=== PATIENT | male | born 1955 | race African-American/Black ===

== ENCOUNTER 2017-09-16 16:18 | Emergency (ER) | payer MEDICAID, MEDICARE, OTHER ==
[~2017-09-16] VITALS: Ht 165.1 cm; Wt 87.1 kg
[~2017-09-16 16:18] MED LIST: HYDROCODON-ACE1 EA15 ORAL; NEURONTIN100 MG ORAL; NORCO 5-325 TA1 EACH ORAL; ROBAXIN500 MG PO
[2017-09-16] MEDS ORDERED: Morphine Sulfate 4mg/ml Inj IM ONE (16:45)
[2017-09-16] MEDS ORDERED: ACETAMINOPHEN-1 EAC1 ORAL (17:55)
[2017-09-16] MEDS ORDERED: SUDAFED 12-HOU120 MG PO (17:55)
[2017-09-16] MEDS ORDERED: FLONASE SENSIM9.9 ML NS (17:55)
[2017-09-16 18:00] VITALS: BP 123/75
[2017-09-16] MEDS ORDERED: Tylenol #3 tab (300mg/30mg) ORAL ONE (18:00)
--- NOTE | 2017-09-16 21:41 | Emergency Room Report ---
History of Present Illness General Chief Complaint: Headache Source: Patient, Significant Other Present Illness HPI The patient is a 62-year-old male presenting for headache for the past 6 days. 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 He states that this began for no known reason. Pain is a 9/ 10 sharp sensation to the front of the head and does not radiate. Worse with head movement. He has used Tylenol at home which has not been helping.He does admit to nasal congestion. He denies other symptoms including fever, chills, CP , SOB, slurred speech, weakness Allergies: Coded Allergies: ASPIRIN (Unverified Allergy, Unknown, 10/31/14) IBUPROFEN (Unverified Allergy, Unknown, 04/10/14) Patient History Past Medical History: see triage record Pertinent Family History: none Reviewed Nursing Documentation: PMH: Agreed, PSxH: Agreed Nursing Documentation-PMH Hx Cardiac Problems: No - Blind both eyes, Thyroid prob Hx Hypertension: Yes Review of Systems All Other Systems: negative except mentioned in HPI Physical Exam Vital Signs Date Time Temp Pulse Resp B/P (MAP) Pulse Ox O2 Delivery O2 Flow Rate FiO2 09/16/17 16:25 98.3 81 18 120/77 95 98.2 09/16/17 18:00 Room Air Sp02 EP Interpretation: reviewed, normal General Appearance: no apparent distress, alert, GCS 15, non-toxic Head: normocephalic, atraumatic Eyes: bilateral eye Scleral Injection, bilateral eye other - blind bilat ENT: normal voice, uvula midline, nasal congestion, other - TTP over bilat frontal and maxillary sinuses Neck: full range of motion, supple/symm/no masses Cardiovascular #1: regular rate, rhythm, no edema Musculoskeletal: back normal, gait/station normal, normal range of motion, non- tender Neurologic: alert, oriented x3, responsive, motor strength/tone normal, sensory intact, speech normal Psychiatric: judgement/insight normal, memory normal, mood/affect normal, no suicidal/homicidal ideation Skin: normal color, no rash, warm/dry, well hydrated Medical Decision Making PA Attestation Dr. Saavedra is my supervising physician. Patient management was discussed with my supervising physician Diagnostic Impression: Primary Impression: Sinusitis Qualified Codes: J32.9 - Chronic sinusitis, unspecified ER Course The patient is a 62-year-old male presenting for headache for the past 6 days DDx considered but not limited to: Sinusitis, rhinitis, migraine CAMPBELL, CVA, among others PE: vitals WNL. NAD CN II-XII grossly intact TTP over bilat maxillary sinuses. + Nasal congestion RRR Lungs CTA bilat CT facial bones: Maxillary sinus mucosal thickening Pt was given pain medication and feels better. He is MT'ed home with prescription for sudafed, flonase, and pain medication. ER precautions given CT/MRI/US Diagnostic Results CT/MRI/US Diagnostic Results #1: Imaging Test Ordered: CT head Impression No acute findings CT/MRI/US Diagnostic Results #2: Imaging Test Ordered: CT facial bones Impression Maxillary sinus mucosal thickening Last Vital Signs Date Time Temp Pulse Resp B/P (MAP) Pulse Ox O2 Delivery O2 Flow Rate FiO2 09/16/17 18:01 98.3 09/16/17 18:00 87 18 123/75 99 09/16/17 18:00 Room Air Status: improved Disposition: HOME, SELF-CARE Condition: Improved Scripts Fluticasone Furoate (FLONASE SENSIMIST) 9.9 Ml [place].susp 1 SPRAYS NS DAILY, #10 ML Prov: DREAD CASTELLANO P.A. 09/16/17 Pseudoephedrine Hcl (SUDAFED 12-HOUR) 120 Mg Tablet.er 120 MG PO Q12HR, #20 TAB Prov: TERZIAN,DREAD P.A. 09/16/17 Acetaminophen With Codeine (T#3) (TYLENOL #3 TAB*) Y Tab 1 TAB ORAL Q6HR Y for For Pain, #10 TAB Prov: TERDANDREANDREAD P.A. 09/16/17 Patient Instructions: Sinus Headache Additional Instructions: I discussed my findings with the patient. All questions and concerns have been answered. Treatment and medication compliance have been addressed. I advised the patient that they need to follow up with PMD in 3-5 days. Return to ED if symptoms worsen, new symptoms arise, or if needed for any reason. Patient verbalized understanding of discharge instructions. DREAD CASTELLANO Sep 16, 2017 21:41
--- NOTE | 2017-09-17 09:44 | Diagnostic Imaging Report ---
Indication: Headache. Head trauma. Technique: Contiguous 5 mm thick transaxial imaging of the head obtained in a Siemens Sensation [address] scanner. Soft tissue and bone windows generated. Automatic Exposure Control was utilized. Total Dose length Product (DLP): 1849.[address] Dose Index Volume (CTDIvol): 70.38,28.19 mGy Comparison: 04/10/2014 Findings: There is mild prominence of the ventricles, basal cisterns, and cerebral sulci consistent with atrophy. Mild, nonspecific, white matter hypoattenuation is noted throughout the brain consistent with chronic small vessel disease. There is no midline shift, edema, acute hemorrhage, mass effect, or abnormal extra-axial fluid collections. Bones and extra osseous soft tissues are unremarkable. Impression: No acute intracranial bleed, mass effect or edema. Mild atrophy of the brain. Nonspecific white matter hypoattenuation probably due to chronic small vessel disease. The CT scanner at [facility] is accredited by the [employer] and the scans are performed using dose optimization techniques as appropriate to a performed exam including Automatic Exposure control.
--- NOTE | 2017-09-17 10:03 | Diagnostic Imaging Report ---
Indication: Orbital trauma. Facial pain and headache Technique: Continuous helical transaxial imaging of the maxillofacial structures obtained without intravenous contrast administration. Coronal 2-D reformats were also obtained. Study obtained in a Siemens sensation [address] Automatic Exposure Control was utilized. Total Dose length Product (DLP): 1849.[address] Dose Index Volume (CTDIvol): 70.38,28.19 mGy Comparison: None Findings: There is no evidence of an acute fracture. Paranasal sinuses and mastoids are clear. Soft tissues are unremarkable. There is no proptosis or retrobulbar hemorrhage. The preliminary reading by stat read suggested retrobulbar edema. This is probably artifactual. Please correlate clinically. Suggest follow-up if there is clinical concern. Some mucosal thickening noted within paranasal sinuses. There is a small left mary bullosa noted. IMPRESSION: No acute injury identified. [facility] has communicated the preliminary results to the Emergency Department. Their findings are largely concordant with this report. The CT scanner at [facility] is accredited by the [employer] and the scans are performed using dose optimization techniques as appropriate to a performed exam including Automatic Exposure control.
== END 2017-09-16 18:00 | disposition home or self-care (01) ==
LOC: EMR 16:50
DX: J32.9 Chronic sinusitis, unspecified (principal); R51 Headache; G31.9 Degenerative disease of nervous system, unspecified; H54.8 Legal blindness, as defined in USA; I10 Essential (primary) hypertension; Z88.6 Allergy status to analgesic agent
CPT/HCPCS: 70450; 70486; 96372; 99284; J2270

== ENCOUNTER 2017-09-26 10:36 | Emergency (ER) | payer MEDICARE ==
[~2017-09-26] VITALS: Ht 165.1 cm; Wt 89.8 kg
[~2017-09-26 10:36] MED LIST changes: +ACETAMINOPHEN-1 EAC1 ORAL; +FLONASE SENSIM9.9 ML NS; +SUDAFED 12-HOU120 MG PO
[2017-09-26 11:07] VITALS: BP 163/92
[2017-09-26] MEDS ORDERED: Morphine Sulfate 4mg/ml Inj IVP ONE ×2 (11:45→14:00)
[2017-09-26 12:27] LABS: ANION GAP 3 mmol/L (5-15); BLOOD UREA NITROGEN 8 mg/dL (7-18); CALCIUM 9.3 MG/DL (8.5-10.1); CARBON DIOXIDE 32 MMOL/L (21-32); CHLORIDE 103 MMOL/L (98-107); CREATININE 1.4 MG/DL (0.55-1.30); POTASSIUM 4.5 MMOL/L (3.5-5.1); SODIUM 138 MMOL/L (136-145)
[2017-09-26] MEDS ORDERED: Tetracaine 0.5% Opth 4ml Soln RIGHT EYE ONE (12:30)
[2017-09-26 12:31] LABS: ALANINE AMINOTRANSFERASE 22 U/L (12-78); ALBUMIN 3.5 G/DL (3.4-5.0); ALKALINE PHOSPHATASE 73 U/L (46-116); ASPARTATE AMINO TRANSFERASE 14 U/L (15-37); BILIRUBIN,TOTAL 0.6 MG/DL (0.2-1.0)
[2017-09-26 12:46] LABS: BASOPHILS % (AUTO) 1.6 % (0.0-2.0); HEMATOCRIT 48.2 % (42.0-52.0); LYMPHOCYTES % (AUTO) 32.4 % (20.0-45.0); MEAN CORPUSCULAR VOLUME 89 FL (80-99); MONOCYTES % (AUTO) 8.7 % (1.0-10.0); NEUTROPHILS % (AUTO) 56.4 % (45.0-75.0); PLATELET COUNT 205 K/UL (150-450); RED BLOOD COUNT 5.45 M/UL (4.70-6.10); RED CELL DISTRIBUTION WIDTH 13.1 % (11.6-14.8); WHITE BLOOD COUNT 8.1 K/UL (4.8-10.8)
[2017-09-26] MEDS ORDERED: Fluorescein Strips RIGHT EYE ONE (13:15)
[2017-09-26] MEDS ORDERED: DiphenhydrAMINE 50mg/ml Inj IVP ONE (14:15)
--- NOTE | 2017-09-26 14:28 | Diagnostic Imaging Report ---
Indication: headache Technique: Continuous helical transaxial imaging of the neck was obtained from the aortic arch to the skull base during rapid intravenous contrast administration. Arterial phase of enhancement obtained. Coronal 2-D reformats were also obtained and maximum intensity projection images in multiple planes. Study obtained in a Siemens sensation [address] Automatic Exposure Control was utilized. Total Dose length Product (DLP): 3702.[address] Dose Index Volume (CTDIvol): 70.38,54.98,54.98 mGy Comparison: None Findings: Intracranial portions of the internal carotid arteries appear normal. No major occlusion or significant stenosis identified with regard to the major intracranial vessels including the anterior, middle and posterior cerebral arteries. Intracranial parts of the vertebral arteries are unremarkable. Basilar artery is unremarkable. There is no vascular malformation or aneurysm identified. Persistent origin vessel demonstrated on the left giving rise to the left posterior cerebral artery. IMPRESSION: Negative CTA of the head The CT scanner at [facility] is accredited by the [employer] and the scans are performed using dose optimization techniques as appropriate to a performed exam including Automatic Exposure control.
[2017-09-26] MEDS ORDERED: Latanoprost 0.005% Opth 2.5ml Soln RIGHT EYE ONE (15:15)
[2017-09-26] MEDS ORDERED: acetaZOLAMIDE 500mg Inj IVP ONE (15:15)
[2017-09-26] MEDS ORDERED: Brimonidine 0.2% Opth Sol RIGHT EYE ONE (15:15)
[2017-09-26] MEDS ORDERED: COMBIGAN EYE DRO5 ML BOTH EYES (16:57)
[2017-09-26 17:05] VITALS: BP 147/88
--- NOTE | 2017-09-26 17:12 | Emergency Room Report ---
History of Present Illness General Chief Complaint: Headache Source: Patient, Medical Record Present Illness HPI 62-year-old male presents ED for evaluation. at bedside states the patient has been having a persistent headache for the last 2 weeks. Was seen here approximately 2 weeks ago for similar headache and was diagnosed with sinusitis and was discharged with medications. Patient was seen by PMD recently and was prescribed antibiotics for presumed sinusitis. Patient states the headache has not resolved. Throbbing, right side of head, 8 out of 10, nonradiating. Denies photophobia or blurry vision. Patient is blind in both eyes since 2002. Patient states it was due to a surgery that "went wrong". Denies fevers or chills or neck stiffness. No other aggravating or relieving factors. Denies any other signs and symptoms Allergies: Coded Allergies: ASPIRIN (Unverified Allergy, Unknown, 10/31/14) IBUPROFEN (Unverified Allergy, Unknown, 04/10/14) Patient History Past Medical History: HTN Past Surgical History: none Pertinent Family History: none Social History: Denies: smoking, alcohol use, drug use Immunizations: UTD Reviewed Nursing Documentation: PMH: Agreed, PSxH: Agreed Nursing Documentation-PMH Past Medical History: No History, Except For Hx Cardiac Problems: No - Blind both eyes, Thyroid prob Hx Hypertension: Yes Review of Systems All Other Systems: negative except mentioned in HPI Physical Exam Vital Signs Date Time Temp Pulse Resp B/P (MAP) Pulse Ox O2 Delivery O2 Flow Rate FiO2 09/26/17 10:47 97.8 102 18 163/92 96 Room Air 97.9 Sp02 EP Interpretation: reviewed, normal General Appearance: no apparent distress, alert, GCS 15, non-toxic Head: normocephalic, atraumatic Eyes: bilateral eye visual acuity - blind in both eyes, bilateral eye Scleral Injection ENT: hearing grossly normal, normal pharynx, no angioedema, normal voice Neck: full range of motion, supple/symm/no masses Respiratory: chest non-tender, lungs clear, normal breath sounds, speaking full sentences Cardiovascular #1: regular rate, rhythm, no edema Cardiovascular #2: 2+ carotid (R), 2+ carotid (L), 2+ radial (R), 2+ radial (L) , 2+ dorsalis pedis (R), 2+ dorsalis pedis (L) Gastrointestinal: normal bowel sounds, non tender, soft, non-distended, no guarding, no rebound Rectal: deferred Genitourinary: normal inspection, no CVA tenderness Musculoskeletal: back normal, gait/station normal, normal range of motion, non- tender Neurologic: alert, oriented x3, responsive, motor strength/tone normal, sensory intact, speech normal Psychiatric: judgement/insight normal, memory normal, mood/affect normal, no suicidal/homicidal ideation Reflexes: 3+ bicep (R), 3+ bicep (L), 3+ tricep (R), 3+ tricep (L), 3+ knee (R) , 3+ knee (L) Skin: normal color, no rash, warm/dry, well hydrated Lymphatic: no adenopathy Medical Decision Making Diagnostic Impression: Primary Impression: Glaucoma (increased eye pressure) Qualified Codes: H40.9 - Unspecified glaucoma ER Course Hospital Course 62-year-old male presents ED with headache 2 weeks. Differential diagnoses include: tension headache, migraine, dehydration, intracranial bleed Clinical course Patient placed on stretcher. After initial history and physical I ordered labs , IV fluids, pain meds, CTA head On review of EMR patient has CT head last time and CT facial bones which were unremarkable Labs reviewed- electrolytes okay, no leukocytosis, hemoglobin/hematocrit stable CT angio today unremarkable Mckay pressures in left eye in the 20s, in the right eye in the 40s. Concern for glaucoma. Consulted with ophthalmology over the phone. Given Diamox, timolol, alphagan here now returns to bedside and states that patient does have history of glaucoma. Is not compliant with his medication (Lumigan) On reassessment headache is now resolved. Discussed the importance of compliance with his medications i. I feel this is a highly complex case requiring extensive working including EKG/Rhythm strip, Xray/CT/US, Blood/urine lab work, repeat exams while in ED, and administration of strong opiates/narcotics for pain control, admission to hospital or close patient follow up. Diagnosis - glaucoma stable and discharged to home with Rx Combigan. continue Lumigan as directed. f /up with PMD/Optho Rreturn to ED if symptoms recur/worsen. Labs Test 09/26/17 11:54 White Blood Count 8.1 K/UL (4.8-10.8) Red Blood Count 5.45 M/UL (4.70-6.10) Hemoglobin 16.0 G/DL (14.2-18.0) Hematocrit 48.2 % (42.0-52.0) Mean Corpuscular Volume 89 FL (80-99) Mean Corpuscular Hemoglobin 29.4 PG (27.0-31.0) Mean Corpuscular Hemoglobin Concent 33.3 G/DL (32.0-36.0) Red Cell Distribution Width 13.1 % (11.6-14.8) Platelet Count 205 K/UL (150-450) Mean Platelet Volume 7.2 FL (6.5-10.1) Neutrophils (%) (Auto) 56.4 % (45.0-75.0) Lymphocytes (%) (Auto) 32.4 % (20.0-45.0) Monocytes (%) (Auto) 8.7 % (1.0-10.0) Eosinophils (%) (Auto) 1.0 % (0.0-3.0) Basophils (%) (Auto) 1.6 % (0.0-2.0) Sodium Level 138 MMOL/L (136-145) Potassium Level 4.5 MMOL/L (3.5-5.1) Chloride Level 103 MMOL/L (98-107) Carbon Dioxide Level 32 MMOL/L (21-32) Anion Gap 3 mmol/L (5-15) Blood Urea Nitrogen 8 mg/dL (7-18) Creatinine 1.4 MG/DL (0.55-1.30) Estimat Glomerular Filtration Rate > 60 mL/min (>60) Glucose Level 90 MG/DL (74-106) Calcium Level 9.3 MG/DL (8.5-10.1) Total Bilirubin 0.6 MG/DL (0.2-1.0) Aspartate Amino Transf (AST/SGOT) 14 U/L (15-37) Alanine Aminotransferase (ALT/SGPT) 22 U/L (12-78) Alkaline Phosphatase 73 U/L (46-116) Total Protein 6.9 G/DL (6.4-8.2) Albumin 3.5 G/DL (3.4-5.0) Globulin 3.4 g/dL Albumin/Globulin Ratio 1.0 (1.0-2.7) CT/MRI/US Diagnostic Results CT/MRI/US Diagnostic Results : Imaging Test Ordered: CT Head Impression no acute process Last Vital Signs Date Time Temp Pulse Resp B/P (MAP) Pulse Ox O2 Delivery O2 Flow Rate FiO2 09/26/17 14:08 97.9 09/26/17 11:07 18 163/92 96 Room Air 09/26/17 10:47 102 Status: improved Disposition: HOME, SELF-CARE Condition: Stable Scripts Brimonidine Tartrate/Timolol (COMBIGAN EYE DROPS) 5 Ml Drops 1 DROP BOTH EYES BID, #5 ML Prov: EMELY MUÑOZ M.D. 09/26/17 [facility],REFERRING (PCP) Patient Instructions: Glaucoma, [id number] EMELY MUÑOZ M.D. Sep 26, 2017 17:12
[2017-09-26] MEDS ORDERED: Timolol 0.5% Op Soln 2.5ml RIGHT EYE SCH (18:00)
== END 2017-09-26 17:05 | disposition home or self-care (01) ==
LOC: EMR 12:45 → CANBEDREQ 16:56 → EMR 17:05
DX: H40.9 Unspecified glaucoma (principal); I10 Essential (primary) hypertension; Z88.6 Allergy status to analgesic agent; H54.8 Legal blindness, as defined in USA
CPT/HCPCS: 36415; 70496; 80053; 85025; 96374; 96375; 99284; J0780; J1120; J1200; J2270; Q9967

== ENCOUNTER 2018-10-31 11:10 | Emergency (ER) | payer MEDICAID, MEDICARE, OTHER ==
[~2018-10-31] VITALS: Ht 165.1 cm; Wt 84.8 kg
[~2018-10-31 11:10] MED LIST changes: +COMBIGAN EYE DRO5 ML BOTH EYES
--- NOTE | 2018-10-31 11:37 | NUR ---
ED Nurse Note: pt blind came in with c/o abd pain for 4 weeks. ermd eval done awaiting orders.
[2018-10-31] MEDS ORDERED: Isovue-300 100ml vial INJ PRN (12:00)
[2018-10-31] MEDS ORDERED: Morphine Sulfate 4mg/ml Inj (IV USE ONLY) IVP ONE ×2 (12:00→13:45)
[2018-10-31 12:06] VITALS: BP 152/97
[2018-10-31 12:28] LABS: APPEARANCE,URINE SLIGHTLY CLOUDY; BILIRUBIN, URINE 1+ (NEGATIVE); COLOR,URINE BROWN; GLUCOSE, URINE (UA) NEGATIVE (NEGATIVE); KETONES,URINE 2+ (NEGATIVE); LEUKOCYTE ESTERASE ,URINE 2+ (NEGATIVE); NITRITE,URINE POSITIVE (NEGATIVE); PH,URINE 6.5 (4.5-8.0); PROTEIN,URINE 3+ (NEGATIVE); UROBILINOGEN,URINE 8 MG/DL (0.0-1.0)
[2018-10-31 12:37] LABS: BASOPHILS % (AUTO) 1.3 % (0.0-2.0); EOSINOPHILS % (AUTO) 1.5 % (0.0-3.0); HEMATOCRIT 48.8 % (42.0-52.0); HEMOGLOBIN 15.4 G/DL (14.2-18.0); LYMPHOCYTES % (AUTO) 32.1 % (20.0-45.0); MEAN CORPUSCULAR VOLUME 86 FL (80-99); MONOCYTES % (AUTO) 6.7 % (1.0-10.0); NEUTROPHILS % (AUTO) 58.5 % (45.0-75.0); PLATELET COUNT 244 K/UL (150-450); RED BLOOD COUNT 5.69 M/UL (4.70-6.10); RED CELL DISTRIBUTION WIDTH 13.6 % (11.6-14.8)
--- NOTE | 2018-10-31 12:41 | NUR ---
ED Nurse Note:blood and urine sent to labs, given pain meds and IV fluids
[2018-10-31 12:43] LABS: ANION GAP 7 mmol/L (5-15); BLOOD UREA NITROGEN 13 mg/dL (7-18); CALCIUM 9.1 MG/DL (8.5-10.1); CARBON DIOXIDE 31 MMOL/L (21-32); CHLORIDE 102 MMOL/L (98-107); CREATININE 1.3 MG/DL (0.55-1.30); POTASSIUM 4.3 MMOL/L (3.5-5.1); SODIUM 140 MMOL/L (136-145)
[2018-10-31 12:47] LABS: ALANINE AMINOTRANSFERASE 23 U/L (12-78); ALBUMIN 3.6 G/DL (3.4-5.0); ALBUMIN/GLOBULIN RATIO 0.9 (1.0-2.7); ALKALINE PHOSPHATASE 88 U/L (46-116); ASPARTATE AMINO TRANSFERASE 19 U/L (15-37); BILIRUBIN,TOTAL 0.6 MG/DL (0.2-1.0)
--- NOTE | 2018-10-31 13:23 | NUR ---
ED Nurse Note: pt is down to imaging.
--- NOTE | 2018-10-31 13:30 | NUR ---
ED Nurse Note: pt back from imaging placed on monitor.
--- NOTE | 2018-10-31 13:57 | Diagnostic Imaging Report ---
Clinical Indication: Abdominal pain for 4 weeks Technique: No oral contrast utilized, per emergency room physician request IV administration nonionic contrast. Venous phase spiral acquisition obtained through the abdomen and pelvis. Multiplanar reconstructions were generated. Total dose length product 883.84 mGycm. CTDIvol(s) 16.58,11.22 mGy. Dose reduction achieved using automated exposure control Comparison: none Findings: The liver demonstrates multiple subcentimeter low-attenuation lesions which are too small to characterize. The gallbladder, bile ducts, pancreas, spleen, left adrenal are unremarkable. The kidneys demonstrate a cyst on the right, and subcentimeter low-attenuation lesions on the left which are too small to characterize. The right adrenal demonstrates a 2.4 cm mass which demonstrates a somewhat high attenuation center, peripheral lower attenuation, and then a higher attenuation capsule. This demonstrates nonspecific attenuation. No retroperitoneal or mesenteric mass or adenopathy. No pelvic mass or adenopathy. The bladder demonstrates a somewhat polypoid appearance to the posterior wall to the right of midline, with an endophytic protrusion measuring approximately 15 x 8 mm. No evidence of colonic diverticulosis or diverticulitis. The appendix is normal. No small bowel distention. No free or loculated intraperitoneal gas or fluid is evident. There is a small broad-based umbilical hernia which contains fat and the edge of a knuckle of small bowel. The included lung bases are clear. The bones demonstrate degenerative changes of the lumbosacral junction. Impression: Possible polypoid mass in the bladder lumen. Further investigation with cystoscopy should be considered. 2.4 cm right adrenal mass. Possibly a myelolipoma, but appearance is nonspecific and other etiologies should be considered. Consider adrenal protocol MRI for better characterization Right renal cyst. Subcentimeter low-attenuation liver and renal lesions, too small to characterize, most likely benign simple cysts. No further follow-up necessary Small broad-based umbilical hernia containing mostly fat and the edge of a knuckle of small bowel. No evidence of obstruction or strangulation Other findings as noted, including lumbosacral spondylosis, posterior pulmonary dependent atelectatic changes The CT scanner at [facility] is accredited by the [employer] and the scans are performed using protocols designed to limit radiation exposure to as low as reasonably achievable to attain images of sufficient resolution adequate for diagnostic evaluation.
[2018-10-31 14:00] VITALS: BP 163/95
--- NOTE | 2018-10-31 14:03 | Emergency Room Report ---
History of Present Illness General Chief Complaint: Abdominal Pain Source: Patient Present Illness HPI 63-year-old male presents ED for evaluation. Patient complaining of abdominal pain for the last 3 weeks. States that he was seen by his PMD end of September and was prescribed pain meds but states the symptoms are not improving. Went to PMD office today and was told to come to the ER. Pain is sharp, 10 out of 10, nonradiating. Denies nausea or vomiting. Denies fevers or chills. Denies chest pain or shortness of breath. No other aggravating relieving factors. Denies any other associated symptoms Allergies: Coded Allergies: ASPIRIN (Unverified Allergy, Unknown, 10/31/14) IBUPROFEN (Unverified Allergy, Unknown, 04/10/14) Patient History Past Medical History: HTN Past Surgical History: none Pertinent Family History: none Social History: Denies: smoking, alcohol use, drug use Immunizations: UTD Reviewed Nursing Documentation: PMH: Agreed; PSxH: Agreed Nursing Documentation-PMH Past Medical History: No History, Except For Hx Cardiac Problems: No - Blind both eyes, Thyroid prob Hx Hypertension: Yes Review of Systems All Other Systems: negative except mentioned in HPI Physical Exam Vital Signs Date Time Temp Pulse Resp B/P (MAP) Pulse Ox O2 Delivery O2 Flow Rate FiO2 10/31/18 11:21 98.1 71 20 152/97 95 Room Air Sp02 EP Interpretation: reviewed, normal General Appearance: no apparent distress, alert, GCS 15, non-toxic Head: normocephalic, atraumatic Eyes: bilateral eye normal inspection, bilateral eye PERRL ENT: hearing grossly normal, normal pharynx, no angioedema, normal voice Neck: full range of motion, supple/symm/no masses Respiratory: chest non-tender, lungs clear, normal breath sounds, speaking full sentences Cardiovascular #1: regular rate, rhythm, no edema Cardiovascular #2: 2+ carotid (R), 2+ carotid (L), 2+ radial (R), 2+ radial (L) , 2+ dorsalis pedis (R), 2+ dorsalis pedis (L) Gastrointestinal: distended, tenderness Rectal: deferred Genitourinary: normal inspection, no CVA tenderness Musculoskeletal: back normal, gait/station normal, normal range of motion, non- tender Neurologic: alert, oriented x3, responsive, motor strength/tone normal, sensory intact, speech normal Psychiatric: judgement/insight normal, memory normal, mood/affect normal, no suicidal/homicidal ideation Reflexes: 3+ bicep (R), 3+ bicep (L), 3+ tricep (R), 3+ tricep (L), 3+ knee (R) , 3+ knee (L) Skin: normal color, no rash, warm/dry, well hydrated Lymphatic: no adenopathy Medical Decision Making Diagnostic Impression: Primary Impression: Bladder mass ER Course Hospital Course 8`-year-old M presents to ED with abdominal pain Differential diagnosis includes-appendicitis, cholecystitis, small bowel obstruction, gastritis, Clinical course Patient placed on stretcher. After initial history and physical I ordered labs , IV fluids, pain medications and CT scan Labs - no leukocytosis, electrolytes ok , LFTs normal, UA + bacteria + blood CT scan shows some mass in bladder Discussed findings with patient. concern for neoplasm in bladder. patient notes history of smoking. discussed option for admission regarding pain, but patient prefers discharge. patient will be referred to urology. I feel this is a highly complex case requiring extensive working including EKG/ Rhythm strip, Xray/CT/US, Blood/urine lab work, repeat exams while in ED, and administration of strong opiates/narcotics for pain control, admission to hospital or close patient follow up. Diagnosis - bladder mass Stable and discharged to home. Followup with PMD/urology. Return to ED if symptoms recur or worsen Labs Test 10/31/18 12:00 White Blood Count 7.0 K/UL (4.8-10.8) Red Blood Count 5.69 M/UL (4.70-6.10) Hemoglobin 15.4 G/DL (14.2-18.0) Hematocrit 48.8 % (42.0-52.0) Mean Corpuscular Volume 86 FL (80-99) Mean Corpuscular Hemoglobin 27.1 PG (27.0-31.0) Mean Corpuscular Hemoglobin Concent 31.6 G/DL (32.0-36.0) Red Cell Distribution Width 13.6 % (11.6-14.8) Platelet Count 244 K/UL (150-450) Mean Platelet Volume 7.0 FL (6.5-10.1) Neutrophils (%) (Auto) 58.5 % (45.0-75.0) Lymphocytes (%) (Auto) 32.1 % (20.0-45.0) Monocytes (%) (Auto) 6.7 % (1.0-10.0) Eosinophils (%) (Auto) 1.5 % (0.0-3.0) Basophils (%) (Auto) 1.3 % (0.0-2.0) Urine Color Brown Urine Appearance Slightly cloudy Urine pH 6.5 (4.5-8.0) Urine Specific Printer 1.020 (1.005-1.035) Urine Protein 3+ (NEGATIVE) Urine Glucose (UA) Negative (NEGATIVE) Urine Ketones 2+ (NEGATIVE) Urine Blood 5+ (NEGATIVE) Urine Nitrite Positive (NEGATIVE) Urine Bilirubin 1+ (NEGATIVE) Urine Ictotest Negative (NEGATIVE) Urine Urobilinogen 8 MG/DL (0.0-1.0) Urine Leukocyte Esterase 2+ (NEGATIVE) Urine RBC Tntc /HPF (0 - 0) Urine WBC 2-4 /HPF (0 - 0) Urine Squamous Epithelial Cells Occasional /LPF Urine Bacteria Few /HPF (NONE) Sodium Level 140 MMOL/L (136-145) Potassium Level 4.3 MMOL/L (3.5-5.1) Chloride Level 102 MMOL/L (98-107) Carbon Dioxide Level 31 MMOL/L (21-32) Anion Gap 7 mmol/L (5-15) Blood Urea Nitrogen 13 mg/dL (7-18) Creatinine 1.3 MG/DL (0.55-1.30) Estimat Glomerular Filtration Rate > 60 mL/min (>60) Glucose Level 103 MG/DL (74-106) Calcium Level 9.1 MG/DL (8.5-10.1) Total Bilirubin 0.6 MG/DL (0.2-1.0) Aspartate Amino Transf (AST/SGOT) 19 U/L (15-37) Alanine Aminotransferase (ALT/SGPT) 23 U/L (12-78) Alkaline Phosphatase 88 U/L (46-116) Total Protein 7.6 G/DL (6.4-8.2) Albumin 3.6 G/DL (3.4-5.0) Globulin 4.0 g/dL Albumin/Globulin Ratio 0.9 (1.0-2.7) Lipase 252 U/L (73-393) Last Vital Signs Date Time Temp Pulse Resp B/P (MAP) Pulse Ox O2 Delivery O2 Flow Rate FiO2 10/31/18 12:06 98.1 20 152/97 95 Room Air 10/31/18 12:06 71 Status: improved Disposition: HOME, SELF-CARE Condition: Stable Scripts Acetaminophen With Codeine (T#3) (TYLENOL #3 TAB*) Y Tab 1 TAB ORAL Q6HR PRN for For Pain, #10 TAB Prov: Wu Capps MD 10/31/18 Hydrocodone Bit/Acetaminophen 10-325* (NORCO 10-325*) 1 Each Tablet 1 TAB ORAL Q6H PRN for For Pain, #15 TAB 0 Refills PRN PAIN Prov: Wu Capps MD 10/31/18 Referrals: NON PHYSICIAN (PCP) Jem Lord MD Oct 31, 2018 14:03
[2018-10-31] MEDS ORDERED: cefTRIAXone 1 GM in NS 55 ML IVPB ONE (14:45)
--- NOTE | 2018-10-31 14:50 | NUR ---
ED Nurse Note: meds well tolerated pt provided with sandwich and food ermd aware.
[2018-10-31] MEDS ORDERED: NORCO 10-325 T1 EACH ORAL (15:38)
[2018-10-31] MEDS ORDERED: ACETAMINOPHEN-1 EAC1 ORAL (15:42)
[2018-10-31 16:40] VITALS: BP 148/96
[2018-10-31 16:55] VITALS: BP 148/96
--- NOTE | 2018-10-31 16:55 | NUR ---
ED Nurse Note: pt given aci and script verbalized understanding iv removed pt and spouse verbalized understanding ambulated out of er with strong and steady gait.
== END 2018-10-31 16:55 | disposition home or self-care (01) ==
LOC: EMR 11:40 → EDBEDREQ 15:55 → CANBEDREQ 16:08 → EMR 16:55
DX: N32.9 Bladder disorder, unspecified (principal); I10 Essential (primary) hypertension; H54.7 Unspecified visual loss; Z88.6 Allergy status to analgesic agent; N28.1 Cyst of kidney, acquired; K42.9 Umbilical hernia without obstruction or gangrene
CPT/HCPCS: 36415; 74177; 80053; 81003; 83690; 85025; 96361; 96365; 96375; 96376; 99284; J0696; J2270; J2405; Q9967; S0028

== ENCOUNTER 2019-01-24 08:20 | Emergency (ER) | payer MEDICARE, OTHER ==
[~2019-01-24] VITALS: Ht 165.1 cm; Wt 85.3 kg
[~2019-01-24 08:20] MED LIST changes: +NORCO 10-325 T1 EACH ORAL
--- NOTE | 2019-01-24 08:25 | NUR ---
Note undone in EDM - 01/24/19 at 0840 by JUDI ED Nurse Note: PT WALKED IN TO ER TODAY FROM HOME. AOX4. PT C/O LOWER ABDOMINAL PAIN AND HEMATURIA X NOVEMBER 2018. PT C/O PAIN EXACERBATION X 2 DAYS AGO - PAIN 05/01 AT THIS TIME. PT STATES HE IS SCHEDULED FOR BLADDER SURGERY TO ADDRESS HEMATURIA 01/29/19. PT C/O NAUSEA AND VOMITING AND STATES HE HAS BEEN UNABLE TO EAT DUE TO VOMITING. PT DENIES DIARRHEA. ABDOMEN APPEARS SLIGHTLY DISTENDED AND IS TENDER TO PALPATION. ACTIVE BOWEL SOUNDS IN ALL QUADRANTS.
--- NOTE | 2019-01-24 08:25 | NUR ---
ED Nurse Note: PT WALKED IN TO ER TODAY FROM HOME. AOX4. PT C/O LOWER ABDOMINAL PAIN AND HEMATURIA X NOVEMBER 2018. PT C/O PAIN EXACERBATION X 2 DAYS AGO - PAIN 05/01 AT THIS TIME. PT STATES HE IS SCHEDULED FOR BLADDER SURGERY TO ADDRESS HEMATURIA 01/29/19. PT C/O NAUSEA AND VOMITING AND STATES HE HAS BEEN UNABLE TO EAT DUE TO VOMITING. PT DENIES DIARRHEA. ABDOMEN APPEARS SLIGHTLY DISTENDED AND IS TENDER TO PALPATION. ACTIVE BOWEL SOUNDS IN ALL QUADRANTS. PT DENIES DIFFICULTY URINATING BUT DOES C/O BURNING SENSATION WHEN URINATING.
[2019-01-24 08:27] VITALS: BP 158/127
[2019-01-24] MEDS ORDERED: Morphine Sulfate 4mg/ml Inj (IV USE ONLY) IVP ONE (08:45)
[2019-01-24] MEDS ORDERED: Isovue-300 100ml vial INJ PRN (08:45)
[2019-01-24 08:48] LABS: BASOPHILS % (AUTO) 1.6 % (0.0-2.0); EOSINOPHILS % (AUTO) 1.1 % (0.0-3.0); HEMATOCRIT 42.2 % (42.0-52.0); HEMOGLOBIN 13.2 G/DL (14.2-18.0); LYMPHOCYTES % (AUTO) 27.4 % (20.0-45.0); MEAN CORPUSCULAR VOLUME 88 FL (80-99); MONOCYTES % (AUTO) 10.6 % (1.0-10.0); NEUTROPHILS % (AUTO) 59.4 % (45.0-75.0); PLATELET COUNT 266 K/UL (150-450); RED BLOOD COUNT 4.78 M/UL (4.70-6.10); RED CELL DISTRIBUTION WIDTH 13.5 % (11.6-14.8); WHITE BLOOD COUNT 9.8 K/UL (4.8-10.8)
[2019-01-24 08:50] LABS: APPEARANCE,URINE TURBID; BILIRUBIN, URINE NEGATIVE (NEGATIVE); GLUCOSE, URINE (UA) NEGATIVE (NEGATIVE); KETONES,URINE NEGATIVE (NEGATIVE); LEUKOCYTE ESTERASE ,URINE 2+ (NEGATIVE); NITRITE,URINE NEGATIVE (NEGATIVE); PH,URINE 7 (4.5-8.0); PROTEIN,URINE 3+ (NEGATIVE); UROBILINOGEN,URINE 4 MG/DL (0.0-1.0)
[2019-01-24 08:54] LABS: ANION GAP 8 mmol/L (5-15); BLOOD UREA NITROGEN 11 mg/dL (7-18); CALCIUM 9.6 MG/DL (8.5-10.1); CARBON DIOXIDE 30 MMOL/L (21-32); CHLORIDE 107 MMOL/L (98-107); CREATININE 1.8 MG/DL (0.55-1.30); INR 0.9 (0.9-1.1); POTASSIUM 5.5 MMOL/L (3.5-5.1); SODIUM 145 MMOL/L (136-145)
[2019-01-24 08:55] LABS: COLOR,URINE RED
[2019-01-24 08:58] LABS: ALANINE AMINOTRANSFERASE 26 U/L (12-78); ALBUMIN 3.4 G/DL (3.4-5.0); ALBUMIN/GLOBULIN RATIO 0.9 (1.0-2.7); ALKALINE PHOSPHATASE 94 U/L (46-116); ASPARTATE AMINO TRANSFERASE 19 U/L (15-37); BILIRUBIN,TOTAL 0.4 MG/DL (0.2-1.0)
[2019-01-24] MEDS ORDERED: ENALAPRIL-HCTZ1 EACH ORAL (09:04)
[2019-01-24] MEDS ORDERED: XALATAN2.5 ML BOTH EYES (09:04)
[2019-01-24] MEDS ORDERED: DORZOLAMIDE 2%10 ML OP (09:04)
[2019-01-24] MEDS ORDERED: BRIMONIDINE TART5 ML BOTH EYES (09:04)
[2019-01-24] MEDS ORDERED: CYCLOMYDRIL EYE5 ML OP (09:04)
--- NOTE | 2019-01-24 09:10 | NUR ---
ED Nurse Note: PT TO CT VIA COY.
--- NOTE | 2019-01-24 09:34 | NUR ---
ED Nurse Note: PT BACK FROM CT VIA [facility].
--- NOTE | 2019-01-24 10:43 | Diagnostic Imaging Report ---
Indication: Abdominal pain. Suprapubic pain. Hematuria Technique: Continuous helical transaxial imaging of the abdomen and pelvis was obtained from the lung bases to the pubic symphysis during intravenous contrast administration. Coronal 2-D reformats were also obtained. Study obtained in a Siemens sensation [address] Automatic Exposure Control was utilized. Total Dose length Product (DLP): 694.[address] Dose Index Volume (CTDIvol): 14.36 mGy Comparison: CT abdomen pelvis 10/31/2018 Findings: There is a 4 x 3 cm polypoid enhancing mass at the base of the urinary bladder on the right. The mass was seen previously but has increased in size. There is new right hydroureteronephrosis, moderate in degree secondary to the mass involves the right ureterovesical junction. Findings are concerning for malignant tumor. Correlate with the cystoscopy. Due to the hydronephrosis and obstruction there is delayed enhancement of the right kidney relative to the left. There are small nodes in the retroperitoneum nonspecific. No significant adenopathy appreciated. Low-density lesions within the liver probably cystic and appear grossly similar to the prior study. There are multiple bilateral renal cysts. There is a low-density 2.4 cm right adrenal mass demonstrated, unchanged, probably representing an adenoma. Normal appendix noted. Bowel gas pattern is nonobstructive. There is no ascites. Aortoiliac calcifications are present. Degenerative disc disease demonstrated at L5-S1 with vacuum phenomena and suggestion of spinal stenosis foraminal stenosis. IMPRESSION: Interval enlargement of a 4 x 3 x 3 cm polypoid mass, suspicious for malignant tumor involving the right posterior bladder wall now associated with the development of moderate right hydroureteronephrosis due to obstruction. Cystoscopy was recommended on the previous CT 10/31/2018. Low-density 2.4 cm right adrenal mass unchanged probably adenoma. Multiple liver and the bilateral renal cysts. Degenerative disc disease at L5-S1 Small umbilical hernia containing fat. Atherosclerotic vascular disease. The CT scanner at [facility] is accredited by the [employer] and the scans are performed using dose optimization techniques as appropriate to a performed exam including Automatic Exposure control.
--- NOTE | 2019-01-24 11:30 | NUR ---
ED Nurse Note: PT'S BP ELEVATED - DR. MUÑOZ NOTIFIED.
--- NOTE | 2019-01-24 11:49 | Emergency Room Report ---
History of Present Illness General Chief Complaint: Abdominal Pain Source: Patient Present Illness HPI 64-year-old male presents ED for evaluation. Patient brought in by for abdominal pain. States that he was seen here in October and was diagnosed with bladder cancer. States he is scheduled for a procedure next week at [facility]. States that his pain became worse today so he came to the ER. States his pain medications are not helping. Pain is sharp, 10 out of 10, nonradiating. Also noting hematuria. No other aggravating relieving factors. Denies any other associated symptoms Allergies: Coded Allergies: ASPIRIN (Unverified Allergy, Unknown, 10/31/14) IBUPROFEN (Unverified Allergy, Unknown, 04/10/14) Patient History Past Medical History: HTN Past Surgical History: none Pertinent Family History: none Social History: Denies: smoking, alcohol use, drug use Immunizations: UTD Reviewed Nursing Documentation: PMH: Agreed; PSxH: Agreed Nursing Documentation-PMH Past Medical History: No History, Except For Hx Hypertension: Yes Review of Systems All Other Systems: negative except mentioned in HPI Physical Exam Vital Signs Date Time Temp Pulse Resp B/P (MAP) Pulse Ox O2 Delivery O2 Flow Rate FiO2 01/24/19 08:23 98.8 97 21 158/127 (137) 100 Room Air Sp02 EP Interpretation: reviewed, normal General Appearance: alert, GCS 15, non-toxic, mild distress Head: normocephalic, atraumatic Eyes: bilateral eye normal inspection, bilateral eye PERRL ENT: hearing grossly normal, normal pharynx, no angioedema, normal voice Neck: full range of motion, supple/symm/no masses Respiratory: chest non-tender, lungs clear, normal breath sounds, speaking full sentences Cardiovascular #1: regular rate, rhythm, no edema Cardiovascular #2: 2+ carotid (R), 2+ carotid (L), 2+ radial (R), 2+ radial (L) , 2+ dorsalis pedis (R), 2+ dorsalis pedis (L) Gastrointestinal: normal bowel sounds, soft, non-distended, no guarding, no rebound, tenderness - suprapubic Rectal: deferred Genitourinary: normal inspection, no CVA tenderness Musculoskeletal: back normal, gait/station normal, normal range of motion, non- tender Neurologic: alert, oriented x3, responsive, motor strength/tone normal, sensory intact, speech normal Psychiatric: judgement/insight normal, memory normal, mood/affect normal, no suicidal/homicidal ideation Reflexes: 3+ bicep (R), 3+ bicep (L), 3+ tricep (R), 3+ tricep (L), 3+ knee (R) , 3+ knee (L) Lymphatic: no adenopathy Medical Decision Making Diagnostic Impression: Primary Impression: Bladder pain Additional Impressions: Hydronephrosis Qualified Codes: N13.30 - Unspecified hydronephrosis Renal insufficiency Hematuria Qualified Codes: R31.9 - Hematuria, unspecified ER Course Hospital Course 64-year-old male presents to ED with abd pain and hematuria. 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 Cr 1.8. UA + blood. CT abdomen and pelvis -lateral mass which appears larger in size from prior CT also causing right-sided hydronephrosis from mass-effect Discussed with the urologist at [facility]. He recommended that patient be transferred to [facility] where he has privileges. Due to insurance patient will be transferred to [facility] I feel this is a highly complex case requiring extensive working including EKG/ Rhythm strip, Xray/CT/US, Blood/urine lab work, repeat exams while in ED, and administration of strong opiates/narcotics for pain control, admission to hospital or close patient follow up. Diagnosis -abdominal pain, hydronephrosis, renal insufficiency, hematuria Transferred in serious condition Labs Test 01/24/19 08:27 White Blood Count 9.8 K/UL (4.8-10.8) Red Blood Count 4.78 M/UL (4.70-6.10) Hemoglobin 13.2 G/DL (14.2-18.0) Hematocrit 42.2 % (42.0-52.0) Mean Corpuscular Volume 88 FL (80-99) Mean Corpuscular Hemoglobin 27.6 PG (27.0-31.0) Mean Corpuscular Hemoglobin Concent 31.3 G/DL (32.0-36.0) Red Cell Distribution Width 13.5 % (11.6-14.8) Platelet Count 266 K/UL (150-450) Mean Platelet Volume 6.3 FL (6.5-10.1) Neutrophils (%) (Auto) 59.4 % (45.0-75.0) Lymphocytes (%) (Auto) 27.4 % (20.0-45.0) Monocytes (%) (Auto) 10.6 % (1.0-10.0) Eosinophils (%) (Auto) 1.1 % (0.0-3.0) Basophils (%) (Auto) 1.6 % (0.0-2.0) Prothrombin Time 9.4 SEC (9.30-11.50) Prothromb Time International Ratio 0.9 (0.9-1.1) Activated Partial Thromboplast Time 28 SEC (23-33) Urine Color Red Urine Appearance Turbid Urine pH 7 (4.5-8.0) Urine Specific [place] 1.010 (1.005-1.035) Urine Protein 3+ (NEGATIVE) Urine Glucose (UA) Negative (NEGATIVE) Urine Ketones Negative (NEGATIVE) Urine Blood 5+ (NEGATIVE) Urine Nitrite Negative (NEGATIVE) Urine Bilirubin Negative (NEGATIVE) Urine Urobilinogen 4 MG/DL (0.0-1.0) Urine Leukocyte Esterase 2+ (NEGATIVE) Urine RBC Tntc /HPF (0 - 0) Urine WBC 2-4 /HPF (0 - 0) Urine Squamous Epithelial Cells Occasional /LPF Urine Bacteria Occasional /HPF (NONE) Sodium Level 145 MMOL/L (136-145) Potassium Level 5.5 MMOL/L (3.5-5.1) Chloride Level 107 MMOL/L (98-107) Carbon Dioxide Level 30 MMOL/L (21-32) Anion Gap 8 mmol/L (5-15) Blood Urea Nitrogen 11 mg/dL (7-18) Creatinine 1.8 MG/DL (0.55-1.30) Estimat Glomerular Filtration Rate 46.5 mL/min (>60) Glucose Level 89 MG/DL (74-106) Calcium Level 9.6 MG/DL (8.5-10.1) Total Bilirubin 0.4 MG/DL (0.2-1.0) Aspartate Amino Transf (AST/SGOT) 19 U/L (15-37) Alanine Aminotransferase (ALT/SGPT) 26 U/L (12-78) Alkaline Phosphatase 94 U/L (46-116) Total Protein 7.4 G/DL (6.4-8.2) Albumin 3.4 G/DL (3.4-5.0) Globulin 4.0 g/dL Albumin/Globulin Ratio 0.9 (1.0-2.7) Lipase 190 U/L (73-393) CT/MRI/US Diagnostic Results CT/MRI/US Diagnostic Results : Imaging Test Ordered: CT A/P Impression Interval enlargement of a 4 x 3 x 3 cm polypoid mass, suspicious for malignant tumor involving the right posterior bladder wall now associated with the development of moderate right hydroureteronephrosis due to obstruction. Cystoscopy was recommended on the previous CT 10/31/2018. Last Vital Signs Date Time Temp Pulse Resp B/P (MAP) Pulse Ox O2 Delivery O2 Flow Rate FiO2 01/24/19 08:27 98.8 97 21 158/127 100 Room Air Status: improved Disposition: XFER [facility] Condition: Serious Referrals: NON PHYSICIAN (PCP) Jem Lord MD Jan 24, 2019 11:49
[2019-01-24 12:03] VITALS: BP 171/131
[2019-01-24 12:53] VITALS: BP 153/79
--- NOTE | 2019-01-24 13:51 | NUR ---
ED Nurse Note: [facility] CALLED FOR PT REPORT. REPORT GIVEN TO ARIANE KAMARA. FACILITY READY TO ACCEPT PT. PT AWAITING TRANSPORTATION.
--- NOTE | 2019-01-24 15:06 | NUR ---
ED Nurse Note: [facility] AT BEDSIDE. REPORT GIVEN TO EMS. PT TAKEN TO [facility] VIA AMBULANCE WITH ALL BELONGINGS ACCOMPANIED BY EMS. VSS.
[2019-01-24 15:07] VITALS: BP 140/86
== END 2019-01-24 15:06 | disposition short-term general hospital (02) ==
LOC: EMR 08:56
DX: C67.9 Malignant neoplasm of bladder, unspecified (principal); R39.89 Other symptoms and signs involving the genitourinary system; N13.30 Unspecified hydronephrosis; N28.9 Disorder of kidney and ureter, unspecified; R31.9 Hematuria, unspecified; I10 Essential (primary) hypertension; Z88.6 Allergy status to analgesic agent
CPT/HCPCS: 36415; 74177; 80053; 81003; 83690; 85025; 85610; 85730; 86850; 86900; 86901; 96361; 96374; 96375; 99284; J0360; J2270; Q9967

== ENCOUNTER 2019-09-13 03:01 | Inpatient (IN) | payer MEDICARE, OTHER ==
[2019-09-13] VITALS (12 sets, daily range): BP systolic 113–154; BP diastolic 71–95
[~2019-09-13] VITALS: Ht 160 cm; Wt 93.4 kg
[~2019-09-13 03:01] MED LIST changes: +BRIMONIDINE TART5 ML BOTH EYES; +CYCLOMYDRIL EYE5 ML OP; +DORZOLAMIDE 2%10 ML OP; +ENALAPRIL-HCTZ1 EACH ORAL; +XALATAN2.5 ML BOTH EYES
--- NOTE | 2019-09-13 03:01 | NUR ---
ED Nurse Note: Patient walked in to ED c/o AMS and coffee ground emesis. As per EMS, pt is more latered than usual and had a couple episodes of coffee ground emesis. Pt has a PICC line on right upper arm nad noted with nephrostomy on right lower back. Afebrile. Not in any distress. No episodes of vomiting at this time. ERMD at bedside.
--- NOTE | 2019-09-13 03:05 | NUR ---
ED Nurse Note: Blood and urine specimen collected and sent to lab.
[2019-09-13] MEDS ORDERED: Pantoprazole Inj IV ONE (03:15)
[2019-09-13] MEDS ORDERED: DEXAMETHASONE4 M1 PO (03:19)
[2019-09-13] MEDS ORDERED: ULTRAM50 MG ORAL (03:19)
[2019-09-13] MEDS ORDERED: METFORMIN HCL500 M1 ORAL (03:19)
[2019-09-13] MEDS ORDERED: LEVOTHYROXINE100 MC1 PO (03:19)
[2019-09-13] MEDS ORDERED: KEPPRA500 M4 ORAL (03:21)
--- NOTE | 2019-09-13 03:25 | Emergency Room Report ---
History of Present Illness General Chief Complaint: Altered Level of Consciousness Source: Medical Record, EMS Present Illness HPI Disclaimer: Please note that this report is being documented using DRAGON technology. This can lead to erroneous entry secondary to incorrect interpretation by the dictating instrument. HPI: 64-year-old male history of kidney and bladder cancer status post nephrostomy right side presents for altered mental status by EMS. According to EMS, his called for assistance after he was becoming confused and had a couple episodes of coffee-ground emesis. Patient is altered and cannot provide significant history. He is complaining of abdominal pain pointing to his upper abdomen. No emesis noted by EMS on route. Pressures have been stable. He is acutely altered. PMH: Kidney and bladder cancer PSH: Right nephrostomy, right PIC line Allergies: Ibuprofen and aspirin noted Social Hx: Unknown Allergies: Coded Allergies: ASPIRIN (Unverified Allergy, Unknown, 10/31/14) IBUPROFEN (Unverified Allergy, Unknown, 04/10/14) Nursing Documentation-PMH Past Medical History Deferred: Pt Cognitively Impaired Hx Cardiac Problems: Yes - GLAUCOMA BILAT EYE, MASS IN BLADDER, UTI, HYDRONEPHROSIS, Hx Hypertension: Yes Review of Systems All Other Systems: limited - Unable to obtain from patient due to altered mental status Physical Exam Vital Signs Date Time Temp Pulse Resp B/P (MAP) Pulse Ox O2 Delivery O2 Flow Rate FiO2 09/13/19 02:51 98.2 120 20 117/90 (99) 98 Room Air General: Awake, altered and confused HEENT: NC/AT. EOMI. Cardiovascular: Tachycardic S1 and S2 normal. No murmur appreciated Resp: Normal work of breathing. No cough, wheezing or crackles appreciated Abdomen: Abdomen is soft, nondistended. Tender palpation in the upper quadrants. Skin: Intact. No abrasions, laceration or rash over the exposed skin MSK: Normal tone and bulk. Moving all extremities. No obvious deformity. Neuro: Awake, confused, mostly moaning though does sometimes respond to questions. Moving all extremities. Back: Right nephrostomy tube. No drainage, no blood Procedures Critical Care Time Critical Care Time Total critical care time: Approximately 31 minutes Due to a high probability of clinically significant, life threatening deterioration, the patient required the highest level of preparedness to intervene emergently and I personally spent this critical care time directly and personally managing the patient. This critical care time included obtaining a history, examining the patient, pulse oximetry, ordering and reviewing studies , ordering treatments, evaluating response to treatment and updating management plan as needed, frequent reassessment and discussion with other providers as well as arranging for ultimate disposition. This critical to care time was performed to assess and manage the high probability of life-threatening deterioration that could result in multiorgan failure. This critical care time is separate from the separately billable procedures and treating other patients. Medical Decision Making Diagnostic Impression: Primary Impression: Encephalopathy Additional Impressions: Elevated WBC count Hypercalcemia LAVONNE (acute kidney injury) Bladder mass Multiple lesions of metastatic malignancy ER Course [age]-year-old male presents for evaluation of altered mental status and reported coffee-ground emesis. Differential includes but not limited to significant anemia, upper GI bleed, hepatic encephalopathy, pancreatitis, bowel obstruction , intraperitoneal bleed, intraperitoneal infection, intraperitoneal abscess, intoxication to name a few. Start a broad metabolic work-up. Will send for stat Noncon scan of the patient's abdomen. Will give IV fluids and antiemetics as well as Protonix. Will send type and screen in preparation for transfusion if necessary Laboratory Tests Test 09/13/19 03:04 09/13/19 04:16 09/13/19 04:37 White Blood Count 30.4 K/UL (4.8-10.8) *H Red Blood Count 4.68 M/UL (4.70-6.10) L Hemoglobin 13.7 G/DL (14.2-18.0) L Hematocrit 42.2 % (42.0-52.0) Mean Corpuscular Volume 90 FL (80-99) Mean Corpuscular Hemoglobin 29.3 PG (27.0-31.0) Mean Corpuscular Hemoglobin Concent 32.5 G/DL (32.0-36.0) Red Cell Distribution Width 18.7 % (11.6-14.8) H Platelet Count 104 K/UL (150-450) L Mean Platelet Volume 11.9 FL (6.5-10.1) H Neutrophils (%) (Auto) % (45.0-75.0) Lymphocytes (%) (Auto) % (20.0-45.0) Monocytes (%) (Auto) % (1.0-10.0) Eosinophils (%) (Auto) % (0.0-3.0) Basophils (%) (Auto) % (0.0-2.0) Differential Total Cells Counted 100 Neutrophils % (Manual) 88 % (45-75) H Lymphocytes % (Manual) 6 % (20-45) L Monocytes % (Manual) 6 % (1-10) Eosinophils % (Manual) 0 % (0-3) Basophils % (Manual) 0 % (0-2) Band Neutrophils 0 % (0-8) Nucleated Red Blood Cells 3 /100 WBC Platelet Estimate Decreased L Platelet Morphology Normal Anisocytosis 2+ Prothrombin Time 11.4 SEC (9.30-11.50) Prothrombin Time INR 1.1 (0.9-1.1) Activated Partial Thromboplast Time 23 SEC (23-33) Urine Color Yellow Urine Appearance Very cloudy Urine pH 9 (4.5-8.0) Urine Specific [place] 1.015 (1.005-1.035) Urine Protein 4+ (NEGATIVE) H Urine Glucose (UA) Negative (NEGATIVE) Urine Ketones Negative (NEGATIVE) Urine Blood Negative (NEGATIVE) Urine Nitrite Negative (NEGATIVE) Urine Bilirubin Negative (NEGATIVE) Urine Urobilinogen Normal MG/DL (0.0-1.0) Urine Leukocyte Esterase 2+ (NEGATIVE) H Urine RBC 0-2 /HPF (0 - 0) H Urine WBC 2-4 /HPF (0 - 0) Urine Squamous Epithelial Cells Occasional /LPF Urine Triple Phosphate Crystals Many /LPF (NONE) H Urine Amorphous Sediment Many /LPF (NONE) H Urine Bacteria Few /HPF (NONE) Sodium Level 143 MMOL/L (136-145) Potassium Level 4.4 MMOL/L (3.5-5.1) Chloride Level 104 MMOL/L (98-107) Carbon Dioxide Level 28 MMOL/L (21-32) Anion Gap 11 mmol/L (5-15) Blood Urea Nitrogen 43 mg/dL (7-18) H Creatinine 1.4 MG/DL (0.55-1.30) H Estimate Glomerular Filtration Rate > 60 mL/min (>60) Glucose Level 154 MG/DL (74-106) H Lactic Acid Level 2.80 mmol/L (0.4-2.0) H Pending Calcium Level 14.2 MG/DL (8.5-10.1) *H Total Bilirubin 0.6 MG/DL (0.2-1.0) Aspartate Amino Transferase (AST) 38 U/L (15-37) H Alanine Aminotransferase (ALT) 48 U/L (12-78) Alkaline Phosphatase 164 U/L (46-116) H Ammonia 19 umol/L (11-32) Troponin I 0.004 ng/mL (0.000-0.056) Total Protein 7.0 G/DL (6.4-8.2) Albumin 2.5 G/DL (3.4-5.0) L Globulin 4.5 g/dL Albumin/Globulin Ratio 0.6 (1.0-2.7) L Lipase 100 U/L (73-393) Uric Acid 9.0 MG/DL (2.6-7.2) H EKG Diagnostic Results EKG Time: 03:06 Rate: tachycardiac Rhythm: NSR Other Impression Sinus tachycardia, left axis deviation, normal intervals, anterior Q waves, no ST segment changes Rhythm Strip Diag. Results Rhythm Strip Time: 03:06 EP Interpretation: yes Rate: 123 Rhythm: no PVC's, no ectopy CT/MRI/US Diagnostic Results CT/MRI/US Diagnostic Results : Impression Final Report EXAM: CT Head Without Intravenous Contrast CLINICAL HISTORY: AMS TECHNIQUE: Axial computed tomography images of the head/brain without intravenous contrast. CTDI is 53 mGy and DLP is 1098 mGy-cm. One or more of the following dose reduction techniques were used: automated exposure control, adjustment of the mA and/or kV according to patient size, use of iterative reconstruction technique. COMPARISON: CT head dated 09/16/17. FINDINGS: Brain: Unremarkable. No hemorrhage. No significant white matter disease. No edema. Ventricles: Unremarkable. No ventriculomegaly. Bones/joints: Unremarkable. No acute fracture. Soft tissues: Unremarkable. Sinuses: Unremarkable as visualized. No acute sinusitis. Mastoid air cells: Unremarkable as visualized. No mastoid effusion. Orbits: There is increased attenuation within the right globe concerning for vitreous hemorrhage. IMPRESSION: 1. No acute brain hemorrhage. 2. Increased attenuation in the right globe concerning for vitreous hemorrhage. Radiologist: Sunny Mccloud MD Electronically Signed: 09/13/19 05:22 Study ready at 03:59 and initial results transmitted at 05:22 Final Report EXAM: CT Abdomen and Pelvis Without Intravenous Contrast CLINICAL HISTORY: ABD PAIN TECHNIQUE: Axial computed tomography images of the abdomen and pelvis without intravenous contrast. CTDI is 9 mGy and DLP is 458 mGy-cm. One or more of the following dose reduction techniques were used: automated exposure control, adjustment of the mA and/or kV according to patient size, use of iterative reconstruction technique. COMPARISON: CT abdomen and pelvis dated 01/24/19. FINDINGS: Lung bases: Unremarkable. No mass. No consolidation. ABDOMEN: Liver: There is a nonspecific 1.5 x 1.3 cm low-density focus seen near the dome of liver not seen on the prior study. A metastatic lesion is not excluded. Gallbladder and bile ducts: Unremarkable. No calcified stones. No ductal dilation. Pancreas: Unremarkable. No ductal dilation. Spleen: Unremarkable. No splenomegaly. Adrenals: Interval increase in size of a right adrenal mass now measuring 4.9 x 4.0 cm previously measured 2.4 cm x 1.8 cm. Interval increase in size of left adrenal lesion now measuring 2.7 x 2.2 cm previously measuring 1.4 x 1.3 cm. Kidneys and ureters: Interval placement of right-sided nephrostomy catheter. 2.8 x 2.5 cm right renal cyst. No obstructing stones. No hydronephrosis. Stomach and bowel: Unremarkable. No obstruction. No mucosal thickening. PELVIS: Appendix: No findings to suggest acute appendicitis. Bladder: Asymmetric nodular posterior urinary bladder wall thickening is likely neoplastic. A more lobular shaped lesion in the bladder is decrease in size. There are multiple calculi layering in the posterior urinary bladder measuring up to 1.4 cm. Reproductive: Unremarkable as visualized. ABDOMEN and PELVIS: Intraperitoneal space: Unremarkable. No free air. No significant fluid collection. Bones/joints: Degenerative changes in the spine. No acute fracture. No dislocation. Soft tissues: Unremarkable. Vasculature: Unremarkable. No abdominal aortic aneurysm. Lymph nodes: Unremarkable. No enlarged lymph nodes. IMPRESSION: 1. Lobular soft tissue nodular thickening of the posterior bladder is likely neoplastic. 2. Multiple posterior urinary bladder calculi are new since the previous exam. 3. Interval increase in size of bilateral adrenal lesions likely representing metastases. 4. Nonspecific 1.5 cm low-density lesion at the dome of the liver. A metastatic lesion is not excluded. 5. Interval placement of right-sided nephrostomy catheter. Radiologist: Sunny Mccloud MD Electronically Signed: 02/22/20 05:42 Study ready at 04:09 and initial results transmitted at 05:42 Reevaluation Time: 04:30 Last Vital Signs Date Time Temp Pulse Resp B/P (MAP) Pulse Ox O2 Delivery O2 Flow Rate FiO2 09/13/19 02:51 98.2 120 20 117/90 (99) 98 Room Air Reevaluation Impression Labs show a critically elevated white count at 30.4. Zosyn ordered. Cultures were sent. Calcium returned critically elevated greater than 14. He is receiving IV fluids. Lactate is also elevated. Heart rate is improving. Troponin within normal limits at 0.004 and ammonia is 19. CT scan of the head concern for possible vitreous hemorrhage of the patient has a history of glaucoma and do not know whether or not this is acute. Otherwise no evidence of acute intracranial bleed or mass. CT scan of the abdomen shows significant metastatic burden this multiple bladder calculi, nephrostomy appears in appropriate position. No obvious bowel obstruction or abscess though this was a noncontrast CT scan. Patient continues to receive IV fluids. He will be admitted to Dr. roberto pimentel as he is the assigned hospitalist for his health care plan. Admit to SDU for further care. Jonathan Marino MD Sep 13, 2019 03:25
--- NOTE | 2019-09-13 03:40 | NUR ---
ED Nurse Note: Pt was taken for CT via laura, accompanied by a tech.
[2019-09-13 03:45] LABS: HEMATOCRIT 42.2 % (42.0-52.0); HEMOGLOBIN 13.7 G/DL (14.2-18.0); MEAN CORPUSCULAR VOLUME 90 FL (80-99); PLATELET COUNT 104 K/UL (150-450); RED BLOOD COUNT 4.68 M/UL (4.70-6.10); RED CELL DISTRIBUTION WIDTH 18.7 % (11.6-14.8)
[2019-09-13 03:57] LABS: APPEARANCE,URINE VERY CLOUDY; BILIRUBIN, URINE NEGATIVE (NEGATIVE); GLUCOSE, URINE (UA) NEGATIVE (NEGATIVE); KETONES,URINE NEGATIVE (NEGATIVE); LEUKOCYTE ESTERASE ,URINE 2+ (NEGATIVE); NITRITE,URINE NEGATIVE (NEGATIVE); PH,URINE 9 (4.5-8.0); PROTEIN,URINE 4+ (NEGATIVE); UROBILINOGEN,URINE NORMAL MG/DL (0.0-1.0)
[2019-09-13 03:59] LABS: WHITE BLOOD COUNT 30.4 K/UL (4.8-10.8)
[2019-09-13 04:08] LABS: INR 1.1 (0.9-1.1)
--- NOTE | 2019-09-13 04:10 | NUR ---
ED Nurse Note: Pt came back from CT. Not in any distress. Pt placed back on the cafeteria monitor.
[2019-09-13 04:13] LABS: ALANINE AMINOTRANSFERASE 48 U/L (12-78); ALBUMIN 2.5 G/DL (3.4-5.0); ALBUMIN/GLOBULIN RATIO 0.6 (1.0-2.7); ALKALINE PHOSPHATASE 164 U/L (46-116); ANION GAP 11 mmol/L (5-15); ASPARTATE AMINO TRANSFERASE 38 U/L (15-37); BILIRUBIN,TOTAL 0.6 MG/DL (0.2-1.0); BLOOD UREA NITROGEN 43 mg/dL (7-18); CARBON DIOXIDE 28 MMOL/L (21-32); CHLORIDE 104 MMOL/L (98-107); CREATININE 1.4 MG/DL (0.55-1.30); POTASSIUM 4.4 MMOL/L (3.5-5.1); SODIUM 143 MMOL/L (136-145)
[2019-09-13] MEDS ORDERED: Piperacillin/Tazobactam 3.375 GM in NS 110 ML IVPB ONE (04:15)
[2019-09-13 04:16] LABS: CALCIUM 14.2 MG/DL (8.5-10.1)
[2019-09-13 04:18] LABS: COLOR,URINE YELLOW
--- NOTE | 2019-09-13 05:23 | Diagnostic Imaging Report ---
EXAM: CT Head Without Intravenous Contrast CLINICAL HISTORY: AMS TECHNIQUE: Axial computed tomography images of the head/brain without intravenous contrast. CTDI is 53 mGy and DLP is 1098 mGy-cm. One or more of the following dose reduction techniques were used: automated exposure control, adjustment of the mA and/or kV according to patient size, use of iterative reconstruction technique. COMPARISON: CT head dated 09/16/17. FINDINGS: Brain: Unremarkable. No hemorrhage. No significant white matter disease. No edema. Ventricles: Unremarkable. No ventriculomegaly. Bones/joints: Unremarkable. No acute fracture. Soft tissues: Unremarkable. Sinuses: Unremarkable as visualized. No acute sinusitis. Mastoid air cells: Unremarkable as visualized. No mastoid effusion. Orbits: There is increased attenuation within the right globe concerning for vitreous hemorrhage. IMPRESSION: 1. No acute brain hemorrhage. 2. Increased attenuation in the right globe concerning for vitreous hemorrhage.
--- NOTE | 2019-09-13 05:43 | Diagnostic Imaging Report ---
EXAM: CT Abdomen and Pelvis Without Intravenous Contrast CLINICAL HISTORY: ABD PAIN TECHNIQUE: Axial computed tomography images of the abdomen and pelvis without intravenous contrast. CTDI is 9 mGy and DLP is 458 mGy-cm. One or more of the following dose reduction techniques were used: automated exposure control, adjustment of the mA and/or kV according to patient size, use of iterative reconstruction technique. COMPARISON: CT abdomen and pelvis dated 01/24/19. FINDINGS: Lung bases: Unremarkable. No mass. No consolidation. ABDOMEN: Liver: There is a nonspecific 1.5 x 1.3 cm low-density focus seen near the dome of liver not seen on the prior study. A metastatic lesion is not excluded. Gallbladder and bile ducts: Unremarkable. No calcified stones. No ductal dilation. Pancreas: Unremarkable. No ductal dilation. Spleen: Unremarkable. No splenomegaly. Adrenals: Interval increase in size of a right adrenal mass now measuring 4.9 x 4.0 cm previously measured 2.4 cm x 1.8 cm. Interval increase in size of left adrenal lesion now measuring 2.7 x 2.2 cm previously measuring 1.4 x 1.3 cm. Kidneys and ureters: Interval placement of right-sided nephrostomy catheter. 2.8 x 2.5 cm right renal cyst. No obstructing stones. No hydronephrosis. Stomach and bowel: Unremarkable. No obstruction. No mucosal thickening. PELVIS: Appendix: No findings to suggest acute appendicitis. Bladder: Asymmetric nodular posterior urinary bladder wall thickening is likely neoplastic. A more lobular shaped lesion in the bladder is decrease in size. There are multiple calculi layering in the posterior urinary bladder measuring up to 1.4 cm. Reproductive: Unremarkable as visualized. ABDOMEN and PELVIS: Intraperitoneal space: Unremarkable. No free air. No significant fluid collection. Bones/joints: Degenerative changes in the spine. No acute fracture. No dislocation. Soft tissues: Unremarkable. Vasculature: Unremarkable. No abdominal aortic aneurysm. Lymph nodes: Unremarkable. No enlarged lymph nodes. IMPRESSION: 1. Lobular soft tissue nodular thickening of the posterior bladder is likely neoplastic. 2. Multiple posterior urinary bladder calculi are new since the previous exam. 3. Interval increase in size of bilateral adrenal lesions likely representing metastases. 4. Nonspecific 1.5 cm low-density lesion at the dome of the liver. A metastatic lesion is not excluded. 5. Interval placement of right-sided nephrostomy catheter.
--- NOTE | 2019-09-13 07:06 | NUR ---
HAND-OFF: Report given to Kelly Menon RN. Endorsed plan of care.
--- NOTE | 2019-09-13 07:44 | NUR ---
ED Nurse Note: REPORT GIVEN TO KAIDEN OF [facility].
--- NOTE | 2019-09-13 08:20 | NUR ---
ED Nurse Note: PT TRANSFERRED TO [facility] WITH HIS BELONGINGS. ENDORSED TO HOLLIE THAKKAR.
--- NOTE | 2019-09-13 08:23 | NUR ---
NURSE NOTES: Received patient from Emergency department, ARIANE Mendoza. Patient is aox1-2. Patient is on room air and O2 sat of 97%, no signs of respiratory distress at this time. Patient has a right nephrostomy tube and draining scant cloudy fluid. Patient has R UA Picc Line. Patient has a stage 2 on right buttocks.
[2019-09-13] MEDS: NovoLOG Insulin Flexpen SUBQ SCH ×3 (11:30→21:00)
[2019-09-13] MEDS ORDERED: HYDROcodone/Acetamin 5/325 tab ORAL PRN ×2 (12:00)
[2019-09-13] MEDS ORDERED: Tylenol #3 tab (300mg/30mg) ORAL PRN (12:00)
[2019-09-13] MEDS ORDERED: HYDROcodone/Acetamin 10/325 tab ORAL PRN (12:00)
[2019-09-13] MEDS: traMADol 50mg tab ORAL SCH ×2 (12:58→18:00)
[2019-09-13] MEDS: Methocarbamol 500mg tab ORAL SCH ×2 (14:04→18:00)
--- NOTE | 2019-09-13 14:23 | Diagnostic Imaging Report ---
EXAM: US Duplex Bilateral Lower Extremities Veins CLINICAL HISTORY: ABSCESS TECHNIQUE: Real-time duplex ultrasound scan of the bilateral lower extremity veins integrating B-mode two-dimensional vascular structure, Doppler spectral analysis, color flow Doppler imaging and compression. COMPARISON: None FINDINGS: Right deep veins: Unremarkable. No DVT in the right common femoral, femoral, proximal deep femoral or popliteal veins. The veins demonstrate normal color flow, are normally compressible, with normal phasic flow and/or augmentation response. Right superficial veins: Unremarkable. No thrombus in the visualized right great saphenous vein. Left deep veins: Occlusive thrombus in the left common femoral vein, proximal left superficial femoral vein, and distal left superficial femoral vein. Collateral vessels are noted along the mid/distal left superficial femoral vein. Left superficial veins: Patent left greater saphenous vein, popliteal vein, and mid left superficial femoral vein. Soft tissues: No acute findings. No popliteal cyst. IMPRESSION: Occlusive thrombus in the left common femoral vein, proximal left superficial femoral vein, and distal left superficial femoral vein. No deep venous thrombosis identified in the right lower extremity. <MYCVCSECTION> Communications: 09/13/19 14:37 Call Doctor Regarding Acute DVT, called Dr Ko on 09/13 14:36 (-08:00)
--- NOTE | 2019-09-13 15:10 | Infectious Diseases Prog Note ---
Assessment/Plan Assessment/Plan Full consult dictated; A) 1) sepsis, sirs, leukocytosis 2) esbl e.coli uti 3) ? line infection 4) malfunctioning nephrostomy tube P) 1) meropenem and vancomycin 2) f/u on cultures, labs and chest x-ray 3) urology f/u 4) thank you Subjective Allergies: Coded Allergies: ASPIRIN (Unverified Allergy, Unknown, 10/31/14) IBUPROFEN (Unverified Allergy, Unknown, 04/10/14) Objective Vital Signs Last 24 Hour Vital Signs Date Time Temp Pulse Resp B/P (MAP) Pulse Ox O2 Delivery O2 Flow Rate FiO2 09/13/19 12:00 Room Air 09/13/19 09:00 Room Air 09/13/19 08:23 98.1 110 20 131/71 (91) 97 09/13/19 08:20 98.4 88 22 145/86 98 Room Air 09/13/19 07:06 98.6 97 25 143/80 95 Room Air 09/13/19 05:05 97.9 101 21 125/84 100 Room Air 09/13/19 03:01 98.2 120 20 117/90 98 Room Air 09/13/19 03:01 120 20 Room Air 09/13/19 02:51 98.2 120 20 117/90 (99) 98 Room Air Height (Feet): 5 Height (Inches): 4.00 Weight (Pounds): 167 Laboratory Tests Test 09/13/19 03:04 09/13/19 04:16 09/13/19 04:37 White Blood Count 30.4 K/UL (4.8-10.8) *H Red Blood Count 4.68 M/UL (4.70-6.10) L Hemoglobin 13.7 G/DL (14.2-18.0) L Hematocrit 42.2 % (42.0-52.0) Mean Corpuscular Volume 90 FL (80-99) Mean Corpuscular Hemoglobin 29.3 PG (27.0-31.0) Mean Corpuscular Hemoglobin Concent 32.5 G/DL (32.0-36.0) Red Cell Distribution Width 18.7 % (11.6-14.8) H Platelet Count 104 K/UL (150-450) L Mean Platelet Volume 11.9 FL (6.5-10.1) H Neutrophils (%) (Auto) % (45.0-75.0) Lymphocytes (%) (Auto) % (20.0-45.0) Monocytes (%) (Auto) % (1.0-10.0) Eosinophils (%) (Auto) % (0.0-3.0) Basophils (%) (Auto) % (0.0-2.0) Differential Total Cells Counted 100 Neutrophils % (Manual) 88 % (45-75) H Lymphocytes % (Manual) 6 % (20-45) L Monocytes % (Manual) 6 % (1-10) Eosinophils % (Manual) 0 % (0-3) Basophils % (Manual) 0 % (0-2) Band Neutrophils 0 % (0-8) Nucleated Red Blood Cells 3 /100 WBC Platelet Estimate Decreased L Platelet Morphology Normal Anisocytosis 2+ Prothrombin Time 11.4 SEC (9.30-11.50) Prothromb Time International Ratio 1.1 (0.9-1.1) Activated Partial Thromboplast Time 23 SEC (23-33) Urine Color Yellow Urine Appearance Very cloudy Urine pH 9 (4.5-8.0) Urine Specific [place] 1.015 (1.005-1.035) Urine Protein 4+ (NEGATIVE) H Urine Glucose (UA) Negative (NEGATIVE) Urine Ketones Negative (NEGATIVE) Urine Blood Negative (NEGATIVE) Urine Nitrite Negative (NEGATIVE) Urine Bilirubin Negative (NEGATIVE) Urine Urobilinogen Normal MG/DL (0.0-1.0) Urine Leukocyte Esterase 2+ (NEGATIVE) H Urine RBC 0-2 /HPF (0 - 0) H Urine WBC 2-4 /HPF (0 - 0) Urine Squamous Epithelial Cells Occasional /LPF Urine Triple Phosphate Crystals Many /LPF (NONE) H Urine Amorphous Sediment Many /LPF (NONE) H Urine Bacteria Few /HPF (NONE) Sodium Level 143 MMOL/L (136-145) Potassium Level 4.4 MMOL/L (3.5-5.1) Chloride Level 104 MMOL/L (98-107) Carbon Dioxide Level 28 MMOL/L (21-32) Anion Gap 11 mmol/L (5-15) Blood Urea Nitrogen 43 mg/dL (7-18) H Creatinine 1.4 MG/DL (0.55-1.30) H Estimat Glomerular Filtration Rate > 60 mL/min (>60) Glucose Level 154 MG/DL (74-106) H Lactic Acid Level 2.80 mmol/L (0.4-2.0) H 2.00 mmol/L (0.66-2.22) Calcium Level 14.2 MG/DL (8.5-10.1) *H Total Bilirubin 0.6 MG/DL (0.2-1.0) Aspartate Amino Transf (AST/SGOT) 38 U/L (15-37) H Alanine Aminotransferase (ALT/SGPT) 48 U/L (12-78) Alkaline Phosphatase 164 U/L (46-116) H Ammonia 19 umol/L (11-32) Troponin I 0.004 ng/mL (0.000-0.056) Total Protein 7.0 G/DL (6.4-8.2) Albumin 2.5 G/DL (3.4-5.0) L Globulin 4.5 g/dL Albumin/Globulin Ratio 0.6 (1.0-2.7) L Lipase 100 U/L (73-393) Uric Acid 9.0 MG/DL (2.6-7.2) H Current Medications Medications (Trade) Dose Ordered Sig/Andrea Route PRN Reason Start Time Stop Time Status Last Admin Dose Admin Acetaminophen/ Codeine Phosphate (Tylenol #3) 1 tab Q6H PRN ORAL Mild Pain (Pain Scale 1-3) 09/13/19 12:00 09/20/19 11:59 Acetaminophen/ Hydrocodone Bitart ([place] 10/325) 1 tab Q6H PRN ORAL Severe Pain (Pain Scale 7-10) 09/13/19 12:00 09/20/19 11:59 Acetaminophen/ Hydrocodone Bitart ([place] 5/325) 1 tab Q6H PRN ORAL Moderate Pain (Pain Scale 4-6) 09/13/19 12:00 09/20/19 11:59 Brimonidine Tartrate ([place]phagan) 1 drop BID BOTH EYES 09/13/19 18:00 10/13/19 17:59 Dextrose (Dextrose 50%) 25 ml Q30M PRN IV Hypoglycemia 09/13/19 11:30 10/13/19 11:29 Dextrose (Dextrose 50%) 50 ml Q30M PRN IV Hypoglycemia 09/13/19 11:30 10/13/19 11:29 Gabapentin (Neurontin) 100 mg THREE TIMES A DAY ORAL 09/13/19 13:00 10/13/19 12:59 09/13/19 12:56 Insulin Aspart (NovoLOG) BEFORE MEALS AND HS SUBQ 09/13/19 11:30 10/13/19 11:29 Latanoprost (Xalatan) 1 drop BEDTIME BOTH EYES 09/13/19 21:00 10/13/19 20:59 Levetiracetam (Keppra) 500 mg EVERY 12 HOURS ORAL 09/13/19 21:00 10/13/19 20:59 Levothyroxine Sodium (Synthroid) 50 mcg DAILY@0630 ORAL 09/14/19 06:30 10/14/19 06:29 Metformin HCl (Glucophage) 500 mg QPM ORAL 09/13/19 16:30 10/13/19 16:29 Methocarbamol (Robaxin) 500 mg TID ORAL 09/13/19 13:00 10/13/19 12:59 09/13/19 14:04 Sodium Chloride 1,000 ml @ 125 mls/hr Q8H IV 09/13/19 11:30 10/13/19 11:29 09/13/19 12:42 Tramadol HCl (Ultram) 50 mg Q6H ORAL 09/13/19 12:00 09/20/19 11:59 09/13/19 12:58 Malathi Vance MD Sep 13, 2019 15:10
[2019-09-13] MEDS ORDERED: Lidocaine 1% Plain 30 ml INJ PRN (15:15)
[2019-09-13] MEDS ORDERED: Vancomycin 1.25gm/NS Premix IVPB ONE (16:00)
--- NOTE | 2019-09-13 16:25 | Consultation ---
Consult Note Consult Note asked to eval for renal failure and severe Hypercalcemia patient has bladder mass Hypercalcemia more severe as its higher when corrected for low albumin hydrate recheck labs at 1800 full note to follow Mr. Reed is a 64-year-old -[place] male who was brought into emergency room at [facility] for altered mental status. Patient himself cannot give any history. Past history significant for advanced bladder cancer also chronic right nephrostomy. He also is legally blind has diabetes mellitus and has recent chemotherapy he also has history of hypertension. Allergies are to aspirin and ibuprofen. Patient examined and data reviewed. . Assessment/Plan Hypercalcemia. Unclear if it is due to bladder cancer and or partly dehydration. Hematuria most likely secondary to bladder cancer. Renal failure most likely acute on chronic. Dehydration. Encephalopathy most likely metabolic and toxic. Right hydronephrosis and right nephrostomy tube however it is not draining. Plan: Vigorous hydration. Watch for CHF symptoms. Start calcitonin nasal spray. Consider giving AREDIA Monitor renal parameters. Avoid nephrotoxic's. PRN Lasix IV. Continue per consultants.. Bright Ibarra MD Sep 13, 2019 16:25
[2019-09-13] MEDS ORDERED: metFORMIN 500mg tab ORAL SCH (16:30)
--- NOTE | 2019-09-13 17:24 | Diagnostic Imaging Report ---
EXAM: XR Abdomen, 2 Views CLINICAL HISTORY: DVT and abdominal pain TECHNIQUE: Frontal view of the abdomen/pelvis with upright view of the abdomen. COMPARISON: No relevant prior studies available. FINDINGS: Intraperitoneal space: No free air. Gastrointestinal tract: Unremarkable. Bones/joints: Unremarkable. Tubes, lines and devices: Pigtail drainage catheter within the right upper quadrant. IMPRESSION: Pigtail drainage catheter within the right upper quadrant.
[2019-09-13] MEDS: Brimonidine 0.2% Opth Sol BOTH EYES SCH (18:00)
[2019-09-13] MEDS ORDERED: NS Irrig 1000ml ONE (18:00)
[2019-09-13] MEDS ORDERED: Sterile Water Irrig 1000ml IRRIG ONE (18:00)
[2019-09-13] MEDS ORDERED: fentaNYL 100 mcg/2 mL IV ONE (18:00)
[2019-09-13] MEDS ORDERED: Propofol 200mg/20ml IV ONE (18:03)
[2019-09-13] MEDS ORDERED: Lidocaine 1% MPF 10mg/ml 5ml ONE (18:03)
[2019-09-13] MEDS ORDERED: Lidocaine 1% Plain 30 ml INJ ONE (18:05)
[2019-09-13] MEDS ORDERED: Bupivacaine 0.25% Inj 30ml INJ ONE (18:05)
[2019-09-13] MEDS ORDERED: Bacitracin Oint 15gm Tube TOPIC ONE (18:05)
[2019-09-13] MEDS ORDERED: Heparin 5000 units/ml inj ONE (18:05)
[2019-09-13] MEDS ORDERED: Lidocaine 1% 10mg/ml/Epi 0.005mg/ml 30ml vial INJ ONE (18:05)
[2019-09-13] MEDS ORDERED: Heparin 1000 units/ml 1ml Vial ONE (18:06)
--- NOTE | 2019-09-13 18:12 | Pre-Procedure Note/Attestation ---
Pre-Procedure Note/Attestation Complete Prior to Procedure Procedure Narrative: Inferior vena cava filter placement Indications for Procedure Pre-Operative Diagnosis: Extensive proximal left leg DVT GI bleed Metastatic tumor Bladder ca Attestation I attest that I discussed the nature of the procedure; its benefits; risks and complications; and alternatives (and the risks and benefits of such alternatives ), prior to the procedure, with the patient (or the patient's legal field support representative). I attest that, if there was a reasonable possibility of needing a blood transfusion, the patient (or the patient's legal field support representative) was given the [facility] standardized written summary, pursuant to the [place] Blood Safety Act ([place] Health and Safety Code # 1645, as amended). I attest that I re-evaluated the patient just prior to the surgery and that there has been no change in the patient's H&P, except as documented below: Gopi Ramos MD Sep 13, 2019 18:12
[2019-09-13 18:18] LABS: ANION GAP 15 mmol/L (5-15); BLOOD UREA NITROGEN 38 mg/dL (7-18); CALCIUM 12.4 MG/DL (8.5-10.1); CARBON DIOXIDE 21 MMOL/L (21-32); CHLORIDE 112 MMOL/L (98-107); CREATININE 1.5 MG/DL (0.55-1.30); SODIUM 148 MMOL/L (136-145)
[2019-09-13] MEDS ORDERED: Isovue-M 300 15ml INJ ONE (18:18)
[2019-09-13 18:30] LABS: ALANINE AMINOTRANSFERASE 39 U/L (12-78); ALBUMIN 2.2 G/DL (3.4-5.0); ALBUMIN/GLOBULIN RATIO 0.6 (1.0-2.7); ALKALINE PHOSPHATASE 131 U/L (46-116); ASPARTATE AMINO TRANSFERASE 30 U/L (15-37); BILIRUBIN,TOTAL 0.6 MG/DL (0.2-1.0)
[2019-09-13] MEDS ORDERED: Omnipaque-300 100ml vial INJ ONE (18:40)
--- NOTE | 2019-09-13 18:50 | Anethesia Preoperative Eval ---
Anesthesia Pre-op PMH/ROS General Date of Evaluation: Sep 13, 2019 Time of Evaluation: 18:02 Anesthesiologist: Jeromy ASA Score: ASA 3 Mallampati Score Class I : Soft palate, uvula, fauces, pillars visible Class II: Soft palate, uvula, fauces visible Class III: Soft palate, base of uvula visible Class IV: Only hard plate visible Mallampati Classification: Class III Surgeon: Debra Diagnosis: L leg DVT Surgical Procedure: IVC filter placement Anesthesia History: none Social History: smoking - h/o Family History: no anesthesia problems Allergies: Coded Allergies: ASPIRIN (Unverified Allergy, Unknown, 10/31/14) IBUPROFEN (Unverified Allergy, Unknown, 04/10/14) Medications: see eMAR Patient NPO?: Yes NPO Date: Sep 13, 2019 NPO Time: 1500 Past Medical History Cardiovascular: Reports: HTN; Denies: CAD, NH, valve dz, arrhythmia, other Pulmonary: Denies: asthma, COPD, YANE, other Gastrointestinal/Genitourinary: Reports: GERD, CRI, other - Bladder tumor, hydronephrosis, nephrostomy Neurologic/Psychiatric: Reports: depression/anxiety, other - encephalopathy; Denies: dementia, CVA, TIA Endocrine: Reports: DM; Denies: hypothyroidism, steroids, other HEENT: Reports: glaucoma, other - legaly blind Hematology/Immune: Reports: anemia - mild, DVT - LLE Musculoskeletal/Integumentary: Denies: OA, RA, DJD, DDD, edema, other PMH Narrative: as above PSxH Narrative: see H&P Anesthesia Pre-op Phys. Exam Physician Exam Last Vital Signs Date Time Temp Pulse Resp B/P (MAP) Pulse Ox O2 Delivery O2 Flow Rate FiO2 09/13/19 16:00 98.0 114 20 154/95 (114) 97 09/13/19 16:00 Room Air Constitutional: NAD Neurologic: other - unable to obtaine Cardiovascular: RRR, other - taghycardic Respiratory: CTA Gastrointestinal: S/NT/ND Airway Exam Mallampati Score: Class III MO: limited Neck: stiff ROM: limited Teeth: missing, broken Dentures: no upper, no lower Anesthesia Pre-op A/P Labs Hematology Test 09/13/19 03:04 White Blood Count 30.4 K/UL (4.8-10.8) *H Red Blood Count 4.68 M/UL (4.70-6.10) L Hemoglobin 13.7 G/DL (14.2-18.0) L Hematocrit 42.2 % (42.0-52.0) Mean Corpuscular Volume 90 FL (80-99) Mean Corpuscular Hemoglobin 29.3 PG (27.0-31.0) Mean Corpuscular Hemoglobin Concent 32.5 G/DL (32.0-36.0) Red Cell Distribution Width 18.7 % (11.6-14.8) H Platelet Count 104 K/UL (150-450) L Mean Platelet Volume 11.9 FL (6.5-10.1) H Neutrophils (%) (Auto) % (45.0-75.0) Lymphocytes (%) (Auto) % (20.0-45.0) Monocytes (%) (Auto) % (1.0-10.0) Eosinophils (%) (Auto) % (0.0-3.0) Basophils (%) (Auto) % (0.0-2.0) Differential Total Cells Counted 100 Neutrophils % (Manual) 88 % (45-75) H Lymphocytes % (Manual) 6 % (20-45) L Monocytes % (Manual) 6 % (1-10) Eosinophils % (Manual) 0 % (0-3) Basophils % (Manual) 0 % (0-2) Band Neutrophils 0 % (0-8) Nucleated Red Blood Cells 3 /100 WBC Platelet Estimate Decreased L Platelet Morphology Normal Anisocytosis 2+ Coagulation Test 09/13/19 03:04 Prothrombin Time 11.4 SEC (9.30-11.50) Prothromb Time International Ratio 1.1 (0.9-1.1) Activated Partial Thromboplast Time 23 SEC (23-33) Chemistry Test 09/13/19 03:04 09/13/19 04:16 09/13/19 04:37 09/13/19 17:30 Sodium Level 143 MMOL/L (136-145) 148 MMOL/L (136-145) H Potassium Level 4.4 MMOL/L (3.5-5.1) 4.0 MMOL/L (3.5-5.1) Chloride Level 104 MMOL/L (98-107) 112 MMOL/L (98-107) H Carbon Dioxide Level 28 MMOL/L (21-32) 21 MMOL/L (21-32) Anion Gap 11 mmol/L (5-15) 15 mmol/L (5-15) Blood Urea Nitrogen 43 mg/dL (7-18) H 38 mg/dL (7-18) H Creatinine 1.4 MG/DL (0.55-1.30) H 1.5 MG/DL (0.55-1.30) H Estimat Glomerular Filtration Rate > 60 mL/min (>60) 57.4 mL/min (>60) Glucose Level 154 MG/DL (74-106) H 136 MG/DL (74-106) H Lactic Acid Level 2.80 mmol/L (0.4-2.0) H 2.00 mmol/L (0.66-2.22) Calcium Level 14.2 MG/DL (8.5-10.1) *H 12.4 MG/DL (8.5-10.1) H Total Bilirubin 0.6 MG/DL (0.2-1.0) 0.6 MG/DL (0.2-1.0) Aspartate Amino Transf (AST/SGOT) 38 U/L (15-37) H 30 U/L (15-37) Alanine Aminotransferase (ALT/SGPT) 48 U/L (12-78) 39 U/L (12-78) Alkaline Phosphatase 164 U/L (46-116) H 131 U/L (46-116) H Ammonia 19 umol/L (11-32) Troponin I 0.004 ng/mL (0.000-0.056) Total Protein 7.0 G/DL (6.4-8.2) 6.1 G/DL (6.4-8.2) L Albumin 2.5 G/DL (3.4-5.0) L 2.2 G/DL (3.4-5.0) L Globulin 4.5 g/dL 3.9 g/dL Albumin/Globulin Ratio 0.6 (1.0-2.7) L 0.6 (1.0-2.7) L Lipase 100 U/L (73-393) Uric Acid 9.0 MG/DL (2.6-7.2) H 7.8 MG/DL (2.6-7.2) H Phosphorus Level Pending Magnesium Level Pending Thyroid Stimulating Hormone (TSH) 1.598 uiU/mL (0.358-3.740) Risk Assessment & Plan Assessment: ASA 3 Plan: MAC Pre-Antibiotics Drug: as scheduled Oscar Pinzon MD Sep 13, 2019 18:50
[2019-09-13] MEDS ORDERED: fentaNYL 100 mcg/2 mL IV PRN (19:00)
--- NOTE | 2019-09-13 19:02 | Operative Note - PDOC ---
Operative Note Operative Note Pre-op Diagnosis: Extensive proximal left leg DVT GI bleed Metastatic tumor Bladder ca Procedure: IVC filter placement Post-op Diagnosis: same as pre-op Surgeon: Gpoi Ramos MD Anesthesiologist: Marlene BURNS Anesthesia: local, MAC Specimen: none Complications: none Condition: stable Estimated Blood Loss: none Drains: none Implant(s) used?: Yes - IVC filter Gopi Bains MD Sep 13, 2019 19:02
[2019-09-13 19:06] LABS: PHOSPHORUS 2.9 MG/DL (2.5-4.9)
--- NOTE | 2019-09-13 19:15 | NUR ---
HAND-OFF: Report given to Sol Castorena RN.
--- NOTE | 2019-09-13 19:26 | Immediate Post-Op Evaluation ---
Immediate Post-Op Evalulation Immediate Post-Op Evalulation Procedure: IVC filter placement Date of Evaluation: Sep 13, 2019 Time of Evaluation: 19:25 IV Fluids: 300 Blood Products: none Estimated Blood Loss: min Urinary Output: n/a Blood Pressure Systolic: 121 Blood Pressure Diastolic: 82 Pulse Rate: 118 Respiratory Rate: 22 O2 Sat by Pulse Oximetry: 99 Temperature (Fahrenheit): 97.5 Pain Score (1-10): 1 Nausea: No Vomiting: No Complications none Patient Status: reacts, patent, none Hydration Status: adequate Oscar Pinzon MD Sep 13, 2019 19:26
--- NOTE | 2019-09-13 19:41 | NUR ---
NURSE NOTES: 1814 With patient to OR ,lethargic,arousable,stable,on director of cardiac rehabilitation ,Tachycardic-115
--- NOTE | 2019-09-13 19:44 | NUR ---
HAND-OFF: Report given to OR staff
--- NOTE | 2019-09-13 20:00 | History and Physical Report ---
DATE OF ADMISSION: 09/13/2019 HISTORY OF PRESENT ILLNESS: This is a 64-year-old male, who was brought in by family with a history of altered mental status. The patient is lethargic and cannot provide any answer to questions. Family at bedside provided old medical records and provide a history. The patient has a history of advanced bladder carcinoma. He has a chronic right nephrostomy and has a PICC line in place. Apparently, he was being treated for an E. coli with ertapenem intravenous at home. He has also received chemotherapy recently. Family reports that the patient has become more and more poorly responsive and was brought to the hospital. PAST MEDICAL HISTORY: Bladder carcinoma, right hydronephrosis status post nephrostomy tube, hypertension, legally blind, hematuria, diabetes mellitus, chronic steroid usage, and recent chemotherapy. PREVIOUS SURGERIES: Right nephrostomy, right PICC line. ALLERGIES: Ibuprofen and aspirin. HOME MEDICATIONS: Includes Synthroid, tramadol, metformin, Decadron, Nexium, Zocor, Keppra. REVIEW OF SYSTEMS: Unreliable. PHYSICAL EXAMINATION: GENERAL: Reveals an elderly male. HEENT: Unremarkable. CHEST: Shows clear breath sounds bilaterally. ABDOMEN: Soft. There is a right nephrostomy in place. EXTREMITIES: There is no peripheral edema. No cyanosis or clubbing. He has a right nephrostomy in place. There is no Sosa in place. LABORATORY DATA: Lab testing shows white count 30,000, hemoglobin of 13, and platelet count is normal at 104,000. Lactic acid 2.8, now 2. Uric acid is 9. Troponin 0.04. Calcium 14.2. Creatinine 1.4. Urinalysis shows few pus cells. Imaging studies show abdomen and pelvis CT with thickening of the posterior wall of bladder, multiple posterior urinary bladder calculi, bilateral adrenal lesions, and right nephrostomy tube. IMPRESSION: 1. Hypercalcemia. 2. Renal insufficiency, mild. 3. Bladder carcinoma. 4. Right hydronephrosis. 5. Altered mental status. DISCUSSION: The patient will need aggressive hydration. He may be either have hypertensive emergency or just dehydration. I will obtain a urine culture. Continue ertapenem. We will consult ID and Hematology as well as Nephrology. IV fluids. We will follow carefully. Discussed with family. Antelmo Ko M.D. DR: JULIA JOB#: [id number] CC:
--- NOTE | 2019-09-13 20:05 | NUR ---
NURSE NOTES: recevied report from Renetta THAKKAR from OR, waiting pt to come to floor.
--- NOTE | 2019-09-13 20:10 | NUR ---
NURSE NOTES: received pt from Renetta THAKKAR., pt is sedated and getting 3L of NC o2 sat is at 100% HR 98 BP 123/77 no SOB noted. pt seems comfortable.pt is on flat position with two pillow each legs. IVC filter on right groin with pressure bag, will remove pressure bag at 2115. PICC line on NAVEEN dressing intact, clean, and patent. bed at the lowest position, alarmed, and locked. call light within reach. will continue to monitor pt with plan of care.
[2019-09-13] MEDS: Latanoprost 0.005% Opth 2.5ml Soln BOTH EYES SCH (20:40)
[2019-09-13] MEDS: D5 1/2NS 1,000 ML IV SCH (20:53)
--- NOTE | 2019-09-13 21:15 | NUR ---
NURSE NOTES: removed pressure bag at 2114. no SOB noted. pt remains supine position. will closely monitor pt
[2019-09-13] MEDS ORDERED: Tubing IV Secondary IV ONE (21:32)
[2019-09-13] MEDS ORDERED: NS 275ml ONE (21:32)
--- NOTE | 2019-09-14 01:52 | Consultation ---
DATE OF CONSULTATION: CONSULTING PHYSICIAN: Malathi Vance M.D. ATTENDING PHYSICIAN: Antelmo Ko M.D. REFERRING PHYSICIAN: Antelmo Ko M.D. REASON FOR CONSULTATION: Sepsis, elevated white count, elevated lactic acid, ESBL E.coli UTI, possible Lyme infection, leukocytosis. CHIEF COMPLAINT: The patient's chief complaint coming in to the hospital is gastrointestinal bleed, nausea, vomiting. HISTORY OF PRESENT ILLNESS: This is a 64-year-old male who is not a very good historian. I discussed the case with the patient, the patient's at the bedside and RN. The patient presented with a history of what looks like ESBL E. coli UTI. The patient is on ertapenem as an outpatient. I have reviewed the notes with the had with regards to antibiotics. Per communication with Dr. Ko, the patient had E coli ESBL. The patient presents to [facility] with nausea, vomiting, and possible gastrointestinal bleed. The patient had a white count [id number]. The patient has an elevated lactic acid and SIRS criteria. The patient also has a PICC line. Infectious Disease consultation is also requested. Patient placed on meropenem and vancomycin, pending cultures. CT scan of the abdomen and pelvis reviewed. REVIEW OF SYSTEMS: CONSTITUTIONAL: He has a malfunction nephrostomy on the right. No Sosa currently. He has a PICC line. He is weak, poorly responsive. He opens his eyes. HEAD AND NECK: No head pain or neck pain. CARDIAC: He is on pressors. GASTROINTESTINAL: He came with nausea and vomiting. Possible GI bleed. GENITOURINARY: He has a nephrostomy tube. PULMONARY: No congestion or shortness of breath. SKIN: No rash. NEUROLOGIC: No seizures. PAST MEDICAL HISTORY: The patient's past medical history includes the following. The patient has a past medical history of ESBL E. coli urinary tract infection, was given Invanz as an outpatient at least sounds like four months of full course. He also has had positive nephrostomy, has history of bladder cancer or kidney cancer. The patient has history of cardiac disease, glaucoma, hydronephrosis, urinary tract infection, and hypertension. He has history of hypothyroidism. ALLERGIES: Include aspirin, ibuprofen. No antibiotic allergies. SOCIAL HISTORY: Negative for smoking, alcohol, or drug abuse. FAMILY HISTORY: Noncontributory. MEDICATIONS: Upon reviewing the MAR, he is on following medications. He is on levothyroxine. He is on Xalatan. He is on Keppra. He is on Epogen. He is on Glucophage, gabapentin. He is on Robaxin. He is on hydrocodone. He is on tramadol. He is on IV fluids. Outside medications noted. The patient placed on Invanz as an outpatient, placed the patient on meropenem. Outside medications were noted and reconciliated. He was placed on meropenem and vancomycin. PHYSICAL EXAMINATION: Pulse rate 110, temperature 98.1, respiratory rate 20, blood pressure 131/71, saturation 97% on room air. GENERAL: Weak, lethargic. HEAD AND NECK: Oral exam, no thrush. Normocephalic. Neck is supple. No icterus. HEART: Regular rate and rhythm. ABDOMEN: Soft. Positive bowel sounds. LUNGS: Clear bilaterally. No rhonchi or rales. SKIN: No rash. MUSCULOSKELETAL: No effusions. Legs are without cellulitis. PERIPHERAL VASCULAR: No gangrene. GENITOURINARY: He has nephrostomy tube that is functioning on the right. Has a PICC line. No cellulitis. NEUROLOGIC: Poorly responsive, lethargic. LABORATORY DATA: Creatinine 1.4. LFT is noted. White count 30.4, hemoglobin 13.7. UA urinalysis had 2+ leukocyte esterase. He was on treatment prior. Cultures are pending at this time. IMAGING STUDIES: CT the abdomen and pelvis showed thickening of the bladder, likely neoplastic, multiple calculi, bladder calculi. The report was noted and reviewed. I have ordered chest x-ray and cultures are pending. Again creatinine 1.4, white count 30.4, hemoglobin 13.7. ASSESSMENT AND PLAN: 1. The patient has elevated white count, elevated lactic acid level, SIRS criteria, tachycardia, severe leukocytosis. Of note, lactic acid was 2.8 which is elevated. The patient also has hypercalcemia and hyperuricemia. Calcium is 14.2. The patient has acute renal failure. The patient will be empirically started on meropenem and vancomycin for sepsis leukocytosis SIRS criteria. Vancomycin for MRSA coverage and meropenem for ESBL and gram-negative coverage. There is no diarrhea to suggest C. diff. Continue vancomycin and meropenem for sepsis, elevated white count, SIRS criteria, also history of ESBL E. coli, UTI and rule out Lyme infection. He has a PICC line. Continue vancomycin and meropenem. Pending workup for sepsis, possible infection and urinary tract infection. The patient does not have diarrhea due to C.diff and also check chest x-ray and laboratories and follow cultures. 2. Hypercalcemia. 3. IV fluids. 4. Hyperuricemia. 5. Hypothyroidism. 6. Hypertension. 7. Blood pressure per primary team for hypertension. 8. History of bladder cancer. 9. Hydroureteronephrosis. 10. Malfunction right-sided nephrostomy tube level neurology follow-up. 11. Nausea, vomiting and rule out gastrointestinal bleed. 12. Glaucoma. 13. Anemia. 14. hx esbl uti 15. Allergies to aspirin and ibuprofen. 16. Social history is negative. 17. Family history is noncontributory. 18. MAR is noted. 19. Case was discussed with RN. Malathi Vance M.D. DR: COTY JOB#: [id number] CC: [id number]
[2019-09-14] MEDS: D5 1/2NS 1,000 ML IV SCH ×4 (03:44→23:35)
[2019-09-14] MEDS: traMADol 50mg tab ORAL SCH ×5 (06:00→23:24)
--- NOTE | 2019-09-14 06:00 | NUR ---
NURSE NOTES: right groin IVC post-op, removed dressing and open to air. no active bleeding noted, no s/s of infection at this moment. pt is laying on the bed resting. no SOB. O2sat at 100%. call light within reach. will continue to monitor.
[2019-09-14 06:04] LABS: HEMATOCRIT 33.1 % (42.0-52.0); HEMOGLOBIN 10.9 G/DL (14.2-18.0); MEAN CORPUSCULAR VOLUME 90 FL (80-99); PLATELET COUNT 62 K/UL (150-450); RED BLOOD COUNT 3.67 M/UL (4.70-6.10); RED CELL DISTRIBUTION WIDTH 19.4 % (11.6-14.8)
[2019-09-14] MEDS: NovoLOG Insulin Flexpen SUBQ SCH ×4 (06:06→20:39)
[2019-09-14 06:51] LABS: WHITE BLOOD COUNT 23.9 K/UL (4.8-10.8)
[2019-09-14 07:23] LABS: PHOSPHORUS 3.6 MG/DL (2.5-4.9)
--- NOTE | 2019-09-14 07:25 | NUR ---
NURSE NOTES: Received report from ARIANE Shipley. Patient asleep and responsive to verbal. Patient refused any pain/discomfort. No bleeding noted on right groin site. Patient is on O2 4L/min via NC and decreased 2L/min. Right nephrostomy bad intact and draining with small amount yellow color drainage. Right upper arm PICC intact, clean and running with D5 and 1/2NS @ 150ml/hr. Kept dry, clean and comfortable. Will continue plan of care.
[2019-09-14 07:31] LABS: ALANINE AMINOTRANSFERASE 32 U/L (12-78); ALBUMIN 2.6 G/DL (3.4-5.0); ALBUMIN/GLOBULIN RATIO 0.8 (1.0-2.7); ALKALINE PHOSPHATASE 109 U/L (46-116); ANION GAP 10 mmol/L (5-15); ASPARTATE AMINO TRANSFERASE 29 U/L (15-37); BILIRUBIN,TOTAL 0.6 MG/DL (0.2-1.0); BLOOD UREA NITROGEN 41 mg/dL (7-18); CALCIUM 12.7 MG/DL (8.5-10.1); CARBON DIOXIDE 27 MMOL/L (21-32); CHLORIDE 113 MMOL/L (98-107); CREATININE 1.5 MG/DL (0.55-1.30); POTASSIUM 3.6 MMOL/L (3.5-5.1); SODIUM 150 MMOL/L (136-145)
--- NOTE | 2019-09-14 07:36 | NUR ---
HAND-OFF: Report given to Alexey THAKKAR.pt remain stable.
[2019-09-14 08:00] VITALS: BP 124/99
--- NOTE | 2019-09-14 08:15 | Diagnostic Imaging Report ---
EXAM: XR Chest, 1 View CLINICAL HISTORY: INFECT TECHNIQUE: Frontal view of the chest. COMPARISON: X-ray of the abdomen dated 09/13/19 FINDINGS: Lungs: Left upper lobe consolidation. Remainder the lungs appear clear. Pleural space: Unremarkable. The costophrenic angles are sharp. No visible pneumothorax. Heart: Unremarkable. No cardiomegaly. Mediastinum: Unremarkable. Bones/joints: Unremarkable. Soft tissues: Surgical clips overlying the left paracentral neck soft tissues. Tubes, lines and devices: Telemetry leads overlie the thorax. IMPRESSION: Left upper lobe consolidation, concerning for pneumonia. Recommend follow-up to resolution to exclude underlying mass. Consider follow-up evaluation with chest CT.
[2019-09-14] MEDS: Brimonidine 0.2% Opth Sol BOTH EYES SCH ×2 (08:32→17:11)
[2019-09-14] MEDS: Methocarbamol 500mg tab ORAL SCH ×3 (08:34→17:10)
[2019-09-14] MEDS ORDERED: Pamidronate Disodium Inj 60 MG in Sodium Chloride 550 ML IVPB SCH (09:00)
--- NOTE | 2019-09-14 10:04 | NUR ---
NURSE NOTES: Seen by Dr. Ibarra and assessed patient. Updated pt's status and new orders today. Will continue plan of care.
--- NOTE | 2019-09-14 10:34 | Nephrology Progress Note ---
Assessment/Plan Problem List: (1) Hypercalcemia (2) Bladder mass (3) LAVONNE (acute kidney injury) Assessment 1. Hypercalcemia. 2. Renal insufficiency 3. Bladder carcinoma. 4. Right hydronephrosis. 5. Altered mental status. 6. Had IVC filter Plan Hydrate- Lasix- Aredia- Calcitonin Monitor renal parameters Kidney MITCH uro eval Subjective ROS Limited/Unobtainable: No Constitutional: Reports: malaise Objective Objective Last 24 Hour Vital Signs Date Time Temp Pulse Resp B/P (MAP) Pulse Ox O2 Delivery O2 Flow Rate FiO2 09/14/19 08:00 100 09/14/19 08:00 98.5 99 20 124/99 (107) 100 09/14/19 08:00 Nasal Cannula 2.0 09/14/19 04:00 Nasal Cannula 2.0 09/14/19 03:32 96 09/14/19 00:00 Room Air 09/13/19 23:43 101 09/13/19 20:00 98.0 99 21 114/78 100 Nasal Cannula 3 09/13/19 20:00 Room Air 09/13/19 19:45 118 19 113/87 100 Nasal Cannula 3 09/13/19 19:35 115 23 127/86 100 Nasal Cannula 3 09/13/19 19:26 118 22 99 09/13/19 19:25 116 17 126/90 100 Simple Mask 6 09/13/19 19:20 117 19 121/91 99 Simple Mask 6 09/13/19 19:15 97.6 116 22 124/86 99 Simple Mask 6 09/13/19 16:00 98.0 114 20 154/95 (114) 97 09/13/19 16:00 Room Air 09/13/19 16:00 110 09/13/19 12:00 Room Air 09/13/19 12:00 98.7 113 20 124/81 (95) 97 09/13/19 11:30 111 Intake and Output 09/13/19 09/14/19 19:00 07:00 Intake Total 200 ml 750 ml Output Total 10 ml 40 ml Balance 190 ml 710 ml Intake IV Total 200 ml 750 ml Output Estimated Blood Loss 10 ml Other 40 ml # Voids 4 Current Medications Medications (Trade) Dose Ordered Sig/Andrea Route PRN Reason Start Time Stop Time Status Last Admin Dose Admin Acetaminophen/ Codeine Phosphate (Tylenol #3) 1 tab Q6H PRN ORAL Mild Pain (Pain Scale 1-3) 09/13/19 12:00 09/20/19 11:59 Acetaminophen/ Hydrocodone Bitart ([place] 10/325) 1 tab Q6H PRN ORAL Severe Pain (Pain Scale 7-10) 09/13/19 12:00 09/20/19 11:59 Acetaminophen/ Hydrocodone Bitart ([place] 5/325) 1 tab Q6H PRN ORAL Moderate Pain (Pain Scale 4-6) 09/13/19 12:00 09/20/19 11:59 Brimonidine Tartrate (Alphagan) 1 drop BID BOTH EYES 09/13/19 18:00 10/13/19 17:59 09/14/19 08:32 Calcitonin [place] (Miacalcin) 1 sprays Q24H NASAL 09/13/19 18:00 10/13/19 17:59 Chlorhexidine Gluconate (Gina-Hex 2%) 1 applic DAILY@2000 TOPIC 09/14/19 20:00 10/14/19 19:59 Dextrose (Dextrose 50%) 25 ml Q30M PRN IV Hypoglycemia 09/13/19 11:30 10/13/19 11:29 Dextrose (Dextrose 50%) 50 ml Q30M PRN IV Hypoglycemia 09/13/19 11:30 10/13/19 11:29 Dextrose/Sodium Chloride 1,000 ml @ 150 mls/hr Q6H40M IV 09/13/19 20:30 10/13/19 20:29 09/14/19 08:35 Furosemide (Lasix) 20 mg ONCE IV 09/14/19 10:00 09/14/19 11:00 09/14/19 10:10 Gabapentin (Neurontin) 100 mg THREE TIMES A DAY ORAL 09/13/19 13:00 10/13/19 12:59 09/14/19 08:33 Insulin Aspart (NovoLOG) BEFORE MEALS AND HS SUBQ 09/13/19 11:30 10/13/19 11:29 Latanoprost (Xalatan) 1 drop BEDTIME BOTH EYES 09/13/19 21:00 10/13/19 20:59 09/13/19 20:40 Levetiracetam (Keppra) 500 mg EVERY 12 HOURS ORAL 09/13/19 21:00 10/13/19 20:59 09/14/19 08:33 Levothyroxine Sodium (Synthroid) 50 mcg DAILY@0630 ORAL 09/14/19 06:30 10/14/19 06:29 Meropenem 1 gm/ Sodium Chloride 100 ml @ 200 mls/hr Q12H IVPB 09/13/19 16:00 09/18/19 15:59 09/14/19 03:44 Methocarbamol (Robaxin) 500 mg TID ORAL 09/13/19 13:00 10/13/19 12:59 09/14/19 08:34 Tramadol HCl (Ultram) 50 mg Q6H ORAL 09/13/19 12:00 09/20/19 11:59 09/13/19 12:58 Vancomycin HCl (Vanco rx to dose) 1 ea DAILY PRN MISC Per rx protocol 09/13/19 15:00 10/13/19 14:59 Vancomycin HCl 750 mg/Sodium Chloride 275 ml @ 183.333 mls/hr Q24H IVPB 09/14/19 16:00 09/19/19 15:59 Laboratory Tests 09/13/19 17:30: Sodium Level 148H, Potassium Level 4.0, Chloride Level 112H, Carbon Dioxide Level 21, Anion Gap 15, Blood Urea Nitrogen 38H, Creatinine 1.5H, Estimat Glomerular Filtration Rate 57.4, Glucose Level 136H, Uric Acid 7.8H, Calcium Level 12.4H, Phosphorus Level 2.9, Magnesium Level 1.9, Total Bilirubin 0.6, Aspartate Amino Transf (AST/SGOT) 30, Alanine Aminotransferase (ALT/SGPT) 39, Alkaline Phosphatase 131H, Total Protein 6.1L, Albumin 2.2L, Globulin 3.9, Albumin/Globulin Ratio 0.6L, Thyroid Stimulating Hormone (TSH) 1.598 09/14/19 04:00: Sodium Level 150H, Potassium Level 3.6, Chloride Level 113H, Carbon Dioxide Level 27, Anion Gap 10, Blood Urea Nitrogen 41H, Creatinine 1.5H, Estimat Glomerular Filtration Rate 57.4, Glucose Level 134H, Uric Acid 8.3H, Calcium Level 12.7H, Phosphorus Level 3.6, Magnesium Level 2.0, Total Bilirubin 0.6, Aspartate Amino Transf (AST/SGOT) 29, Alanine Aminotransferase (ALT/SGPT) 32, Alkaline Phosphatase 109, Total Protein 5.8L, Albumin 2.6L, Globulin 3.2, Albumin/Globulin Ratio 0.8L, White Blood Count 23.9*H, Red Blood Count 3.67L, Hemoglobin 10.9L, Hematocrit 33.1L, Mean Corpuscular Volume 90, Mean Corpuscular Hemoglobin 29.5, Mean Corpuscular Hemoglobin Concent 32.8, Red Cell Distribution Width 19.4H, Platelet Count 62L, Mean Platelet Volume 7.9, Neutrophils (%) (Auto) , Lymphocytes (%) (Auto) , Monocytes (%) (Auto) , Eosinophils (%) (Auto) , Basophils (%) (Auto) , Differential Total Cells Counted 100, Neutrophils % (Manual) 90H, Lymphocytes % (Manual) 5L, Monocytes % (Manual) 5, Eosinophils % (Manual) 0, Basophils % (Manual) 0, Band Neutrophils 0 , Nucleated Red Blood Cells 3, Platelet Estimate DecreasedL, Platelet Morphology Normal, Anisocytosis 2+, Ionized Calcium (Measured) 1.64*H Height (Feet): 5 Height (Inches): 4.00 Weight (Pounds): 167 General Appearance: no apparent distress, lethargic Cardiovascular: tachycardia Respiratory/Chest: decreased breath sounds Abdomen: distended Genitourinary/Rectal: other - condom cath- urine bloody- right nephrostomy not draining Bright Ibarra MD Sep 14, 2019 10:34
[2019-09-14 12:00] VITALS: BP 141/89
--- NOTE | 2019-09-14 12:34 | Consultation ---
History of Present Illness General Chief Complaint: Altered Level of Consciousness Present Illness Allergies: Coded Allergies: ASPIRIN (Unverified Allergy, Unknown, 10/31/14) IBUPROFEN (Unverified Allergy, Unknown, 04/10/14) Medication History Scheduled Brimonidine Tartrate* (Alphagan*), 1 DROP BOTH EYES BID, (Reported) Brimonidine Tartrate/Timolol ([place]big[place] Eye Drops), 1 DROP BOTH EYES BID Enalapril/Hydrochlorothiazide (Enalapril-Hctz 10-25 Mg Tablet), 1 TAB ORAL BID, (Reported) Fluticasone Furoate (Flonase Sensimist), 1 SPRAYS NS DAILY Gabapentin* (Neurontin*), 100 MG ORAL THREE TIMES A DAY Latanoprost* (Xalatan*), 1 DROP BOTH EYES BEDTIME, (Reported) Levetiracetam (Keppra), 500 MG ORAL EVERY 12 HOURS, (Reported) Levothyroxine Sodium* (Levothyroxine Sodium*), 50 MCG PO DAILY, (Reported) Metformin Hcl* (Metformin Hcl*), 500 MG ORAL QPM, (Reported) Methocarbamol* (Robaxin*), 500 MG PO TID Pseudoephedrine Hcl (Sudafed 12-Hour), 120 MG PO Q12HR Tramadol Hcl (Ultram*), 50 MG ORAL Q6H, (Reported) Scheduled PRN Acetaminophen With Codeine (T#3) (Tylenol #3 Tab*), 1 TAB ORAL Q6HR PRN for For Pain Hydrocodone Bit/Acetaminophen 10-325* ([place] 10-325*), 1 TAB ORAL Q6H PRN for For Pain Hydrocodone Bit/Acetaminophen 5-325* ([place] 5-325*), 1 TAB ORAL Q6H PRN for For Pain Hydrocodone/Acetaminophen 5-325* (Hydrocodone/Acetaminophen 5-325*), 1 TAB ORAL Q6H PRN for For Pain Miscellaneous Medications Cyclopentolate/Phenylephrine (Cyclomydril Eye Drops), 5 ML OP, (Reported) Dexamethasone (Dexamethasone), 4 MG PO, (Reported) Dorzolamide HCl/Pf (Dorzolamide 2% Eye Drop), 10 ML OP, (Reported) Patient History Healthcare decision maker Resuscitation status Full Code Advanced Directive on File Physical Exam Last 24 Hour Vital Signs Date Time Temp Pulse Resp B/P (MAP) Pulse Ox O2 Delivery O2 Flow Rate FiO2 09/14/19 08:00 100 09/14/19 08:00 98.5 99 20 124/99 (107) 100 09/14/19 08:00 Nasal Cannula 2.0 09/14/19 04:00 Nasal Cannula 2.0 09/14/19 03:32 96 09/14/19 00:00 Room Air 09/13/19 23:43 101 09/13/19 20:00 98.0 99 21 114/78 100 Nasal Cannula 3 09/13/19 20:00 Room Air 09/13/19 19:45 118 19 113/87 100 Nasal Cannula 3 09/13/19 19:35 115 23 127/86 100 Nasal Cannula 3 09/13/19 19:26 118 22 99 09/13/19 19:25 116 17 126/90 100 Simple Mask 6 09/13/19 19:20 117 19 121/91 99 Simple Mask 6 09/13/19 19:15 97.6 116 22 124/86 99 Simple Mask 6 09/13/19 16:00 98.0 114 20 154/95 (114) 97 09/13/19 16:00 Room Air 09/13/19 16:00 110 Intake and Output 09/13/19 09/14/19 19:00 07:00 Intake Total 200 ml 750 ml Output Total 10 ml 40 ml Balance 190 ml 710 ml Intake IV Total 200 ml 750 ml Output Estimated Blood Loss 10 ml Other 40 ml # Voids 4 Laboratory Tests Test 09/13/19 17:30 09/14/19 04:00 Sodium Level 148 MMOL/L (136-145) H 150 MMOL/L (136-145) H Potassium Level 4.0 MMOL/L (3.5-5.1) 3.6 MMOL/L (3.5-5.1) Chloride Level 112 MMOL/L (98-107) H 113 MMOL/L (98-107) H Carbon Dioxide Level 21 MMOL/L (21-32) 27 MMOL/L (21-32) Anion Gap 15 mmol/L (5-15) 10 mmol/L (5-15) Blood Urea Nitrogen 38 mg/dL (7-18) H 41 mg/dL (7-18) H Creatinine 1.5 MG/DL (0.55-1.30) H 1.5 MG/DL (0.55-1.30) H Estimat Glomerular Filtration Rate 57.4 mL/min (>60) 57.4 mL/min (>60) Glucose Level 136 MG/DL (74-106) H 134 MG/DL (74-106) H Uric Acid 7.8 MG/DL (2.6-7.2) H 8.3 MG/DL (2.6-7.2) H Calcium Level 12.4 MG/DL (8.5-10.1) H 12.7 MG/DL (8.5-10.1) H Phosphorus Level 2.9 MG/DL (2.5-4.9) 3.6 MG/DL (2.5-4.9) Magnesium Level 1.9 MG/DL (1.8-2.4) 2.0 MG/DL (1.8-2.4) Total Bilirubin 0.6 MG/DL (0.2-1.0) 0.6 MG/DL (0.2-1.0) Aspartate Amino Transf (AST/SGOT) 30 U/L (15-37) 29 U/L (15-37) Alanine Aminotransferase (ALT/SGPT) 39 U/L (12-78) 32 U/L (12-78) Alkaline Phosphatase 131 U/L (46-116) H 109 U/L (46-116) Total Protein 6.1 G/DL (6.4-8.2) L 5.8 G/DL (6.4-8.2) L Albumin 2.2 G/DL (3.4-5.0) L 2.6 G/DL (3.4-5.0) L Globulin 3.9 g/dL 3.2 g/dL Albumin/Globulin Ratio 0.6 (1.0-2.7) L 0.8 (1.0-2.7) L Thyroid Stimulating Hormone (TSH) 1.598 uiU/mL (0.358-3.740) White Blood Count 23.9 K/UL (4.8-10.8) *H Red Blood Count 3.67 M/UL (4.70-6.10) L Hemoglobin 10.9 G/DL (14.2-18.0) L Hematocrit 33.1 % (42.0-52.0) L Mean Corpuscular Volume 90 FL (80-99) Mean Corpuscular Hemoglobin 29.5 PG (27.0-31.0) Mean Corpuscular Hemoglobin Concent 32.8 G/DL (32.0-36.0) Red Cell Distribution Width 19.4 % (11.6-14.8) H Platelet Count 62 K/UL (150-450) L Mean Platelet Volume 7.9 FL (6.5-10.1) Neutrophils (%) (Auto) % (45.0-75.0) Lymphocytes (%) (Auto) % (20.0-45.0) Monocytes (%) (Auto) % (1.0-10.0) Eosinophils (%) (Auto) % (0.0-3.0) Basophils (%) (Auto) % (0.0-2.0) Differential Total Cells Counted 100 Neutrophils % (Manual) 90 % (45-75) H Lymphocytes % (Manual) 5 % (20-45) L Monocytes % (Manual) 5 % (1-10) Eosinophils % (Manual) 0 % (0-3) Basophils % (Manual) 0 % (0-2) Band Neutrophils 0 % (0-8) Nucleated Red Blood Cells 3 /100 WBC Platelet Estimate Decreased L Platelet Morphology Normal Anisocytosis 2+ Ionized Calcium (Measured) 1.64 mmol/L (1.10-1.35) *H Height (Feet): 5 Height (Inches): 4.00 Weight (Pounds): 167 Medications Current Medications Medications (Trade) Dose Ordered Sig/Andrea Route PRN Reason Start Time Stop Time Status Last Admin Dose Admin Acetaminophen/ Codeine Phosphate (Tylenol #3) 1 tab Q6H PRN ORAL Mild Pain (Pain Scale 1-3) 09/13/19 12:00 09/20/19 11:59 Acetaminophen/ Hydrocodone Bitart ([place] 10/325) 1 tab Q6H PRN ORAL Severe Pain (Pain Scale 7-10) 09/13/19 12:00 09/20/19 11:59 Acetaminophen/ Hydrocodone Bitart ([place] 5/325) 1 tab Q6H PRN ORAL Moderate Pain (Pain Scale 4-6) 09/13/19 12:00 09/20/19 11:59 Brimonidine Tartrate (Alphagan) 1 drop BID BOTH EYES 09/13/19 18:00 10/13/19 17:59 09/14/19 08:32 Calcitonin [place] (Miacalcin) 1 sprays Q24H NASAL 09/13/19 18:00 10/13/19 17:59 Chlorhexidine Gluconate (Gina-Hex 2%) 1 applic DAILY@2000 TOPIC 09/14/19 20:00 10/14/19 19:59 Dextrose (Dextrose 50%) 25 ml Q30M PRN IV Hypoglycemia 09/13/19 11:30 10/13/19 11:29 Dextrose (Dextrose 50%) 50 ml Q30M PRN IV Hypoglycemia 09/13/19 11:30 10/13/19 11:29 Dextrose/Sodium Chloride 1,000 ml @ 150 mls/hr Q6H40M IV 09/13/19 20:30 10/13/19 20:29 09/14/19 08:35 Gabapentin (Neurontin) 100 mg THREE TIMES A DAY ORAL 09/13/19 13:00 10/13/19 12:59 09/14/19 08:33 Insulin Aspart (NovoLOG) BEFORE MEALS AND HS SUBQ 09/13/19 11:30 10/13/19 11:29 Latanoprost (Xalatan) 1 drop BEDTIME BOTH EYES 09/13/19 21:00 10/13/19 20:59 09/13/19 20:40 Levetiracetam (Keppra) 500 mg EVERY 12 HOURS ORAL 09/13/19 21:00 10/13/19 20:59 09/14/19 08:33 Levothyroxine Sodium (Synthroid) 50 mcg DAILY@0630 ORAL 09/14/19 06:30 10/14/19 06:29 Meropenem 1 gm/ Sodium Chloride 100 ml @ 200 mls/hr Q12H IVPB 09/13/19 16:00 09/18/19 15:59 09/14/19 03:44 Methocarbamol (Robaxin) 500 mg TID ORAL 09/13/19 13:00 10/13/19 12:59 09/14/19 08:34 Tramadol HCl (Ultram) 50 mg Q6H ORAL 09/13/19 12:00 09/20/19 11:59 09/13/19 12:58 Vancomycin HCl (Vanco rx to dose) 1 ea DAILY PRN MISC Per rx protocol 09/13/19 15:00 10/13/19 14:59 Vancomycin HCl 750 mg/Sodium Chloride 275 ml @ 183.333 mls/hr Q24H IVPB 09/14/19 16:00 09/19/19 15:59 Assessment/Plan Assessment/Plan: Heme and Onc consult REQ MD: Beverly Ko Chief Complaint: Altered Level of Consciousness RFC: Bladder cancer, thrombocytopenia, bleeding, dvt lower leg DOS: 09/14/19 Present Illness 64-year-old male history of kidney and bladder cancer status post nephrostomy right side presents for altered mental status by EMS. According to EMS, his called for assistance after he was becoming confused and had a couple episodes of coffee-ground emesis. Patient is altered and cannot provide significant history. He is complaining of abdominal pain pointing to his upper abdomen. No emesis noted by EMS on route. Pressures have been stable. He is acutely altered. I discussed case with rn, other mds, had alower duplex showed dvt, is now s/p ivc f placement by vascular PMH: Kidney and bladder cancer PSH: Right nephrostomy, right PIC line Allergies: Ibuprofen and aspirin noted Social Hx: Unknown Allergies: Coded Allergies: ASPIRIN (Unverified Allergy, Unknown, 10/31/14) IBUPROFEN (Unverified Allergy, Unknown, 04/10/14) Nursing Documentation-[place] Past Medical History Deferred: Pt Cognitively Impaired Hx Cardiac Problems: Yes - GLAUCOMA BILAT EYE, MASS IN BLADDER, UTI, HYDRONEPHROSIS, Hx Hypertension: Yes Review of Systems All Other Systems: limited - Unable to obtain from patient due to altered mental status Physical Exam: Vitals: reviewed General: NAD HEENT: nc, at Neck: supple Chest: clear breath sounds bilaterally Cardiovascular: RRR, no s3, s4 Abdomen: soft, nontender, nd Extremities: no cce, normal range of motion Neuro: confused Labs: noted Imaging: reviewed Assessment and Recs # Occlusive thrombus in the left common femoral vein, proximal left superficial femoral vein, and distal left superficial femoral vein. No deep venous thrombosis identified in the right lower extremity. --> given bleed, drop in platelets, have ordered ivcf placement --> s/p ivcf placement 09/[address] Gopi Bernal --> will likely still require anticoag if labs improved # Bladder cancer with metastatic disease --> has adrenal and liver mets --> will need outpatient f/u # Thrombocytopenia - potential causes multifactorial, but in this case likely due to consumption from infection --> Hep panel and HIV ordered --> US abd to evaluate for cirrhosis and hsm ordered --> Peripheral smear ordered to evaluate for blasts /schistocytes --> abx and other meds have been reviewed --> ok for ppx if plt >50k w/ either heparin or lovenox --> Transfuse if Plt < 20k and fever, or if Plt < 10k without fever --> plt trend 104-->62k # Hypercalcemia due to malignancy --> calcitonin and aredia --> ivf hydration # Leukocytosis with underlying infection --> trend smear --> wbc trend 30-->26 --> as per id recs # LAVONNE as per renal --> s/p nephrosotmy tube placement # Encephalopathy Appreciate consultation and dw Prosper Kaufman MD Sep 14, 2019 12:34
[2019-09-14] MEDS ORDERED: NS 275ml ONE (14:20)
--- NOTE | 2019-09-14 15:15 | Consultation ---
DATE OF CONSULTATION: 09/14/2019 UROLOGY CONSULTATION CONSULTING PHYSICIAN: Rashid Bullard M.D. ATTENDING/REFERRING PHYSICIAN: Antelmo Ko M.D. CHIEF COMPLAINT/HISTORY OF PRESENT ILLNESS: I was asked by Dr. Ko to evaluate this unfortunate 64-year-old gentleman regarding a history of a right nephrostomy tube, which is clogged. The patient has a history of end-stage bladder cancer. He also has a right chronic nephrostomy tube presumably due to ureteral obstruction from bladder cancer. He presents to the hospital with altered mental status. He has been receiving IV antibiotics at home for E. coli infection. He has also received recent chemotherapy. The patient cannot provide much information. Most of the information is gathered from the chart. PAST MEDICAL HISTORY: 1. Bladder cancer. 2. Right hydronephrosis secondary to the same. 3. Hypertension. 4. Legally blind. 5. Urinary tract infection. 6. Hematuria. 7. Diabetes. 8. Chronic steroid usage. PAST SURGICAL HISTORY: Right nephrostomy tube placement. MEDICATIONS: Please see the chart for current medications administration details. ALLERGIES: Include ibuprofen and aspirin. SOCIAL HISTORY: Unobtainable. FAMILY HISTORY: Unobtainable. REVIEW OF SYSTEMS: A 14-system review of systems was attempted, but could not be done as the patient cannot cooperate with questioning. PHYSICAL EXAMINATION: GENERAL: Reveals an older gentleman, awake and somewhat alert. Uncertain of orientation. No obvious distress. HEENT: NC/AT. Oropharynx clear. NECK: Supple. CHEST: Within normal limits. ABDOMEN: Soft, nontender, and nondistended. Somewhat obese. EXTREMITIES: Warm and well perfused. No cyanosis, clubbing, or edema. BACK: Right nephrostomy tube in place with scant and somewhat purulent output. NEUROLOGIC: Notable for inability to cooperate with the exam and altered mental status. GENITOURINARY: Reveals a Sosa catheter in place with clear yellow urine output. There are bilateral descended testes and cord structures. No masses or tenderness to palpation. LABORATORY DATA: White blood cell count 23.9 down from 30.4 on admission, hematocrit 33.1, and platelets 62,000. PT 11.4, INR 1.1, PTT 23. Sodium 150, potassium 3.6, chloride 113, bicarbonate 27, BUN 41, and creatinine 1.5. Glucose 134. Calcium 12.7. LFTs within normal limits. Urinalysis, specific gravity 1.015, pH 9.0. Dip test is notable for 4+ protein, 2+ leukocyte esterase. Microanalysis with few bacteria seen. DIAGNOSTIC IMAGING: CT scan of the abdomen and pelvis reveals lobular soft tissue nodules thickening of posterior bladder likely neoplastic. There are multiple posterior bladder calculi. There are interval increases in the size of bilateral renal lesions likely representing metastasis. There is a nonspecific 1.5 centimeter lesion at the dome of the liver. There has been interval placement of the right nephrostomy tube. ASSESSMENT AND PLAN: In summary, the patient is a 64-year-old gentleman with a history of bladder cancer likely obstructing the right ureter from draining. 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 Physical exam reveals a nephrostomy tube which is not draining in an altered patient. Laboratory data is notable for elevated white blood cell count. Diagnostic imaging reveals the findings described above. I would recommend having Interventional Radiology change the nephrostomy tube in this patient given his overall health status. He is unlikely to be a candidate for surgical intervention for his bladder cancer and he has evidence of metastasis as well. Once his infection is treated with IV antibiotics per ID recommendations and his nephrostomy tube is changed, he can continue with his chemotherapy as warranted. Thank you for allowing me to participate in the care of this unfortunate gentleman. Please do not hesitate to contact me with any questions that you may further have regarding his care. I will see him with you as needed. Rashid Bullard M.D. DR: BRAD JOB#: [id number] CC:
[2019-09-14] MEDS: Vancomycin 750mg/NS 275ml IVPB SCH ×2 (15:47)
--- NOTE | 2019-09-14 15:49 | Pulmonology Progress Note ---
Assessment/Plan Assessment/Plan IMPRESSION: 1. Hypercalcemia. 2. Renal insufficiency, mild. 3. Bladder carcinoma. 4. Right hydronephrosis. 5. Altered mental status. 6. DVT; s/p IVC filter DISCUSSION: WIll consult urology for R nephrostomy replacement COntinue IV hydration and steroids for hypercalcemia S/p pamidronate Antelmo Ko M.D. Subjective Interval Events: S/p IVC filter for DVT Constitutional: Reports: no symptoms HEENT: Repors: no symptoms Respiratory: Reports: no symptoms Cardiovascular: Reports: no symptoms Gastrointestinal/Abdominal: Reports: no symptoms Genitourinary: Reports: no symptoms Neurologic: Reports: no symptoms Psychiatric: Reports: no symptoms Allergies: Coded Allergies: ASPIRIN (Unverified Allergy, Unknown, 10/31/14) IBUPROFEN (Unverified Allergy, Unknown, 04/10/14) Objective Last 24 Hour Vital Signs Date Time Temp Pulse Resp B/P (MAP) Pulse Ox O2 Delivery O2 Flow Rate FiO2 09/14/19 12:00 110 09/14/19 12:00 98.4 110 19 141/89 (106) 97 09/14/19 12:00 Nasal Cannula 2.0 09/14/19 08:00 100 09/14/19 08:00 98.5 99 20 124/99 (107) 100 09/14/19 08:00 Nasal Cannula 2.0 09/14/19 04:00 Nasal Cannula 2.0 09/14/19 03:32 96 09/14/19 00:00 Room Air 09/13/19 23:43 101 09/13/19 20:00 98.0 99 21 114/78 100 Nasal Cannula 3 09/13/19 20:00 Room Air 09/13/19 19:45 118 19 113/87 100 Nasal Cannula 3 09/13/19 19:35 115 23 127/86 100 Nasal Cannula 3 09/13/19 19:26 118 22 99 09/13/19 19:25 116 17 126/90 100 Simple Mask 6 09/13/19 19:20 117 19 121/91 99 Simple Mask 6 09/13/19 19:15 97.6 116 22 124/86 99 Simple Mask 6 09/13/19 16:00 98.0 114 20 154/95 (114) 97 09/13/19 16:00 Room Air 09/13/19 16:00 110 Intake and Output 09/13/19 09/14/19 19:00 07:00 Intake Total 200 ml 900 ml Output Total 10 ml 40 ml Balance 190 ml 860 ml Intake IV Total 200 ml 900 ml Output Estimated Blood Loss 10 ml Other 40 ml # Voids 4 General Appearance: no acute distress HEENT: normocephalic Respiratory/Chest: chest wall non-tender, lungs clear Cardiovascular: normal peripheral pulses Abdomen: normal bowel sounds Laboratory Tests 09/13/19 17:30: Sodium Level 148H, Potassium Level 4.0, Chloride Level 112H, Carbon Dioxide Level 21, Anion Gap 15, Blood Urea Nitrogen 38H, Creatinine 1.5H, Estimat Glomerular Filtration Rate 57.4, Glucose Level 136H, Uric Acid 7.8H, Calcium Level 12.4H, Phosphorus Level 2.9, Magnesium Level 1.9, Total Bilirubin 0.6, Aspartate Amino Transf (AST/SGOT) 30, Alanine Aminotransferase (ALT/SGPT) 39, Alkaline Phosphatase 131H, Total Protein 6.1L, Albumin 2.2L, Globulin 3.9, Albumin/Globulin Ratio 0.6L, Thyroid Stimulating Hormone (TSH) 1.598 09/14/19 04:00: Sodium Level 150H, Potassium Level 3.6, Chloride Level 113H, Carbon Dioxide Level 27, Anion Gap 10, Blood Urea Nitrogen 41H, Creatinine 1.5H, Estimat Glomerular Filtration Rate 57.4, Glucose Level 134H, Uric Acid 8.3H, Calcium Level 12.7H, Phosphorus Level 3.6, Magnesium Level 2.0, Total Bilirubin 0.6, Aspartate Amino Transf (AST/SGOT) 29, Alanine Aminotransferase (ALT/SGPT) 32, Alkaline Phosphatase 109, Total Protein 5.8L, Albumin 2.6L, Globulin 3.2, Albumin/Globulin Ratio 0.8L, White Blood Count 23.9*H, Red Blood Count 3.67L, Hemoglobin 10.9L, Hematocrit 33.1L, Mean Corpuscular Volume 90, Mean Corpuscular Hemoglobin 29.5, Mean Corpuscular Hemoglobin Concent 32.8, Red Cell Distribution Width 19.4H, Platelet Count 62L, Mean Platelet Volume 7.9, Neutrophils (%) (Auto) , Lymphocytes (%) (Auto) , Monocytes (%) (Auto) , Eosinophils (%) (Auto) , Basophils (%) (Auto) , Differential Total Cells Counted 100, Neutrophils % (Manual) 90H, Lymphocytes % (Manual) 5L, Monocytes % (Manual) 5, Eosinophils % (Manual) 0, Basophils % (Manual) 0, Band Neutrophils 0 , Nucleated Red Blood Cells 3, Platelet Estimate DecreasedL, Platelet Morphology Normal, Anisocytosis 2+, Ionized Calcium (Measured) 1.64*H, Prostate Specific Antigen 1.65 Current Medications Medications (Trade) Dose Ordered Sig/Andrea Route PRN Reason Start Time Stop Time Status Last Admin Dose Admin Acetaminophen/ Codeine Phosphate (Tylenol #3) 1 tab Q6H PRN ORAL Mild Pain (Pain Scale 1-3) 09/13/19 12:00 09/20/19 11:59 Acetaminophen/ Hydrocodone Bitart ([place] 10/325) 1 tab Q6H PRN ORAL Severe Pain (Pain Scale 7-10) 09/13/19 12:00 09/20/19 11:59 Acetaminophen/ Hydrocodone Bitart ([place] 5/325) 1 tab Q6H PRN ORAL Moderate Pain (Pain Scale 4-6) 09/13/19 12:00 09/20/19 11:59 Brimonidine Tartrate (Alphagan) 1 drop BID BOTH EYES 09/13/19 18:00 10/13/19 17:59 09/14/19 08:32 Calcitonin [place] (Miacalcin) 1 sprays Q24H NASAL 09/13/19 18:00 10/13/19 17:59 Chlorhexidine Gluconate (Gina-Hex 2%) 1 applic DAILY@2000 TOPIC 09/14/19 20:00 10/14/19 19:59 Dextrose (Dextrose 50%) 25 ml Q30M PRN IV Hypoglycemia 09/13/19 11:30 10/13/19 11:29 Dextrose (Dextrose 50%) 50 ml Q30M PRN IV Hypoglycemia 09/13/19 11:30 10/13/19 11:29 Dextrose/Sodium Chloride 1,000 ml @ 150 mls/hr Q6H40M IV 09/13/19 20:30 10/13/19 20:29 09/14/19 08:35 Gabapentin (Neurontin) 100 mg THREE TIMES A DAY ORAL 09/13/19 13:00 10/13/19 12:59 09/14/19 12:25 Insulin Aspart (NovoLOG) BEFORE MEALS AND HS SUBQ 09/13/19 11:30 10/13/19 11:29 Latanoprost (Xalatan) 1 drop BEDTIME BOTH EYES 09/13/19 21:00 10/13/19 20:59 09/13/19 20:40 Levetiracetam (Keppra) 500 mg EVERY 12 HOURS ORAL 09/13/19 21:00 10/13/19 20:59 09/14/19 08:33 Levothyroxine Sodium (Synthroid) 50 mcg DAILY@0630 ORAL 09/14/19 06:30 10/14/19 06:29 Meropenem 1 gm/ Sodium Chloride 100 ml @ 200 mls/hr Q12H IVPB 09/13/19 16:00 09/18/19 15:59 09/14/19 03:44 Methocarbamol (Robaxin) 500 mg TID ORAL 09/13/19 13:00 10/13/19 12:59 09/14/19 12:25 Tramadol HCl (Ultram) 50 mg Q6H ORAL 09/13/19 12:00 09/20/19 11:59 09/14/19 12:25 Vancomycin HCl (Vanco rx to dose) 1 ea DAILY PRN MISC Per rx protocol 09/13/19 15:00 10/13/19 14:59 Vancomycin HCl 750 mg/Sodium Chloride 275 ml @ 183.333 mls/hr Q24H IVPB 09/14/19 16:00 09/19/19 15:59 Antelmo Ko MD Sep 14, 2019 15:49
[2019-09-14 16:00] VITALS: BP 135/92
--- NOTE | 2019-09-14 16:40 | NUR ---
NURSE NOTES: Bed bath given.
--- NOTE | 2019-09-14 19:14 | NUR ---
HAND-OFF: Report given to ARIANE Shipley. Endorsed plan of care.
--- NOTE | 2019-09-14 19:15 | NUR ---
NURSE NOTES: received pt from Alexey THAKKAR., pt is resting on the bed AOx1 and confused. pt [id number]% with 2L of NC, pt has condom cath on. Nephrostomy bag in right side. Right upper arm Midline noted and site is intact, patent, and clean. currently D5 0.45 NS is running at 150ml/hr. pt states no pain at this moment. call light within reach. bed at the lowest position, alarmed, and locked. will continue to monitor pt with plan of care.
[2019-09-14 20:00] VITALS: BP 137/91
--- NOTE | 2019-09-14 20:15 | Consultation ---
DATE OF CONSULTATION: 09/13/2019 VASCULAR SURGERY CONSULTATION CONSULTING PHYSICIAN: Gopi Ramos M.D. REFERRING PHYSICIAN: Antelmo Ko M.D. REASON FOR CONSULTATION: Extensive left proximal common femoral vein deep venous thrombosis and history of GI bleeding and tumor, need for IVC filter. HISTORY OF PRESENT ILLNESS: This is a 64-year-old male, who presented with altered mental status and encephalopathy, white count of 30,000 on antibiotics for presumed E. coli UTI. The patient was found to have extensive deep vein thrombosis in the left leg extending to the proximal common femoral vein. The patient also has GI bleeding and metastatic bladder tumor with nephrostomy tube. Vascular Surgery is consulted for evaluation and placement of inferior vena cava filter. The patient is confused, all the history is obtained from medical records. PAST MEDICAL HISTORY: As above, history of metastatic bladder cancer, right hydronephrosis, legally blind, encephalopathy, hypertension, diabetes mellitus, history of chronic steroid usage, recent chemotherapy, PICC line in the right arm, and right nephrostomy tube. MEDICATIONS: See attached MAR. ALLERGIES: Ibuprofen and aspirin. SOCIAL HISTORY: Unobtainable. SYSTEM REVIEW: Unobtainable. FAMILY HISTORY: Unobtainable due to altered mental status. PHYSICAL EXAMINATION: GENERAL: The patient is confused, nonresponsive. VITAL SIGNS: He is afebrile at 98, heart rate 118, blood pressure 140/70, and respirations 16. The patient has palpable radial pulses. Right arm PICC line in place. LUNGS: Clear to auscultation. HEART: Sinus tachycardia. ABDOMEN: Soft and nontender. EXTREMITIES: He has palpable femoral pulses. Feet are warm. Intact pedal Dopplers bilaterally. LABORATORY DATA: Revealed calcium of 14.2. WBC 30,000, hemoglobin 13, and platelet count 104,000. Leg venous duplex revealed extensive left common femoral vein and leg deep venous thrombosis. IMPRESSION: 1. Extensive left leg deep venous thrombosis involving the common femoral vein. 2. History of GI bleeding, metastatic tumor, bladder cancer, nephrostomy tube, encephalopathy, and renal insufficiency. PLAN AND RECOMMENDATION: The patient will benefit from inferior vena caval filter. Leg elevation. Decubitus precautions. Medical, Infectious Disease, and Oncology optimization in progress. The above was discussed at length with the patient's . Gopi Jayme Ramos DR: LARRY JOB#: [id number] CC: NAJMA
[2019-09-14] MEDS: Dyna-Hex 2% Top Sol 2oz TOPIC SCH (20:29)
[2019-09-14] MEDS: Latanoprost 0.005% Opth 2.5ml Soln BOTH EYES SCH (20:38)
[2019-09-15] VITALS: BP 114/80
--- NOTE | 2019-09-15 02:00 | Operative Note - Dictated ---
DATE OF OPERATION: 09/13/2019 SURGEON: Gopi Ramos M.D. ANESTHESIOLOGIST: Oscar Pinzon M.D. PREOPERATIVE DIAGNOSES: 1. Extensive left leg deep venous thrombosis involving the left common femoral vein. 2. History of GI bleeding, metastatic bladder tumor, and nephrostomy tube. POSTOPERATIVE DIAGNOSES: 1. Extensive left leg deep venous thrombosis involving the left common femoral vein. 2. History of GI bleeding, metastatic bladder tumor, and nephrostomy tube. 3. See findings. PROCEDURES: 1. Placement of inferior vena cava filter ([place] Bard) via right common femoral vein percutaneous approach. 2. Right common femoral vein access sheath placement with right common femoral vein ultrasound sonography and selective right common femoral vein venogram and cavagram with interpretation and supervision of direct fluoroscopy , radiography and sonography. ANESTHESIA: Local sedation. COMPLICATIONS: None. TOTAL FLUOROSCOPY TIME: 1.26 minute. CONTRAST: 80 mL of diluted Omnipaque. FINDINGS: 1. Patency of right common femoral vein, external iliac vein, and common iliac vein. 2. Good placement inferior vena cava filter below the renal veinwith excellent wall apposition with no evidence of tilt. The patient tolerated the procedure very well. IVC filter can be removed in three months if the patient is free of clots and cleared by Hematology/Oncology service. INDICATION FOR THE PROCEDURE: This is a 64-year-old male who presented for the above-mentioned procedure. Risks and benefits were discussed with the patient's and consent was obtained. DESCRIPTION OF PROCEDURE: The patient was brought to the procedure room. After a dose of antibiotics and sedation by the anesthesiologist, groins were prepped and draped in usual sterile manner. The right common femoral vein was accessed under local anesthesia. Using micropuncture technique, the right common femoral vein percutaneous access sheath placed, this was changed to a 5-Italian sheath. Right common femoral vein, 5-Italian venography was performed and cavagram was performed with .Then femoral IVC filter [place] was brought to the field, this was prepped. Then inferior vena cava was selected using a glide catheter and changed to stiff amplatx wire and 5-Italian sheath was exchanged for an 8-Italian 45 cm sheath with tip inside the inferior vena cava. The dilator was removed. The wire was removed. The filter was advanced into the sheath and deployed in a standard fashion in inferior vena cava without difficulty. The right femoral sheath was removed. At completion, local hemostasis was achieved using pressure dressing. The patient tolerated the procedure very well and was transferred to Recovery hemodynamically stable. Gopi Ramos M.D. DR: Olga JOB#: [id number] CC: Gopi Ramos M.D.; Fax#: [phone] TARA JACOBSEN M.D. ; FAX#: [phone] NAJMA
[2019-09-15 04:00] VITALS: BP 141/59
[2019-09-15] MEDS: D5 1/2NS 1,000 ML IV SCH ×3 (05:24→20:47)
[2019-09-15] MEDS: traMADol 50mg tab ORAL SCH ×4 (05:24→23:04)
[2019-09-15] MEDS: NovoLOG Insulin Flexpen SUBQ SCH ×5 (05:25→20:46)
[2019-09-15 06:14] LABS: HEMOGLOBIN 10.8 G/DL (14.2-18.0); MEAN CORPUSCULAR VOLUME 92 FL (80-99); PLATELET COUNT 38 K/UL (150-450); RED BLOOD COUNT 3.57 M/UL (4.70-6.10); RED CELL DISTRIBUTION WIDTH 19.1 % (11.6-14.8)
[2019-09-15 06:21] LABS: WHITE BLOOD COUNT 26.3 K/UL (4.8-10.8)
--- NOTE | 2019-09-15 06:36 | NUR ---
NURSE NOTES: left voice mail regarding Critical WBC result to Dr. Vance. will wait for call back.
--- NOTE | 2019-09-15 06:44 | NUR ---
NURSE NOTES: per Dr. Vance, he will see the pt today. no new orders at this moment.
[2019-09-15 07:06] LABS: ALANINE AMINOTRANSFERASE 33 U/L (12-78); ALBUMIN 2.3 G/DL (3.4-5.0); ALBUMIN/GLOBULIN RATIO 0.7 (1.0-2.7); ALKALINE PHOSPHATASE 129 U/L (46-116); ANION GAP 10 mmol/L (5-15); ASPARTATE AMINO TRANSFERASE 35 U/L (15-37); BILIRUBIN,TOTAL 0.6 MG/DL (0.2-1.0); BLOOD UREA NITROGEN 40 mg/dL (7-18); CARBON DIOXIDE 26 MMOL/L (21-32); CHLORIDE 113 MMOL/L (98-107); CREATININE 1.7 MG/DL (0.55-1.30); FERRITIN 791 NG/ML (8-388); PHOSPHORUS 2.7 MG/DL (2.5-4.9); POTASSIUM 3.4 MMOL/L (3.5-5.1); SODIUM 148 MMOL/L (136-145)
[2019-09-15 07:20] LABS: % IRON SATURATION 10 % (15-50); IRON 16 ug/dL (50-175); TOTAL IRON BINDING CAPACITY 161 ug/dL (250-450)
--- NOTE | 2019-09-15 07:34 | NUR ---
NURSE NOTES: per Dr. Ward, no new order regarding EKG result.
--- NOTE | 2019-09-15 07:47 | NUR ---
HAND-OFF: Report given to Daria THAKKAR. pt remains stable condition.
[2019-09-15 07:50] LABS: CALCIUM 13.1 MG/DL (8.5-10.1)
--- NOTE | 2019-09-15 07:50 | NUR ---
NURSE NOTES: received pt in the bed, lethargic, vital signs stable, no co pain, ni SOB, skin warm and dry to touch, dressing dry and intact on RT buttock, condom catheter , bloody urine, dr. Ko aware, nephrostomy on RT side, mid line on RT upper arm, dressing dry and intact, bed in low position, call light within reach.
[2019-09-15 08:00] VITALS: BP 142/101
[2019-09-15] MEDS: Methocarbamol 500mg tab ORAL SCH ×3 (09:00→18:27)
--- NOTE | 2019-09-15 09:07 | Hematology/Onc Progress Note ---
Assessment/Plan Assessment/Plan Assessment and Recs # Occlusive thrombus in the left common femoral vein, proximal left superficial femoral vein, and distal left superficial femoral vein. No deep venous thrombosis identified in the right lower extremity. --> given bleed, drop in platelets, have ordered ivcf placement --> s/p ivcf placement 09/[address] Gopi Bernal --> will likely still require anticoag if labs improved # Bladder cancer with metastatic disease --> has adrenal and liver mets --> will need outpatient f/u --> will codey Rn today again to obtain further hx # Thrombocytopenia - potential causes multifactorial, but in this case likely due to consumption from infection, also DIC --> Hep panel and HIV ordered --> US abd to evaluate for cirrhosis and hsm ordered --> Peripheral smear ordered to evaluate for blasts /schistocytes --> abx and other meds have been reviewed --> ok for ppx if plt >50k w/ either heparin or lovenox --> Transfuse if Plt < 20k and fever, or if Plt < 10k without fever --> plt trend 104-->62k-->38k # Hypercalcemia due to malignancy --> calcitonin and aredia --> ivf hydration --> Ca++ 13-->12 # Leukocytosis with underlying infection --> trend smear --> wbc trend 30-->24-->26 --> as per id recs # LAVONNE as per renal --> s/p nephrosotmy tube placement --> cr 1.5-->1.7 # Encephalopathy --> per neuro Appreciate consultation and codey Rn Subjective Constitutional: Denies: no symptoms, chills, fever, malaise, weakness, other HEENT: Denies: no symptoms, eye pain, blurred vision, tearing, double vision, ear pain, ear discharge, nose pain, nose congestion, throat pain, throat swelling, mouth pain, mouth swelling, other Cardiovascular: Denies: no symptoms, chest pain, edema, irregular heart rate, lightheadedness, palpitations, syncope, other Respiratory: Denies: no symptoms, cough, shortness of breath, SOB with excertion, SOB at rest, sputum, wheezing, other Gastrointestinal/Abdominal: Denies: no symptoms, abdomen distended, abdominal pain, black stools, tarry stools, blood in stool, constipated, diarrhea, difficulty swallowing, nausea, poor appetite, poor fluid intake, rectal bleeding , vomiting, other Genitourinary: Denies: no symptoms, burning, discharge, frequency, flank pain, hematuria, incontinence, pain, urgency, other Endocrine: Denies: no symptoms, excessive sweating, flushing, intolerance to cold, intolerance to heat, increased hunger, increased thirst, increased urine, unexplained weight gain, unexplained weight loss, other Hematologic/Lymphatic: Denies: no symptoms, anemia, easy bleeding, easy bruising, adenopathy, other Allergies: Coded Allergies: ASPIRIN (Unverified Allergy, Unknown, 10/31/14) IBUPROFEN (Unverified Allergy, Unknown, 04/10/14) Subjective 09/15: Ca++ remains high today 13.2, have ordered for pamidronate, no bleeding, cbc/bmp pending Objective Objective Current Medications Medications (Trade) Dose Ordered Sig/Andrea Route PRN Reason Start Time Stop Time Status Last Admin Dose Admin Acetaminophen/ Codeine Phosphate (Tylenol #3) 1 tab Q6H PRN ORAL Mild Pain (Pain Scale 1-3) 09/13/19 12:00 09/20/19 11:59 Acetaminophen/ Hydrocodone Bitart ([place] 10/325) 1 tab Q6H PRN ORAL Severe Pain (Pain Scale 7-10) 09/13/19 12:00 09/20/19 11:59 Acetaminophen/ Hydrocodone Bitart ([place] 5/325) 1 tab Q6H PRN ORAL Moderate Pain (Pain Scale 4-6) 09/13/19 12:00 09/20/19 11:59 Brimonidine Tartrate (Alphagan) 1 drop BID BOTH EYES 09/13/19 18:00 10/13/19 17:59 09/14/19 17:11 Calcitonin Concepcion (Miacalcin) 1 sprays Q24H NASAL 09/13/19 18:00 10/13/19 17:59 09/14/19 17:11 Chlorhexidine Gluconate (Gina-Hex 2%) 1 applic DAILY@1999 TOPIC 09/14/19 20:00 10/14/19 19:59 09/14/19 20:29 Dextrose (Dextrose 50%) 25 ml Q30M PRN IV Hypoglycemia 09/13/19 11:30 10/13/19 11:29 Dextrose (Dextrose 50%) 50 ml Q30M PRN IV Hypoglycemia 09/13/19 11:30 10/13/19 11:29 Dextrose/Sodium Chloride 1,000 ml @ 150 mls/hr Q6H40M IV 09/13/19 20:30 10/13/19 20:29 09/15/19 05:24 Furosemide (Lasix) 40 mg ONCE ONCE IV 09/15/19 08:45 09/15/19 08:46 UNV Gabapentin (Neurontin) 100 mg THREE TIMES A DAY ORAL 09/13/19 13:00 10/13/19 12:59 09/14/19 17:11 Insulin Aspart (NovoLOG) BEFORE MEALS AND HS SUBQ 09/13/19 11:30 10/13/19 11:29 09/14/19 20:39 Latanoprost (Xalatan) 1 drop BEDTIME BOTH EYES 09/13/19 21:00 10/13/19 20:59 09/14/19 20:38 Levetiracetam (Keppra) 500 mg EVERY 12 HOURS ORAL 09/13/19 21:00 10/13/19 20:59 09/14/19 08:33 Levothyroxine Sodium (Synthroid) 50 mcg DAILY@0630 ORAL 09/14/19 06:30 10/14/19 06:29 Meropenem 1 gm/ Sodium Chloride 100 ml @ 200 mls/hr Q12H IVPB 09/13/19 16:00 09/18/19 15:59 09/15/19 04:21 Methocarbamol (Robaxin) 500 mg TID ORAL 09/13/19 13:00 10/13/19 12:59 09/14/19 17:10 Pamidronate Disodium 30 mg/ Sodium Chloride 550 ml @ 137.5 mls/ hr ONCE ONCE IVPB 09/15/19 09:00 09/15/19 12:59 UNV Phosphorus (Phospha 250 Neutral) 500 mg ONCE ONCE ORAL 09/15/19 08:45 09/15/19 08:46 UNV Potassium Chloride (K-Dur) 40 meq TWICE A DAY ORAL 09/15/19 09:00 10/15/19 08:59 UNV Tramadol HCl (Ultram) 50 mg Q6H ORAL 09/13/19 12:00 09/20/19 11:59 09/14/19 17:11 Vancomycin HCl (Vanco rx to dose) 1 ea DAILY PRN MISC Per rx protocol 09/13/19 15:00 10/13/19 14:59 Vancomycin HCl 750 mg/Sodium Chloride 275 ml @ 183.333 mls/hr Q24H IVPB 09/14/19 16:00 09/19/19 15:59 09/14/19 15:47 Last 24 Hour Vital Signs Date Time Temp Pulse Resp B/P (MAP) Pulse Ox O2 Delivery O2 Flow Rate FiO2 09/15/19 04:00 99.4 89 20 141/59 (86) 98 09/15/19 04:00 112 09/15/19 03:00 Nasal Cannula 2.0 09/15/19 00:00 Nasal Cannula 2.0 09/15/19 00:00 97.7 112 20 114/80 (91) 100 09/14/19 23:34 112 09/14/19 20:00 Nasal Cannula 2.0 09/14/19 20:00 97.5 115 20 137/91 (106) 99 09/14/19 19:17 117 09/14/19 16:00 116 09/14/19 16:00 98.5 115 20 135/92 (106) 95 09/14/19 16:00 Nasal Cannula 2.0 09/14/19 12:00 110 09/14/19 12:00 98.4 110 19 141/89 (106) 97 09/14/19 12:00 Nasal Cannula 2.0 09/14/19 08:00 100 09/14/19 08:00 98.5 99 20 124/99 (107) 100 09/14/19 08:00 Nasal Cannula 2.0 09/14/19 04:00 Nasal Cannula 2.0 09/14/19 03:32 96 09/14/19 00:00 Room Air 09/13/19 23:43 101 09/13/19 20:00 98.0 99 21 114/78 100 Nasal Cannula 3 09/13/19 20:00 Room Air 09/13/19 19:45 118 19 113/87 100 Nasal Cannula 3 09/13/19 19:35 115 23 127/86 100 Nasal Cannula 3 09/13/19 19:26 118 22 99 09/13/19 19:25 116 17 126/90 100 Simple Mask 6 09/13/19 19:20 117 19 121/91 99 Simple Mask 6 09/13/19 19:15 97.6 116 22 124/86 99 Simple Mask 6 09/13/19 16:00 98.0 114 20 154/95 (114) 97 09/13/19 16:00 Room Air 09/13/19 16:00 110 09/13/19 12:00 Room Air 09/13/19 12:00 98.7 113 20 124/81 (95) 97 09/13/19 11:30 111 09/13/19 09:29 118 Intake and Output 09/14/19 09/15/19 19:00 07:00 Intake Total 2445.000 ml 700 ml Output Total 1140 ml 380 ml Balance 1305.000 ml 320 ml Intake IV Total 2445.000 ml 700 ml Output Urine Total 1100 ml 350 ml Other 40 ml 30 ml # Voids 2 Labs Test 09/13/19 03:04 09/13/19 04:16 09/13/19 04:37 09/13/19 17:30 White Blood Count 30.4 K/UL (4.8-10.8) Red Blood Count 4.68 M/UL (4.70-6.10) Hemoglobin 13.7 G/DL (14.2-18.0) Hematocrit 42.2 % (42.0-52.0) Mean Corpuscular Volume 90 FL (80-99) Mean Corpuscular Hemoglobin 29.3 PG (27.0-31.0) Mean Corpuscular Hemoglobin Concent 32.5 G/DL (32.0-36.0) Red Cell Distribution Width 18.7 % (11.6-14.8) Platelet Count 104 K/UL (150-450) Mean Platelet Volume 11.9 FL (6.5-10.1) Neutrophils (%) (Auto) % (45.0-75.0) Lymphocytes (%) (Auto) % (20.0-45.0) Monocytes (%) (Auto) % (1.0-10.0) Eosinophils (%) (Auto) % (0.0-3.0) Basophils (%) (Auto) % (0.0-2.0) Differential Total Cells Counted 100 Neutrophils % (Manual) 88 % (45-75) Lymphocytes % (Manual) 6 % (20-45) Monocytes % (Manual) 6 % (1-10) Eosinophils % (Manual) 0 % (0-3) Basophils % (Manual) 0 % (0-2) Band Neutrophils 0 % (0-8) Nucleated Red Blood Cells 3 /100 WBC Platelet Estimate Decreased Platelet Morphology Normal Anisocytosis 2+ Prothrombin Time 11.4 SEC (9.30-11.50) Prothromb Time International Ratio 1.1 (0.9-1.1) Activated Partial Thromboplast Time 23 SEC (23-33) Urine Color Yellow Urine Appearance Very cloudy Urine pH 9 (4.5-8.0) Urine Specific [place] 1.015 (1.005-1.035) Urine Protein 4+ (NEGATIVE) Urine Glucose (UA) Negative (NEGATIVE) Urine Ketones Negative (NEGATIVE) Urine Blood Negative (NEGATIVE) Urine Nitrite Negative (NEGATIVE) Urine Bilirubin Negative (NEGATIVE) Urine Urobilinogen Normal MG/DL (0.0-1.0) Urine Leukocyte Esterase 2+ (NEGATIVE) Urine RBC 0-2 /HPF (0 - 0) Urine WBC 2-4 /HPF (0 - 0) Urine Squamous Epithelial Cells Occasional /LPF Urine Triple Phosphate Crystals Many /LPF (NONE) Urine Amorphous Sediment Many /LPF (NONE) Urine Bacteria Few /HPF (NONE) Sodium Level 143 MMOL/L (136-145) 148 MMOL/L (136-145) Potassium Level 4.4 MMOL/L (3.5-5.1) 4.0 MMOL/L (3.5-5.1) Chloride Level 104 MMOL/L (98-107) 112 MMOL/L (98-107) Carbon Dioxide Level 28 MMOL/L (21-32) 21 MMOL/L (21-32) Anion Gap 11 mmol/L (5-15) 15 mmol/L (5-15) Blood Urea Nitrogen 43 mg/dL (7-18) 38 mg/dL (7-18) Creatinine 1.4 MG/DL (0.55-1.30) 1.5 MG/DL (0.55-1.30) Estimat Glomerular Filtration Rate > 60 mL/min (>60) 57.4 mL/min (>60) Glucose Level 154 MG/DL (74-106) 136 MG/DL (74-106) Lactic Acid Level 2.80 mmol/L (0.4-2.0) 2.00 mmol/L (0.66-2.22) Calcium Level 14.2 MG/DL (8.5-10.1) 12.4 MG/DL (8.5-10.1) Total Bilirubin 0.6 MG/DL (0.2-1.0) 0.6 MG/DL (0.2-1.0) Aspartate Amino Transf (AST/SGOT) 38 U/L (15-37) 30 U/L (15-37) Alanine Aminotransferase (ALT/SGPT) 48 U/L (12-78) 39 U/L (12-78) Alkaline Phosphatase 164 U/L (46-116) 131 U/L (46-116) Ammonia 19 umol/L (11-32) Troponin I 0.004 ng/mL (0.000-0.056) Total Protein 7.0 G/DL (6.4-8.2) 6.1 G/DL (6.4-8.2) Albumin 2.5 G/DL (3.4-5.0) 2.2 G/DL (3.4-5.0) Globulin 4.5 g/dL 3.9 g/dL Albumin/Globulin Ratio 0.6 (1.0-2.7) 0.6 (1.0-2.7) Lipase 100 U/L (73-393) Uric Acid 9.0 MG/DL (2.6-7.2) 7.8 MG/DL (2.6-7.2) Phosphorus Level 2.9 MG/DL (2.5-4.9) Magnesium Level 1.9 MG/DL (1.8-2.4) Thyroid Stimulating Hormone (TSH) 1.598 uiU/mL (0.358-3.740) Test 09/14/19 04:00 09/14/19 17:03 09/15/19 04:50 White Blood Count 23.9 K/UL (4.8-10.8) 26.3 K/UL (4.8-10.8) Red Blood Count 3.67 M/UL (4.70-6.10) 3.57 M/UL (4.70-6.10) Hemoglobin 10.9 G/DL (14.2-18.0) 10.8 G/DL (14.2-18.0) Hematocrit 33.1 % (42.0-52.0) 33.0 % (42.0-52.0) Mean Corpuscular Volume 90 FL (80-99) 92 FL (80-99) Mean Corpuscular Hemoglobin 29.5 PG (27.0-31.0) 30.1 PG (27.0-31.0) Mean Corpuscular Hemoglobin Concent 32.8 G/DL (32.0-36.0) 32.6 G/DL (32.0-36.0) Red Cell Distribution Width 19.4 % (11.6-14.8) 19.1 % (11.6-14.8) Platelet Count 62 K/UL (150-450) 38 K/UL (150-450) Mean Platelet Volume 7.9 FL (6.5-10.1) 8.2 FL (6.5-10.1) Neutrophils (%) (Auto) % (45.0-75.0) % (45.0-75.0) Lymphocytes (%) (Auto) % (20.0-45.0) % (20.0-45.0) Monocytes (%) (Auto) % (1.0-10.0) % (1.0-10.0) Eosinophils (%) (Auto) % (0.0-3.0) % (0.0-3.0) Basophils (%) (Auto) % (0.0-2.0) % (0.0-2.0) Differential Total Cells Counted 100 100 Neutrophils % (Manual) 90 % (45-75) 91 % (45-75) Lymphocytes % (Manual) 5 % (20-45) 5 % (20-45) Monocytes % (Manual) 5 % (1-10) 1 % (1-10) Eosinophils % (Manual) 0 % (0-3) 0 % (0-3) Basophils % (Manual) 0 % (0-2) 0 % (0-2) Band Neutrophils 0 % (0-8) 1 % (0-8) Nucleated Red Blood Cells 3 /100 WBC 1 /100 WBC Platelet Estimate Decreased Decreased Platelet Morphology Normal Normal Anisocytosis 2+ 2+ Sodium Level 150 MMOL/L (136-145) 148 MMOL/L (136-145) Potassium Level 3.6 MMOL/L (3.5-5.1) 3.4 MMOL/L (3.5-5.1) Chloride Level 113 MMOL/L (98-107) 113 MMOL/L (98-107) Carbon Dioxide Level 27 MMOL/L (21-32) 26 MMOL/L (21-32) Anion Gap 10 mmol/L (5-15) 10 mmol/L (5-15) Blood Urea Nitrogen 41 mg/dL (7-18) 40 mg/dL (7-18) Creatinine 1.5 MG/DL (0.55-1.30) 1.7 MG/DL (0.55-1.30) Estimat Glomerular Filtration Rate 57.4 mL/min (>60) 49.7 mL/min (>60) Glucose Level 134 MG/DL (74-106) 126 MG/DL (74-106) Uric Acid 8.3 MG/DL (2.6-7.2) 8.8 MG/DL (2.6-7.2) Calcium Level 12.7 MG/DL (8.5-10.1) 13.1 MG/DL (8.5-10.1) Ionized Calcium (Measured) 1.64 mmol/L (1.10-1.35) Phosphorus Level 3.6 MG/DL (2.5-4.9) 2.7 MG/DL (2.5-4.9) Magnesium Level 2.0 MG/DL (1.8-2.4) 2.0 MG/DL (1.8-2.4) Total Bilirubin 0.6 MG/DL (0.2-1.0) 0.6 MG/DL (0.2-1.0) Aspartate Amino Transf (AST/SGOT) 29 U/L (15-37) 35 U/L (15-37) Alanine Aminotransferase (ALT/SGPT) 32 U/L (12-78) 33 U/L (12-78) Alkaline Phosphatase 109 U/L (46-116) 129 U/L (46-116) Total Protein 5.8 G/DL (6.4-8.2) 5.8 G/DL (6.4-8.2) Albumin 2.6 G/DL (3.4-5.0) 2.3 G/DL (3.4-5.0) Globulin 3.2 g/dL 3.5 g/dL Albumin/Globulin Ratio 0.8 (1.0-2.7) 0.7 (1.0-2.7) Prostate Specific Antigen 1.65 ng/mL (0.13-4.0) Metamyelocytes % 2 % (0-0) Hypochromasia 1+ Hemoglobin A1c 6.7 % (4.3-6.0) Iron Level 16 ug/dL (50-175) Total Iron Binding Capacity 161 ug/dL (250-450) Percent Iron Saturation 10 % (15-50) Unsaturated Iron Binding 145 ug/dL (112-346) Ferritin 791 NG/ML (8-388) Troponin I 0.047 ng/mL (0.000-0.056) C-Reactive Protein, Quantitative 20.0 mg/dL (0.00-0.90) Pro-B-Type Natriuretic Peptide 1448 pg/mL (0-125) Vitamin B12 Level 1526 PG/ML (193-986) Folate 14.4 NG/ML (8.6-58.9) Thyroid Stimulating Hormone (TSH) 1.893 uiU/mL (0.358-3.740) Free Thyroxine 0.98 NG/DL (0.76-1.46) Free Triiodothyronine 1.4 pg/mL (2.3-4.2) Height (Feet): 5 Height (Inches): 4.00 Weight (Pounds): 167 Objective Physical Exam: Vitals: reviewed General: NAD HEENT: nc, at Neck: supple Chest: clear breath sounds bilaterally Cardiovascular: RRR, no s3, s4 Abdomen: soft, nontender, nd Extremities: no cce, normal range of motion Neuro: confused Prosper Spaulding MD Sep 15, 2019 09:07
[2019-09-15] MEDS ORDERED: Phospha 250 Neutral tab ORAL SCH (09:30)
--- NOTE | 2019-09-15 10:03 | Nephrology Progress Note ---
Assessment/Plan Problem List: (1) Hypercalcemia (2) Bladder mass (3) LAVONNE (acute kidney injury) (4) Encephalopathy Assessment: metabolic Assessment 1. Hypercalcemia. 2. Renal insufficiency 3. Bladder carcinoma. 4. Right hydronephrosis. 5. Altered mental status. 6. Had IVC filter Plan St eval- keep NPO NGT? one dose Solumedrol Hydrate- Lasix- Aredia- up tp total 90mg Calcitonin Monitor renal parameters and Ca Kidney MITCH uro eval Subjective ROS Limited/Unobtainable: No Constitutional: Reports: malaise, weakness Objective Objective Last 24 Hour Vital Signs Date Time Temp Pulse Resp B/P (MAP) Pulse Ox O2 Delivery O2 Flow Rate FiO2 09/15/19 04:00 99.4 89 20 141/59 (86) 98 09/15/19 04:00 112 09/15/19 03:00 Nasal Cannula 2.0 09/15/19 00:00 Nasal Cannula 2.0 09/15/19 00:00 97.7 112 20 114/80 (91) 100 09/14/19 23:34 112 09/14/19 20:00 Nasal Cannula 2.0 09/14/19 20:00 97.5 115 20 137/91 (106) 99 09/14/19 19:17 117 09/14/19 16:00 116 09/14/19 16:00 98.5 115 20 135/92 (106) 95 09/14/19 16:00 Nasal Cannula 2.0 09/14/19 12:00 110 09/14/19 12:00 98.4 110 19 141/89 (106) 97 09/14/19 12:00 Nasal Cannula 2.0 Intake and Output 09/14/19 09/15/19 19:00 07:00 Intake Total 2445.000 ml 700 ml Output Total 1140 ml 380 ml Balance 1305.000 ml 320 ml Intake IV Total 2445.000 ml 700 ml Output Urine Total 1100 ml 350 ml Other 40 ml 30 ml # Voids 2 Laboratory Tests 09/14/19 17:03: Carcinoembryonic Antigen [Pending], [place] 15-3 Antigen [Pending], CA 19-9 Antigen [ Pending] 09/15/19 04:50: White Blood Count 26.3*H, Red Blood Count 3.57L, Hemoglobin 10.8L, Hematocrit 33.0L, Mean Corpuscular Volume 92, Mean Corpuscular Hemoglobin 30.1, Mean Corpuscular Hemoglobin Concent 32.6, Red Cell Distribution Width 19.1H, Platelet Count 38L, Mean Platelet Volume 8.2, Neutrophils (%) (Auto) , Lymphocytes (%) (Auto) , Monocytes (%) (Auto) , Eosinophils (%) (Auto) , Basophils (%) (Auto) , Differential Total Cells Counted 100, Neutrophils % ( Manual) 91H, Lymphocytes % (Manual) 5L, Monocytes % (Manual) 1, Eosinophils % ( Manual) 0, Basophils % (Manual) 0, Metamyelocytes % 2H, Band Neutrophils 1, Nucleated Red Blood Cells 1, Platelet Estimate DecreasedL, Platelet Morphology Normal, Hypochromasia 1+, Anisocytosis 2+, Sodium Level 148H, Potassium Level 3.4L, Chloride Level 113H, Carbon Dioxide Level 26, Anion Gap 10, Blood Urea Nitrogen 40H, Creatinine 1.7H, Estimat Glomerular Filtration Rate 49.7, Glucose Level 126H, Hemoglobin A1c 6.7H, Uric Acid 8.8H, Calcium Level 13.1*H, Phosphorus Level 2.7, Magnesium Level 2.0, Iron Level 16L, Total Iron Binding Capacity 161L, Percent Iron Saturation 10L, Unsaturated Iron Binding 145, Ferritin 791H, Total Bilirubin 0.6, Aspartate Amino Transf (AST/SGOT) 35, Alanine Aminotransferase (ALT/SGPT) 33, Alkaline Phosphatase 129H, Troponin I 0.047, C-Reactive Protein, Quantitative 20.0H, Pro-B-Type Natriuretic Peptide 1448H, Total Protein 5.8L, Albumin 2.3L, Globulin 3.5, Albumin/Globulin Ratio 0.7L, Vitamin B12 Level 1526H, Folate 14.4, Thyroid Stimulating Hormone (TSH) 1.893, Free Thyroxine 0.98, Free Triiodothyronine 1.4L Height (Feet): 5 Height (Inches): 4.00 Weight (Pounds): 167 General Appearance: no apparent distress, lethargic Neck: limited range of motion Cardiovascular: tachycardia Respiratory/Chest: decreased breath sounds Abdomen: distended Genitourinary/Rectal: other - bloody urine Bright Ibarra MD Sep 15, 2019 10:03
[2019-09-15] MEDS ORDERED: Solu-MEDROL 125mg Inj IVP SCH (10:30)
--- NOTE | 2019-09-15 10:31 | Diagnostic Imaging Report ---
INDICATION: Pain, intraoperative TECHNIQUE: Intraoperative imaging Fluoroscopy time: 76 seconds Total dose: [id number] mGym2 Total number of images: 4 COMPARISON: None FINDINGS: Intraoperative images demonstrate inferior venacavogram and placement of an inferior vena cava filter IMPRESSION: Intraoperative imaging, as described
[2019-09-15] MEDS: Brimonidine 0.2% Opth Sol BOTH EYES SCH ×2 (10:32→18:26)
--- NOTE | 2019-09-15 10:58 | Pulmonology Progress Note ---
Assessment/Plan Assessment/Plan IMPRESSION: 1. Hypercalcemia. 2. Renal insufficiency, mild. 3. Bladder carcinoma. 4. Right hydronephrosis. 5. Altered mental status. 6. DVT; s/p IVC filter DISCUSSION: WIll consult urology for R nephrostomy replacement COntinue IV hydration and steroids for hypercalcemia S/p pamidronate Will need NG for nutirtion and meds Swallow eval Antelmo Ko M.D. Subjective Interval Events: None new; very lethargic Constitutional: Reports: no symptoms HEENT: Repors: no symptoms Respiratory: Reports: no symptoms Cardiovascular: Reports: no symptoms Gastrointestinal/Abdominal: Reports: no symptoms Genitourinary: Reports: no symptoms Allergies: Coded Allergies: ASPIRIN (Unverified Allergy, Unknown, 10/31/14) IBUPROFEN (Unverified Allergy, Unknown, 04/10/14) Objective Last 24 Hour Vital Signs Date Time Temp Pulse Resp B/P (MAP) Pulse Ox O2 Delivery O2 Flow Rate FiO2 09/15/19 04:00 99.4 89 20 141/59 (86) 98 09/15/19 04:00 112 09/15/19 03:00 Nasal Cannula 2.0 09/15/19 00:00 Nasal Cannula 2.0 09/15/19 00:00 97.7 112 20 114/80 (91) 100 09/14/19 23:34 112 09/14/19 20:00 Nasal Cannula 2.0 09/14/19 20:00 97.5 115 20 137/91 (106) 99 09/14/19 19:17 117 09/14/19 16:00 116 09/14/19 16:00 98.5 115 20 135/92 (106) 95 09/14/19 16:00 Nasal Cannula 2.0 09/14/19 12:00 110 09/14/19 12:00 98.4 110 19 141/89 (106) 97 09/14/19 12:00 Nasal Cannula 2.0 Intake and Output 09/14/19 09/15/19 19:00 07:00 Intake Total 2445.000 ml 700 ml Output Total 1140 ml 380 ml Balance 1305.000 ml 320 ml Intake IV Total 2445.000 ml 700 ml Output Urine Total 1100 ml 350 ml Other 40 ml 30 ml # Voids 2 General Appearance: no acute distress HEENT: normocephalic Respiratory/Chest: chest wall non-tender Cardiovascular: normal peripheral pulses, normal rate Abdomen: normal bowel sounds Laboratory Tests 09/14/19 17:03: Carcinoembryonic Antigen [Pending], CA 15-3 Antigen [Pending], CA 19-9 Antigen [ Pending] 09/15/19 04:50: White Blood Count 26.3*H, Red Blood Count 3.57L, Hemoglobin 10.8L, Hematocrit 33.0L, Mean Corpuscular Volume 92, Mean Corpuscular Hemoglobin 30.1, Mean Corpuscular Hemoglobin Concent 32.6, Red Cell Distribution Width 19.1H, Platelet Count 38L, Mean Platelet Volume 8.2, Neutrophils (%) (Auto) , Lymphocytes (%) (Auto) , Monocytes (%) (Auto) , Eosinophils (%) (Auto) , Basophils (%) (Auto) , Differential Total Cells Counted 100, Neutrophils % ( Manual) 91H, Lymphocytes % (Manual) 5L, Monocytes % (Manual) 1, Eosinophils % ( Manual) 0, Basophils % (Manual) 0, Metamyelocytes % 2H, Band Neutrophils 1, Nucleated Red Blood Cells 1, Platelet Estimate DecreasedL, Platelet Morphology Normal, Hypochromasia 1+, Anisocytosis 2+, Sodium Level 148H, Potassium Level 3.4L, Chloride Level 113H, Carbon Dioxide Level 26, Anion Gap 10, Blood Urea Nitrogen 40H, Creatinine 1.7H, Estimat Glomerular Filtration Rate 49.7, Glucose Level 126H, Hemoglobin A1c 6.7H, Uric Acid 8.8H, Calcium Level 13.1*H, Phosphorus Level 2.7, Magnesium Level 2.0, Iron Level 16L, Total Iron Binding Capacity 161L, Percent Iron Saturation 10L, Unsaturated Iron Binding 145, Ferritin 791H, Total Bilirubin 0.6, Aspartate Amino Transf (AST/SGOT) 35, Alanine Aminotransferase (ALT/SGPT) 33, Alkaline Phosphatase 129H, Troponin I 0.047, C-Reactive Protein, Quantitative 20.0H, Pro-B-Type Natriuretic Peptide 1448H, Total Protein 5.8L, Albumin 2.3L, Globulin 3.5, Albumin/Globulin Ratio 0.7L, Vitamin B12 Level 1526H, Folate 14.4, Thyroid Stimulating Hormone (TSH) 1.893, Free Thyroxine 0.98, Free Triiodothyronine 1.4L Current Medications Medications (Trade) Dose Ordered Sig/Andrea Route PRN Reason Start Time Stop Time Status Last Admin Dose Admin Acetaminophen/ Codeine Phosphate (Tylenol #3) 1 tab Q6H PRN ORAL Mild Pain (Pain Scale 1-3) 09/13/19 12:00 09/20/19 11:59 Acetaminophen/ Hydrocodone Bitart ([place] 10/325) 1 tab Q6H PRN ORAL Severe Pain (Pain Scale 7-10) 09/13/19 12:00 09/20/19 11:59 Acetaminophen/ Hydrocodone Bitart ([place] 5/325) 1 tab Q6H PRN ORAL Moderate Pain (Pain Scale 4-6) 09/13/19 12:00 09/20/19 11:59 Brimonidine Tartrate (Alphagan) 1 drop BID BOTH EYES 09/13/19 18:00 10/13/19 17:59 09/15/19 10:32 Calcitonin [place] (Miacalcin) 1 sprays Q24H NASAL 09/13/19 18:00 10/13/19 17:59 09/14/19 17:11 Chlorhexidine Gluconate (Gina-Hex 2%) 1 applic DAILY@2000 TOPIC 09/14/19 20:00 10/14/19 19:59 09/14/19 20:29 Dextrose (Dextrose 50%) 25 ml Q30M PRN IV Hypoglycemia 09/13/19 11:30 10/13/19 11:29 Dextrose (Dextrose 50%) 50 ml Q30M PRN IV Hypoglycemia 09/13/19 11:30 10/13/19 11:29 Dextrose/Sodium Chloride 1,000 ml @ 150 mls/hr Q6H40M IV 09/13/19 20:30 10/13/19 20:29 09/15/19 05:24 Gabapentin (Neurontin) 100 mg THREE TIMES A DAY ORAL 09/13/19 13:00 10/13/19 12:59 09/14/19 17:11 Insulin Aspart (NovoLOG) BEFORE MEALS AND HS SUBQ 09/13/19 11:30 10/13/19 11:29 09/14/19 20:39 Latanoprost (Xalatan) 1 drop BEDTIME BOTH EYES 09/13/19 21:00 10/13/19 20:59 09/14/19 20:38 Levetiracetam (Keppra) 500 mg EVERY 12 HOURS ORAL 09/13/19 21:00 10/13/19 20:59 09/14/19 08:33 Levothyroxine Sodium (Synthroid) 50 mcg DAILY@0630 ORAL 09/14/19 06:30 10/14/19 06:29 Meropenem 1 gm/ Sodium Chloride 100 ml @ 200 mls/hr Q12H IVPB 09/13/19 16:00 09/18/19 15:59 09/15/19 04:21 Methocarbamol (Robaxin) 500 mg TID ORAL 09/13/19 13:00 10/13/19 12:59 09/14/19 17:10 Methylprednisolone Sodium Succinate (Solu-MEDROL) 125 mg ONCE IVP 09/15/19 10:30 09/15/19 11:30 Pamidronate Disodium 30 mg/ Sodium Chloride 550 ml @ 137.5 mls/ hr ONCE ONCE IVPB 09/15/19 11:00 09/15/19 14:59 Potassium Chloride 100 ml @ 100 mls/hr Q1H IV 09/15/19 11:00 09/15/19 14:59 09/15/19 10:33 Tramadol HCl (Ultram) 50 mg Q6H ORAL 09/13/19 12:00 09/20/19 11:59 09/14/19 17:11 Vancomycin HCl (Vanco rx to dose) 1 ea DAILY PRN MISC Per rx protocol 09/13/19 15:00 10/13/19 14:59 Vancomycin HCl 750 mg/Sodium Chloride 275 ml @ 183.333 mls/hr Q24H IVPB 09/14/19 16:00 09/19/19 15:59 09/14/19 15:47 Antelmo Ko MD Sep 15, 2019 10:58
[2019-09-15] MEDS ORDERED: Pamidronate Disodium Inj 30 MG in Sodium Chloride 550 ML IVPB ONE (11:00)
--- NOTE | 2019-09-15 11:11 | NUR ---
*-* INSURANCE *-* ALL CLINICALS AND REVIEWS HAVE BEEN FAXED TO: [facility] EVAN:BARTOLOME P: [phone] F: [phone]
[2019-09-15 12:00] VITALS: BP 146/85
--- NOTE | 2019-09-15 12:00 | NUR ---
NURSE NOTES: wound nurse saw pt, dressing changed, inserted NGT as ordered, at bedside, bed bath given, repositioned.
--- NOTE | 2019-09-15 12:52 | Diagnostic Imaging Report ---
. Indication: Post nasogastric tube placement Technique: Supine view of the abdomen Comparison: 09/13/2019 Findings: Interim placement of a nasogastric tube, tip of which projects at the level gastric fundus, proximal sidehole at or just beyond the gastroesophageal junction. Interim placement of an inferior vena cava filter. Bowel gas pattern is unremarkable. There is a drainage catheter in the right upper quadrant again demonstrated Impression: Borderline position of nasogastric tube, proximal sidehole at or just beyond the expected level gastric esophageal junction. Slight advancement may be prudent. This was discussed by phone with patient's nurse Daria at the time of interpretation Interim inferior vena cava filter placement
[2019-09-15] MEDS ORDERED: levETIRAcetam 500mg/5ml Liquid NG ONE (13:30)
--- NOTE | 2019-09-15 13:56 | Consultation ---
History of Present Illness General Date patient seen: Sep 15, 2019 Chief Complaint: Altered Level of Consciousness Present Illness HPI This is a 64-year-old male with history of kidney and bladder cancer status post nephrostomy right side who presented [place] [facility] [place] mental status by EMS. According to EMS, his called for assistance after he was becoming confused and had a couple episodes of coffee-ground emesis. Patient is altered and cannot provide significant history. He is complaining of abdominal pain pointing to his upper abdomen. No emesis noted by EMS on route. Pressures have been stable. He is acutely altered. He was admitted further care management. is at the bedside. I spoke to the who provides majority of the history and current condition. states that he was fine walking doing well but was diagnosed with a cancer and has been undergoing therapy but recently had an acute episode where he became unresponsive and now is fairly bedbound not able to talk. She states that she had identified some tissue changes in the sacral region while she was at home but thought it would get better. Surgery called to evaluate and assist with care. Patient seen, patient evaluated, chart reviewed. I discussed the care with plan with PMH: Kidney and bladder cancer PSH: Right nephrostomy, right PIC line IVC filter Allergies: Ibuprofen and aspirin noted Social Hx: Unknown Allergies: Coded Allergies: ASPIRIN (Unverified Allergy, Unknown, 10/31/14) IBUPROFEN (Unverified Allergy, Unknown, 04/10/14) Medication History Scheduled Brimonidine Tartrate* (Alphagan*), 1 DROP BOTH EYES BID, (Reported) Brimonidine Tartrate/Timolol (Combigan Eye Drops), 1 DROP BOTH EYES BID Enalapril/Hydrochlorothiazide (Enalapril-Hctz 10-25 Mg Tablet), 1 TAB ORAL BID, (Reported) Fluticasone Furoate (Flonase Sensimist), 1 SPRAYS NS DAILY Gabapentin* (Neurontin*), 100 MG ORAL THREE TIMES A DAY Latanoprost* (Xalatan*), 1 DROP BOTH EYES BEDTIME, (Reported) Levetiracetam (Keppra), 500 MG ORAL EVERY 12 HOURS, (Reported) Levothyroxine Sodium* (Levothyroxine Sodium*), 50 MCG PO DAILY, (Reported) Metformin Hcl* (Metformin Hcl*), 500 MG ORAL QPM, (Reported) Methocarbamol* (Robaxin*), 500 MG PO TID Pseudoephedrine Hcl (Sudafed 12-Hour), 120 MG PO Q12HR Tramadol Hcl (Ultram*), 50 MG ORAL Q6H, (Reported) Scheduled PRN Acetaminophen With Codeine (T#3) (Tylenol #3 Tab*), 1 TAB ORAL Q6HR PRN for For Pain Hydrocodone Bit/Acetaminophen 10-325* ([place] 10-325*), 1 TAB ORAL Q6H PRN for For Pain Hydrocodone Bit/Acetaminophen 5-325* ([place] 5-325*), 1 TAB ORAL Q6H PRN for For Pain Hydrocodone/Acetaminophen 5-325* (Hydrocodone/Acetaminophen 5-325*), 1 TAB ORAL Q6H PRN for For Pain Miscellaneous Medications Cyclopentolate/Phenylephrine (Cyclomydril Eye Drops), 5 ML OP, (Reported) Dexamethasone (Dexamethasone), 4 MG PO, (Reported) Dorzolamide HCl/Pf (Dorzolamide 2% Eye Drop), 10 ML OP, (Reported) Patient History Limited by: medical condition History Provided By: Family Member, Medical Record Healthcare decision maker Resuscitation status Full Code Advanced Directive on File Past Medical/Surgical History Past Medical/Surgical History: (1) Tobacco abuse counseling (2) Cervical radiculopathy (3) Tobacco abuse (4) Chest pain (5) Chest pain (6) Sinusitis (7) Glaucoma (increased eye pressure) (8) Bladder pain (9) Hypercalcemia (10) Encephalopathy (11) Elevated WBC count (12) Bladder mass (13) LAVONNE (acute kidney injury) (14) Multiple lesions of metastatic malignancy (15) High calcium levels (16) GI (gastrointestinal bleed) (17) Abdominal infection Review of Systems ROS Narrative cannot obtain given current medical condition Physical Exam General Appearance: no apparent distress, alert Lines, tubes and drains: PICC HEENT: mucous membranes moist Neck: normal inspection Respiratory/Chest: no respiratory distress, no accessory muscle use, decreased breath sounds Cardiovascular/Chest: normal rate, regular rhythm Abdomen: soft, no organomegaly, no mass, abnormal bowel sounds, distended Extremities: normal inspection, no calf tenderness, non-pitting Skin Exam: warm/dry Neurologic: alert Last 24 Hour Vital Signs Date Time Temp Pulse Resp B/P (MAP) Pulse Ox O2 Delivery O2 Flow Rate FiO2 09/15/19 12:00 98.6 125 20 146/85 (105) 99 09/15/19 12:00 Nasal Cannula 2.0 09/15/19 08:00 98.2 121 19 142/101 (115) 95 09/15/19 08:00 Nasal Cannula 2.0 09/15/19 08:00 121 09/15/19 04:00 99.4 89 20 141/59 (86) 98 09/15/19 04:00 112 09/15/19 03:00 Nasal Cannula 2.0 09/15/19 00:00 Nasal Cannula 2.0 09/15/19 00:00 97.7 112 20 114/80 (91) 100 09/14/19 23:34 112 09/14/19 20:00 Nasal Cannula 2.0 09/14/19 20:00 97.5 115 20 137/91 (106) 99 09/14/19 19:17 117 09/14/19 16:00 116 09/14/19 16:00 98.5 115 20 135/92 (106) 95 09/14/19 16:00 Nasal Cannula 2.0 Intake and Output 09/14/19 09/15/19 19:00 07:00 Intake Total 2445.000 ml 700 ml Output Total 1140 ml 380 ml Balance 1305.000 ml 320 ml Intake IV Total 2445.000 ml 700 ml Output Urine Total 1100 ml 350 ml Other 40 ml 30 ml # Voids 2 Laboratory Tests Test 09/14/19 17:03 09/15/19 04:50 Carcinoembryonic Antigen Pending CA 15-3 Antigen Pending CA 19-9 Antigen Pending White Blood Count 26.3 K/UL (4.8-10.8) *H Red Blood Count 3.57 M/UL (4.70-6.10) L Hemoglobin 10.8 G/DL (14.2-18.0) L Hematocrit 33.0 % (42.0-52.0) L Mean Corpuscular Volume 92 FL (80-99) Mean Corpuscular Hemoglobin 30.1 PG (27.0-31.0) Mean Corpuscular Hemoglobin Concent 32.6 G/DL (32.0-36.0) Red Cell Distribution Width 19.1 % (11.6-14.8) H Platelet Count 38 K/UL (150-450) L Mean Platelet Volume 8.2 FL (6.5-10.1) Neutrophils (%) (Auto) % (45.0-75.0) Lymphocytes (%) (Auto) % (20.0-45.0) Monocytes (%) (Auto) % (1.0-10.0) Eosinophils (%) (Auto) % (0.0-3.0) Basophils (%) (Auto) % (0.0-2.0) Differential Total Cells Counted 100 Neutrophils % (Manual) 91 % (45-75) H Lymphocytes % (Manual) 5 % (20-45) L Monocytes % (Manual) 1 % (1-10) Eosinophils % (Manual) 0 % (0-3) Basophils % (Manual) 0 % (0-2) Metamyelocytes % 2 % (0-0) H Band Neutrophils 1 % (0-8) Nucleated Red Blood Cells 1 /100 WBC Platelet Estimate Decreased L Platelet Morphology Normal Hypochromasia 1+ Anisocytosis 2+ Sodium Level 148 MMOL/L (136-145) H Potassium Level 3.4 MMOL/L (3.5-5.1) L Chloride Level 113 MMOL/L (98-107) H Carbon Dioxide Level 26 MMOL/L (21-32) Anion Gap 10 mmol/L (5-15) Blood Urea Nitrogen 40 mg/dL (7-18) H Creatinine 1.7 MG/DL (0.55-1.30) H Estimat Glomerular Filtration Rate 49.7 mL/min (>60) Glucose Level 126 MG/DL (74-106) H Hemoglobin A1c 6.7 % (4.3-6.0) H Uric Acid 8.8 MG/DL (2.6-7.2) H Calcium Level 13.1 MG/DL (8.5-10.1) *H Phosphorus Level 2.7 MG/DL (2.5-4.9) Magnesium Level 2.0 MG/DL (1.8-2.4) Iron Level 16 ug/dL (50-175) L Total Iron Binding Capacity 161 ug/dL (250-450) L Percent Iron Saturation 10 % (15-50) L Unsaturated Iron Binding 145 ug/dL (112-346) Ferritin 791 NG/ML (8-388) H Total Bilirubin 0.6 MG/DL (0.2-1.0) Aspartate Amino Transf (AST/SGOT) 35 U/L (15-37) Alanine Aminotransferase (ALT/SGPT) 33 U/L (12-78) Alkaline Phosphatase 129 U/L (46-116) H Troponin I 0.047 ng/mL (0.000-0.056) C-Reactive Protein, Quantitative 20.0 mg/dL (0.00-0.90) H Pro-B-Type Natriuretic Peptide 1448 pg/mL (0-125) H Total Protein 5.8 G/DL (6.4-8.2) L Albumin 2.3 G/DL (3.4-5.0) L Globulin 3.5 g/dL Albumin/Globulin Ratio 0.7 (1.0-2.7) L Vitamin B12 Level 1526 PG/ML (193-986) H Folate 14.4 NG/ML (8.6-58.9) Thyroid Stimulating Hormone (TSH) 1.893 uiU/mL (0.358-3.740) Free Thyroxine 0.98 NG/DL (0.76-1.46) Free Triiodothyronine 1.4 pg/mL (2.3-4.2) L Height (Feet): 5 Height (Inches): 4.00 Weight (Pounds): 167 Medications Current Medications Medications (Trade) Dose Ordered Sig/Andrea Route PRN Reason Start Time Stop Time Status Last Admin Dose Admin Acetaminophen/ Codeine Phosphate (Tylenol #3) 1 tab Q6H PRN ORAL Mild Pain (Pain Scale 1-3) 09/13/19 12:00 09/20/19 11:59 Acetaminophen/ Hydrocodone Bitart (Ashford 10/325) 1 tab Q6H PRN ORAL Severe Pain (Pain Scale 7-10) 09/13/19 12:00 09/20/19 11:59 Acetaminophen/ Hydrocodone Bitart (Ashford 5/325) 1 tab Q6H PRN ORAL Moderate Pain (Pain Scale 4-6) 09/13/19 12:00 09/20/19 11:59 Brimonidine Tartrate (Alphagan) 1 drop BID BOTH EYES 09/13/19 18:00 10/13/19 17:59 09/15/19 10:32 Calcitonin [place] (Miacalcin) 1 sprays Q24H NASAL 09/13/19 18:00 10/13/19 17:59 09/14/19 17:11 Chlorhexidine Gluconate (Gina-Hex 2%) 1 applic DAILY@2000 TOPIC 09/14/19 20:00 10/14/19 19:59 09/14/19 20:29 Dextrose (Dextrose 50%) 25 ml Q30M PRN IV Hypoglycemia 09/13/19 11:30 10/13/19 11:29 Dextrose (Dextrose 50%) 50 ml Q30M PRN IV Hypoglycemia 09/13/19 11:30 10/13/19 11:29 Dextrose/Sodium Chloride 1,000 ml @ 150 mls/hr Q6H40M IV 09/13/19 20:30 10/13/19 20:29 09/15/19 12:48 Gabapentin (Neurontin) 100 mg THREE TIMES A DAY ORAL 09/13/19 13:00 10/13/19 12:59 09/15/19 13:35 Insulin Aspart (NovoLOG) BEFORE MEALS AND HS SUBQ 09/13/19 11:30 10/13/19 11:29 09/14/19 20:39 Latanoprost (Xalatan) 1 drop BEDTIME BOTH EYES 09/13/19 21:00 10/13/19 20:59 09/14/19 20:38 Levetiracetam (Keppra) 500 mg Q12H NG 09/15/19 21:00 10/13/19 20:59 Levothyroxine Sodium (Synthroid) 50 mcg DAILY@0630 ORAL 09/14/19 06:30 10/14/19 06:29 Meropenem 1 gm/ Sodium Chloride 100 ml @ 200 mls/hr Q12H IVPB 09/13/19 16:00 09/18/19 15:59 09/15/19 04:21 Methocarbamol (Robaxin) 500 mg TID ORAL 09/13/19 13:00 10/13/19 12:59 09/15/19 13:34 Pamidronate Disodium 30 mg/ Sodium Chloride 550 ml @ 137.5 mls/ hr ONCE ONCE IVPB 09/15/19 11:00 09/15/19 14:59 09/15/19 11:35 Potassium Chloride 100 ml @ 100 mls/hr Q1H IV 09/15/19 11:00 09/15/19 14:59 09/15/19 13:44 Tramadol HCl (Ultram) 50 mg Q6H ORAL 09/13/19 12:00 09/20/19 11:59 09/15/19 13:34 Vancomycin HCl (Vanco rx to dose) 1 ea DAILY PRN MISC Per rx protocol 09/13/19 15:00 10/13/19 14:59 Vancomycin HCl 750 mg/Sodium Chloride 275 ml @ 183.333 mls/hr Q24H IVPB 09/14/19 16:00 09/19/19 15:59 09/14/19 15:47 Assessment/Plan Problem List: (1) Elevated WBC count Assessment & Plan: Patient was significant leukocytosis poss related infectious process versus cancer. Hematology input appreciated. Antibiotics per infectious disease. No acute surgical intervention indicated recommended. Follow the recommendations ICD Codes: D72.829 - Elevated white blood cell count, unspecified SNOMED: 824346847, 345375444 (2) Bladder mass ICD Codes: N32.89 - Other specified disorders of bladder SNOMED: 679951105 (3) GI (gastrointestinal bleed) Assessment & Plan: Findings: Interim placement of a nasogastric tube, tip of which projects at the level gastric fundus, proximal sidehole at or just beyond the gastroesophageal junction. Interim placement of an inferior vena cava filter. Bowel gas pattern is unremarkable. There is a drainage catheter in the right upper quadrant again demonstrated Impression: Borderline position of nasogastric tube, proximal sidehole at or just beyond the expected level gastric esophageal junction. Slight advancement may be prudent. This was discussed by phone with patient's nurse Daria at the time of interpretation Interim inferior vena cava filter placement ICD Codes: K92.2 - Gastrointestinal hemorrhage, unspecified SNOMED: 96054656 (4) Hypercalcemia ICD Codes: E83.52 - Hypercalcemia SNOMED: 98639896, 9461545 (5) Encephalopathy ICD Codes: G93.40 - Encephalopathy, unspecified SNOMED: 00962496 (6) LAVONNE (acute kidney injury) ICD Codes: N17.9 - Acute kidney failure, unspecified SNOMED: 00494097, 7935618 (7) Multiple lesions of metastatic malignancy Assessment & Plan: 1. Extensive left leg deep venous thrombosis involving the common femoral vein. 2. History of GI bleeding, metastatic tumor, bladder cancer, nephrostomy tube, encephalopathy, and renal insufficiency. PLAN AND RECOMMENDATION: The patient will benefit from inferior vena caval filter. Leg elevation. Decubitus precautions. Medical, Infectious Disease, and Oncology optimization in progress. Intraoperative images demonstrate inferior venacavogram and placement of an inferior vena cava filter ICD Codes: C79.9 - Secondary malignant neoplasm of unspecified site SNOMED: 257797226 (8) Bladder pain ICD Codes: R39.89 - Other symptoms and signs involving the genitourinary system SNOMED: 01223782 (9) Sinusitis ICD Codes: J32.9 - Chronic sinusitis, unspecified SNOMED: 90118412 (10) Tobacco abuse ICD Codes: F17.200 - Nicotine dependence, unspecified, uncomplicated SNOMED: 24645706 (11) Chest pain ICD Codes: R07.9 - Chest pain, unspecified SNOMED: 47564628 (12) Chest pain ICD Codes: R07.9 - Chest pain, unspecified SNOMED: 74354832 (13) High calcium levels ICD Codes: E83.52 - Hypercalcemia SNOMED: 83139245 (14) Cervical radiculopathy ICD Codes: M54.12 - Radiculopathy, cervical region SNOMED: 49589505 (15) Glaucoma (increased eye pressure) ICD Codes: H40.9 - Unspecified glaucoma SNOMED: 08067398 (16) Abdominal infection ICD Codes: K65.9 - Peritonitis, unspecified SNOMED: 695640121 (17) Tobacco abuse counseling ICD Codes: Z71.6 - Tobacco abuse counseling SNOMED: 859152305 (18) Deep tissue injury Assessment & Plan: Patient presented with open deep tissue injury on sacral region. states that she identified it at home but was unsure that it was open. It was noted to be open during hospitalization total area of deep tissue injury approximately 9 cm x 6 mm with an open area in the midportion. Will need to continue with aggressive local treatment wound care and decubitus precautions as patient is high risk for declining condition. Patient is currently bedbound and unable to move on his own and participate in examination and turning. Thera honey placed followed by foam dressing. Turn patient every 2 hours. Nutritional optimization. Air mattress ordered. Discussed care plan with in detail at the bedside. We will continue to follow with recommendations. ICD Codes: T14.8XXA - Other injury of unspecified body region, initial encounter SNOMED: 946668969 Urbano Harrell Sep 15, 2019 13:56
[2019-09-15 16:00] VITALS: BP 135/95
--- NOTE | 2019-09-15 16:11 | NUR ---
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 98.2 HR 120 RR 20 B/P 117/90 WBC 30.4 BUN 43 CR 1.4 AST 38 ALK PHOS 164 LACTID ACID 2.80 IS: ZOFRAN IV IV BOLUS NS X 3 LITERS PROTONIX IV ZOSYN IV ADMITTED TO ICU @ 0820 ICU STATUS DCP PENDING HOSPITAL STAY
--- NOTE | 2019-09-15 16:12 | NUR ---
NURSE NOTES:WOUND CARE NOTES:Pt presented on admission with open DTPI R buttocks. Base of wound maroon and fluctuant (L)11cm x (W)9.5cm. Within base of injury is an open wound which has 75% slough. NO odor noted. Small amt serous exudate noted. No evidence of skin breakdown to Sacrum. Both heels are firm and blanchable. Tx.Plan: Cleanse R buttocks wound with Saline. Apply Therahoney. Apply Moisture Barrier Paste to surrounding indurated areas. Cover with Optifoam drsg Daily and prn. Apply Moisture Barrier Paste to Sacrum. Cover with Optifoam drsg. Change every 3 days and prn. Apply Cavilon Skin Barrier to both heels. Cover each heel with Optifoam drsg. Change every 7 days and prn. Reposition at least every 2hours or as tolerated. Off-load heels with Pillow. APM/LORNE Mattress overlay.
[2019-09-15] MEDS: Vancomycin 750mg/NS 275ml IVPB SCH ×2 (16:58)
--- NOTE | 2019-09-15 18:21 | Infectious Diseases Prog Note ---
Assessment/Plan Assessment/Plan ASSESSMENT AND PLAN: 1. sepsis, gram + blood cultures/? bacteremia, HCAP/aspiration pna, leukocytosis , uti, bladder CA, DVT - meropenem and vancomycin - f/u on cultures, labs and chest x-ray - mid-line - s/p IVC filter 2. Hypercalcemia. 3. IV fluids. 4. Hyperuricemia. 5. Hypothyroidism. 6. Hypertension. 7. Blood pressure per primary team for hypertension. 8. History of bladder cancer. 9. Hydroureteronephrosis. 10. Malfunction right-sided nephrostomy tube level neurology follow-up. 11. Nausea, vomiting and rule out gastrointestinal bleed. 12. Glaucoma. 13. Anemia. 14. hx esbl uti 15. Allergies to aspirin and ibuprofen. 16. Social history is negative. 17. Family history is noncontributory. 18. MAR is noted. 19. Case was discussed with RN. Subjective Constitutional: Reports: other - weak, lethargic ; Denies: fever HEENT: Reports: congestion - mild Respiratory: Reports: shortness of breath - mild Cardiovascular: Denies: chest pain Gastrointestinal/Abdominal: Reports: other - + ngt ; Denies: nausea, vomiting, diarrhea Genitourinary: Reports: other - + nephrostomy, + condom catheter Neurologic: Reports: weakness, other - lethargic Psychiatric: Reports: other - NA Skin: Denies: rash Hematologic: Denies: bleeding Musculoskeletal: Reports: other - NA Allergies: Coded Allergies: ASPIRIN (Unverified Allergy, Unknown, 10/31/14) IBUPROFEN (Unverified Allergy, Unknown, 04/10/14) Objective Vital Signs Last 24 Hour Vital Signs Date Time Temp Pulse Resp B/P (MAP) Pulse Ox O2 Delivery O2 Flow Rate FiO2 09/15/19 16:00 110 09/15/19 16:00 98.7 105 19 135/95 (108) 99 09/15/19 16:00 Nasal Cannula 2.0 09/15/19 14:04 98.6 09/15/19 12:00 98.6 125 20 146/85 (105) 99 09/15/19 12:00 133 09/15/19 12:00 Nasal Cannula 2.0 09/15/19 08:00 98.2 121 19 142/101 (115) 95 09/15/19 08:00 Nasal Cannula 2.0 09/15/19 08:00 121 09/15/19 04:00 99.4 89 20 141/59 (86) 98 09/15/19 04:00 112 09/15/19 03:00 Nasal Cannula 2.0 09/15/19 00:00 Nasal Cannula 2.0 09/15/19 00:00 97.7 112 20 114/80 (91) 100 09/14/19 23:34 112 09/14/19 20:00 Nasal Cannula 2.0 09/14/19 20:00 97.5 115 20 137/91 (106) 99 09/14/19 19:17 117 Height (Feet): 5 Height (Inches): 4.00 Weight (Pounds): 167 General Appearance: no acute distress HEENT: normocephalic, atraumatic, anicteric, supple, no JVD, other - + ngt Respiratory/Chest: crackles/rales, rhonchi - bilaterally Cardiovascular: normal rate, regular rhythm, no gallop/murmur, no JVD Abdomen: normal bowel sounds, soft, non tender, no organomegaly, non distended Genitourinary: other - + condom catheter and nephrostomy Extremities: no cyanosis Skin: no rash, ulcers - wounds - covered Neurologic/Psychiatric: motor weakness, other - lethargic Lymphatic: no neck adenopathy Musculoskeletal: no effusion Objective CT abdomen and pelvis: 1. Lobular soft tissue nodular thickening of the posterior bladder is likely neoplastic. 2. Multiple posterior urinary bladder calculi are new since the previous exam. 3. Interval increase in size of bilateral adrenal lesions likely representing metastases. 4. Nonspecific 1.5 cm low-density lesion at the dome of the liver. A metastatic lesion is not excluded. 5. Interval placement of right-sided nephrostomy catheter. Chest x-ray - 09/15/19 - FINDINGS: Lungs: Left upper lobe consolidation. Remainder the lungs appear clear. Pleural space: Unremarkable. The costophrenic angles are sharp. No visible pneumothorax. Heart: Unremarkable. No cardiomegaly. Mediastinum: Unremarkable. Bones/joints: Unremarkable. Soft tissues: Surgical clips overlying the left paracentral neck soft tissues. Tubes, lines and devices: Telemetry leads overlie the thorax. IMPRESSION: Left upper lobe consolidation, concerning for pneumonia. Recommend follow-up to resolution to exclude underlying mass. Consider follow-up evaluation with chest CT. Microbiology Date/Time Source Procedure Growth Status 09/13/19 02:45 Blood Blood Culture - Preliminary Resulted Microbiology Date/Time Source Procedure Growth Status 09/13/19 02:45 Blood Blood Culture - Preliminary Resulted Laboratory Tests Test 09/15/19 04:50 White Blood Count 26.3 K/UL (4.8-10.8) *H Red Blood Count 3.57 M/UL (4.70-6.10) L Hemoglobin 10.8 G/DL (14.2-18.0) L Hematocrit 33.0 % (42.0-52.0) L Mean Corpuscular Volume 92 FL (80-99) Mean Corpuscular Hemoglobin 30.1 PG (27.0-31.0) Mean Corpuscular Hemoglobin Concent 32.6 G/DL (32.0-36.0) Red Cell Distribution Width 19.1 % (11.6-14.8) H Platelet Count 38 K/UL (150-450) L Mean Platelet Volume 8.2 FL (6.5-10.1) Neutrophils (%) (Auto) % (45.0-75.0) Lymphocytes (%) (Auto) % (20.0-45.0) Monocytes (%) (Auto) % (1.0-10.0) Eosinophils (%) (Auto) % (0.0-3.0) Basophils (%) (Auto) % (0.0-2.0) Differential Total Cells Counted 100 Neutrophils % (Manual) 91 % (45-75) H Lymphocytes % (Manual) 5 % (20-45) L Monocytes % (Manual) 1 % (1-10) Eosinophils % (Manual) 0 % (0-3) Basophils % (Manual) 0 % (0-2) Metamyelocytes % 2 % (0-0) H Band Neutrophils 1 % (0-8) Nucleated Red Blood Cells 1 /100 WBC Platelet Estimate Decreased L Platelet Morphology Normal Hypochromasia 1+ Anisocytosis 2+ Sodium Level 148 MMOL/L (136-145) H Potassium Level 3.4 MMOL/L (3.5-5.1) L Chloride Level 113 MMOL/L (98-107) H Carbon Dioxide Level 26 MMOL/L (21-32) Anion Gap 10 mmol/L (5-15) Blood Urea Nitrogen 40 mg/dL (7-18) H Creatinine 1.7 MG/DL (0.55-1.30) H Estimat Glomerular Filtration Rate 49.7 mL/min (>60) Glucose Level 126 MG/DL (74-106) H Hemoglobin A1c 6.7 % (4.3-6.0) H Uric Acid 8.8 MG/DL (2.6-7.2) H Calcium Level 13.1 MG/DL (8.5-10.1) *H Phosphorus Level 2.7 MG/DL (2.5-4.9) Magnesium Level 2.0 MG/DL (1.8-2.4) Iron Level 16 ug/dL (50-175) L Total Iron Binding Capacity 161 ug/dL (250-450) L Percent Iron Saturation 10 % (15-50) L Unsaturated Iron Binding 145 ug/dL (112-346) Ferritin 791 NG/ML (8-388) H Total Bilirubin 0.6 MG/DL (0.2-1.0) Aspartate Amino Transf (AST/SGOT) 35 U/L (15-37) Alanine Aminotransferase (ALT/SGPT) 33 U/L (12-78) Alkaline Phosphatase 129 U/L (46-116) H Troponin I 0.047 ng/mL (0.000-0.056) C-Reactive Protein, Quantitative 20.0 mg/dL (0.00-0.90) H Pro-B-Type Natriuretic Peptide 1448 pg/mL (0-125) H Total Protein 5.8 G/DL (6.4-8.2) L Albumin 2.3 G/DL (3.4-5.0) L Globulin 3.5 g/dL Albumin/Globulin Ratio 0.7 (1.0-2.7) L Vitamin B12 Level 1526 PG/ML (193-986) H Folate 14.4 NG/ML (8.6-58.9) Thyroid Stimulating Hormone (TSH) 1.893 uiU/mL (0.358-3.740) Free Thyroxine 0.98 NG/DL (0.76-1.46) Free Triiodothyronine 1.4 pg/mL (2.3-4.2) L Current Medications Medications (Trade) Dose Ordered Sig/Andrea Route PRN Reason Start Time Stop Time Status Last Admin Dose Admin Acetaminophen/ Codeine Phosphate (Tylenol #3) 1 tab Q6H PRN ORAL Mild Pain (Pain Scale 1-3) 09/13/19 12:00 09/20/19 11:59 Acetaminophen/ Hydrocodone Bitart ([place] 10/325) 1 tab Q6H PRN ORAL Severe Pain (Pain Scale 7-10) 09/13/19 12:00 09/20/19 11:59 Acetaminophen/ Hydrocodone Bitart ([place] 5/325) 1 tab Q6H PRN ORAL Moderate Pain (Pain Scale 4-6) 09/13/19 12:00 09/20/19 11:59 Brimonidine Tartrate (Alphagan) 1 drop BID BOTH EYES 09/13/19 18:00 10/13/19 17:59 09/15/19 10:32 Calcitonin [place] (Miacalcin) 1 sprays Q24H NASAL 09/13/19 18:00 10/13/19 17:59 09/14/19 17:11 Chlorhexidine Gluconate (Gina-Hex 2%) 1 applic DAILY@2000 TOPIC 09/14/19 20:00 10/14/19 19:59 09/14/19 20:29 Dextrose (Dextrose 50%) 25 ml Q30M PRN IV Hypoglycemia 09/13/19 11:30 10/13/19 11:29 Dextrose (Dextrose 50%) 50 ml Q30M PRN IV Hypoglycemia 09/13/19 11:30 10/13/19 11:29 Dextrose/Sodium Chloride 1,000 ml @ 150 mls/hr Q6H40M IV 09/13/19 20:30 10/13/19 20:29 09/15/19 12:48 Gabapentin (Neurontin) 100 mg THREE TIMES A DAY ORAL 09/13/19 13:00 10/13/19 12:59 09/15/19 13:35 Insulin Aspart (NovoLOG) BEFORE MEALS AND HS SUBQ 09/13/19 11:30 10/13/19 11:29 09/15/19 16:59 Latanoprost (Xalatan) 1 drop BEDTIME BOTH EYES 09/13/19 21:00 10/13/19 20:59 09/14/19 20:38 Levetiracetam (Keppra) 500 mg Q12H NG 09/15/19 21:00 10/13/19 20:59 Levothyroxine Sodium (Synthroid) 50 mcg DAILY@0630 ORAL 09/14/19 06:30 10/14/19 06:29 Meropenem 1 gm/ Sodium Chloride 100 ml @ 200 mls/hr Q12H IVPB 09/13/19 16:00 09/18/19 15:59 09/15/19 15:51 Methocarbamol (Robaxin) 500 mg TID ORAL 09/13/19 13:00 10/13/19 12:59 09/15/19 13:34 Tramadol HCl (Ultram) 50 mg Q6H ORAL 09/13/19 12:00 09/20/19 11:59 09/15/19 13:34 Vancomycin HCl (Vanco rx to dose) 1 ea DAILY PRN MISC Per rx protocol 09/13/19 15:00 10/13/19 14:59 Vancomycin HCl 750 mg/Sodium Chloride 275 ml @ 183.333 mls/hr Q24H IVPB 09/14/19 16:00 09/19/19 15:59 09/15/19 16:58 Malathi Vance MD Sep 15, 2019 18:21
--- NOTE | 2019-09-15 18:57 | NUR ---
NURSE NOTES: midline leaking, left massage for dr. Ko.
--- NOTE | 2019-09-15 19:10 | NUR ---
NURSE NOTES: Pt report received form OSBALDO Bryan RN SDU. pt remains stable. pt is alert and oriented times 1. pt is on desk monitor showing NSR, no acute signs symptoms of cardiac distress noted. pt is on 2 L NC , able to sat at 99%, no acute signs symptoms of acute resp distress noted. pt bed is low, locked, armed, bed rails up times 3. call light within reach. will follow plan of care.
--- NOTE | 2019-09-15 19:32 | NUR ---
HAND-OFF: Report given to CHEY THAKKAR, no distress at this time.
[2019-09-15 20:00] VITALS: BP 134/95
--- NOTE | 2019-09-15 20:00 | NUR ---
NURSE NOTES: Discussed ABD X ray with retail loss prevention officer Jaimee in regards to NGT placement. until NGT is in gastric position/ confirmation of placement, NGT/ PO meds on hold. NGT was advanced as suggested by ABD XRAY. ordered follow up ABD X ray for confirmation of placement post NGT advancement.
--- NOTE | 2019-09-15 20:40 | NUR ---
NURSE NOTES: LÓPEZ JIMENEZ ON HOLD. NG tube not in proper position. endorsed to stiff leg derrick operator STELLA. Addendum: 09/15/19 at 2307 by KLAUS GUERRIER RN NURSE NOTES: LÓPEZ JIMENEZ ON HOLD. NG tube not in proper position. (refer to ABD X ray 09/15/19). endorsed to stiff leg derrick operator STELLA.
[2019-09-15] MEDS: Dyna-Hex 2% Top Sol 2oz TOPIC SCH (20:46)
[2019-09-15] MEDS: Latanoprost 0.005% Opth 2.5ml Soln BOTH EYES SCH (20:49)
[2019-09-15] MEDS ORDERED: levETIRAcetam 500mg/5ml Liquid NG SCH (21:00)
--- NOTE | 2019-09-15 23:04 | NUR ---
NURSE NOTES: ULTRAM med on hold due to pt NG tube not in proper position (refer to ABD X RAY 09/15/19). reported to wire charger neha. pt remains stable.
[2019-09-16] VITALS (9 sets, daily range): BP systolic 117–157; BP diastolic 75–109
[2019-09-16] MEDS: D5 1/2NS 1,000 ML IV SCH (01:55)
[2019-09-16] MEDS: traMADol 50mg tab ORAL SCH (05:42)
--- NOTE | 2019-09-16 05:43 | NUR ---
NURSE NOTES: Synthroid and utram on hold. awaiting NGT placement.
[2019-09-16] MEDS: NovoLOG Insulin Flexpen SUBQ SCH ×4 (05:50→20:19)
[2019-09-16 06:11] LABS: HEMATOCRIT 35.2 % (42.0-52.0); HEMOGLOBIN 10.8 G/DL (14.2-18.0); MEAN CORPUSCULAR VOLUME 93 FL (80-99); PLATELET COUNT 48 K/UL (150-450); RED BLOOD COUNT 3.78 M/UL (4.70-6.10); RED CELL DISTRIBUTION WIDTH 22.6 % (11.6-14.8)
[2019-09-16 06:22] LABS: WHITE BLOOD COUNT 24.2 K/UL (4.8-10.8)
[2019-09-16 06:36] LABS: ALANINE AMINOTRANSFERASE 30 U/L (12-78); ALBUMIN 2.1 G/DL (3.4-5.0); ALBUMIN/GLOBULIN RATIO 0.6 (1.0-2.7); ALKALINE PHOSPHATASE 148 U/L (46-116); ANION GAP 15 mmol/L (5-15); ASPARTATE AMINO TRANSFERASE 53 U/L (15-37); BILIRUBIN,TOTAL 0.5 MG/DL (0.2-1.0); BLOOD UREA NITROGEN 37 mg/dL (7-18); CARBON DIOXIDE 21 MMOL/L (21-32); CHLORIDE 117 MMOL/L (98-107); CREATININE 1.2 MG/DL (0.55-1.30); PHOSPHORUS 2.9 MG/DL (2.5-4.9); POTASSIUM 5.2 MMOL/L (3.5-5.1); SODIUM 153 MMOL/L (136-145)
--- NOTE | 2019-09-16 07:04 | 48 Hour Post Anesthesia Eval ---
Post Anesthesia Evaluation Procedure: IVC filter placement Date of Evaluation: Sep 15, 2019 Time of Evaluation: 10:15 Blood Pressure Systolic: 148 0: 78 Pulse Rate: 86 Respiratory Rate: 24 Temperature (Fahrenheit): 98.1 O2 Sat by Pulse Oximetry: 98 Airway: patent Nausea: No Vomiting: No Pain Intensity: 3 Hydration Status: adequate Cardiopulmonary Status: stable tachycardia Mental Status/LOC: patient returned to baseline Follow-up Care/Observations: n/a Post-Anesthesia Complications: none Follow-up care needed: N/A Oscar Pinzon MD Sep 16, 2019 07:04
--- NOTE | 2019-09-16 07:20 | NUR ---
HAND-OFF: Report given to Fatmata THAKKAR. PT remains stable.
--- NOTE | 2019-09-16 07:21 | NUR ---
NURSE NOTES: RECEIVED PATIENT FROM Maria Guadalupe GUERRIER RN. PATIENT IS LYING IN BED, ASLEEP. ABLE TO OPEN EYES. ON 2L NC. HOOKED TO HOSPITAL SECURITY OFFICER. NO SIGNS OF RESPI OR CARDIO OF THE MOMENT. NGT ON. NPO FOR NOW. SKIN ALTERATION NOTED. ON P200 MATTRESS. MIDLINE ON R UA WITH D5 1/S NS AT 150ML/HR. NOTED RIGHT NEPHROSTOMY TUBE. NOTED BLOODY URINE. CALL LIGHT WITHIN REACH. BED AT LOWEST POSITION. SIDE RAILS UP. WILL CONTINUE TO MONITOR.
[2019-09-16] MEDS ORDERED: Tubing IV Secondary IV ONE (08:58)
[2019-09-16] MEDS: Brimonidine 0.2% Opth Sol BOTH EYES SCH ×2 (09:00→17:55)
--- NOTE | 2019-09-16 09:00 | NUR ---
NURSE NOTES: PATIENT KEPT CLEAN AND DRY. NOTED BLOODY URINE. INFORMED MD'S. WILL CONTINUE TO MONITOR.
--- NOTE | 2019-09-16 09:19 | NUR ---
RADIOLOGY DEPT. CHEST AND ABDOMEN FOR NGT PLCAL COMPLETED.-P. DYE
--- NOTE | 2019-09-16 09:50 | Diagnostic Imaging Report ---
Indication: NG tube Comparison: None Single view of the abdomen obtained Findings: NG tube was advanced further. The tip is in good position in the distal stomach. IMPRESSION: NG tube in satisfactory position
--- NOTE | 2019-09-16 09:51 | Diagnostic Imaging Report ---
Indication: Dyspnea Comparison: 09/14/2019 A single view chest radiograph was obtained. Findings: Vague confluent density in the left upper lung field again noted. Surgical clips the left lung apex again noted. Heart size is stable. Minimal left basal atelectasis noted. IMPRESSION: No significant change from the prior exam. Left upper lobe density could be consolidation, mass and/or postsurgical changes.
--- NOTE | 2019-09-16 10:10 | Surgery Progress Note ---
Surgery Progress Note Subjective Additional Comments ill appearing labs noted leukocytosis Objective Last 24 Hour Vital Signs Date Time Temp Pulse Resp B/P (MAP) Pulse Ox O2 Delivery O2 Flow Rate FiO2 09/16/19 07:04 86 24 98 09/16/19 04:00 Nasal Cannula 2.0 09/16/19 04:00 97.6 97 19 157/78 (104) 99 09/16/19 04:00 91 09/16/19 00:00 Nasal Cannula 2.0 09/16/19 00:00 98.1 90 19 141/93 (109) 100 09/16/19 00:00 88 09/15/19 20:00 Nasal Cannula 2.0 09/15/19 20:00 97.7 102 19 134/95 (108) 98 09/15/19 20:00 96 09/15/19 18:57 98.7 09/15/19 16:00 110 09/15/19 16:00 98.7 105 19 135/95 (108) 99 09/15/19 16:00 Nasal Cannula 2.0 09/15/19 12:00 98.6 125 20 146/85 (105) 99 09/15/19 12:00 133 09/15/19 12:00 Nasal Cannula 2.0 I&O Intake and Output 09/15/19 09/16/19 19:00 07:00 Intake Total 1450 ml 1600 ml Output Total 800 ml 900 ml Balance 650 ml 700 ml Intake IV Total 1450 ml 1600 ml Output Urine Total 800 ml 900 ml # Voids 1 # Bowel Movements 1 Dressing: other Wound: other Drains: other Cardiovascular: RSR Respiratory: decreased breath sounds Abdomen: soft, present bowel sounds Extremities: no cyanosis, other Laboratory Tests Test 09/16/19 04:45 White Blood Count 24.2 K/UL (4.8-10.8) *H Red Blood Count 3.78 M/UL (4.70-6.10) L Hemoglobin 10.8 G/DL (14.2-18.0) L Hematocrit 35.2 % (42.0-52.0) L Mean Corpuscular Volume 93 FL (80-99) Mean Corpuscular Hemoglobin 28.7 PG (27.0-31.0) Mean Corpuscular Hemoglobin Concent 30.8 G/DL (32.0-36.0) L Red Cell Distribution Width 22.6 % (11.6-14.8) H Platelet Count 48 K/UL (150-450) L Mean Platelet Volume 13.0 FL (6.5-10.1) H Neutrophils (%) (Auto) % (45.0-75.0) Lymphocytes (%) (Auto) % (20.0-45.0) Monocytes (%) (Auto) % (1.0-10.0) Eosinophils (%) (Auto) % (0.0-3.0) Basophils (%) (Auto) % (0.0-2.0) Neutrophils % (Manual) Pending Lymphocytes % (Manual) Pending Platelet Estimate Pending Platelet Morphology Pending Sodium Level 153 MMOL/L (136-145) H Potassium Level 5.2 MMOL/L (3.5-5.1) #H Chloride Level 117 MMOL/L (98-107) H Carbon Dioxide Level 21 MMOL/L (21-32) Anion Gap 15 mmol/L (5-15) Blood Urea Nitrogen 37 mg/dL (7-18) H Creatinine 1.2 MG/DL (0.55-1.30) Estimat Glomerular Filtration Rate > 60 mL/min (>60) Glucose Level 122 MG/DL (74-106) H Uric Acid 9.4 MG/DL (2.6-7.2) H Calcium Level 13.0 MG/DL (8.5-10.1) H Phosphorus Level 2.9 MG/DL (2.5-4.9) Magnesium Level 1.8 MG/DL (1.8-2.4) Total Bilirubin 0.5 MG/DL (0.2-1.0) Aspartate Amino Transf (AST/SGOT) 53 U/L (15-37) H Alanine Aminotransferase (ALT/SGPT) 30 U/L (12-78) Alkaline Phosphatase 148 U/L (46-116) H Total Protein 5.7 G/DL (6.4-8.2) L Albumin 2.1 G/DL (3.4-5.0) L Globulin 3.6 g/dL Albumin/Globulin Ratio 0.6 (1.0-2.7) L Plan Problems: (1) Elevated WBC count Assessment & Plan: Patient was significant leukocytosis poss related infectious process versus cancer. Hematology input appreciated. Antibiotics per infectious disease. No acute surgical intervention indicated recommended. Follow the recommendations (2) Bladder mass (3) GI (gastrointestinal bleed) Assessment & Plan: Findings: Interim placement of a nasogastric tube, tip of which projects at the level gastric fundus, proximal sidehole at or just beyond the gastroesophageal junction. Interim placement of an inferior vena cava filter. Bowel gas pattern is unremarkable. There is a drainage catheter in the right upper quadrant again demonstrated Impression: Borderline position of nasogastric tube, proximal sidehole at or just beyond the expected level gastric esophageal junction. Slight advancement may be prudent. This was discussed by phone with patient's nurse Daria at the time of interpretation Interim inferior vena cava filter placement (4) Hypercalcemia (5) Encephalopathy (6) LAVONNE (acute kidney injury) (7) Multiple lesions of metastatic malignancy Assessment & Plan: 1. Extensive left leg deep venous thrombosis involving the common femoral vein. 2. History of GI bleeding, metastatic tumor, bladder cancer, nephrostomy tube, encephalopathy, and renal insufficiency. PLAN AND RECOMMENDATION: The patient will benefit from inferior vena caval filter. Leg elevation. Decubitus precautions. Medical, Infectious Disease, and Oncology optimization in progress. Intraoperative images demonstrate inferior venacavogram and placement of an inferior vena cava filter (8) Bladder pain (9) Sinusitis (10) Tobacco abuse (11) Chest pain (12) Chest pain (13) High calcium levels (14) Cervical radiculopathy (15) Glaucoma (increased eye pressure) (16) Abdominal infection (17) Tobacco abuse counseling (18) Deep tissue injury Assessment & Plan: Patient presented with open deep tissue injury on sacral region. states that she identified it at home but was unsure that it was open. It was noted to be open during hospitalization total area of deep tissue injury approximately 9 cm x 6 mm with an open area in the midportion. Will need to continue with aggressive local treatment wound care and decubitus precautions as patient is high risk for declining condition. Patient is currently bedbound and unable to move on his own and participate in examination and turning. Thera honey placed followed by foam dressing. Turn patient every 2 hours. Nutritional optimization. Air mattress ordered. Discussed care plan with in detail at the bedside. We will continue to follow with recommendations. Pt presented on admission with open DTPI R buttocks. Base of wound maroon and fluctuant (L)11cm x (W)9.5cm. Within base of injury is an open wound which has 75% slough. NO odor noted. Small amt serous exudate noted. No evidence of skin breakdown to Sacrum. Both heels are firm and blanchable. Tx.Plan: Cleanse R buttocks wound with Saline. Apply Therahoney. Apply Moisture Barrier Paste to surrounding indurated areas. Cover with Optifoam drsg Daily and prn. Apply Moisture Barrier Paste to Sacrum. Cover with Optifoam drsg. Change every 3 days and prn. Apply Cavilon Skin Barrier to both heels. Cover each heel with Optifoam drsg. Change every 7 days and prn. Reposition at least every 2hours or as tolerated. Off-load heels with Pillow. APM/LORNE Mattress overlay. Urbano Harrell Sep 16, 2019 10:10
--- NOTE | 2019-09-16 10:40 | Nephrology Progress Note ---
Assessment/Plan Problem List: (1) Hypercalcemia (2) Bladder mass (3) LAVONNE (acute kidney injury) (4) Encephalopathy Assessment: metabolic Assessment 1. Hypercalcemia. 2. Renal insufficiency 3. Bladder carcinoma. 4. Right hydronephrosis. 5. Altered mental status. 6. Had IVC filter Plan has NGT DC mind altering meds Meds to IV as possible St eval- keep NPO one dose Solumedrol 09/15 Hydrate- D5w Lasix- 80IV today Aredia- up to total 90mg 09/15 Calcitonin Nasal Monitor renal parameters and Ca Kidney MITCH uro eval Subjective ROS Limited/Unobtainable: No Constitutional: Reports: malaise, weakness Objective Objective Last 24 Hour Vital Signs Date Time Temp Pulse Resp B/P (MAP) Pulse Ox O2 Delivery O2 Flow Rate FiO2 09/16/19 08:00 97.2 91 16 142/103 (116) 96 09/16/19 08:00 102 09/16/19 07:04 86 24 98 09/16/19 04:00 Nasal Cannula 2.0 09/16/19 04:00 97.6 97 19 157/78 (104) 99 09/16/19 04:00 91 09/16/19 00:00 Nasal Cannula 2.0 09/16/19 00:00 98.1 90 19 141/93 (109) 100 09/16/19 00:00 88 09/15/19 20:00 Nasal Cannula 2.0 09/15/19 20:00 97.7 102 19 134/95 (108) 98 09/15/19 20:00 96 09/15/19 18:57 98.7 09/15/19 16:00 110 09/15/19 16:00 98.7 105 19 135/95 (108) 99 09/15/19 16:00 Nasal Cannula 2.0 09/15/19 12:00 98.6 125 20 146/85 (105) 99 09/15/19 12:00 133 09/15/19 12:00 Nasal Cannula 2.0 Intake and Output 09/15/19 09/16/19 19:00 07:00 Intake Total 1450 ml 1600 ml Output Total 800 ml 900 ml Balance 650 ml 700 ml Intake IV Total 1450 ml 1600 ml Output Urine Total 800 ml 900 ml # Voids 1 # Bowel Movements 1 Current Medications Medications (Trade) Dose Ordered Sig/Andrea Route PRN Reason Start Time Stop Time Status Last Admin Dose Admin Acetaminophen/ Codeine Phosphate (Tylenol #3) 1 tab Q6H PRN ORAL Mild Pain (Pain Scale 1-3) 09/13/19 12:00 09/20/19 11:59 Brimonidine Tartrate (Alphagan) 1 drop BID BOTH EYES 09/13/19 18:00 10/13/19 17:59 09/15/19 18:26 Calcitonin [place] (Miacalcin) 1 sprays Q24H NASAL 09/13/19 18:00 10/13/19 17:59 09/15/19 18:26 Chlorhexidine Gluconate (Gina-Hex 2%) 1 applic DAILY@2000 TOPIC 09/14/19 20:00 10/14/19 19:59 09/15/19 20:46 Dextrose 1,000 ml @ 150 mls/hr Q6H40M IV 09/16/19 10:45 10/16/19 10:44 Dextrose (Dextrose 50%) 25 ml Q30M PRN IV Hypoglycemia 09/13/19 11:30 10/13/19 11:29 Dextrose (Dextrose 50%) 50 ml Q30M PRN IV Hypoglycemia 09/13/19 11:30 10/13/19 11:29 Furosemide (Lasix) 80 mg ONCE IV 09/16/19 09:40 09/16/19 11:00 Gabapentin (Neurontin) 100 mg THREE TIMES A DAY ORAL 09/13/19 13:00 10/13/19 12:59 09/15/19 18:27 Hydromorphone HCl (Dilaudid) 0.5 mg Q4H PRN IVP For Pain 09/16/19 10:45 09/23/19 10:44 UNV Insulin Aspart (NovoLOG) BEFORE MEALS AND HS SUBQ 09/13/19 11:30 10/13/19 11:29 09/15/19 16:59 Latanoprost (Xalatan) 1 drop BEDTIME BOTH EYES 09/13/19 21:00 10/13/19 20:59 09/15/19 20:49 Levetiracetam 500 mg/Dextrose 100 ml @ 440 mls/hr Q12HR IVPB 09/16/19 21:00 10/16/19 20:59 UNV Levothyroxine Sodium (Synthroid) 50 mcg DAILY@0630 ORAL 09/14/19 06:30 10/14/19 06:29 Meropenem 1 gm/ Sodium Chloride 100 ml @ 200 mls/hr Q12H IVPB 09/13/19 16:00 09/18/19 15:59 09/16/19 03:49 Vancomycin HCl (Vanco rx to dose) 1 ea DAILY PRN MISC Per rx protocol 09/13/19 15:00 10/13/19 14:59 Vancomycin HCl 750 mg/Sodium Chloride 275 ml @ 183.333 mls/hr Q24H IVPB 09/14/19 16:00 09/19/19 15:59 09/15/19 16:58 Laboratory Tests 09/16/19 04:45: White Blood Count 24.2*H, Red Blood Count 3.78L, Hemoglobin 10.8L, Hematocrit 35.2L, Mean Corpuscular Volume 93, Mean Corpuscular Hemoglobin 28.7, Mean Corpuscular Hemoglobin Concent 30.8L, Red Cell Distribution Width 22.6H, Platelet Count 48L, Mean Platelet Volume 13.0H, Neutrophils (%) (Auto) , Lymphocytes (%) (Auto) , Monocytes (%) (Auto) , Eosinophils (%) (Auto) , Basophils (%) (Auto) , Differential Total Cells Counted 100, Neutrophils % ( Manual) 86H, Lymphocytes % (Manual) 7L, Monocytes % (Manual) 2, Eosinophils % ( Manual) 0, Basophils % (Manual) 0, Band Neutrophils 5, Platelet Estimate DecreasedL, Platelet Morphology Normal, Hypochromasia 1+, Anisocytosis 4+, Sodium Level 153H, Potassium Level 5.2#H, Chloride Level 117H, Carbon Dioxide Level 21, Anion Gap 15, Blood Urea Nitrogen 37H, Creatinine 1.2, Estimat Glomerular Filtration Rate > 60, Glucose Level 122H, Uric Acid 9.4H, Calcium Level 13.0H, Phosphorus Level 2.9, Magnesium Level 1.8, Total Bilirubin 0.5, Aspartate Amino Transf (AST/SGOT) 53H, Alanine Aminotransferase (ALT/SGPT) 30, Alkaline Phosphatase 148H, Total Protein 5.7L, Albumin 2.1L, Globulin 3.6, Albumin/Globulin Ratio 0.6L Height (Feet): 5 Height (Inches): 4.00 Weight (Pounds): 167 General Appearance: no apparent distress, lethargic Cardiovascular: tachycardia Respiratory/Chest: decreased breath sounds Abdomen: distended Bright Ibarra MD Sep 16, 2019 10:40
[2019-09-16] MEDS: Hydromorphone 0.5mg/0.5ml inj IVP PRN (11:19)
[2019-09-16] MEDS ORDERED: Sodium Polystyrene Sulfonate 15gm Powder ORAL ONE (12:45)
[2019-09-16] MEDS ORDERED: Lidocaine 1% Plain 30 ml INJ PRN (13:53)
[2019-09-16] MEDS ORDERED: Omnipaque-300 100ml vial INJ PRN (13:53)
--- NOTE | 2019-09-16 13:57 | Pulmonology Progress Note ---
Assessment/Plan Assessment/Plan IMPRESSION: 1. Hypercalcemia. 2. Renal insufficiency, mild. 3. Bladder carcinoma. 4. Right hydronephrosis. 5. Altered mental status. 6. DVT; s/p IVC filter DISCUSSION: discussed withurology for R nephrostomy replacement COntinue IV hydration and steroids for hypercalcemia S/p pamidronate continue NG for nutrition and meds Swallow eval Will consult GI Hospice eval today Antelmo Ko M.D. Subjective Interval Events: continues to have hematuria. NG tube in place. Is more awake. Constitutional: Reports: no symptoms HEENT: Repors: no symptoms Respiratory: Reports: no symptoms Cardiovascular: Reports: no symptoms Gastrointestinal/Abdominal: Reports: no symptoms Allergies: Coded Allergies: ASPIRIN (Unverified Allergy, Unknown, 10/31/14) IBUPROFEN (Unverified Allergy, Unknown, 04/10/14) Objective Last 24 Hour Vital Signs Date Time Temp Pulse Resp B/P (MAP) Pulse Ox O2 Delivery O2 Flow Rate FiO2 09/16/19 13:53 135 16 6.0 09/16/19 08:00 97.2 91 16 142/103 (116) 96 09/16/19 08:00 102 09/16/19 07:04 86 24 98 09/16/19 04:00 Nasal Cannula 2.0 09/16/19 04:00 97.6 97 19 157/78 (104) 99 09/16/19 04:00 91 09/16/19 00:00 Nasal Cannula 2.0 09/16/19 00:00 98.1 90 19 141/93 (109) 100 09/16/19 00:00 88 09/15/19 20:00 Nasal Cannula 2.0 09/15/19 20:00 97.7 102 19 134/95 (108) 98 09/15/19 20:00 96 09/15/19 18:57 98.7 09/15/19 16:00 110 09/15/19 16:00 98.7 105 19 135/95 (108) 99 09/15/19 16:00 Nasal Cannula 2.0 Intake and Output 09/15/19 09/16/19 19:00 07:00 Intake Total 1450 ml 1600 ml Output Total 800 ml 900 ml Balance 650 ml 700 ml Intake IV Total 1450 ml 1600 ml Output Urine Total 800 ml 900 ml # Voids 1 # Bowel Movements 1 General Appearance: no acute distress HEENT: normocephalic Respiratory/Chest: chest wall non-tender, lungs clear Cardiovascular: normal peripheral pulses Abdomen: normal bowel sounds Laboratory Tests 09/16/19 04:45: White Blood Count 24.2*H, Red Blood Count 3.78L, Hemoglobin 10.8L, Hematocrit 35.2L, Mean Corpuscular Volume 93, Mean Corpuscular Hemoglobin 28.7, Mean Corpuscular Hemoglobin Concent 30.8L, Red Cell Distribution Width 22.6H, Platelet Count 48L, Mean Platelet Volume 13.0H, Neutrophils (%) (Auto) , Lymphocytes (%) (Auto) , Monocytes (%) (Auto) , Eosinophils (%) (Auto) , Basophils (%) (Auto) , Differential Total Cells Counted 100, Neutrophils % ( Manual) 86H, Lymphocytes % (Manual) 7L, Monocytes % (Manual) 2, Eosinophils % ( Manual) 0, Basophils % (Manual) 0, Band Neutrophils 5, Platelet Estimate DecreasedL, Platelet Morphology Normal, Hypochromasia 1+, Anisocytosis 4+, Sodium Level 153H, Potassium Level 5.2#H, Chloride Level 117H, Carbon Dioxide Level 21, Anion Gap 15, Blood Urea Nitrogen 37H, Creatinine 1.2, Estimat Glomerular Filtration Rate > 60, Glucose Level 122H, Uric Acid 9.4H, Calcium Level 13.0H, Phosphorus Level 2.9, Magnesium Level 1.8, Total Bilirubin 0.5, Aspartate Amino Transf (AST/SGOT) 53H, Alanine Aminotransferase (ALT/SGPT) 30, Alkaline Phosphatase 148H, Total Protein 5.7L, Albumin 2.1L, Globulin 3.6, Albumin/Globulin Ratio 0.6L Current Medications Medications (Trade) Dose Ordered Sig/Andrea Route PRN Reason Start Time Stop Time Status Last Admin Dose Admin Acetaminophen/ Codeine Phosphate (Tylenol #3) 1 tab Q6H PRN ORAL Mild Pain (Pain Scale 1-3) 09/13/19 12:00 09/20/19 11:59 Brimonidine Tartrate (Alphagan) 1 drop BID BOTH EYES 09/13/19 18:00 10/13/19 17:59 09/16/19 09:00 Calcitonin [place] (Miacalcin) 1 sprays Q24H NASAL 09/13/19 18:00 10/13/19 17:59 09/15/19 18:26 Chlorhexidine Gluconate (Gina-Hex 2%) 1 applic DAILY@2000 TOPIC 09/14/19 20:00 10/14/19 19:59 09/15/19 20:46 Dextrose 1,000 ml @ 150 mls/hr Q6H40M IV 09/16/19 10:45 10/16/19 10:44 09/16/19 10:39 Dextrose (Dextrose 50%) 25 ml Q30M PRN IV Hypoglycemia 09/13/19 11:30 10/13/19 11:29 Dextrose (Dextrose 50%) 50 ml Q30M PRN IV Hypoglycemia 09/13/19 11:30 10/13/19 11:29 Gabapentin (Neurontin) 100 mg THREE TIMES A DAY ORAL 09/13/19 13:00 10/13/19 12:59 09/16/19 10:38 Hydromorphone HCl (Dilaudid) 0.5 mg Q4H PRN IVP pain 4-10 09/16/19 10:45 09/23/19 10:44 09/16/19 11:19 Insulin Aspart (NovoLOG) BEFORE MEALS AND HS SUBQ 09/13/19 11:30 10/13/19 11:29 09/15/19 16:59 Iohexol (OMNIPAQUE-300 100ml) 100 ml ONCE PRN INJ RADIOLOGY 09/16/19 13:53 09/16/19 23:59 Latanoprost (Xalatan) 1 drop BEDTIME BOTH EYES 09/13/19 21:00 10/13/19 20:59 09/15/19 20:49 Levetiracetam 500 mg/Dextrose 100 ml @ 440 mls/hr Q12HR IV 09/16/19 21:00 10/16/19 20:59 Levothyroxine Sodium (Synthroid) 50 mcg DAILY@0630 ORAL 09/14/19 06:30 10/14/19 06:29 Lidocaine HCl (Xylocaine 1% 30ml) 30 ml ONCE PRN INJ RADIOLOGY 09/16/19 13:53 09/16/19 23:59 Meropenem 1 gm/ Sodium Chloride 100 ml @ 200 mls/hr Q12H IVPB 09/13/19 16:00 09/18/19 15:59 09/16/19 03:49 Vancomycin HCl (Vanco rx to dose) 1 ea DAILY PRN MISC Per rx protocol 09/13/19 15:00 10/13/19 14:59 Vancomycin HCl 750 mg/Sodium Chloride 275 ml @ 183.333 mls/hr Q24H IVPB 09/14/19 16:00 09/19/19 15:59 09/15/19 16:58 Antelmo Ko MD Sep 16, 2019 13:57
--- NOTE | 2019-09-16 14:32 | GI Initial Consult Note ---
History of Present Illness General Date patient seen: Sep 16, 2019 Time patient seen: 14:23 Reason for Hospitalization: Altered Level of Consciousness Referring physician: DELMAR Reason for Consultation: PEG EVALUATION Present Illness HPI 64-year-old male history of kidney and bladder cancer status post nephrostomy right side presents for altered mental status by EMS. According to EMS, his called for assistance after he was becoming confused and had a couple episodes of coffee-ground emesis. Patient is altered and cannot provide significant history. He is complaining of abdominal pain pointing to his upper abdomen. No emesis noted by EMS on route. Pressures have been stable. He is acutely altered. GI consulted for PEG evaluation. ROS limited, patient unable to provide any significant history. Patient currently is nasogastric tube dependent, pending swallow evaluation. Laboratory review significant for WBC 24.2, hemoglobin 10.8 , hematocrit 35.2, platelet count 48, sodium 153, potassium 5.2. Patient is pending IVC filter placement. Home Meds Active Scripts Acetaminophen With Codeine (T#3) (TYLENOL #3 TAB*) Y Tab, 1 TAB ORAL Q6HR PRN for For Pain, #10 TAB Prov:Wu Capps MD 10/31/18 Hydrocodone Bit/Acetaminophen 10-325* (NORCO 10-325*) 1 Each Tablet, 1 TAB ORAL Q6H PRN for For Pain, #15 TAB 0 Refills PRN PAIN Prov:Wu Capps MD 10/31/18 Brimonidine Tartrate/Timolol (COMBIGAN EYE DROPS) 5 Ml Drops, 1 DROP BOTH EYES BID, #5 ML Prov:Jem Lord MD 09/26/17 Fluticasone Furoate (FLONASE SENSIMIST) 9.9 Ml [place].susp, 1 SPRAYS NS DAILY, # 10 ML Prov:TERZIAN,DREAD P.A. 09/16/17 Pseudoephedrine Hcl (SUDAFED 12-HOUR) 120 Mg Tablet.er, 120 MG PO Q12HR, #20 TAB Prov:TERZIAN,DREAD P.A. 09/16/17 Hydrocodone/Acetaminophen 5-325* (HYDROCODONE/ACETAMINOPHEN 5-325*) 1 Each Tablet, 1 TAB ORAL Q6H PRN for For Pain, #20 TAB Prov:Chris Delacruz MD 11/01/14 Methocarbamol* (ROBAXIN*) 500 Mg Tablet, 500 MG PO TID, #21 TAB 0 Refills Prov:SAMANTHAPARI Lane D.O. 04/11/14 Gabapentin* (NEURONTIN*) 100 Mg Capsule, 100 MG ORAL THREE TIMES A DAY, #15 CAP 0 Refills Prov:SAMANTHAPARI D.O. 04/11/14 Hydrocodone Bit/Acetaminophen 5-325* (NORCO 5-325*) 1 Each Tablet, 1 TAB ORAL Q6H PRN for For Pain, #20 TAB Prov:SAMANTHAPARI Lane D.O. 04/11/14 Reported Medications Levetiracetam (KEPPRA) 500 Mg Tablet, 500 MG ORAL EVERY 12 HOURS for sz, #60 TAB 0 Refills 09/13/19 Tramadol Hcl (ULTRAM*) 50 Mg Tablet, 50 MG ORAL Q6H for 4-10 pain, #30 TAB 0 Refills 09/13/19 Levothyroxine Sodium* (LEVOTHYROXINE SODIUM*) 100 Mcg Vial, 50 MCG PO DAILY for thyroid, VIAL 09/13/19 Metformin Hcl* (METFORMIN HCL*) 500 Mg Tablet, 500 MG ORAL QPM for DM, TAB 09/13/19 Dexamethasone (DEXAMETHASONE) 4 Mg Tablet, 4 MG PO for TID inflammation, TAB 09/13/19 Enalapril/Hydrochlorothiazide (ENALAPRIL-HCTZ 10-25 MG TABLET) 1 Each Tablet, 1 TAB ORAL BID, TAB 01/24/19 Dorzolamide HCl/Pf (Dorzolamide 2% Eye Drop) 10 Ml Drops, 10 ML OP, ML 01/24/19 Brimonidine Tartrate* (ALPHAGAN*) 5 Ml Drops, 1 DROP BOTH EYES BID, ML 01/24/19 Cyclopentolate/Phenylephrine (CYCLOMYDRIL EYE DROPS) 5 Ml Drops, 5 ML OP, ML 01/24/19 Latanoprost* (XALATAN*) 2.5 Ml Drops, 1 DROP BOTH EYES BEDTIME, #2.5 ML 0 Refills 01/24/19 Med list reviewed/reconciled: Yes Allergies: Coded Allergies: ASPIRIN (Unverified Allergy, Unknown, 10/31/14) IBUPROFEN (Unverified Allergy, Unknown, 04/10/14) Patient History Limited by: medical condition History Provided By: Medical Record PMH Narrative PMH: Kidney and bladder cancer PSH: Right nephrostomy, right PIC line Allergies: Ibuprofen and aspirin noted Past Medical History Deferred: Pt Cognitively Impaired Hx Cardiac Problems: Yes - GLAUCOMA BILAT EYE, MASS IN BLADDER, UTI, HYDRONEPHROSIS, Hx Hypertension: Yes Social History: Denies: smoking, alcohol use, drug use, other Review of Systems All Other Systems: limited Physical Exam Vital Signs Date Time Temp Pulse Resp B/P (MAP) Pulse Ox O2 Delivery O2 Flow Rate FiO2 09/13/19 02:51 98.2 120 20 117/90 (99) 98 Room Air 09/13/19 19:15 6 Sp02 EP Interpretation: reviewed, normal Labs Laboratory Tests Test 09/16/19 04:45 White Blood Count 24.2 K/UL (4.8-10.8) *H Red Blood Count 3.78 M/UL (4.70-6.10) L Hemoglobin 10.8 G/DL (14.2-18.0) L Hematocrit 35.2 % (42.0-52.0) L Mean Corpuscular Volume 93 FL (80-99) Mean Corpuscular Hemoglobin 28.7 PG (27.0-31.0) Mean Corpuscular Hemoglobin Concent 30.8 G/DL (32.0-36.0) L Red Cell Distribution Width 22.6 % (11.6-14.8) H Platelet Count 48 K/UL (150-450) L Mean Platelet Volume 13.0 FL (6.5-10.1) H Neutrophils (%) (Auto) % (45.0-75.0) Lymphocytes (%) (Auto) % (20.0-45.0) Monocytes (%) (Auto) % (1.0-10.0) Eosinophils (%) (Auto) % (0.0-3.0) Basophils (%) (Auto) % (0.0-2.0) Differential Total Cells Counted 100 Neutrophils % (Manual) 86 % (45-75) H Lymphocytes % (Manual) 7 % (20-45) L Monocytes % (Manual) 2 % (1-10) Eosinophils % (Manual) 0 % (0-3) Basophils % (Manual) 0 % (0-2) Band Neutrophils 5 % (0-8) Platelet Estimate Decreased L Platelet Morphology Normal Hypochromasia 1+ Anisocytosis 4+ Sodium Level 153 MMOL/L (136-145) H Potassium Level 5.2 MMOL/L (3.5-5.1) #H Chloride Level 117 MMOL/L (98-107) H Carbon Dioxide Level 21 MMOL/L (21-32) Anion Gap 15 mmol/L (5-15) Blood Urea Nitrogen 37 mg/dL (7-18) H Creatinine 1.2 MG/DL (0.55-1.30) Estimat Glomerular Filtration Rate > 60 mL/min (>60) Glucose Level 122 MG/DL (74-106) H Uric Acid 9.4 MG/DL (2.6-7.2) H Calcium Level 13.0 MG/DL (8.5-10.1) H Phosphorus Level 2.9 MG/DL (2.5-4.9) Magnesium Level 1.8 MG/DL (1.8-2.4) Total Bilirubin 0.5 MG/DL (0.2-1.0) Aspartate Amino Transf (AST/SGOT) 53 U/L (15-37) H Alanine Aminotransferase (ALT/SGPT) 30 U/L (12-78) Alkaline Phosphatase 148 U/L (46-116) H Total Protein 5.7 G/DL (6.4-8.2) L Albumin 2.1 G/DL (3.4-5.0) L Globulin 3.6 g/dL Albumin/Globulin Ratio 0.6 (1.0-2.7) L General Appearance: well appearing, no apparent distress, alert Head: normocephalic EENT: PERRL/EOMI, normal ENT inspection Neck: supple Respiratory: normal breath sounds, no respiratory distress Cardiovascular: normal rate Gastrointestinal: normal inspection, non tender, soft, normal bowel sounds, non -distended Rectal: deferred Genitourinary: deferred Musculoskeletal: normal inspection, back normal Neurologic: alert, responsive, normal inspection Skin: normal inspection, normal color, no rash, warm/dry, palpation normal, well hydrated Lymphatic: normal inspection, no adenopathy Current Medications Current Medications Medications (Trade) Dose Ordered Sig/Andrea Route PRN Reason Start Time Stop Time Status Last Admin Dose Admin Acetaminophen/ Codeine Phosphate (Tylenol #3) 1 tab Q6H PRN ORAL Mild Pain (Pain Scale 1-3) 09/13/19 12:00 09/20/19 11:59 Brimonidine Tartrate (Alphagan) 1 drop BID BOTH EYES 09/13/19 18:00 10/13/19 17:59 09/16/19 09:00 Calcitonin [place] (Miacalcin) 1 sprays Q24H NASAL 09/13/19 18:00 10/13/19 17:59 09/15/19 18:26 Chlorhexidine Gluconate (Gina-Hex 2%) 1 applic DAILY@2000 TOPIC 09/14/19 20:00 10/14/19 19:59 09/15/19 20:46 Dextrose 1,000 ml @ 150 mls/hr Q6H40M IV 09/16/19 10:45 10/16/19 10:44 09/16/19 10:39 Dextrose (Dextrose 50%) 25 ml Q30M PRN IV Hypoglycemia 09/13/19 11:30 10/13/19 11:29 Dextrose (Dextrose 50%) 50 ml Q30M PRN IV Hypoglycemia 09/13/19 11:30 10/13/19 11:29 Gabapentin (Neurontin) 100 mg THREE TIMES A DAY ORAL 09/13/19 13:00 10/13/19 12:59 09/16/19 10:38 Hydromorphone HCl (Dilaudid) 0.5 mg Q4H PRN IVP pain 4-10 09/16/19 10:45 09/23/19 10:44 09/16/19 11:19 Insulin Aspart (NovoLOG) BEFORE MEALS AND HS SUBQ 09/13/19 11:30 10/13/19 11:29 09/15/19 16:59 Iohexol (OMNIPAQUE-300 100ml) 100 ml ONCE PRN INJ RADIOLOGY 09/16/19 13:53 09/16/19 23:59 Latanoprost (Xalatan) 1 drop BEDTIME BOTH EYES 09/13/19 21:00 10/13/19 20:59 09/15/19 20:49 Levetiracetam 500 mg/Dextrose 100 ml @ 440 mls/hr Q12HR IV 09/16/19 21:00 10/16/19 20:59 Levothyroxine Sodium (Synthroid) 50 mcg DAILY@0630 ORAL 09/14/19 06:30 10/14/19 06:29 Lidocaine HCl (Xylocaine 1% 30ml) 30 ml ONCE PRN INJ RADIOLOGY 09/16/19 13:53 09/16/19 23:59 Meropenem 1 gm/ Sodium Chloride 100 ml @ 200 mls/hr Q12H IVPB 09/13/19 16:00 09/18/19 15:59 09/16/19 03:49 Vancomycin HCl (Vanco rx to dose) 1 ea DAILY PRN MISC Per rx protocol 09/13/19 15:00 10/13/19 14:59 Vancomycin HCl 750 mg/Sodium Chloride 275 ml @ 183.333 mls/hr Q24H IVPB 09/14/19 16:00 09/19/19 15:59 09/15/19 16:58 GI: Plan Problems: (1) Bladder mass (2) GI (gastrointestinal bleed) Plan #PEG evaluation Patient not stable for any GI procedures at this time Follow-up swallow evaluation Maintain nasogastric tube Possible hospice, PEG if agreed #Dyphasia Maintain nasogastric tube Follow-up speech therapist recommendations #Anemia secondary to coffee-ground emesis Monitor H&H, as needed transfusions PPI twice daily Occult blood stool to evaluate GI bleed Patient not stable for endoscopy at this time #Bladder cancer Follow-up oncology recommendations Abdominal pelvis CT reviewed Antibiotics #Severe malnutrition Start nasogastric tube feedings per registered dietitian #Electrolyte imbalance Per nephro Discussed with Dr. Beltran. Thank you for this patient referral, we will follow. The patient was seen and examined at bedside and all new and available data was reviewed in the patients chart. I agree with the above findings, impression and plan. (Patient seen earlier today. Signature stamp does not reflect patient encounter time.). - MD Nubia Maddox,[facility] RECREATION COORDINATOR Sep 16, 2019 14:32
--- NOTE | 2019-09-16 15:00 | NUR ---
NURSE NOTES: BROUGHT THE PT DOWN FOR REPLACEMENT OF RIGHT NEPHROSTOMY TUBE. PT STABLE. FAMILY MEMBER SEEN AT THE BEDSIDE. WILL CONTINUE TO MONITOR.
--- NOTE | 2019-09-16 16:09 | Diagnostic Imaging Report ---
Indication: Nonfunctioning right percutaneous nephrostomy catheter. Comprison: None Procedure: Informed consent for the procedure was obtained. The risks, benefits, and complications of the procedure were explained to the patient. We were given verbal and written consent to proceed. The right flank in the area of the indwelling percutaneous nephrostomy catheter was prepped and sterilely draped in the usual fashion. I attempted to inject a small amount of contrast into the catheter but there was no opacification of the collecting system. The catheter was obstructed. The catheter was cut near the hub. A 0.035 wire was then advanced and negotiated fluoroscopically into the collecting system. The indwelling nonfunctioning catheter was slowly removed under fluoroscopic observation. An 8.5 Citizen [place] x25 cm multipurpose pigtail drainage catheter was then advanced over the wire. The pigtail was formed within the renal pelvis. Small amount of contrast was instilled to confirm positioning of the catheter in the in the ideal location within the renal pelvis. There are no complications. The new catheter was secured with sutures. Intraprocedural imaging: Opacification of the catheter shows good positioning of the new nephrostomy pigtail. No hydronephrosis demonstrated. Drainage of urine noted. 3 fluoroscopic images obtained. Total fluoroscopic time 118 seconds Impression: Successful exchange for a new right 8.5 [place] multipurpose percutaneous nephrostomy catheter. Catheter functioning well.
--- NOTE | 2019-09-16 16:09 | Diagnostic Imaging Report ---
Indication: Nonfunctioning right percutaneous nephrostomy catheter. Comprison: None Procedure: Informed consent for the procedure was obtained. The risks, benefits, and complications of the procedure were explained to the patient. We were given verbal and written consent to proceed. The right flank in the area of the indwelling percutaneous nephrostomy catheter was prepped and sterilely draped in the usual fashion. I attempted to inject a small amount of contrast into the catheter but there was no opacification of the collecting system. The catheter was obstructed. The catheter was cut near the hub. A 0.035 wire was then advanced and negotiated fluoroscopically into the collecting system. The indwelling nonfunctioning catheter was slowly removed under fluoroscopic observation. An 8.5 [place] x25 cm multipurpose pigtail drainage catheter was then advanced over the wire. The pigtail was formed within the renal pelvis. Small amount of contrast was instilled to confirm positioning of the catheter in the in the ideal location within the renal pelvis. There are no complications. The new catheter was secured with sutures. Intraprocedural imaging: Opacification of the catheter shows good positioning of the new nephrostomy pigtail. No hydronephrosis demonstrated. Drainage of urine noted. 3 fluoroscopic images obtained. Total fluoroscopic time 118 seconds Impression: Successful exchange for a new right 8.5 [place] multipurpose percutaneous nephrostomy catheter. Catheter functioning well.
--- NOTE | 2019-09-16 17:13 | Hematology/Onc Progress Note ---
Assessment/Plan Assessment/Plan Assessment and Recs # Occlusive thrombus in the left common femoral vein, proximal left superficial femoral vein, and distal left superficial femoral vein. No deep venous thrombosis identified in the right lower extremity. --> given bleed, drop in platelets, have ordered ivcf placement --> s/p ivcf placement 09/[address] Gopi Bernal --> will likely still require anticoag if labs improved # Bladder cancer with metastatic disease --> has adrenal and liver mets --> will need outpatient f/u --> will codey Rn today again to obtain further hx # Thrombocytopenia - potential causes multifactorial, but in this case likely due to consumption from infection, also DIC --> Hep panel and HIV pending --> US abd to evaluate for cirrhosis and hsm - ct reviewed, negative for both --> Peripheral smear ordered to evaluate for blasts /schistocytes --> abx and other meds have been reviewed --> ok for ppx if plt >50k w/ either heparin or lovenox --> Transfuse if Plt < 20k and fever, or if Plt < 10k without fever --> plt trend 104-->62k-->38k # Hypercalcemia due to malignancy --> calcitonin and aredia --> ivf hydration --> Ca++ 13-->12 # Leukocytosis with underlying infection --> trend smear --> wbc trend 30-->24-->26 --> as per id recs # LAVONNE as per renal --> s/p nephrosotmy tube placement --> cr 1.5-->1.7 # Encephalopathy --> per neuro Appreciate consultation and codey Rn Subjective Allergies: Coded Allergies: ASPIRIN (Unverified Allergy, Unknown, 10/31/14) IBUPROFEN (Unverified Allergy, Unknown, 04/10/14) Subjective 09/15: Ca++ remains high today 13.2, have ordered for pamidronate, no bleeding, cbc/bmp pending 09/16: wbc 24.3, on vanc/farnaz, hospice eval and right nephro tube replacement for today Objective Objective Current Medications Medications (Trade) Dose Ordered Sig/Andrea Route PRN Reason Start Time Stop Time Status Last Admin Dose Admin Acetaminophen/ Codeine Phosphate (Tylenol #3) 1 tab Q6H PRN ORAL Mild Pain (Pain Scale 1-3) 09/13/19 12:00 09/20/19 11:59 Brimonidine Tartrate (Alphagan) 1 drop BID BOTH EYES 09/13/19 18:00 10/13/19 17:59 09/16/19 09:00 Calcitonin [place] (Miacalcin) 1 sprays Q24H NASAL 09/13/19 18:00 10/13/19 17:59 09/15/19 18:26 Chlorhexidine Gluconate (Gina-Hex 2%) 1 applic DAILY@2000 TOPIC 09/14/19 20:00 10/14/19 19:59 09/15/19 20:46 Dextrose 1,000 ml @ 150 mls/hr Q6H40M IV 09/16/19 10:45 10/16/19 10:44 09/16/19 10:39 Dextrose (Dextrose 50%) 25 ml Q30M PRN IV Hypoglycemia 09/13/19 11:30 10/13/19 11:29 Dextrose (Dextrose 50%) 50 ml Q30M PRN IV Hypoglycemia 09/13/19 11:30 10/13/19 11:29 Gabapentin (Neurontin) 100 mg THREE TIMES A DAY ORAL 09/13/19 13:00 10/13/19 12:59 09/16/19 10:38 Hydromorphone HCl (Dilaudid) 0.5 mg Q4H PRN IVP pain 4-10 09/16/19 10:45 09/23/19 10:44 09/16/19 11:19 Insulin Aspart (NovoLOG) BEFORE MEALS AND HS SUBQ 09/13/19 11:30 10/13/19 11:29 09/15/19 16:59 Iohexol (OMNIPAQUE-300 100ml) 100 ml ONCE PRN INJ RADIOLOGY 09/16/19 13:53 09/16/19 23:59 Latanoprost (Xalatan) 1 drop BEDTIME BOTH EYES 09/13/19 21:00 10/13/19 20:59 09/15/19 20:49 Levetiracetam 500 mg/Dextrose 100 ml @ 440 mls/hr Q12HR IV 09/16/19 21:00 10/16/19 20:59 Levothyroxine Sodium (Synthroid) 50 mcg DAILY@0630 ORAL 2/23/20 06:30 10/14/19 06:29 Lidocaine HCl (Xylocaine 1% 30ml) 30 ml ONCE PRN INJ RADIOLOGY 09/16/19 13:53 09/16/19 23:59 Meropenem 1 gm/ Sodium Chloride 100 ml @ 200 mls/hr Q12H IVPB 09/13/19 16:00 09/18/19 15:59 09/16/19 03:49 Pantoprazole (Protonix) 40 mg EVERY 12 HOURS IVP 09/16/19 21:00 10/16/19 20:59 Vancomycin HCl (Vanco rx to dose) 1 ea DAILY PRN MISC Per rx protocol 09/13/19 15:00 10/13/19 14:59 Vancomycin HCl 1 gm/Sodium Chloride 275 ml @ 183.708 mls/hr Q24H IVPB 09/16/19 17:00 09/21/19 16:59 Last 24 Hour Vital Signs Date Time Temp Pulse Resp B/P (MAP) Pulse Ox O2 Delivery O2 Flow Rate FiO2 09/16/19 16:00 116 09/16/19 16:00 97.5 118 19 117/75 (89) 100 09/16/19 14:05 139 18 128/99 (109) 100 09/16/19 14:00 138 18 136/103 (114) 100 09/16/19 13:53 135 16 6.0 09/16/19 12:00 97.2 114 20 144/109 (121) 96 09/16/19 12:00 116 09/16/19 08:00 97.2 91 16 142/103 (116) 96 09/16/19 08:00 102 09/16/19 07:04 86 24 98 09/16/19 04:00 Nasal Cannula 2.0 09/16/19 04:00 97.6 97 19 157/78 (104) 99 09/16/19 04:00 91 09/16/19 00:00 Nasal Cannula 2.0 09/16/19 00:00 98.1 90 19 141/93 (109) 100 09/16/19 00:00 88 09/15/19 20:00 Nasal Cannula 2.0 09/15/19 20:00 97.7 102 19 134/95 (108) 98 09/15/19 20:00 96 09/15/19 18:57 98.7 09/15/19 16:00 110 09/15/19 16:00 98.7 105 19 135/95 (108) 99 09/15/19 16:00 Nasal Cannula 2.0 09/15/19 12:00 98.6 125 20 146/85 (105) 99 09/15/19 12:00 133 09/15/19 12:00 Nasal Cannula 2.0 09/15/19 08:00 98.2 121 19 142/101 (115) 95 09/15/19 08:00 Nasal Cannula 2.0 09/15/19 08:00 121 09/15/19 04:00 99.4 89 20 141/59 (86) 98 09/15/19 04:00 112 09/15/19 03:00 Nasal Cannula 2.0 09/15/19 00:00 Nasal Cannula 2.0 09/15/19 00:00 97.7 112 20 114/80 (91) 100 09/14/19 23:34 112 09/14/19 20:00 Nasal Cannula 2.0 09/14/19 20:00 97.5 115 20 137/91 (106) 99 09/14/19 19:17 117 Intake and Output 09/15/19 09/16/19 19:00 07:00 Intake Total 1450 ml 1600 ml Output Total 800 ml 900 ml Balance 650 ml 700 ml Intake IV Total 1450 ml 1600 ml Output Urine Total 800 ml 900 ml # Voids 1 # Bowel Movements 1 Labs Test 09/13/19 17:30 09/14/19 04:00 09/14/19 17:03 09/15/19 04:50 Sodium Level 148 MMOL/L (136-145) 150 MMOL/L (136-145) 148 MMOL/L (136-145) Potassium Level 4.0 MMOL/L (3.5-5.1) 3.6 MMOL/L (3.5-5.1) 3.4 MMOL/L (3.5-5.1) Chloride Level 112 MMOL/L (98-107) 113 MMOL/L (98-107) 113 MMOL/L (98-107) Carbon Dioxide Level 21 MMOL/L (21-32) 27 MMOL/L (21-32) 26 MMOL/L (21-32) Anion Gap 15 mmol/L (5-15) 10 mmol/L (5-15) 10 mmol/L (5-15) Blood Urea Nitrogen 38 mg/dL (7-18) 41 mg/dL (7-18) 40 mg/dL (7-18) Creatinine 1.5 MG/DL (0.55-1.30) 1.5 MG/DL (0.55-1.30) 1.7 MG/DL (0.55-1.30) Estimat Glomerular Filtration Rate 57.4 mL/min (>60) 57.4 mL/min (>60) 49.7 mL/min (>60) Glucose Level 136 MG/DL (74-106) 134 MG/DL (74-106) 126 MG/DL (74-106) Uric Acid 7.8 MG/DL (2.6-7.2) 8.3 MG/DL (2.6-7.2) 8.8 MG/DL (2.6-7.2) Calcium Level 12.4 MG/DL (8.5-10.1) 12.7 MG/DL (8.5-10.1) 13.1 MG/DL (8.5-10.1) Phosphorus Level 2.9 MG/DL (2.5-4.9) 3.6 MG/DL (2.5-4.9) 2.7 MG/DL (2.5-4.9) Magnesium Level 1.9 MG/DL (1.8-2.4) 2.0 MG/DL (1.8-2.4) 2.0 MG/DL (1.8-2.4) Total Bilirubin 0.6 MG/DL (0.2-1.0) 0.6 MG/DL (0.2-1.0) 0.6 MG/DL (0.2-1.0) Aspartate Amino Transf (AST/SGOT) 30 U/L (15-37) 29 U/L (15-37) 35 U/L (15-37) Alanine Aminotransferase (ALT/SGPT) 39 U/L (12-78) 32 U/L (12-78) 33 U/L (12-78) Alkaline Phosphatase 131 U/L (46-116) 109 U/L (46-116) 129 U/L (46-116) Total Protein 6.1 G/DL (6.4-8.2) 5.8 G/DL (6.4-8.2) 5.8 G/DL (6.4-8.2) Albumin 2.2 G/DL (3.4-5.0) 2.6 G/DL (3.4-5.0) 2.3 G/DL (3.4-5.0) Globulin 3.9 g/dL 3.2 g/dL 3.5 g/dL Albumin/Globulin Ratio 0.6 (1.0-2.7) 0.8 (1.0-2.7) 0.7 (1.0-2.7) Thyroid Stimulating Hormone (TSH) 1.598 uiU/mL (0.358-3.740) 1.893 uiU/mL (0.358-3.740) White Blood Count 23.9 K/UL (4.8-10.8) 26.3 K/UL (4.8-10.8) Red Blood Count 3.67 M/UL (4.70-6.10) 3.57 M/UL (4.70-6.10) Hemoglobin 10.9 G/DL (14.2-18.0) 10.8 G/DL (14.2-18.0) Hematocrit 33.1 % (42.0-52.0) 33.0 % (42.0-52.0) Mean Corpuscular Volume 90 FL (80-99) 92 FL (80-99) Mean Corpuscular Hemoglobin 29.5 PG (27.0-31.0) 30.1 PG (27.0-31.0) Mean Corpuscular Hemoglobin Concent 32.8 G/DL (32.0-36.0) 32.6 G/DL (32.0-36.0) Red Cell Distribution Width 19.4 % (11.6-14.8) 19.1 % (11.6-14.8) Platelet Count 62 K/UL (150-450) 38 K/UL (150-450) Mean Platelet Volume 7.9 FL (6.5-10.1) 8.2 FL (6.5-10.1) Neutrophils (%) (Auto) % (45.0-75.0) % (45.0-75.0) Lymphocytes (%) (Auto) % (20.0-45.0) % (20.0-45.0) Monocytes (%) (Auto) % (1.0-10.0) % (1.0-10.0) Eosinophils (%) (Auto) % (0.0-3.0) % (0.0-3.0) Basophils (%) (Auto) % (0.0-2.0) % (0.0-2.0) Differential Total Cells Counted 100 100 Neutrophils % (Manual) 90 % (45-75) 91 % (45-75) Lymphocytes % (Manual) 5 % (20-45) 5 % (20-45) Monocytes % (Manual) 5 % (1-10) 1 % (1-10) Eosinophils % (Manual) 0 % (0-3) 0 % (0-3) Basophils % (Manual) 0 % (0-2) 0 % (0-2) Band Neutrophils 0 % (0-8) 1 % (0-8) Nucleated Red Blood Cells 3 /100 WBC 1 /100 WBC Platelet Estimate Decreased Decreased Platelet Morphology Normal Normal Anisocytosis 2+ 2+ Ionized Calcium (Measured) 1.64 mmol/L (1.10-1.35) Prostate Specific Antigen 1.65 ng/mL (0.13-4.0) Carcinoembryonic Antigen 6.4 ng/mL (0.0-4.7) CA 15-3 Antigen 607.0 U/mL (0.0-25.0) Metamyelocytes % 2 % (0-0) Hypochromasia 1+ Hemoglobin A1c 6.7 % (4.3-6.0) Iron Level 16 ug/dL (50-175) Total Iron Binding Capacity 161 ug/dL (250-450) Percent Iron Saturation 10 % (15-50) Unsaturated Iron Binding 145 ug/dL (112-346) Ferritin 791 NG/ML (8-388) Troponin I 0.047 ng/mL (0.000-0.056) C-Reactive Protein, Quantitative 20.0 mg/dL (0.00-0.90) Pro-B-Type Natriuretic Peptide 1448 pg/mL (0-125) Vitamin B12 Level 1526 PG/ML (193-986) Folate 14.4 NG/ML (8.6-58.9) Free Thyroxine 0.98 NG/DL (0.76-1.46) Free Triiodothyronine 1.4 pg/mL (2.3-4.2) Test 09/16/19 04:45 09/16/19 14:55 White Blood Count 24.2 K/UL (4.8-10.8) Red Blood Count 3.78 M/UL (4.70-6.10) Hemoglobin 10.8 G/DL (14.2-18.0) Hematocrit 35.2 % (42.0-52.0) Mean Corpuscular Volume 93 FL (80-99) Mean Corpuscular Hemoglobin 28.7 PG (27.0-31.0) Mean Corpuscular Hemoglobin Concent 30.8 G/DL (32.0-36.0) Red Cell Distribution Width 22.6 % (11.6-14.8) Platelet Count 48 K/UL (150-450) Mean Platelet Volume 13.0 FL (6.5-10.1) Neutrophils (%) (Auto) % (45.0-75.0) Lymphocytes (%) (Auto) % (20.0-45.0) Monocytes (%) (Auto) % (1.0-10.0) Eosinophils (%) (Auto) % (0.0-3.0) Basophils (%) (Auto) % (0.0-2.0) Differential Total Cells Counted 100 Neutrophils % (Manual) 86 % (45-75) Lymphocytes % (Manual) 7 % (20-45) Monocytes % (Manual) 2 % (1-10) Eosinophils % (Manual) 0 % (0-3) Basophils % (Manual) 0 % (0-2) Band Neutrophils 5 % (0-8) Platelet Estimate Decreased Platelet Morphology Normal Hypochromasia 1+ Anisocytosis 4+ Sodium Level 153 MMOL/L (136-145) Potassium Level 5.2 MMOL/L (3.5-5.1) Chloride Level 117 MMOL/L (98-107) Carbon Dioxide Level 21 MMOL/L (21-32) Anion Gap 15 mmol/L (5-15) Blood Urea Nitrogen 37 mg/dL (7-18) Creatinine 1.2 MG/DL (0.55-1.30) Estimat Glomerular Filtration Rate > 60 mL/min (>60) Glucose Level 122 MG/DL (74-106) Uric Acid 9.4 MG/DL (2.6-7.2) Calcium Level 13.0 MG/DL (8.5-10.1) Phosphorus Level 2.9 MG/DL (2.5-4.9) Magnesium Level 1.8 MG/DL (1.8-2.4) Total Bilirubin 0.5 MG/DL (0.2-1.0) Aspartate Amino Transf (AST/SGOT) 53 U/L (15-37) Alanine Aminotransferase (ALT/SGPT) 30 U/L (12-78) Alkaline Phosphatase 148 U/L (46-116) Total Protein 5.7 G/DL (6.4-8.2) Albumin 2.1 G/DL (3.4-5.0) Globulin 3.6 g/dL Albumin/Globulin Ratio 0.6 (1.0-2.7) Vancomycin Level Trough 9.1 ug/mL (5.0-12.0) Height (Feet): 5 Height (Inches): 4.00 Weight (Pounds): 167 Objective Physical Exam: Vitals: reviewed General: NAD HEENT: nc, at Neck: supple Chest: clear breath sounds bilaterally Cardiovascular: RRR, no s3, s4 Abdomen: soft, nontender, nd Extremities: no cce, normal range of motion Neuro: confused Prosper Spaulding MD Sep 16, 2019 17:13
--- NOTE | 2019-09-16 17:13 | NUR ---
PATIENT TOO LETHARGIC TO SAFELY PARTICIPATE IN P O TRIALS AT THIS TIME. HE IS FROM HOME AND HIS HIS HISTORY INCLUDES DISABILITY. D/W ARIANE ZEE. ST TO FOLLOW UP 09/17 FOR EVALUATION
[2019-09-16] MEDS: Vancomycin 1 GM in NS 275 ML IVPB SCH (17:55)
--- NOTE | 2019-09-16 18:00 | NUR ---
NURSE NOTES: PATIENT KEPT CLEAN AND DRY. NOTED NEPHROSTOMY TUBE DRAINING URINE. WILL CONTINUE TO MONITOR.
--- NOTE | 2019-09-16 19:05 | NUR ---
NURSE NOTES: Pt report received from Fatmata THAKKAR. pt remains stable. pt is alert and oriented times 1. pt is on youth nutritional monitor showing NSR, no signs symptoms of distress. pt is on 2L NC satting at 100%, no signs symptoms of acute resp distress. pt bed is low, locked, armed, bed rails up times, call light within reach. bed rails up times 3. will follow plan of care.
--- NOTE | 2019-09-16 19:15 | NUR ---
HAND-OFF: Report given to Maria Guadalupe Mejia RN.
[2019-09-16] MEDS: Pantoprazole Inj IVP SCH (20:20)
[2019-09-16] MEDS: Dyna-Hex 2% Top Sol 2oz TOPIC SCH (20:20)
[2019-09-16] MEDS: Latanoprost 0.005% Opth 2.5ml Soln BOTH EYES SCH (20:22)
[2019-09-16] MEDS ORDERED: levETIRAcetam 500 MG in D5W 95 ML IV SCH (21:00)
[2019-09-16] MEDS: levETIRAcetam 500mg/NS100ml 100 ML IVPB SCH (21:44)
--- NOTE | 2019-09-16 23:10 | NUR ---
NURSE NOTES: Received report from Fco RN, pt. in bed awake- opens eyes to name, no signs or symptoms of acute cardiac or respiratory distress noted, pt. in bed awake, bed in lowest position, call light within easy reach, bed alarm on, side rails up x's3 and safety brakes engaged, pt. appears to be sating well on 2L NC- no distress noted, pt. has condom cath intact and draining to gravity, condom cath out at bedside, rt. nephrostomy tube intact and draining to gravity, pt. has NAVEEN midline running D5W at 150cc/hr- intact and patent, HOB elevated, safety measure continued, will continue with plan of care.
--- NOTE | 2019-09-16 23:31 | NUR ---
HAND-OFF: Report given to Marcello THAKKAR. Pt remains stable.
[2019-09-17] VITALS: BP 142/82
[2019-09-17 04:00] VITALS: BP 142/92
[2019-09-17] MEDS: NovoLOG Insulin Flexpen SUBQ SCH ×4 (05:33→21:00)
[2019-09-17 06:22] LABS: HEMATOCRIT 30.6 % (42.0-52.0); HEMOGLOBIN 10.1 G/DL (14.2-18.0); MEAN CORPUSCULAR VOLUME 91 FL (80-99); PLATELET COUNT 40 K/UL (150-450); RED BLOOD COUNT 3.36 M/UL (4.70-6.10); RED CELL DISTRIBUTION WIDTH 18.9 % (11.6-14.8)
--- NOTE | 2019-09-17 06:26 | NUR ---
NURSE NOTES: per DR. Prosper Spaulding- to add him as consult- as DR. Ko requested him- orders carried out.
--- NOTE | 2019-09-17 06:48 | Hematology/Onc Progress Note ---
Assessment/Plan Assessment/Plan Assessment and Recs # Occlusive thrombus in the left common femoral vein, proximal left superficial femoral vein, and distal left superficial femoral vein. No deep venous thrombosis identified in the right lower extremity. --> given bleed, drop in platelets, have ordered ivcf placement --> s/p ivcf placement 09/[address] Gopi Bernal --> will likely still require anticoag if labs improved # Bladder cancer with metastatic disease --> has adrenal and liver mets --> will need outpatient f/u --> will codey Rn today again to obtain further hx # Thrombocytopenia - potential causes multifactorial, but in this case likely due to consumption from infection, also DIC --> Hep panel and HIV pending --> US abd to evaluate for cirrhosis and hsm - ct reviewed, negative for both --> Peripheral smear ordered to evaluate for blasts /schistocytes --> abx and other meds have been reviewed --> ok for ppx if plt >50k w/ either heparin or lovenox --> Transfuse if Plt < 20k and fever, or if Plt < 10k without fever --> plt trend 104-->62k-->38k # Hypercalcemia due to malignancy --> calcitonin and aredia HAVE been given --> ivf hydration --> Ca++ 13-->12-->13 # Leukocytosis with underlying infection --> trend smear --> wbc trend 30-->24-->26-->29 --> as per id recs # LAVONNE as per renal --> s/p nephrosotmy tube placement --> cr 1.5-->1.7->1.2 # Encephalopathy --> per neuro Appreciate consultation and codey Rn Subjective Constitutional: Denies: no symptoms, chills, fever, malaise, weakness, other HEENT: Denies: no symptoms, eye pain, blurred vision, tearing, double vision, ear pain, ear discharge, nose pain, nose congestion, throat pain, throat swelling, mouth pain, mouth swelling, other Cardiovascular: Denies: no symptoms, chest pain, edema, irregular heart rate, lightheadedness, palpitations, syncope, other Respiratory: Denies: no symptoms, cough, shortness of breath, SOB with excertion, SOB at rest, sputum, wheezing, other Gastrointestinal/Abdominal: Denies: no symptoms, abdomen distended, abdominal pain, black stools, tarry stools, blood in stool, constipated, diarrhea, difficulty swallowing, nausea, poor appetite, poor fluid intake, rectal bleeding , vomiting, other Genitourinary: Denies: no symptoms, burning, discharge, frequency, flank pain, hematuria, incontinence, pain, urgency, other Neurologic/Psychiatric: Denies: no symptoms, anxiety, depressed, emotional problems, headache, numbness, paresthesia, pre-existing deficit, seizure, tingling, tremors, weakness, other Endocrine: Denies: no symptoms, excessive sweating, flushing, intolerance to cold, intolerance to heat, increased hunger, increased thirst, increased urine, unexplained weight gain, unexplained weight loss, other Hematologic/Lymphatic: Denies: no symptoms, anemia, easy bleeding, easy bruising, adenopathy, other Allergies: Coded Allergies: ASPIRIN (Unverified Allergy, Unknown, 10/31/14) IBUPROFEN (Unverified Allergy, Unknown, 04/10/14) Subjective 09/15: Ca++ remains high today 13.2, have ordered for pamidronate, no bleeding, cbc/bmp pending 09/16: wbc 24.3, on vanc/farnaz, hospice eval and right nephro tube replacement for today 09/17: no bleeding, labs reviewed, Ca remains elevated, will [facility] pharmacy for other potential interventions Objective Objective Current Medications Medications (Trade) Dose Ordered Sig/Andrea Route PRN Reason Start Time Stop Time Status Last Admin Dose Admin Acetaminophen/ Codeine Phosphate (Tylenol #3) 1 tab Q6H PRN ORAL Mild Pain (Pain Scale 1-3) 09/13/19 12:00 09/20/19 11:59 Brimonidine Tartrate (Alphagan) 1 drop BID BOTH EYES 09/13/19 18:00 10/13/19 17:59 09/16/19 17:55 Calcitonin [place] (Miacalcin) 1 sprays Q24H NASAL 09/13/19 18:00 10/13/19 17:59 09/16/19 17:55 Chlorhexidine Gluconate (Gina-Hex 2%) 1 applic DAILY@1999 TOPIC 09/14/19 20:00 10/14/19 19:59 09/16/19 20:20 Dextrose 1,000 ml @ 150 mls/hr Q6H40M IV 09/16/19 10:45 10/16/19 10:44 09/16/19 23:53 Dextrose (Dextrose 50%) 25 ml Q30M PRN IV Hypoglycemia 09/13/19 11:30 10/13/19 11:29 Dextrose (Dextrose 50%) 50 ml Q30M PRN IV Hypoglycemia 09/13/19 11:30 10/13/19 11:29 Gabapentin (Neurontin) 100 mg THREE TIMES A DAY ORAL 09/13/19 13:00 10/13/19 12:59 09/16/19 17:55 Hydromorphone HCl (Dilaudid) 0.5 mg Q4H PRN IVP pain 4-10 09/16/19 10:45 09/23/19 10:44 09/16/19 11:19 Insulin Aspart (NovoLOG) BEFORE MEALS AND HS SUBQ 09/13/19 11:30 10/13/19 11:29 09/15/19 16:59 Latanoprost (Xalatan) 1 drop BEDTIME BOTH EYES 09/13/19 21:00 10/13/19 20:59 09/16/19 20:22 Levetiracetam 100 ml @ 440.098 mls/hr Q12HR IVPB 09/16/19 21:00 10/16/19 20:59 09/16/19 21:44 Levothyroxine Sodium (Synthroid) 50 mcg DAILY@0630 ORAL 09/14/19 06:30 10/14/19 06:29 Meropenem 1 gm/ Sodium Chloride 100 ml @ 200 mls/hr Q12H IVPB 09/13/19 16:00 09/18/19 15:59 09/17/19 03:42 Pantoprazole (Protonix) 40 mg EVERY 12 HOURS IVP 09/16/19 21:00 10/16/19 20:59 09/16/19 20:20 Vancomycin HCl (Vanco rx to dose) 1 ea DAILY PRN MISC Per rx protocol 09/13/19 15:00 10/13/19 14:59 Vancomycin HCl 1 gm/Sodium Chloride 275 ml @ 183.708 mls/hr Q24H IVPB 09/16/19 17:00 09/21/19 16:59 09/16/19 17:55 Last 24 Hour Vital Signs Date Time Temp Pulse Resp B/P (MAP) Pulse Ox O2 Delivery O2 Flow Rate FiO2 09/17/19 04:00 97.8 102 24 142/92 (109) 98 09/17/19 04:00 Nasal Cannula 2.0 09/17/19 03:23 100 09/17/19 00:00 Nasal Cannula 2.0 09/17/19 00:00 98.0 100 20 142/82 (102) 100 09/16/19 23:36 105 09/16/19 20:00 98.3 104 19 131/88 (102) 100 09/16/19 20:00 107 09/16/19 20:00 Nasal Cannula 2.0 09/16/19 16:00 116 09/16/19 16:00 97.5 118 19 117/75 (89) 100 09/16/19 16:00 Nasal Cannula 2.0 09/16/19 14:05 139 18 128/99 (109) 100 09/16/19 14:00 138 18 136/103 (114) 100 09/16/19 13:53 135 16 6.0 09/16/19 12:00 97.2 114 20 144/109 (121) 96 09/16/19 12:00 Nasal Cannula 2.0 09/16/19 12:00 116 09/16/19 08:00 97.2 91 16 142/103 (116) 96 09/16/19 08:00 Nasal Cannula 2.0 09/16/19 08:00 102 09/16/19 07:04 86 24 98 09/16/19 04:00 Nasal Cannula 2.0 09/16/19 04:00 97.6 97 19 157/78 (104) 99 09/16/19 04:00 91 09/16/19 00:00 Nasal Cannula 2.0 09/16/19 00:00 98.1 90 19 141/93 (109) 100 09/16/19 00:00 88 09/15/19 20:00 Nasal Cannula 2.0 09/15/19 20:00 97.7 102 19 134/95 (108) 98 09/15/19 20:00 96 09/15/19 18:57 98.7 09/15/19 16:00 110 09/15/19 16:00 98.7 105 19 135/95 (108) 99 09/15/19 16:00 Nasal Cannula 2.0 09/15/19 12:00 98.6 125 20 146/85 (105) 99 09/15/19 12:00 133 09/15/19 12:00 Nasal Cannula 2.0 09/15/19 08:00 98.2 121 19 142/101 (115) 95 09/15/19 08:00 Nasal Cannula 2.0 09/15/19 08:00 121 Intake and Output 09/16/19 09/17/19 19:00 07:00 Intake Total 1975 ml 1810 ml Output Total 500 ml 400 ml Balance 1475 ml 1410 ml Intake IV Total 1975 ml 1810 ml Output Urine Total 500 ml Other 400 ml # Voids 2 Labs Test 09/14/19 17:03 09/15/19 04:50 09/16/19 04:45 09/16/19 14:55 Carcinoembryonic Antigen 6.4 ng/mL (0.0-4.7) CA 15-3 Antigen 607.0 U/mL (0.0-25.0) White Blood Count 26.3 K/UL (4.8-10.8) 24.2 K/UL (4.8-10.8) Red Blood Count 3.57 M/UL (4.70-6.10) 3.78 M/UL (4.70-6.10) Hemoglobin 10.8 G/DL (14.2-18.0) 10.8 G/DL (14.2-18.0) Hematocrit 33.0 % (42.0-52.0) 35.2 % (42.0-52.0) Mean Corpuscular Volume 92 FL (80-99) 93 FL (80-99) Mean Corpuscular Hemoglobin 30.1 PG (27.0-31.0) 28.7 PG (27.0-31.0) Mean Corpuscular Hemoglobin Concent 32.6 G/DL (32.0-36.0) 30.8 G/DL (32.0-36.0) Red Cell Distribution Width 19.1 % (11.6-14.8) 22.6 % (11.6-14.8) Platelet Count 38 K/UL (150-450) 48 K/UL (150-450) Mean Platelet Volume 8.2 FL (6.5-10.1) 13.0 FL (6.5-10.1) Neutrophils (%) (Auto) % (45.0-75.0) % (45.0-75.0) Lymphocytes (%) (Auto) % (20.0-45.0) % (20.0-45.0) Monocytes (%) (Auto) % (1.0-10.0) % (1.0-10.0) Eosinophils (%) (Auto) % (0.0-3.0) % (0.0-3.0) Basophils (%) (Auto) % (0.0-2.0) % (0.0-2.0) Differential Total Cells Counted 100 100 Neutrophils % (Manual) 91 % (45-75) 86 % (45-75) Lymphocytes % (Manual) 5 % (20-45) 7 % (20-45) Monocytes % (Manual) 1 % (1-10) 2 % (1-10) Eosinophils % (Manual) 0 % (0-3) 0 % (0-3) Basophils % (Manual) 0 % (0-2) 0 % (0-2) Metamyelocytes % 2 % (0-0) Band Neutrophils 1 % (0-8) 5 % (0-8) Nucleated Red Blood Cells 1 /100 WBC Platelet Estimate Decreased Decreased Platelet Morphology Normal Normal Hypochromasia 1+ 1+ Anisocytosis 2+ 4+ Sodium Level 148 MMOL/L (136-145) 153 MMOL/L (136-145) Potassium Level 3.4 MMOL/L (3.5-5.1) 5.2 MMOL/L (3.5-5.1) Chloride Level 113 MMOL/L (98-107) 117 MMOL/L (98-107) Carbon Dioxide Level 26 MMOL/L (21-32) 21 MMOL/L (21-32) Anion Gap 10 mmol/L (5-15) 15 mmol/L (5-15) Blood Urea Nitrogen 40 mg/dL (7-18) 37 mg/dL (7-18) Creatinine 1.7 MG/DL (0.55-1.30) 1.2 MG/DL (0.55-1.30) Estimat Glomerular Filtration Rate 49.7 mL/min (>60) > 60 mL/min (>60) Glucose Level 126 MG/DL (74-106) 122 MG/DL (74-106) Hemoglobin A1c 6.7 % (4.3-6.0) Uric Acid 8.8 MG/DL (2.6-7.2) 9.4 MG/DL (2.6-7.2) Calcium Level 13.1 MG/DL (8.5-10.1) 13.0 MG/DL (8.5-10.1) Phosphorus Level 2.7 MG/DL (2.5-4.9) 2.9 MG/DL (2.5-4.9) Magnesium Level 2.0 MG/DL (1.8-2.4) 1.8 MG/DL (1.8-2.4) Iron Level 16 ug/dL (50-175) Total Iron Binding Capacity 161 ug/dL (250-450) Percent Iron Saturation 10 % (15-50) Unsaturated Iron Binding 145 ug/dL (112-346) Ferritin 791 NG/ML (8-388) Total Bilirubin 0.6 MG/DL (0.2-1.0) 0.5 MG/DL (0.2-1.0) Aspartate Amino Transf (AST/SGOT) 35 U/L (15-37) 53 U/L (15-37) Alanine Aminotransferase (ALT/SGPT) 33 U/L (12-78) 30 U/L (12-78) Alkaline Phosphatase 129 U/L (46-116) 148 U/L (46-116) Troponin I 0.047 ng/mL (0.000-0.056) C-Reactive Protein, Quantitative 20.0 mg/dL (0.00-0.90) Pro-B-Type Natriuretic Peptide 1448 pg/mL (0-125) Total Protein 5.8 G/DL (6.4-8.2) 5.7 G/DL (6.4-8.2) Albumin 2.3 G/DL (3.4-5.0) 2.1 G/DL (3.4-5.0) Globulin 3.5 g/dL 3.6 g/dL Albumin/Globulin Ratio 0.7 (1.0-2.7) 0.6 (1.0-2.7) Vitamin B12 Level 1526 PG/ML (193-986) Folate 14.4 NG/ML (8.6-58.9) Thyroid Stimulating Hormone (TSH) 1.893 uiU/mL (0.358-3.740) Free Thyroxine 0.98 NG/DL (0.76-1.46) Free Triiodothyronine 1.4 pg/mL (2.3-4.2) Vancomycin Level Trough 9.1 ug/mL (5.0-12.0) Test 09/17/19 04:45 White Blood Count 29.0 K/UL (4.8-10.8) Red Blood Count 3.36 M/UL (4.70-6.10) Hemoglobin 10.1 G/DL (14.2-18.0) Hematocrit 30.6 % (42.0-52.0) Mean Corpuscular Volume 91 FL (80-99) Mean Corpuscular Hemoglobin 30.0 PG (27.0-31.0) Mean Corpuscular Hemoglobin Concent 32.9 G/DL (32.0-36.0) Red Cell Distribution Width 18.9 % (11.6-14.8) Platelet Count 40 K/UL (150-450) Mean Platelet Volume 10.5 FL (6.5-10.1) Neutrophils (%) (Auto) % (45.0-75.0) Lymphocytes (%) (Auto) % (20.0-45.0) Monocytes (%) (Auto) % (1.0-10.0) Eosinophils (%) (Auto) % (0.0-3.0) Basophils (%) (Auto) % (0.0-2.0) Height (Feet): 5 Height (Inches): 4.00 Weight (Pounds): 206 Objective Physical Exam: Vitals: reviewed General: NAD HEENT: nc, at Neck: supple Chest: clear breath sounds bilaterally Cardiovascular: RRR, no s3, s4 Abdomen: soft, nontender, nd Extremities: no cce, normal range of motion Neuro: confused Prosper Spaulding MD Sep 17, 2019 06:48
--- NOTE | 2019-09-17 07:20 | NUR ---
NURSE NOTES: RECEIVED BED SIDE REPORT FROM DOV SIDE SPLITTER OF PRESCHOOL DIRECTOR. RECEIVED PT WITH HOB ELEVATED 45 DEGREE OBTUNDED, EYES OPENS WITH TACTILE AND VERBAL STIMULI.PT WITH NGT INSERTED ON LT NARES WELL SECURED AND PATENT.NGT FOR MED,S ONLY PER M.D ORDERS. MAGNESIUM LEVEL 1.7 AND PHOSPHORUS 2.4, DR THOMPSON MADE AWARE AND NOTIFIED. PT WITH NEPHROSTOMY ON LT FLANK AREA IN PLACE AND INTACT DRAINING WELL LIGHT PINKIS URINE COLOR AND VOIDING DARK PINKISH URINE NOTED.PT REPOSITIONED IN BED TO PROVIDE COMFORT AND TO PREVENT FURTHER SKIN BREAK DOWN. NO ACUTE DISTRESS NOTED AT THIS TIME.WILL CONT TO MONITOR.
[2019-09-17 07:22] LABS: ALANINE AMINOTRANSFERASE 21 U/L (12-78); ALBUMIN 2.2 G/DL (3.4-5.0); ALBUMIN/GLOBULIN RATIO 0.6 (1.0-2.7); ALKALINE PHOSPHATASE 139 U/L (46-116); ANION GAP 8 mmol/L (5-15); ASPARTATE AMINO TRANSFERASE 32 U/L (15-37); BILIRUBIN,TOTAL 0.4 MG/DL (0.2-1.0); BLOOD UREA NITROGEN 36 mg/dL (7-18); CALCIUM 12.3 MG/DL (8.5-10.1); CARBON DIOXIDE 28 MMOL/L (21-32); CHLORIDE 110 MMOL/L (98-107); CREATININE 1.3 MG/DL (0.55-1.30); PHOSPHORUS 2.4 MG/DL (2.5-4.9); POTASSIUM 4.1 MMOL/L (3.5-5.1); SODIUM 146 MMOL/L (136-145)
--- NOTE | 2019-09-17 07:28 | NUR ---
HAND-OFF: Report given to Jorge RN- pt. remains stable and no signs of distress noted-aware to f/u on am abnormal labs.
[2019-09-17 08:00] VITALS: BP 161/117
[2019-09-17] MEDS: Pantoprazole Inj IVP SCH ×2 (09:23→20:37)
[2019-09-17] MEDS: levETIRAcetam 500mg/NS100ml 100 ML IVPB SCH ×2 (09:32→20:37)
[2019-09-17] MEDS: Brimonidine 0.2% Opth Sol BOTH EYES SCH ×2 (09:45→18:13)
--- NOTE | 2019-09-17 10:36 | General Progress Note ---
Assessment/Plan Assessment/Plan: dysphagia leukocytosis thrombocytopenia metastatic bladder CA DM start NGTF not stable for PEG given sepsis and thrombocytopenia fu labs fu oncology poor prognosis Subjective ROS Limited/Unobtainable: No Allergies: Coded Allergies: ASPIRIN (Unverified Allergy, Unknown, 10/31/14) IBUPROFEN (Unverified Allergy, Unknown, 04/10/14) Objective Last 24 Hour Vital Signs Date Time Temp Pulse Resp B/P (MAP) Pulse Ox O2 Delivery O2 Flow Rate FiO2 09/17/19 08:00 99.1 104 20 161/117 (132) 100 09/17/19 04:00 97.8 102 24 142/92 (109) 98 09/17/19 04:00 Nasal Cannula 2.0 09/17/19 03:23 100 09/17/19 00:00 Nasal Cannula 2.0 09/17/19 00:00 98.0 100 20 142/82 (102) 100 09/16/19 23:36 105 09/16/19 20:00 98.3 104 19 131/88 (102) 100 09/16/19 20:00 107 09/16/19 20:00 Nasal Cannula 2.0 09/16/19 16:00 116 09/16/19 16:00 97.5 118 19 117/75 (89) 100 09/16/19 16:00 Nasal Cannula 2.0 09/16/19 14:05 139 18 128/99 (109) 100 09/16/19 14:00 138 18 136/103 (114) 100 09/16/19 13:53 135 16 6.0 09/16/19 12:00 97.2 114 20 144/109 (121) 96 09/16/19 12:00 Nasal Cannula 2.0 09/16/19 12:00 116 Intake and Output 09/16/19 09/17/19 19:00 07:00 Intake Total 1975 ml 1960 ml Output Total 500 ml 400 ml Balance 1475 ml 1560 ml Intake IV Total 1975 ml 1960 ml Output Urine Total 500 ml Other 400 ml # Voids 2 Laboratory Tests 09/16/19 14:55: Vancomycin Level Trough 9.1 09/17/19 04:45: White Blood Count 29.0*H, Red Blood Count 3.36L, Hemoglobin 10.1L, Hematocrit 30.6L, Mean Corpuscular Volume 91, Mean Corpuscular Hemoglobin 30.0, Mean Corpuscular Hemoglobin Concent 32.9, Red Cell Distribution Width 18.9H, Platelet Count 40L, Mean Platelet Volume 10.5H, Neutrophils (%) (Auto) , Lymphocytes (%) (Auto) , Monocytes (%) (Auto) , Eosinophils (%) (Auto) , Basophils (%) (Auto) , Differential Total Cells Counted 100, Neutrophils % ( Manual) 84H, Lymphocytes % (Manual) 6L, Monocytes % (Manual) 9, Eosinophils % ( Manual) 0, Basophils % (Manual) 0, Band Neutrophils 1, Platelet Estimate DecreasedL, Platelet Morphology Normal, Anisocytosis 1+, Sodium Level 146H, Potassium Level 4.1, Chloride Level 110H, Carbon Dioxide Level 28, Anion Gap 8, Blood Urea Nitrogen 36H, Creatinine 1.3, Estimat Glomerular Filtration Rate > 60 , Glucose Level 129H, Uric Acid 9.6H, Calcium Level 12.3H, Phosphorus Level 2.4L , Magnesium Level 1.7L, Total Bilirubin 0.4, Aspartate Amino Transf (AST/SGOT) 32, Alanine Aminotransferase (ALT/SGPT) 21, Alkaline Phosphatase 139H, C- Reactive Protein, Quantitative 7.2H, Total Protein 5.6L, Albumin 2.2L, Globulin 3.4, Albumin/Globulin Ratio 0.6L, Hepatitis A IgM Antibody [Pending], Hepatitis B Surface Antigen [Pending], Hepatitis B Core IgM Antibody [Pending], Hepatitis C Antibody [Pending], HIV (1&2) Antibody Rapid Negative Height (Feet): 5 Height (Inches): 4.00 Weight (Pounds): 206 General Appearance: lethargic EENT: normal ENT inspection Neck: supple Cardiovascular: normal rate Respiratory/Chest: decreased breath sounds Abdomen: normal bowel sounds, non tender, soft Extremities: non-tender Edmundo Beltran MD Sep 17, 2019 10:36
[2019-09-17 12:00] VITALS: BP 125/93
--- NOTE | 2019-09-17 12:03 | Nephrology Progress Note ---
Assessment/Plan Problem List: (1) Hypercalcemia (2) Bladder mass (3) LAVONNE (acute kidney injury) (4) Encephalopathy Assessment: metabolic Assessment 1. Hypercalcemia. 2. Renal insufficiency 3. Bladder carcinoma. 4. Right hydronephrosis. 5. Altered mental status. 6. Had IVC filter Plan has NGT DC mind altering meds Meds to IV as possible has NGT one dose Solumedrol 09/15 Hydrate- D5w Lasix- 80IV today Aredia- up to total 90mg 09/15 Calcitonin Nasal Monitor renal parameters and Ca Kidney MITCH uro eval Subjective ROS Limited/Unobtainable: No Constitutional: Reports: malaise, weakness Objective Objective Last 24 Hour Vital Signs Date Time Temp Pulse Resp B/P (MAP) Pulse Ox O2 Delivery O2 Flow Rate FiO2 09/17/19 08:00 99.1 104 20 161/117 (132) 100 09/17/19 04:00 97.8 102 24 142/92 (109) 98 09/17/19 04:00 Nasal Cannula 2.0 09/17/19 03:23 100 09/17/19 00:00 Nasal Cannula 2.0 09/17/19 00:00 98.0 100 20 142/82 (102) 100 09/16/19 23:36 105 09/16/19 20:00 98.3 104 19 131/88 (102) 100 09/16/19 20:00 107 09/16/19 20:00 Nasal Cannula 2.0 09/16/19 16:00 116 09/16/19 16:00 97.5 118 19 117/75 (89) 100 09/16/19 16:00 Nasal Cannula 2.0 09/16/19 14:05 139 18 128/99 (109) 100 09/16/19 14:00 138 18 136/103 (114) 100 09/16/19 13:53 135 16 6.0 Intake and Output 09/16/19 09/17/19 19:00 07:00 Intake Total 1975 ml 1960 ml Output Total 500 ml 400 ml Balance 1475 ml 1560 ml Intake IV Total 1975 ml 1960 ml Output Urine Total 500 ml Other 400 ml # Voids 2 Laboratory Tests 09/16/19 14:55: Vancomycin Level Trough 9.1 09/17/19 04:45: White Blood Count 29.0*H, Red Blood Count 3.36L, Hemoglobin 10.1L, Hematocrit 30.6L, Mean Corpuscular Volume 91, Mean Corpuscular Hemoglobin 30.0, Mean Corpuscular Hemoglobin Concent 32.9, Red Cell Distribution Width 18.9H, Platelet Count 40L, Mean Platelet Volume 10.5H, Neutrophils (%) (Auto) , Lymphocytes (%) (Auto) , Monocytes (%) (Auto) , Eosinophils (%) (Auto) , Basophils (%) (Auto) , Differential Total Cells Counted 100, Neutrophils % ( Manual) 84H, Lymphocytes % (Manual) 6L, Monocytes % (Manual) 9, Eosinophils % ( Manual) 0, Basophils % (Manual) 0, Band Neutrophils 1, Platelet Estimate DecreasedL, Platelet Morphology Normal, Anisocytosis 1+, Sodium Level 146H, Potassium Level 4.1, Chloride Level 110H, Carbon Dioxide Level 28, Anion Gap 8, Blood Urea Nitrogen 36H, Creatinine 1.3, Estimat Glomerular Filtration Rate > 60 , Glucose Level 129H, Uric Acid 9.6H, Calcium Level 12.3H, Phosphorus Level 2.4L , Magnesium Level 1.7L, Total Bilirubin 0.4, Aspartate Amino Transf (AST/SGOT) 32, Alanine Aminotransferase (ALT/SGPT) 21, Alkaline Phosphatase 139H, C- Reactive Protein, Quantitative 7.2H, Total Protein 5.6L, Albumin 2.2L, Globulin 3.4, Albumin/Globulin Ratio 0.6L, Hepatitis A IgM Antibody [Pending], Hepatitis B Surface Antigen [Pending], Hepatitis B Core IgM Antibody [Pending], Hepatitis C Antibody [Pending], HIV (1&2) Antibody Rapid Negative Height (Feet): 5 Height (Inches): 4.00 Weight (Pounds): 206 General Appearance: no apparent distress, lethargic EENT: other - NGT Cardiovascular: tachycardia Respiratory/Chest: decreased breath sounds Abdomen: distended Genitourinary/Rectal: other - nephrostomy now functional on right Bright Ibarra MD Sep 17, 2019 12:03
[2019-09-17] MEDS: dilTIAZem HCl 30mg tab NG SCH ×2 (12:54→18:12)
[2019-09-17] MEDS: Potassium Phosphate 15mm/250ml 250 ML IVPB SCH ×2 (12:54→19:45)
--- NOTE | 2019-09-17 13:32 | NUR ---
RD ASSESSMENT & RECOMMENDATIONS SEE CARE ACTIVITY FOR COMPLETE ASSESSMENT DAILY ESTIMATED NEEDS: Needs based on CA, wound/ 68.6kg abw 25-30 kcals/kg 3009-7924 total kcals 1.25-1.5 g protein/kg 85-103 g total protein 25-30 mL/kg 5293-2663 total fluid mLs NUTRITION DIAGNOSIS: * Swallowing difficulty R/T dysphagia, lethargy as evidenced by s/p NGT insertion, on NGT feeding. * Increased kcal/prot needs R/T wound healing and catabolic dx as evidenced by pt admitted w/ open DTI rt buttock wound, dx of metastatic bladder CA. CURRENT TF:Glucerna 1.2 @ 60ml/hr x 24 hrs ENTERAL NUTRITION RECOMMENDATIONS: Glucerna 1.2 @ 60ml/hr x 24 hrs to provide 1440ml, 1728kcal, 86g prot, 1159ml free water * Maintain current TF order -> increase 10ml q 4-6 hrs as tolerated to goal rate * HOB over 30 degrees/ water flush per MD ADDITIONAL RECOMMENDATIONS: * Calibrated bedscale wt for accurate CBW- w/ added P200 mattress + pump * Monitor lytes, replete as needed * Monitor for ability to start oral diet * Wound healing: Vit C 250mg QD + Bill 1pkt BID * Monitor Ca level, need for TF adjustment: Ca improving at this time
--- NOTE | 2019-09-17 13:42 | Surgery Progress Note ---
Surgery Progress Note Subjective Additional Comments leukocytosis nephrostiomy tube changed Objective Last 24 Hour Vital Signs Date Time Temp Pulse Resp B/P (MAP) Pulse Ox O2 Delivery O2 Flow Rate FiO2 09/17/19 12:54 104 125/93 09/17/19 12:00 98.9 104 20 125/93 (104) 100 09/17/19 08:00 99.1 104 20 161/117 (132) 100 09/17/19 04:00 97.8 102 24 142/92 (109) 98 09/17/19 04:00 Nasal Cannula 2.0 09/17/19 03:23 100 09/17/19 00:00 Nasal Cannula 2.0 09/17/19 00:00 98.0 100 20 142/82 (102) 100 09/16/19 23:36 105 09/16/19 20:00 98.3 104 19 131/88 (102) 100 09/16/19 20:00 107 09/16/19 20:00 Nasal Cannula 2.0 09/16/19 16:00 116 09/16/19 16:00 97.5 118 19 117/75 (89) 100 09/16/19 16:00 Nasal Cannula 2.0 09/16/19 14:05 139 18 128/99 (109) 100 09/16/19 14:00 138 18 136/103 (114) 100 09/16/19 13:53 135 16 6.0 I&O Intake and Output 09/16/19 09/17/19 19:00 07:00 Intake Total 1975 ml 1960 ml Output Total 500 ml 400 ml Balance 1475 ml 1560 ml Intake IV Total 1975 ml 1960 ml Output Urine Total 500 ml Other 400 ml # Voids 2 Dressing: other Wound: other Drains: other Cardiovascular: RSR Respiratory: decreased breath sounds Abdomen: soft, present bowel sounds Extremities: no cyanosis Laboratory Tests Test 09/16/19 14:55 09/17/19 04:45 Vancomycin Level Trough 9.1 ug/mL (5.0-12.0) White Blood Count 29.0 K/UL (4.8-10.8) *H Red Blood Count 3.36 M/UL (4.70-6.10) L Hemoglobin 10.1 G/DL (14.2-18.0) L Hematocrit 30.6 % (42.0-52.0) L Mean Corpuscular Volume 91 FL (80-99) Mean Corpuscular Hemoglobin 30.0 PG (27.0-31.0) Mean Corpuscular Hemoglobin Concent 32.9 G/DL (32.0-36.0) Red Cell Distribution Width 18.9 % (11.6-14.8) H Platelet Count 40 K/UL (150-450) L Mean Platelet Volume 10.5 FL (6.5-10.1) H Neutrophils (%) (Auto) % (45.0-75.0) Lymphocytes (%) (Auto) % (20.0-45.0) Monocytes (%) (Auto) % (1.0-10.0) Eosinophils (%) (Auto) % (0.0-3.0) Basophils (%) (Auto) % (0.0-2.0) Differential Total Cells Counted 100 Neutrophils % (Manual) 84 % (45-75) H Lymphocytes % (Manual) 6 % (20-45) L Monocytes % (Manual) 9 % (1-10) Eosinophils % (Manual) 0 % (0-3) Basophils % (Manual) 0 % (0-2) Band Neutrophils 1 % (0-8) Platelet Estimate Decreased L Platelet Morphology Normal Anisocytosis 1+ Sodium Level 146 MMOL/L (136-145) H Potassium Level 4.1 MMOL/L (3.5-5.1) Chloride Level 110 MMOL/L (98-107) H Carbon Dioxide Level 28 MMOL/L (21-32) Anion Gap 8 mmol/L (5-15) Blood Urea Nitrogen 36 mg/dL (7-18) H Creatinine 1.3 MG/DL (0.55-1.30) Estimat Glomerular Filtration Rate > 60 mL/min (>60) Glucose Level 129 MG/DL (74-106) H Uric Acid 9.6 MG/DL (2.6-7.2) H Calcium Level 12.3 MG/DL (8.5-10.1) H Phosphorus Level 2.4 MG/DL (2.5-4.9) L Magnesium Level 1.7 MG/DL (1.8-2.4) L Total Bilirubin 0.4 MG/DL (0.2-1.0) Aspartate Amino Transf (AST/SGOT) 32 U/L (15-37) Alanine Aminotransferase (ALT/SGPT) 21 U/L (12-78) Alkaline Phosphatase 139 U/L (46-116) H C-Reactive Protein, Quantitative 7.2 mg/dL (0.00-0.90) H Total Protein 5.6 G/DL (6.4-8.2) L Albumin 2.2 G/DL (3.4-5.0) L Globulin 3.4 g/dL Albumin/Globulin Ratio 0.6 (1.0-2.7) L Hepatitis A IgM Antibody Pending Hepatitis B Surface Antigen Pending Hepatitis B Core IgM Antibody Pending Hepatitis C Antibody Pending HIV (1&2) Antibody Rapid Negative (NEGATIVE) Plan Problems: (1) Elevated WBC count Assessment & Plan: Patient was significant leukocytosis poss related infectious process versus cancer. Hematology input appreciated. Antibiotics per infectious disease. No acute surgical intervention indicated recommended. Follow the recommendations (2) Bladder mass (3) GI (gastrointestinal bleed) Assessment & Plan: Findings: Interim placement of a nasogastric tube, tip of which projects at the level gastric fundus, proximal sidehole at or just beyond the gastroesophageal junction. Interim placement of an inferior vena cava filter. Bowel gas pattern is unremarkable. There is a drainage catheter in the right upper quadrant again demonstrated Impression: Borderline position of nasogastric tube, proximal sidehole at or just beyond the expected level gastric esophageal junction. Slight advancement may be prudent. This was discussed by phone with patient's nurse Daria at the time of interpretation Interim inferior vena cava filter placement (4) Hypercalcemia (5) Encephalopathy (6) LAVONNE (acute kidney injury) (7) Multiple lesions of metastatic malignancy Assessment & Plan: 1. Extensive left leg deep venous thrombosis involving the common femoral vein. 2. History of GI bleeding, metastatic tumor, bladder cancer, nephrostomy tube, encephalopathy, and renal insufficiency. PLAN AND RECOMMENDATION: The patient will benefit from inferior vena caval filter. Leg elevation. Decubitus precautions. Medical, Infectious Disease, and Oncology optimization in progress. Intraoperative images demonstrate inferior venacavogram and placement of an inferior vena cava filter (8) Bladder pain (9) Sinusitis (10) Tobacco abuse (11) Chest pain (12) Chest pain (13) High calcium levels (14) Cervical radiculopathy (15) Glaucoma (increased eye pressure) (16) Abdominal infection (17) Tobacco abuse counseling (18) Deep tissue injury Assessment & Plan: Patient presented with open deep tissue injury on sacral region. states that she identified it at home but was unsure that it was open. It was noted to be open during hospitalization total area of deep tissue injury approximately 9 cm x 6 mm with an open area in the midportion. Will need to continue with aggressive local treatment wound care and decubitus precautions as patient is high risk for declining condition. Patient is currently bedbound and unable to move on his own and participate in examination and turning. Thera honey placed followed by foam dressing. Turn patient every 2 hours. Nutritional optimization. Air mattress ordered. Discussed care plan with in detail at the bedside. We will continue to follow with recommendations. Pt presented on admission with open DTPI R buttocks. Base of wound maroon and fluctuant (L)11cm x (W)9.5cm. Within base of injury is an open wound which has 75% slough. NO odor noted. Small amt serous exudate noted. No evidence of skin breakdown to Sacrum. Both heels are firm and blanchable. Tx.Plan: Cleanse R buttocks wound with Saline. Apply Therahoney. Apply Moisture Barrier Paste to surrounding indurated areas. Cover with Optifoam drsg Daily and prn. Apply Moisture Barrier Paste to Sacrum. Cover with Optifoam drsg. Change every 3 days and prn. Apply Cavilon Skin Barrier to both heels. Cover each heel with Optifoam drsg. Change every 7 days and prn. Reposition at least every 2hours or as tolerated. Off-load heels with Pillow. APM/LORNE Mattress overlay. Urbano Harrell Sep 17, 2019 13:42
[2019-09-17 16:00] VITALS: BP 116/84
--- NOTE | 2019-09-17 17:51 | Infectious Diseases Prog Note ---
Assessment/Plan Assessment/Plan ASSESSMENT AND PLAN: 1. 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 Hypercalcemia. 3. IV fluids. 4. Hyperuricemia. 5. Hypothyroidism. 6. Hypertension. 7. Blood pressure per primary team for hypertension. 8. History of bladder cancer. 9. Hydroureteronephrosis. 10. Malfunction right-sided nephrostomy tube level neurology follow-up. 11. Nausea, vomiting and rule out gastrointestinal bleed. 12. Glaucoma. 13. Anemia. 14. hx esbl uti 15. Allergies to aspirin and ibuprofen. 16. Social history is negative. 17. Family history is noncontributory. 18. MAR is noted. 19. Case was discussed with RN. Subjective Constitutional: Reports: fatigue; Denies: fever HEENT: Reports: congestion Respiratory: Reports: shortness of breath Cardiovascular: Reports: other - no pressor Gastrointestinal/Abdominal: Denies: nausea, vomiting, diarrhea Genitourinary: Reports: other - + nephrostomy Neurologic: Reports: weakness, other - lethargic Psychiatric: Reports: other - na Skin: Denies: rash Hematologic: Denies: bleeding Musculoskeletal: Reports: other - na Allergies: Coded Allergies: ASPIRIN (Unverified Allergy, Unknown, 10/31/14) IBUPROFEN (Unverified Allergy, Unknown, 04/10/14) Objective Vital Signs Last 24 Hour Vital Signs Date Time Temp Pulse Resp B/P (MAP) Pulse Ox O2 Delivery O2 Flow Rate FiO2 09/17/19 17:06 125/93 09/17/19 12:54 104 125/93 09/17/19 12:00 98.9 104 20 125/93 (104) 100 09/17/19 12:00 104 09/17/19 12:00 Nasal Cannula 2.0 09/17/19 08:00 104 09/17/19 08:00 99.1 104 20 161/117 (132) 100 09/17/19 08:00 Nasal Cannula 2.0 09/17/19 04:00 97.8 102 24 142/92 (109) 98 09/17/19 04:00 Nasal Cannula 2.0 09/17/19 03:23 100 09/17/19 00:00 Nasal Cannula 2.0 09/17/19 00:00 98.0 100 20 142/82 (102) 100 09/16/19 23:36 105 09/16/19 20:00 98.3 104 19 131/88 (102) 100 09/16/19 20:00 107 09/16/19 20:00 Nasal Cannula 2.0 Height (Feet): 5 Height (Inches): 4.00 Weight (Pounds): 206 General Appearance: no acute distress HEENT: normocephalic, atraumatic, anicteric, supple, no JVD Respiratory/Chest: crackles/rales, rhonchi - bilaterally Cardiovascular: normal rate, regular rhythm, no gallop/murmur Abdomen: normal bowel sounds, soft, non tender, no organomegaly, non distended Genitourinary: other - + salgado - urine clear Extremities: no cyanosis Skin: no rash Neurologic/Psychiatric: other - lethargic and weak Lymphatic: no neck adenopathy Musculoskeletal: no effusion Objective CT abdomen and pelvis: 1. Lobular soft tissue nodular thickening of the posterior bladder is likely neoplastic. 2. Multiple posterior urinary bladder calculi are new since the previous exam. 3. Interval increase in size of bilateral adrenal lesions likely representing metastases. 4. Nonspecific 1.5 cm low-density lesion at the dome of the liver. A metastatic lesion is not excluded. 5. Interval placement of right-sided nephrostomy catheter. Chest x-ray - 09/15/19 - FINDINGS: Lungs: Left upper lobe consolidation. Remainder the lungs appear clear. Pleural space: Unremarkable. The costophrenic angles are sharp. No visible pneumothorax. Heart: Unremarkable. No cardiomegaly. Mediastinum: Unremarkable. Bones/joints: Unremarkable. Soft tissues: Surgical clips overlying the left paracentral neck soft tissues. Tubes, lines and devices: Telemetry leads overlie the thorax. IMPRESSION: Left upper lobe consolidation, concerning for pneumonia. Recommend follow-up to resolution to exclude underlying mass. Consider follow-up evaluation with chest CT. Chest x-ray - 09/16/28 - Procedure: XRAY Chest 1v Indication: Dyspnea Comparison: 09/14/2019 A single view chest radiograph was obtained. Findings: Vague confluent density in the left upper lung field again noted. Surgical clips the left lung apex again noted. Heart size is stable. Minimal left basal atelectasis noted. IMPRESSION: No significant change from the prior exam. Left upper lobe density could be consolidation, mass and/or postsurgical changes. 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 Laboratory Tests Test 09/17/19 04:45 White Blood Count 29.0 K/UL (4.8-10.8) *H Red Blood Count 3.36 M/UL (4.70-6.10) L Hemoglobin 10.1 G/DL (14.2-18.0) L Hematocrit 30.6 % (42.0-52.0) L Mean Corpuscular Volume 91 FL (80-99) Mean Corpuscular Hemoglobin 30.0 PG (27.0-31.0) Mean Corpuscular Hemoglobin Concent 32.9 G/DL (32.0-36.0) Red Cell Distribution Width 18.9 % (11.6-14.8) H Platelet Count 40 K/UL (150-450) L Mean Platelet Volume 10.5 FL (6.5-10.1) H Neutrophils (%) (Auto) % (45.0-75.0) Lymphocytes (%) (Auto) % (20.0-45.0) Monocytes (%) (Auto) % (1.0-10.0) Eosinophils (%) (Auto) % (0.0-3.0) Basophils (%) (Auto) % (0.0-2.0) Differential Total Cells Counted 100 Neutrophils % (Manual) 84 % (45-75) H Lymphocytes % (Manual) 6 % (20-45) L Monocytes % (Manual) 9 % (1-10) Eosinophils % (Manual) 0 % (0-3) Basophils % (Manual) 0 % (0-2) Band Neutrophils 1 % (0-8) Platelet Estimate Decreased L Platelet Morphology Normal Anisocytosis 1+ Sodium Level 146 MMOL/L (136-145) H Potassium Level 4.1 MMOL/L (3.5-5.1) Chloride Level 110 MMOL/L (98-107) H Carbon Dioxide Level 28 MMOL/L (21-32) Anion Gap 8 mmol/L (5-15) Blood Urea Nitrogen 36 mg/dL (7-18) H Creatinine 1.3 MG/DL (0.55-1.30) Estimat Glomerular Filtration Rate > 60 mL/min (>60) Glucose Level 129 MG/DL (74-106) H Uric Acid 9.6 MG/DL (2.6-7.2) H Calcium Level 12.3 MG/DL (8.5-10.1) H Phosphorus Level 2.4 MG/DL (2.5-4.9) L Magnesium Level 1.7 MG/DL (1.8-2.4) L Total Bilirubin 0.4 MG/DL (0.2-1.0) Aspartate Amino Transf (AST/SGOT) 32 U/L (15-37) Alanine Aminotransferase (ALT/SGPT) 21 U/L (12-78) Alkaline Phosphatase 139 U/L (46-116) H C-Reactive Protein, Quantitative 7.2 mg/dL (0.00-0.90) H Total Protein 5.6 G/DL (6.4-8.2) L Albumin 2.2 G/DL (3.4-5.0) L Globulin 3.4 g/dL Albumin/Globulin Ratio 0.6 (1.0-2.7) L Hepatitis A IgM Antibody Pending Hepatitis B Surface Antigen Pending Hepatitis B Core IgM Antibody Pending Hepatitis C Antibody Pending HIV (1&2) Antibody Rapid Negative (NEGATIVE) Current Medications Medications (Trade) Dose Ordered Sig/Andrea Route PRN Reason Start Time Stop Time Status Last Admin Dose Admin Acetaminophen/ Codeine Phosphate (Tylenol #3) 1 tab Q6H PRN ORAL Mild Pain (Pain Scale 1-3) 09/13/19 12:00 09/20/19 11:59 Ascorbic Acid (Vitamin C) 250 mg DAILY ORAL 09/18/19 09:00 10/18/19 08:59 Brimonidine Tartrate (Alphagan) 1 drop BID BOTH EYES 09/13/19 18:00 10/13/19 17:59 09/17/19 09:45 Calcitonin [place] (Miacalcin) 1 sprays Q24H NASAL 09/13/19 18:00 10/13/19 17:59 09/16/19 17:55 Chlorhexidine Gluconate (Gina-Hex 2%) 1 applic DAILY@1999 TOPIC 09/14/19 20:00 10/14/19 19:59 09/16/19 20:20 Clonidine HCl (Catapres TTS-3) 1 patch QWEEK TDERMAL 09/17/19 14:00 10/17/19 13:59 09/17/19 17:06 Dextrose 1,000 ml @ 150 mls/hr Q6H40M IV 09/16/19 10:45 10/16/19 10:44 09/17/19 16:59 Dextrose (Dextrose 50%) 25 ml Q30M PRN IV Hypoglycemia 09/13/19 11:30 10/13/19 11:29 Dextrose (Dextrose 50%) 50 ml Q30M PRN IV Hypoglycemia 09/13/19 11:30 10/13/19 11:29 Diltiazem HCl (Cardizem) 30 mg EVERY 6 HOURS NG 09/17/19 12:00 10/17/19 11:59 09/17/19 12:54 Furosemide (Lasix) 40 mg EVERY 12 HOURS IV 09/17/19 09:00 10/17/19 08:59 09/17/19 09:23 Gabapentin (Neurontin) 100 mg THREE TIMES A DAY ORAL 09/13/19 13:00 10/13/19 12:59 09/17/19 12:53 Hydralazine HCl (Apresoline) 10 mg Q4H PRN IV bp over 165 syst 09/17/19 12:15 10/17/19 12:14 Hydromorphone HCl (Dilaudid) 0.5 mg Q4H PRN IVP pain 4-10 09/16/19 10:45 09/23/19 10:44 09/16/19 11:19 Insulin Aspart (NovoLOG) BEFORE MEALS AND HS SUBQ 09/13/19 11:30 10/13/19 11:29 09/15/19 16:59 Latanoprost (Xalatan) 1 drop BEDTIME BOTH EYES 09/13/19 21:00 10/13/19 20:59 09/16/19 20:22 Levetiracetam 100 ml @ 440.098 mls/hr Q12HR IVPB 09/16/19 21:00 10/16/19 20:59 09/17/19 09:32 Levothyroxine Sodium (Synthroid) 50 mcg DAILY@0630 ORAL 09/14/19 06:30 10/14/19 06:29 Meropenem 1 gm/ Sodium Chloride 100 ml @ 200 mls/hr Q12H IVPB 09/13/19 16:00 09/20/19 15:59 09/17/19 17:09 Pantoprazole (Protonix) 40 mg EVERY 12 HOURS IVP 09/16/19 21:00 10/16/19 20:59 09/17/19 09:23 Potassium Phosphate 250 ml @ 62.5 mls/hr Q4H IVPB 09/17/19 10:00 09/17/19 17:59 09/17/19 12:54 Vancomycin HCl (Vanco rx to dose) 1 ea DAILY PRN MISC Per rx protocol 09/13/19 15:00 10/13/19 14:59 Vancomycin HCl 1 gm/Sodium Chloride 275 ml @ 183.708 mls/hr Q24H IVPB 09/16/19 17:00 09/21/19 16:59 09/16/19 17:55 Malathi Vance MD Sep 17, 2019 17:51
--- NOTE | 2019-09-17 17:55 | Pulmonology Progress Note ---
Assessment/Plan Assessment/Plan IMPRESSION: 1. Hypercalcemia. 2. Renal insufficiency, mild. 3. Bladder carcinoma. 4. Right hydronephrosis. 5. Altered mental status. 6. DVT; s/p IVC filter DISCUSSION: status post R nephrostomy replacement Continue IV hydration and steroids for hypercalcemia S/p pamidronate continue NG for nutrition and meds Swallow eval discussed with nephrology and GI Hospice eval today discussed with hospice nurse. Family in agreement with hospice Antelmo Ko M.D. Subjective Interval Events: remains lethargic. is hypertensive Constitutional: Reports: no symptoms HEENT: Repors: no symptoms Respiratory: Reports: no symptoms Cardiovascular: Reports: no symptoms Gastrointestinal/Abdominal: Reports: no symptoms Allergies: Coded Allergies: ASPIRIN (Unverified Allergy, Unknown, 10/31/14) IBUPROFEN (Unverified Allergy, Unknown, 04/10/14) Objective Last 24 Hour Vital Signs Date Time Temp Pulse Resp B/P (MAP) Pulse Ox O2 Delivery O2 Flow Rate FiO2 09/17/19 17:06 125/93 09/17/19 12:54 104 125/93 09/17/19 12:00 98.9 104 20 125/93 (104) 100 09/17/19 12:00 104 09/17/19 12:00 Nasal Cannula 2.0 09/17/19 08:00 104 09/17/19 08:00 99.1 104 20 161/117 (132) 100 09/17/19 08:00 Nasal Cannula 2.0 09/17/19 04:00 97.8 102 24 142/92 (109) 98 09/17/19 04:00 Nasal Cannula 2.0 09/17/19 03:23 100 09/17/19 00:00 Nasal Cannula 2.0 09/17/19 00:00 98.0 100 20 142/82 (102) 100 09/16/19 23:36 105 09/16/19 20:00 98.3 104 19 131/88 (102) 100 09/16/19 20:00 107 09/16/19 20:00 Nasal Cannula 2.0 Intake and Output 09/16/19 09/17/19 19:00 07:00 Intake Total 1975 ml 1960 ml Output Total 500 ml 400 ml Balance 1475 ml 1560 ml Intake IV Total 1975 ml 1960 ml Output Urine Total 500 ml Other 400 ml # Voids 2 General Appearance: no acute distress HEENT: normocephalic Respiratory/Chest: chest wall non-tender, lungs clear Cardiovascular: normal peripheral pulses Abdomen: normal bowel sounds Laboratory Tests 09/17/19 04:45: White Blood Count 29.0*H, Red Blood Count 3.36L, Hemoglobin 10.1L, Hematocrit 30.6L, Mean Corpuscular Volume 91, Mean Corpuscular Hemoglobin 30.0, Mean Corpuscular Hemoglobin Concent 32.9, Red Cell Distribution Width 18.9H, Platelet Count 40L, Mean Platelet Volume 10.5H, Neutrophils (%) (Auto) , Lymphocytes (%) (Auto) , Monocytes (%) (Auto) , Eosinophils (%) (Auto) , Basophils (%) (Auto) , Differential Total Cells Counted 100, Neutrophils % ( Manual) 84H, Lymphocytes % (Manual) 6L, Monocytes % (Manual) 9, Eosinophils % ( Manual) 0, Basophils % (Manual) 0, Band Neutrophils 1, Platelet Estimate DecreasedL, Platelet Morphology Normal, Anisocytosis 1+, Sodium Level 146H, Potassium Level 4.1, Chloride Level 110H, Carbon Dioxide Level 28, Anion Gap 8, Blood Urea Nitrogen 36H, Creatinine 1.3, Estimat Glomerular Filtration Rate > 60 , Glucose Level 129H, Uric Acid 9.6H, Calcium Level 12.3H, Phosphorus Level 2.4L , Magnesium Level 1.7L, Total Bilirubin 0.4, Aspartate Amino Transf (AST/SGOT) 32, Alanine Aminotransferase (ALT/SGPT) 21, Alkaline Phosphatase 139H, C- Reactive Protein, Quantitative 7.2H, Total Protein 5.6L, Albumin 2.2L, Globulin 3.4, Albumin/Globulin Ratio 0.6L, Hepatitis A IgM Antibody [Pending], Hepatitis B Surface Antigen [Pending], Hepatitis B Core IgM Antibody [Pending], Hepatitis C Antibody [Pending], HIV (1&2) Antibody Rapid Negative Current Medications Medications (Trade) Dose Ordered Sig/Andrea Route PRN Reason Start Time Stop Time Status Last Admin Dose Admin Acetaminophen/ Codeine Phosphate (Tylenol #3) 1 tab Q6H PRN ORAL Mild Pain (Pain Scale 1-3) 09/13/19 12:00 09/20/19 11:59 Ascorbic Acid (Vitamin C) 250 mg DAILY ORAL 09/18/19 09:00 10/18/19 08:59 Brimonidine Tartrate (Alphagan) 1 drop BID BOTH EYES 09/13/19 18:00 10/13/19 17:59 09/17/19 09:45 Calcitonin [place] (Miacalcin) 1 sprays Q24H NASAL 09/13/19 18:00 10/13/19 17:59 09/16/19 17:55 Chlorhexidine Gluconate (Gina-Hex 2%) 1 applic DAILY@2000 TOPIC 09/14/19 20:00 10/14/19 19:59 09/16/19 20:20 Clonidine HCl (Catapres TTS-3) 1 patch QWEEK TDERMAL 09/17/19 14:00 10/17/19 13:59 09/17/19 17:06 Dextrose 1,000 ml @ 150 mls/hr Q6H40M IV 09/16/19 10:45 10/16/19 10:44 09/17/19 16:59 Dextrose (Dextrose 50%) 25 ml Q30M PRN IV Hypoglycemia 09/13/19 11:30 10/13/19 11:29 Dextrose (Dextrose 50%) 50 ml Q30M PRN IV Hypoglycemia 09/13/19 11:30 10/13/19 11:29 Diltiazem HCl (Cardizem) 30 mg EVERY 6 HOURS NG 09/17/19 12:00 10/17/19 11:59 09/17/19 12:54 Furosemide (Lasix) 40 mg EVERY 12 HOURS IV 09/17/19 09:00 10/17/19 08:59 09/17/19 09:23 Gabapentin (Neurontin) 100 mg THREE TIMES A DAY ORAL 09/13/19 13:00 10/13/19 12:59 09/17/19 12:53 Hydralazine HCl (Apresoline) 10 mg Q4H PRN IV bp over 165 syst 09/17/19 12:15 10/17/19 12:14 Hydromorphone HCl (Dilaudid) 0.5 mg Q4H PRN IVP pain 4-10 09/16/19 10:45 09/23/19 10:44 09/16/19 11:19 Insulin Aspart (NovoLOG) BEFORE MEALS AND HS SUBQ 09/13/19 11:30 10/13/19 11:29 09/15/19 16:59 Latanoprost (Xalatan) 1 drop BEDTIME BOTH EYES 09/13/19 21:00 10/13/19 20:59 09/16/19 20:22 Levetiracetam 100 ml @ 440.098 mls/hr Q12HR IVPB 09/16/19 21:00 10/16/19 20:59 09/17/19 09:32 Levothyroxine Sodium (Synthroid) 50 mcg DAILY@0630 ORAL 09/14/19 06:30 10/14/19 06:29 Meropenem 1 gm/ Sodium Chloride 100 ml @ 200 mls/hr Q12H IVPB 09/13/19 16:00 09/20/19 15:59 09/17/19 17:09 Pantoprazole (Protonix) 40 mg EVERY 12 HOURS IVP 09/16/19 21:00 10/16/19 20:59 09/17/19 09:23 Potassium Phosphate 250 ml @ 62.5 mls/hr Q4H IVPB 09/17/19 10:00 09/17/19 17:59 09/17/19 12:54 Vancomycin HCl (Vanco rx to dose) 1 ea DAILY PRN MISC Per rx protocol 09/13/19 15:00 10/13/19 14:59 Vancomycin HCl 1 gm/Sodium Chloride 275 ml @ 183.708 mls/hr Q24H IVPB 09/16/19 17:00 09/21/19 16:59 09/16/19 17:55 Antelmo Ko MD Sep 17, 2019 17:55
[2019-09-17] MEDS: Vancomycin 1 GM in NS 275 ML IVPB SCH (17:57)
--- NOTE | 2019-09-17 19:15 | NUR ---
HAND-OFF: Report given to .SHIVAM THAKKAR.
--- NOTE | 2019-09-17 19:25 | NUR ---
NURSE NOTES: Received pt from ARIANE Price. pt is observed in bed, responsive to name and light shaking, no s/sx of pain noted at this time. pt is on 2 L O2 via NC, tolerating well, saturation: 100%. no s/sx of respiratory distress noted. NGT noted in L nare, secured and marked with tape. condom catheter abd right nephrostomy tube noted, hematuria noted in both. skin alterations noted. NAVEEN midline noted, patent and intact, running KPhos 15 mmol at prescribed rate. bed in lowest position and locked, padded siderails up X3, call light within reach. will continue to monitor.
[2019-09-17 20:00] VITALS: BP 122/86
[2019-09-17] MEDS: Dyna-Hex 2% Top Sol 2oz TOPIC SCH (20:36)
[2019-09-17] MEDS: Latanoprost 0.005% Opth 2.5ml Soln BOTH EYES SCH (20:37)
--- NOTE | 2019-09-17 20:45 | NUR ---
NEW CAR SALES MANAGER: REVIEW SI: GI BLEED . LEFT LEG DVT . BLADDER CA . OBSTRUCTED RIGHT PERCUTANEOUS NEPHROSTOMY CATH IVC FILTER PLACEMENT 09/13 NEPHRO PIGTAIL DRAINAGE CATHETER PLACEMENT 09/16 T 98.9 HR 104 RR 20 BP 161/117 SAT 100% NC/2L WBC 29.0 H/H 10.1/30.6 NA 146 URIC ACID 9.6 CALCIUM 12.3 IS: LASIX 40MG IV Q12HR MEROPENEM IV Q12HR VANCO IV Q24HR KEPPRA IV Q12HR NGT FEEDING WOUND CARE PRN STEP DOWN UNIT STATUS DCP: PATIENT IS FROM HOME
[2019-09-18] VITALS: BP 143/73
[2019-09-18] MEDS: dilTIAZem HCl 30mg tab NG SCH ×5 (00:33→23:54)
[2019-09-18 04:00] VITALS: BP 117/75
[2019-09-18 05:28] LABS: HEMATOCRIT 30.2 % (42.0-52.0); HEMOGLOBIN 10.1 G/DL (14.2-18.0); MEAN CORPUSCULAR VOLUME 90 FL (80-99); PLATELET COUNT 40 K/UL (150-450); RED BLOOD COUNT 3.37 M/UL (4.70-6.10); RED CELL DISTRIBUTION WIDTH 18.3 % (11.6-14.8)
[2019-09-18 05:52] LABS: WHITE BLOOD COUNT 28.5 K/UL (4.8-10.8)
[2019-09-18 05:58] LABS: ALANINE AMINOTRANSFERASE 26 U/L (12-78); ALBUMIN 2.1 G/DL (3.4-5.0); ALBUMIN/GLOBULIN RATIO 0.6 (1.0-2.7); ALKALINE PHOSPHATASE 137 U/L (46-116); ANION GAP 8 mmol/L (5-15); ASPARTATE AMINO TRANSFERASE 35 U/L (15-37); BILIRUBIN,TOTAL 0.6 MG/DL (0.2-1.0); BLOOD UREA NITROGEN 27 mg/dL (7-18); CALCIUM 10.9 MG/DL (8.5-10.1); CARBON DIOXIDE 28 MMOL/L (21-32); CHLORIDE 106 MMOL/L (98-107); CREATININE 1.1 MG/DL (0.55-1.30); PHOSPHORUS 3.1 MG/DL (2.5-4.9); POTASSIUM 3.1 MMOL/L (3.5-5.1); SODIUM 142 MMOL/L (136-145)
[2019-09-18] MEDS: NovoLOG Insulin Flexpen SUBQ SCH ×4 (06:13→20:20)
--- NOTE | 2019-09-18 07:17 | NUR ---
HAND-OFF: Report given to ARIANE Price. pt is in stable condition. endorsed plan of care.
--- NOTE | 2019-09-18 07:20 | NUR ---
NURSE NOTES:RECEIVED BED SIDE REPORT FROM SHIVAM [employer] ETCH OPERATOR OF CASTING REPAIRER. RECEIVED PT WITH HOB ELEVATED 45 DEGREE SEEMS OBTUNDED,RESTING COMFORTABLY.PT WITH NGT ON LT NARES IN PLACE AND PLACE,NO RESIDUAL NOTED ,TOLERATING WELL GLUCERNA 1.2 @ 30CC/HRS .PT REPOSITIONED IN BED Q2HRS TO PROVIDE COMFORT AND TO [PREVENT FURTHERS SKIN BREAK DOWN. FULL BODY ASSESSMENT DONE.DR RAGLAND CAME TO SEE THER PT AND MADE AWARE AND NOTIFIED REGARDING MAGNESIUM LEVEL IS 1.7 AND POTASSIUM 3.1. M.D STATING THAT WILL ORDER ELECTROLYTES SUPPLEMENTS. WILL CONT TO MONITOR.
[2019-09-18 08:46] VITALS: BP 126/84
--- NOTE | 2019-09-18 09:12 | General Progress Note ---
Assessment/Plan Assessment/Plan: dysphagia leukocytosis thrombocytopenia metastatic bladder CA DM NGTF not stable for PEG given sepsis and thrombocytopenia fu labs fu oncology poor prognosis Subjective ROS Limited/Unobtainable: No Allergies: Coded Allergies: ASPIRIN (Unverified Allergy, Unknown, 10/31/14) IBUPROFEN (Unverified Allergy, Unknown, 04/10/14) Objective Last 24 Hour Vital Signs Date Time Temp Pulse Resp B/P (MAP) Pulse Ox O2 Delivery O2 Flow Rate FiO2 09/18/19 08:46 97.7 106 22 126/84 (98) 100 106 09/18/19 08:00 101 09/18/19 08:00 Nasal Cannula 2.0 09/18/19 06:00 119 117/75 09/18/19 04:00 99.2 103 24 117/75 (89) 100 09/18/19 04:00 Nasal Cannula 2.0 09/18/19 04:00 119 09/18/19 00:33 111 143/73 09/18/19 00:00 Nasal Cannula 2.0 09/18/19 00:00 98.4 116 24 143/73 (96) 100 09/18/19 00:00 111 09/17/19 20:00 99 09/17/19 20:00 Nasal Cannula 2.0 09/17/19 20:00 98.2 102 20 122/86 (98) 100 09/17/19 18:12 99 116/84 09/17/19 17:06 125/93 09/17/19 16:00 Nasal Cannula 2.0 09/17/19 16:00 98 09/17/19 16:00 97.8 99 18 116/84 (95) 100 99 09/17/19 12:54 104 125/93 09/17/19 12:00 98.9 104 20 125/93 (104) 100 09/17/19 12:00 104 09/17/19 12:00 Nasal Cannula 2.0 Intake and Output 09/17/19 09/18/19 19:00 07:00 Intake Total 533.708 ml 2258.708 ml Output Total 1800 ml 1350 ml Balance -1266.292 ml 908.708 ml Intake Free Water 150 ml IV Total 383.708 ml 2158.708 ml Tube Feeding 100 ml Output Urine Total 500 ml 400 ml Other 1300 ml 950 ml Laboratory Tests 09/18/19 03:35: White Blood Count 28.5*H, Red Blood Count 3.37L, Hemoglobin 10.1L, Hematocrit 30.2L, Mean Corpuscular Volume 90, Mean Corpuscular Hemoglobin 30.0, Mean Corpuscular Hemoglobin Concent 33.5, Red Cell Distribution Width 18.3H, Platelet Count 40L, Mean Platelet Volume 12.2H, Neutrophils (%) (Auto) , Lymphocytes (%) (Auto) , Monocytes (%) (Auto) , Eosinophils (%) (Auto) , Basophils (%) (Auto) , Neutrophils % (Manual) [Pending], Lymphocytes % (Manual) [Pending], Platelet Estimate [Pending], Platelet Morphology [Pending], Sodium Level 142, Potassium Level 3.1L, Chloride Level 106, Carbon Dioxide Level 28, Anion Gap 8, Blood Urea Nitrogen 27H, Creatinine 1.1, Estimat Glomerular Filtration Rate > 60, Glucose Level 166H, Calcium Level 10.9H, Phosphorus Level 3.1, Magnesium Level 1.7L, Total Bilirubin 0.6, Aspartate Amino Transf (AST/SGOT ) 35, Alanine Aminotransferase (ALT/SGPT) 26, Alkaline Phosphatase 137H, C- Reactive Protein, Quantitative 10.8H, Pro-B-Type Natriuretic Peptide 839H, Total Protein 5.6L, Albumin 2.1L, Globulin 3.5, Albumin/Globulin Ratio 0.6L, Valproic Acid (Depakene) Level < 3L Height (Feet): 5 Height (Inches): 4.00 Weight (Pounds): 206 General Appearance: lethargic EENT: normal ENT inspection Neck: supple Cardiovascular: normal rate Respiratory/Chest: decreased breath sounds Abdomen: normal bowel sounds, non tender, soft Extremities: non-tender Edmundo Beltran MD Sep 18, 2019 09:12
[2019-09-18] MEDS: Pantoprazole Inj IVP SCH ×2 (09:36→20:18)
[2019-09-18] MEDS: Ascorbic Acid 500mg tab ORAL SCH (09:36)
[2019-09-18] MEDS: Brimonidine 0.2% Opth Sol BOTH EYES SCH ×2 (09:37→17:53)
[2019-09-18] MEDS: levETIRAcetam 500mg/NS100ml 100 ML IVPB SCH ×2 (09:37→20:18)
--- NOTE | 2019-09-18 10:49 | Pulmonology Progress Note ---
Assessment/Plan Assessment/Plan IMPRESSION: 1. Hypercalcemia. 2. Renal insufficiency, mild. 3. Bladder carcinoma. 4. Right hydronephrosis. 5. Altered mental status. 6. DVT; s/p IVC filter DISCUSSION: status post R nephrostomy replacement Continue IV hydration and steroids for hypercalcemia S/p pamidronate continue NG for nutrition and meds Swallow eval discussed with nephrology and GI Hospice eval noted discussed with hospice nurse. Family in agreement with hospice Antelmo Ko M.D. Subjective Interval Events: None new; remains poorly responsive Constitutional: Reports: no symptoms HEENT: Repors: no symptoms Respiratory: Reports: no symptoms Cardiovascular: Reports: no symptoms Gastrointestinal/Abdominal: Reports: no symptoms Allergies: Coded Allergies: ASPIRIN (Unverified Allergy, Unknown, 10/31/14) IBUPROFEN (Unverified Allergy, Unknown, 04/10/14) Objective Last 24 Hour Vital Signs Date Time Temp Pulse Resp B/P (MAP) Pulse Ox O2 Delivery O2 Flow Rate FiO2 09/18/19 08:46 97.7 106 22 126/84 (98) 100 106 09/18/19 08:00 101 09/18/19 08:00 Nasal Cannula 2.0 09/18/19 06:00 119 117/75 09/18/19 04:00 99.2 103 24 117/75 (89) 100 09/18/19 04:00 Nasal Cannula 2.0 09/18/19 04:00 119 09/18/19 00:33 111 143/73 09/18/19 00:00 Nasal Cannula 2.0 09/18/19 00:00 98.4 116 24 143/73 (96) 100 09/18/19 00:00 111 09/17/19 20:00 99 09/17/19 20:00 Nasal Cannula 2.0 09/17/19 20:00 98.2 102 20 122/86 (98) 100 09/17/19 18:12 99 116/84 09/17/19 17:06 125/93 09/17/19 16:00 Nasal Cannula 2.0 09/17/19 16:00 98 09/17/19 16:00 97.8 99 18 116/84 (95) 100 99 09/17/19 12:54 104 125/93 09/17/19 12:00 98.9 104 20 125/93 (104) 100 09/17/19 12:00 104 09/17/19 12:00 Nasal Cannula 2.0 Intake and Output 09/17/19 09/18/19 19:00 07:00 Intake Total 533.708 ml 2258.708 ml Output Total 1800 ml 1350 ml Balance -1266.292 ml 908.708 ml Intake Free Water 150 ml IV Total 383.708 ml 2158.708 ml Tube Feeding 100 ml Output Urine Total 500 ml 400 ml Other 1300 ml 950 ml General Appearance: no acute distress HEENT: normocephalic Respiratory/Chest: chest wall non-tender, lungs clear Cardiovascular: normal peripheral pulses Abdomen: normal bowel sounds Microbiology Date/Time Source Procedure Growth Status 09/16/19 04:50 Blood Blood Culture - Preliminary NO GROWTH AFTER 24 HOURS Resulted 09/16/19 04:45 Blood Blood Culture - Preliminary NO GROWTH AFTER 24 HOURS Resulted 09/16/19 20:30 Sputum Induced Gram Stain - Final Resulted 09/16/19 20:30 Sputum Induced Sputum Culture - Preliminary NORMAL UPPER RESPIRATORY ALFREDO AT 24 ... Resulted Laboratory Tests 09/18/19 03:35: White Blood Count 28.5*H, Red Blood Count 3.37L, Hemoglobin 10.1L, Hematocrit 30.2L, Mean Corpuscular Volume 90, Mean Corpuscular Hemoglobin 30.0, Mean Corpuscular Hemoglobin Concent 33.5, Red Cell Distribution Width 18.3H, Platelet Count 40L, Mean Platelet Volume 12.2H, Neutrophils (%) (Auto) , Lymphocytes (%) (Auto) , Monocytes (%) (Auto) , Eosinophils (%) (Auto) , Basophils (%) (Auto) , Differential Total Cells Counted 100, Neutrophils % ( Manual) 91H, Lymphocytes % (Manual) 4L, Monocytes % (Manual) 5, Eosinophils % ( Manual) 0, Basophils % (Manual) 0, Band Neutrophils 0, Platelet Estimate DecreasedL, Platelet Morphology Normal, Hypochromasia 1+, Anisocytosis 1+, Sodium Level 142, Potassium Level 3.1L, Chloride Level 106, Carbon Dioxide Level 28, Anion Gap 8, Blood Urea Nitrogen 27H, Creatinine 1.1, Estimat Glomerular Filtration Rate > 60, Glucose Level 166H, Calcium Level 10.9H, Phosphorus Level 3.1, Magnesium Level 1.7L, Total Bilirubin 0.6, Aspartate Amino Transf (AST/SGOT) 35, Alanine Aminotransferase (ALT/SGPT) 26, Alkaline Phosphatase 137H, C-Reactive Protein, Quantitative 10.8H, Pro-B-Type Natriuretic Peptide 839H, Total Protein 5.6L, Albumin 2.1L, Globulin 3.5, Albumin/Globulin Ratio 0.6L, Valproic Acid (Depakene) Level < 3L Current Medications Medications (Trade) Dose Ordered Sig/Andrea Route PRN Reason Start Time Stop Time Status Last Admin Dose Admin Acetaminophen/ Codeine Phosphate (Tylenol #3) 1 tab Q6H PRN ORAL Mild Pain (Pain Scale 1-3) 09/13/19 12:00 09/20/19 11:59 Ascorbic Acid (Vitamin C) 250 mg DAILY ORAL 09/18/19 09:00 10/18/19 08:59 09/18/19 09:36 Brimonidine Tartrate (Alphagan) 1 drop BID BOTH EYES 09/13/19 18:00 10/13/19 17:59 09/18/19 09:37 Calcitonin [place] (Miacalcin) 1 sprays Q24H NASAL 09/13/19 18:00 10/13/19 17:59 09/17/19 18:13 Chlorhexidine Gluconate (Gina-Hex 2%) 1 applic DAILY@2000 TOPIC 09/14/19 20:00 10/14/19 19:59 09/17/19 20:36 Clonidine HCl (Catapres TTS-3) 1 patch QWEEK TDERMAL 09/17/19 14:00 10/17/19 13:59 09/17/19 17:06 Dextrose 1,000 ml @ 150 mls/hr Q6H40M IV 09/16/19 10:45 10/16/19 10:44 09/18/19 09:38 Dextrose (Dextrose 50%) 25 ml Q30M PRN IV Hypoglycemia 09/13/19 11:30 10/13/19 11:29 Dextrose (Dextrose 50%) 50 ml Q30M PRN IV Hypoglycemia 09/13/19 11:30 10/13/19 11:29 Diltiazem HCl (Cardizem) 30 mg EVERY 6 HOURS NG 09/17/19 12:00 10/17/19 11:59 09/18/19 00:33 Furosemide (Lasix) 40 mg EVERY 12 HOURS IV 09/17/19 09:00 10/17/19 08:59 09/17/19 20:43 Gabapentin (Neurontin) 100 mg THREE TIMES A DAY ORAL 09/13/19 13:00 10/13/19 12:59 09/18/19 09:36 Hydralazine HCl (Apresoline) 10 mg Q4H PRN IV bp over 165 syst 09/17/19 12:15 10/17/19 12:14 Hydromorphone HCl (Dilaudid) 0.5 mg Q4H PRN IVP pain 4-10 09/16/19 10:45 09/23/19 10:44 09/16/19 11:19 Insulin Aspart (NovoLOG) BEFORE MEALS AND HS SUBQ 09/13/19 11:30 10/13/19 11:29 09/15/19 16:59 Latanoprost (Xalatan) 1 drop BEDTIME BOTH EYES 09/13/19 21:00 10/13/19 20:59 09/17/19 20:37 Levetiracetam 100 ml @ 440.098 mls/hr Q12HR IVPB 09/16/19 21:00 10/16/19 20:59 09/18/19 09:37 Levothyroxine Sodium (Synthroid) 50 mcg DAILY@0630 ORAL 09/14/19 06:30 10/14/19 06:29 09/18/19 06:09 Meropenem 1 gm/ Sodium Chloride 100 ml @ 200 mls/hr Q12H IVPB 09/13/19 16:00 09/20/19 15:59 09/18/19 05:08 Pantoprazole (Protonix) 40 mg EVERY 12 HOURS IVP 09/16/19 21:00 10/16/19 20:59 09/18/19 09:36 Potassium Chloride 100 ml @ 100 mls/hr Q1HR IVPB 09/18/19 11:00 09/18/19 14:59 Vancomycin HCl (Vanco rx to dose) 1 ea DAILY PRN MISC Per rx protocol 09/13/19 15:00 10/13/19 14:59 Vancomycin HCl 1 gm/Sodium Chloride 275 ml @ 183.708 mls/hr Q24H IVPB 09/16/19 17:00 09/21/19 16:59 09/17/19 17:57 Antelmo Ko MD Sep 18, 2019 10:49
--- NOTE | 2019-09-18 11:15 | Pre-Procedure Note/Attestation ---
Pre-Procedure Note/Attestation Complete Prior to Procedure Planned Procedure: not applicable Procedure Narrative: ercp Indications for Procedure Pre-Operative Diagnosis: choledocholithiasis Attestation I attest that I discussed the nature of the procedure; its benefits; risks and complications; and alternatives (and the risks and benefits of such alternatives ), prior to the procedure, with the patient (or the patient's legal primary care sales representative). I attest that, if there was a reasonable possibility of needing a blood transfusion, the patient (or the patient's legal primary care sales representative) was given the [facility] standardized written summary, pursuant to the [place]i [place] Blood Safety Act ([place] Health and Safety Code # 1645, as amended). I attest that I re-evaluated the patient just prior to the surgery and that there has been no change in the patient's H&P, except as documented below: Edmundo Beltran MD Sep 18, 2019 11:15
--- NOTE | 2019-09-18 11:16 | Nephrology Progress Note ---
Assessment/Plan Problem List: (1) Hypercalcemia (2) Bladder mass (3) LAVONNE (acute kidney injury) (4) Encephalopathy Assessment: metabolic Assessment 1. Hypercalcemia. 2. Renal insufficiency 3. Bladder carcinoma. 4. Right hydronephrosis. 5. Altered mental status. 6. Had IVC filter Plan has NGT DC mind altering meds Meds to IV as possible has NGT one dose Solumedrol 09/15 Hydrate- D5w Lasix- Aredia- up to total 90mg 09/15 Calcitonin Nasal Monitor renal parameters and Ca Kidney MITCH uro eval Subjective ROS Limited/Unobtainable: No Constitutional: Reports: malaise Objective Objective Last 24 Hour Vital Signs Date Time Temp Pulse Resp B/P (MAP) Pulse Ox O2 Delivery O2 Flow Rate FiO2 09/18/19 08:46 97.7 106 22 126/84 (98) 100 106 09/18/19 08:00 101 09/18/19 08:00 Nasal Cannula 2.0 09/18/19 06:00 119 117/75 09/18/19 04:00 99.2 103 24 117/75 (89) 100 09/18/19 04:00 Nasal Cannula 2.0 09/18/19 04:00 119 09/18/19 00:33 111 143/73 09/18/19 00:00 Nasal Cannula 2.0 09/18/19 00:00 98.4 116 24 143/73 (96) 100 09/18/19 00:00 111 09/17/19 20:00 99 09/17/19 20:00 Nasal Cannula 2.0 09/17/19 20:00 98.2 102 20 122/86 (98) 100 09/17/19 18:12 99 116/84 09/17/19 17:06 125/93 09/17/19 16:00 Nasal Cannula 2.0 09/17/19 16:00 98 09/17/19 16:00 97.8 99 18 116/84 (95) 100 99 09/17/19 12:54 104 125/93 09/17/19 12:00 98.9 104 20 125/93 (104) 100 09/17/19 12:00 104 09/17/19 12:00 Nasal Cannula 2.0 Intake and Output 09/17/19 09/18/19 19:00 07:00 Intake Total 533.708 ml 2258.708 ml Output Total 1800 ml 1350 ml Balance -1266.292 ml 908.708 ml Intake Free Water 150 ml IV Total 383.708 ml 2158.708 ml Tube Feeding 100 ml Output Urine Total 500 ml 400 ml Other 1300 ml 950 ml Laboratory Tests 09/18/19 03:35: White Blood Count 28.5*H, Red Blood Count 3.37L, Hemoglobin 10.1L, Hematocrit 30.2L, Mean Corpuscular Volume 90, Mean Corpuscular Hemoglobin 30.0, Mean Corpuscular Hemoglobin Concent 33.5, Red Cell Distribution Width 18.3H, Platelet Count 40L, Mean Platelet Volume 12.2H, Neutrophils (%) (Auto) , Lymphocytes (%) (Auto) , Monocytes (%) (Auto) , Eosinophils (%) (Auto) , Basophils (%) (Auto) , Differential Total Cells Counted 100, Neutrophils % ( Manual) 91H, Lymphocytes % (Manual) 4L, Monocytes % (Manual) 5, Eosinophils % ( Manual) 0, Basophils % (Manual) 0, Band Neutrophils 0, Platelet Estimate DecreasedL, Platelet Morphology Normal, Hypochromasia 1+, Anisocytosis 1+, Sodium Level 142, Potassium Level 3.1L, Chloride Level 106, Carbon Dioxide Level 28, Anion Gap 8, Blood Urea Nitrogen 27H, Creatinine 1.1, Estimat Glomerular Filtration Rate > 60, Glucose Level 166H, Calcium Level 10.9H, Phosphorus Level 3.1, Magnesium Level 1.7L, Total Bilirubin 0.6, Aspartate Amino Transf (AST/SGOT) 35, Alanine Aminotransferase (ALT/SGPT) 26, Alkaline Phosphatase 137H, C-Reactive Protein, Quantitative 10.8H, Pro-B-Type Natriuretic Peptide 839H, Total Protein 5.6L, Albumin 2.1L, Globulin 3.5, Albumin/Globulin Ratio 0.6L, Valproic Acid (Depakene) Level < 3L Height (Feet): 5 Height (Inches): 4.00 Weight (Pounds): 206 General Appearance: no apparent distress Cardiovascular: tachycardia Respiratory/Chest: decreased breath sounds Abdomen: soft Birght Ibarra MD Sep 18, 2019 11:16
--- NOTE | 2019-09-18 11:35 | Surgery Progress Note ---
Surgery Progress Note Subjective Additional Comments patient seen and examined at bedside family present care plan discussed and condition reviewed ng tube with feeds going well no n/v/f/c leukocytosis Objective Last 24 Hour Vital Signs Date Time Temp Pulse Resp B/P (MAP) Pulse Ox O2 Delivery O2 Flow Rate FiO2 09/18/19 08:46 97.7 106 22 126/84 (98) 100 106 09/18/19 08:00 101 09/18/19 08:00 Nasal Cannula 2.0 09/18/19 06:00 119 117/75 09/18/19 04:00 99.2 103 24 117/75 (89) 100 09/18/19 04:00 Nasal Cannula 2.0 09/18/19 04:00 119 09/18/19 00:33 111 143/73 09/18/19 00:00 Nasal Cannula 2.0 09/18/19 00:00 98.4 116 24 143/73 (96) 100 09/18/19 00:00 111 09/17/19 20:00 99 09/17/19 20:00 Nasal Cannula 2.0 09/17/19 20:00 98.2 102 20 122/86 (98) 100 09/17/19 18:12 99 116/84 09/17/19 17:06 125/93 09/17/19 16:00 Nasal Cannula 2.0 09/17/19 16:00 98 09/17/19 16:00 97.8 99 18 116/84 (95) 100 99 09/17/19 12:54 104 125/93 09/17/19 12:00 98.9 104 20 125/93 (104) 100 09/17/19 12:00 104 09/17/19 12:00 Nasal Cannula 2.0 I&O Intake and Output 09/17/19 09/18/19 19:00 07:00 Intake Total 533.708 ml 2258.708 ml Output Total 1800 ml 1350 ml Balance -1266.292 ml 908.708 ml Intake Free Water 150 ml IV Total 383.708 ml 2158.708 ml Tube Feeding 100 ml Output Urine Total 500 ml 400 ml Other 1300 ml 950 ml Dressing: other Wound: other Drains: other Cardiovascular: RSR Respiratory: decreased breath sounds Abdomen: soft, present bowel sounds Extremities: no cyanosis Laboratory Tests Test 09/18/19 03:35 White Blood Count 28.5 K/UL (4.8-10.8) *H Red Blood Count 3.37 M/UL (4.70-6.10) L Hemoglobin 10.1 G/DL (14.2-18.0) L Hematocrit 30.2 % (42.0-52.0) L Mean Corpuscular Volume 90 FL (80-99) Mean Corpuscular Hemoglobin 30.0 PG (27.0-31.0) Mean Corpuscular Hemoglobin Concent 33.5 G/DL (32.0-36.0) Red Cell Distribution Width 18.3 % (11.6-14.8) H Platelet Count 40 K/UL (150-450) L Mean Platelet Volume 12.2 FL (6.5-10.1) H Neutrophils (%) (Auto) % (45.0-75.0) Lymphocytes (%) (Auto) % (20.0-45.0) Monocytes (%) (Auto) % (1.0-10.0) Eosinophils (%) (Auto) % (0.0-3.0) Basophils (%) (Auto) % (0.0-2.0) Differential Total Cells Counted 100 Neutrophils % (Manual) 91 % (45-75) H Lymphocytes % (Manual) 4 % (20-45) L Monocytes % (Manual) 5 % (1-10) Eosinophils % (Manual) 0 % (0-3) Basophils % (Manual) 0 % (0-2) Band Neutrophils 0 % (0-8) Platelet Estimate Decreased L Platelet Morphology Normal Hypochromasia 1+ Anisocytosis 1+ Sodium Level 142 MMOL/L (136-145) Potassium Level 3.1 MMOL/L (3.5-5.1) L Chloride Level 106 MMOL/L (98-107) Carbon Dioxide Level 28 MMOL/L (21-32) Anion Gap 8 mmol/L (5-15) Blood Urea Nitrogen 27 mg/dL (7-18) H Creatinine 1.1 MG/DL (0.55-1.30) Estimat Glomerular Filtration Rate > 60 mL/min (>60) Glucose Level 166 MG/DL (74-106) H Calcium Level 10.9 MG/DL (8.5-10.1) H Phosphorus Level 3.1 MG/DL (2.5-4.9) Magnesium Level 1.7 MG/DL (1.8-2.4) L Total Bilirubin 0.6 MG/DL (0.2-1.0) Aspartate Amino Transf (AST/SGOT) 35 U/L (15-37) Alanine Aminotransferase (ALT/SGPT) 26 U/L (12-78) Alkaline Phosphatase 137 U/L (46-116) H C-Reactive Protein, Quantitative 10.8 mg/dL (0.00-0.90) H Pro-B-Type Natriuretic Peptide 839 pg/mL (0-125) H Total Protein 5.6 G/DL (6.4-8.2) L Albumin 2.1 G/DL (3.4-5.0) L Globulin 3.5 g/dL Albumin/Globulin Ratio 0.6 (1.0-2.7) L Valproic Acid (Depakene) Level < 3 MCG/ML (50-100) L Plan Problems: (1) Elevated WBC count Assessment & Plan: Patient was significant leukocytosis poss related infectious process versus cancer. Hematology input appreciated. Antibiotics per infectious disease. No acute surgical intervention indicated recommended. Follow the recommendations (2) Bladder mass (3) GI (gastrointestinal bleed) Assessment & Plan: Findings: Interim placement of a nasogastric tube, tip of which projects at the level gastric fundus, proximal sidehole at or just beyond the gastroesophageal junction. Interim placement of an inferior vena cava filter. Bowel gas pattern is unremarkable. There is a drainage catheter in the right upper quadrant again demonstrated Impression: Borderline position of nasogastric tube, proximal sidehole at or just beyond the expected level gastric esophageal junction. Slight advancement may be prudent. This was discussed by phone with patient's nurse Daria at the time of interpretation Interim inferior vena cava filter placement cont with tube feeds will need PEG discussed with family (4) Hypercalcemia (5) Encephalopathy (6) LAVONNE (acute kidney injury) (7) Multiple lesions of metastatic malignancy Assessment & Plan: 1. Extensive left leg deep venous thrombosis involving the common femoral vein. 2. History of GI bleeding, metastatic tumor, bladder cancer, nephrostomy tube, encephalopathy, and renal insufficiency. PLAN AND RECOMMENDATION: The patient will benefit from inferior vena caval filter. Leg elevation. Decubitus precautions. Medical, Infectious Disease, and Oncology optimization in progress. Intraoperative images demonstrate inferior venacavogram and placement of an inferior vena cava filter (8) Bladder pain (9) Sinusitis (10) Tobacco abuse (11) Chest pain (12) Chest pain (13) High calcium levels (14) Cervical radiculopathy (15) Glaucoma (increased eye pressure) (16) Abdominal infection (17) Tobacco abuse counseling (18) Deep tissue injury Assessment & Plan: Patient presented with open deep tissue injury on sacral region. states that she identified it at home but was unsure that it was open. It was noted to be open during hospitalization total area of deep tissue injury approximately 9 cm x 6 mm with an open area in the midportion. Will need to continue with aggressive local treatment wound care and decubitus precautions as patient is high risk for declining condition. Patient is currently bedbound and unable to move on his own and participate in examination and turning. Thera honey placed followed by foam dressing. Turn patient every 2 hours. Nutritional optimization. Air mattress ordered. Discussed care plan with in detail at the bedside. We will continue to follow with recommendations. Pt presented on admission with open DTPI R buttocks. Base of wound maroon and fluctuant (L)11cm x (W)9.5cm. Within base of injury is an open wound which has 75% slough. NO odor noted. Small amt serous exudate noted. No evidence of skin breakdown to Sacrum. Both heels are firm and blanchable. Tx.Plan: Cleanse R buttocks wound with Saline. Apply Therahoney. Apply Moisture Barrier Paste to surrounding indurated areas. Cover with Optifoam drsg Daily and prn. Apply Moisture Barrier Paste to Sacrum. Cover with Optifoam drsg. Change every 3 days and prn. Apply Cavilon Skin Barrier to both heels. Cover each heel with Optifoam drsg. Change every 7 days and prn. Reposition at least every 2hours or as tolerated. Off-load heels with Pillow. APM/LORNE Mattress overlay. Urbano Harrell Sep 18, 2019 11:34
--- NOTE | 2019-09-18 11:52 | NUR ---
ST NOTES: PATIENT REFERRED FOR A SWALLOW EVAL. PER RN YESTERDAY AND RN (ÁNGEL) TODAY, THE PATIENT IS NOT ALERT FOR A SWALLOWING EVALUATION. THE PATIENT IS NPO AND RECEIVING NGT FEEDINGS AT THIS TIME. PATIENT WILL NOT GO ON HOSPICE AT THIS TIME AND WILL GET A PEG. WILL TRY TO EVALUATE AFTER PEG IF THE FAMILY WANTS PO FOR ORAL GRATIFICATION. PLAN: CONTINUE WITH ORAL CARE AND ASPIRATION PRECAUTIONS WHEN TUBE FEEDINGS ARE RUNNING. RE-ASSESS POST PEG IF ALERT AND READY FOR SOME PO FOR ORAL GRAT.
[2019-09-18 12:00] VITALS: BP 128/92
--- NOTE | 2019-09-18 14:07 | NUR ---
*-* INSURANCE *-* ALL CLINICALS AND REVIEWS HAVE BEEN FAXED TO: [facility] EV[facility]:BARTOLOME P: [phone] F: [phone]
[2019-09-18 16:00] VITALS: BP 129/89
--- NOTE | 2019-09-18 16:26 | Hematology/Onc Progress Note ---
Assessment/Plan Assessment/Plan Assessment and Recs # Occlusive thrombus in the left common femoral vein, proximal left superficial femoral vein, and distal left superficial femoral vein. No deep venous thrombosis identified in the right lower extremity. --> given bleed, drop in platelets, have ordered ivcf placement --> s/p ivcf placement 09/[address] Gopi Bernal --> will likely still require anticoag if labs improved # Bladder cancer with metastatic disease --> has adrenal and liver mets --> will need outpatient f/u --> will codey Rn today again to obtain further hx # Thrombocytopenia - potential causes multifactorial, but in this case likely due to consumption from infection, also DIC --> Hep panel and HIV both negative --> US abd to evaluate for cirrhosis and hsm - ct reviewed, negative for both --> Peripheral smear ordered to evaluate for blasts /schistocytes --> abx and other meds have been reviewed --> ok for ppx if plt >50k w/ either heparin or lovenox --> Transfuse if Plt < 20k and fever, or if Plt < 10k without fever --> plt trend 104-->62k-->38k # Hypercalcemia due to malignancy --> calcitonin and aredia HAVE been given --> ivf hydration --> Ca++ 13-->12-->13 # Leukocytosis with underlying infection --> trend smear --> wbc trend 30-->24-->26-->29-->28.5 --> as per id recs --> abx: vanc/farnaz # LAVONNE as per renal --> s/p nephrosotmy tube placement --> cr 1.5-->1.7->1.2 # Encephalopathy --> per neuro Appreciate consultation and codey Rn Subjective Allergies: Coded Allergies: ASPIRIN (Unverified Allergy, Unknown, 10/31/14) IBUPROFEN (Unverified Allergy, Unknown, 04/10/14) Subjective 09/15: Ca++ remains high today 13.2, have ordered for pamidronate, no bleeding, cbc/bmp pending 09/16: wbc 24.3, on vanc/farnaz, hospice eval and right nephro tube replacement for today 09/17: no bleeding, labs reviewed, Ca remains elevated, will dw pharmacy for other potential interventions 09/18: sdu, no overnight events, peg recommended by speech therapy, hi Objective Objective Current Medications Medications (Trade) Dose Ordered Sig/Andrea Route PRN Reason Start Time Stop Time Status Last Admin Dose Admin Acetaminophen/ Codeine Phosphate (Tylenol #3) 1 tab Q6H PRN ORAL Mild Pain (Pain Scale 1-3) 09/13/19 12:00 09/20/19 11:59 Ascorbic Acid (Vitamin C) 250 mg DAILY ORAL 09/18/19 09:00 10/18/19 08:59 09/18/19 09:36 Brimonidine Tartrate (Alphagan) 1 drop BID BOTH EYES 09/13/19 18:00 10/13/19 17:59 09/18/19 09:37 Calcitonin [place] (Miacalcin) 1 sprays Q24H NASAL 09/13/19 18:00 10/13/19 17:59 09/17/19 18:13 Chlorhexidine Gluconate (Gina-Hex 2%) 1 applic DAILY@2000 TOPIC 09/14/19 20:00 10/14/19 19:59 09/17/19 20:36 Clonidine HCl (Catapres TTS-3) 1 patch QWEEK TDERMAL 09/17/19 14:00 10/17/19 13:59 09/17/19 17:06 Dextrose 1,000 ml @ 150 mls/hr Q6H40M IV 09/16/19 10:45 10/16/19 10:44 09/18/19 09:38 Dextrose (Dextrose 50%) 25 ml Q30M PRN IV Hypoglycemia 09/13/19 11:30 10/13/19 11:29 Dextrose (Dextrose 50%) 50 ml Q30M PRN IV Hypoglycemia 09/13/19 11:30 10/13/19 11:29 Diltiazem HCl (Cardizem) 30 mg EVERY 6 HOURS NG 09/17/19 12:00 10/17/19 11:59 09/18/19 12:49 Furosemide (Lasix) 40 mg DAILY IV 09/19/19 09:00 10/17/19 08:59 Gabapentin (Neurontin) 100 mg THREE TIMES A DAY ORAL 09/13/19 13:00 10/13/19 12:59 09/18/19 12:48 Hydralazine HCl (Apresoline) 10 mg Q4H PRN IV bp over 165 syst 09/17/19 12:15 10/17/19 12:14 Hydromorphone HCl (Dilaudid) 0.5 mg Q4H PRN IVP pain 4-10 09/16/19 10:45 09/23/19 10:44 09/16/19 11:19 Insulin Aspart (NovoLOG) BEFORE MEALS AND HS SUBQ 09/13/19 11:30 10/13/19 11:29 09/15/19 16:59 Latanoprost (Xalatan) 1 drop BEDTIME BOTH EYES 09/13/19 21:00 10/13/19 20:59 09/17/19 20:37 Levetiracetam 100 ml @ 440.098 mls/hr Q12HR IVPB 09/16/19 21:00 10/16/19 20:59 09/18/19 09:37 Levothyroxine Sodium (Synthroid) 50 mcg DAILY@0630 ORAL 09/14/19 06:30 10/14/19 06:29 09/18/19 06:09 Meropenem 1 gm/ Sodium Chloride 100 ml @ 200 mls/hr Q12H IVPB 09/13/19 16:00 09/20/19 15:59 09/18/19 05:08 Pantoprazole (Protonix) 40 mg EVERY 12 HOURS IVP 09/16/19 21:00 10/16/19 20:59 09/18/19 09:36 Vancomycin HCl (Vanco rx to dose) 1 ea DAILY PRN MISC Per rx protocol 09/13/19 15:00 10/13/19 14:59 Vancomycin HCl 1 gm/Sodium Chloride 275 ml @ 183.708 mls/hr Q24H IVPB 09/16/19 17:00 09/21/19 16:59 09/17/19 17:57 Last 24 Hour Vital Signs Date Time Temp Pulse Resp B/P (MAP) Pulse Ox O2 Delivery O2 Flow Rate FiO2 09/18/19 12:49 101 128/92 09/18/19 12:00 98.1 101 22 128/92 (104) 99 101 09/18/19 12:00 105 09/18/19 12:00 Nasal Cannula 2.0 09/18/19 08:46 97.7 106 22 126/84 (98) 100 106 09/18/19 08:00 101 09/18/19 08:00 Nasal Cannula 2.0 09/18/19 06:00 119 117/75 09/18/19 04:00 99.2 103 24 117/75 (89) 100 09/18/19 04:00 Nasal Cannula 2.0 09/18/19 04:00 119 09/18/19 00:33 111 143/73 09/18/19 00:00 Nasal Cannula 2.0 09/18/19 00:00 98.4 116 24 143/73 (96) 100 09/18/19 00:00 111 09/17/19 20:00 99 09/17/19 20:00 Nasal Cannula 2.0 09/17/19 20:00 98.2 102 20 122/86 (98) 100 09/17/19 18:12 99 116/84 09/17/19 17:06 125/93 09/17/19 16:00 Nasal Cannula 2.0 09/17/19 16:00 98 09/17/19 16:00 97.8 99 18 116/84 (95) 100 99 09/17/19 12:54 104 125/93 09/17/19 12:00 98.9 104 20 125/93 (104) 100 09/17/19 12:00 104 09/17/19 12:00 Nasal Cannula 2.0 09/17/19 08:00 104 09/17/19 08:00 99.1 104 20 161/117 (132) 100 09/17/19 08:00 Nasal Cannula 2.0 09/17/19 04:00 97.8 102 24 142/92 (109) 98 09/17/19 04:00 Nasal Cannula 2.0 09/17/19 03:23 100 09/17/19 00:00 Nasal Cannula 2.0 09/17/19 00:00 98.0 100 20 142/82 (102) 100 09/16/19 23:36 105 09/16/19 20:00 98.3 104 19 131/88 (102) 100 09/16/19 20:00 107 09/16/19 20:00 Nasal Cannula 2.0 Intake and Output 09/17/19 09/18/19 19:00 07:00 Intake Total 533.708 ml 2278.708 ml Output Total 1800 ml 1350 ml Balance -1266.292 ml 928.708 ml Intake Free Water 150 ml IV Total 383.708 ml 2158.708 ml Tube Feeding 120 ml Output Urine Total 500 ml 400 ml Other 1300 ml 950 ml Labs Test 09/16/19 04:45 09/16/19 14:55 09/17/19 04:45 09/18/19 03:35 White Blood Count 24.2 K/UL (4.8-10.8) 29.0 K/UL (4.8-10.8) 28.5 K/UL (4.8-10.8) Red Blood Count 3.78 M/UL (4.70-6.10) 3.36 M/UL (4.70-6.10) 3.37 M/UL (4.70-6.10) Hemoglobin 10.8 G/DL (14.2-18.0) 10.1 G/DL (14.2-18.0) 10.1 G/DL (14.2-18.0) Hematocrit 35.2 % (42.0-52.0) 30.6 % (42.0-52.0) 30.2 % (42.0-52.0) Mean Corpuscular Volume 93 FL (80-99) 91 FL (80-99) 90 FL (80-99) Mean Corpuscular Hemoglobin 28.7 PG (27.0-31.0) 30.0 PG (27.0-31.0) 30.0 PG (27.0-31.0) Mean Corpuscular Hemoglobin Concent 30.8 G/DL (32.0-36.0) 32.9 G/DL (32.0-36.0) 33.5 G/DL (32.0-36.0) Red Cell Distribution Width 22.6 % (11.6-14.8) 18.9 % (11.6-14.8) 18.3 % (11.6-14.8) Platelet Count 48 K/UL (150-450) 40 K/UL (150-450) 40 K/UL (150-450) Mean Platelet Volume 13.0 FL (6.5-10.1) 10.5 FL (6.5-10.1) 12.2 FL (6.5-10.1) Neutrophils (%) (Auto) % (45.0-75.0) % (45.0-75.0) % (45.0-75.0) Lymphocytes (%) (Auto) % (20.0-45.0) % (20.0-45.0) % (20.0-45.0) Monocytes (%) (Auto) % (1.0-10.0) % (1.0-10.0) % (1.0-10.0) Eosinophils (%) (Auto) % (0.0-3.0) % (0.0-3.0) % (0.0-3.0) Basophils (%) (Auto) % (0.0-2.0) % (0.0-2.0) % (0.0-2.0) Differential Total Cells Counted 100 100 100 Neutrophils % (Manual) 86 % (45-75) 84 % (45-75) 91 % (45-75) Lymphocytes % (Manual) 7 % (20-45) 6 % (20-45) 4 % (20-45) Monocytes % (Manual) 2 % (1-10) 9 % (1-10) 5 % (1-10) Eosinophils % (Manual) 0 % (0-3) 0 % (0-3) 0 % (0-3) Basophils % (Manual) 0 % (0-2) 0 % (0-2) 0 % (0-2) Band Neutrophils 5 % (0-8) 1 % (0-8) 0 % (0-8) Platelet Estimate Decreased Decreased Decreased Platelet Morphology Normal Normal Normal Hypochromasia 1+ 1+ Anisocytosis 4+ 1+ 1+ Sodium Level 153 MMOL/L (136-145) 146 MMOL/L (136-145) 142 MMOL/L (136-145) Potassium Level 5.2 MMOL/L (3.5-5.1) 4.1 MMOL/L (3.5-5.1) 3.1 MMOL/L (3.5-5.1) Chloride Level 117 MMOL/L (98-107) 110 MMOL/L (98-107) 106 MMOL/L (98-107) Carbon Dioxide Level 21 MMOL/L (21-32) 28 MMOL/L (21-32) 28 MMOL/L (21-32) Anion Gap 15 mmol/L (5-15) 8 mmol/L (5-15) 8 mmol/L (5-15) Blood Urea Nitrogen 37 mg/dL (7-18) 36 mg/dL (7-18) 27 mg/dL (7-18) Creatinine 1.2 MG/DL (0.55-1.30) 1.3 MG/DL (0.55-1.30) 1.1 MG/DL (0.55-1.30) Estimat Glomerular Filtration Rate > 60 mL/min (>60) > 60 mL/min (>60) > 60 mL/min (>60) Glucose Level 122 MG/DL (74-106) 129 MG/DL (74-106) 166 MG/DL (74-106) Uric Acid 9.4 MG/DL (2.6-7.2) 9.6 MG/DL (2.6-7.2) Calcium Level 13.0 MG/DL (8.5-10.1) 12.3 MG/DL (8.5-10.1) 10.9 MG/DL (8.5-10.1) Phosphorus Level 2.9 MG/DL (2.5-4.9) 2.4 MG/DL (2.5-4.9) 3.1 MG/DL (2.5-4.9) Magnesium Level 1.8 MG/DL (1.8-2.4) 1.7 MG/DL (1.8-2.4) 1.7 MG/DL (1.8-2.4) Total Bilirubin 0.5 MG/DL (0.2-1.0) 0.4 MG/DL (0.2-1.0) 0.6 MG/DL (0.2-1.0) Aspartate Amino Transf (AST/SGOT) 53 U/L (15-37) 32 U/L (15-37) 35 U/L (15-37) Alanine Aminotransferase (ALT/SGPT) 30 U/L (12-78) 21 U/L (12-78) 26 U/L (12-78) Alkaline Phosphatase 148 U/L (46-116) 139 U/L (46-116) 137 U/L (46-116) Total Protein 5.7 G/DL (6.4-8.2) 5.6 G/DL (6.4-8.2) 5.6 G/DL (6.4-8.2) Albumin 2.1 G/DL (3.4-5.0) 2.2 G/DL (3.4-5.0) 2.1 G/DL (3.4-5.0) Globulin 3.6 g/dL 3.4 g/dL 3.5 g/dL Albumin/Globulin Ratio 0.6 (1.0-2.7) 0.6 (1.0-2.7) 0.6 (1.0-2.7) Vancomycin Level Trough 9.1 ug/mL (5.0-12.0) C-Reactive Protein, Quantitative 7.2 mg/dL (0.00-0.90) 10.8 mg/dL (0.00-0.90) Hepatitis A IgM Antibody Negative (Negative) Hepatitis B Surface Antigen Negative (Negative) Hepatitis B Core IgM Antibody Negative (Negative) Hepatitis C Antibody <0.1 s/co ratio HIV (1&2) Antibody Rapid Negative (NEGATIVE) Pro-B-Type Natriuretic Peptide 839 pg/mL (0-125) Valproic Acid (Depakene) Level < 3 MCG/ML (50-100) Height (Feet): 5 Height (Inches): 4.00 Weight (Pounds): 206 Objective Physical Exam: Vitals: reviewed General: NAD HEENT: nc, at Neck: supple Chest: clear breath sounds bilaterally Cardiovascular: RRR, no s3, s4 Abdomen: soft, nontender, nd Extremities: no cce, normal range of motion Neuro: confused Prosper Spaulding MD Sep 18, 2019 16:26
[2019-09-18] MEDS: Vancomycin 1 GM in NS 275 ML IVPB SCH (17:52)
--- NOTE | 2019-09-18 19:30 | NUR ---
NURSE NOTES: received pt from Albert THAKKAR., pt is resting on the bed and AO x1. no report from previous nurse regarding pt's dysrhythmia. NGT on left nares Glucerna 1.2 at 40cc/hr. right upper arm midline is intact, clean, and patent. side rails are padded. no SOB noted from pt with 2L of NC. O2sat is at 98%. call light within reach. bed at the lowest position, alarmed, and locked. will continue to monitor pt with plan of care.
[2019-09-18 20:00] VITALS: BP 140/88
[2019-09-18] MEDS: Dyna-Hex 2% Top Sol 2oz TOPIC SCH (20:18)
[2019-09-18] MEDS: Latanoprost 0.005% Opth 2.5ml Soln BOTH EYES SCH (20:18)
--- NOTE | 2019-09-18 23:11 | NUR ---
NURSE NOTES: called pt's to obtain consent PEG and EGD for tomorrow. pt's spoke with Dr. Beltran already regarding benefits and risk of the procedure. call light within reach. will continue to monitor pt.
[2019-09-19] VITALS (11 sets, daily range): BP systolic 118–143; BP diastolic 73–101
--- NOTE | 2019-09-19 00:22 | NUR ---
NURSE NOTES: oral care given, new gown and new blankets provided. no SOB noted. pt is resting and sleeping. repositioned q 2HRS. call light within reach. will continue to monitor pt.
[2019-09-19] MEDS: dilTIAZem HCl 30mg tab NG SCH ×3 (05:23→17:27)
[2019-09-19] MEDS: NovoLOG Insulin Flexpen SUBQ SCH ×4 (05:43→20:19)
[2019-09-19 05:57] LABS: HEMATOCRIT 26.9 % (42.0-52.0); MEAN CORPUSCULAR VOLUME 89 FL (80-99); PLATELET COUNT 43 K/UL (150-450); RED BLOOD COUNT 3.02 M/UL (4.70-6.10); RED CELL DISTRIBUTION WIDTH 18.1 % (11.6-14.8)
[2019-09-19 06:42] LABS: WHITE BLOOD COUNT 26.6 K/UL (4.8-10.8)
[2019-09-19 07:05] LABS: ALANINE AMINOTRANSFERASE 33 U/L (12-78); ALBUMIN 1.7 G/DL (3.4-5.0); ALBUMIN/GLOBULIN RATIO 0.5 (1.0-2.7); ALKALINE PHOSPHATASE 145 U/L (46-116); ANION GAP 11 mmol/L (5-15); ASPARTATE AMINO TRANSFERASE 41 U/L (15-37); BILIRUBIN,TOTAL 0.5 MG/DL (0.2-1.0); BLOOD UREA NITROGEN 21 mg/dL (7-18); CALCIUM 9.7 MG/DL (8.5-10.1); CARBON DIOXIDE 23 MMOL/L (21-32); CHLORIDE 101 MMOL/L (98-107); CREATININE 0.9 MG/DL (0.55-1.30); POTASSIUM 3.8 MMOL/L (3.5-5.1); SODIUM 135 MMOL/L (136-145)
--- NOTE | 2019-09-19 07:15 | NUR ---
HAND-OFF: Report given to Anabella THAKKAR.pt remains stable and no SOB noted at this time.
[2019-09-19 07:33] LABS: PHOSPHORUS 1.5 MG/DL (2.5-4.9)
[2019-09-19] MEDS: Pantoprazole Inj IVP SCH ×2 (09:00→20:19)
[2019-09-19] MEDS: Ascorbic Acid 500mg tab ORAL SCH (09:01)
[2019-09-19] MEDS: levETIRAcetam 500mg/NS100ml 100 ML IVPB SCH ×2 (09:01→20:18)
[2019-09-19] MEDS: Brimonidine 0.2% Opth Sol BOTH EYES SCH ×2 (09:01→17:31)
[2019-09-19] MEDS: Potassium Phosphate 15mm/250ml 250 ML IVPB SCH ×2 (09:55→15:31)
--- NOTE | 2019-09-19 10:47 | Nephrology Progress Note ---
Assessment/Plan Problem List: (1) Hypercalcemia (2) Bladder mass (3) LAVONNE (acute kidney injury) (4) Encephalopathy Assessment: metabolic Assessment 1. Hypercalcemia. 2. Renal insufficiency 3. Bladder carcinoma. 4. Right hydronephrosis. 5. Altered mental status. 6. Had IVC filter Plan has NGT- change IV DC mind altering meds Meds to IV as possible has NGT one dose Solumedrol 09/15 Hydrate- D5w Lasix- Aredia- up to total 90mg 09/15 Calcitonin Nasal Monitor renal parameters and Ca Kidney MITCH uro eval Subjective ROS Limited/Unobtainable: Yes Objective Objective Last 24 Hour Vital Signs Date Time Temp Pulse Resp B/P (MAP) Pulse Ox O2 Delivery O2 Flow Rate FiO2 09/19/19 08:00 103 09/19/19 08:00 98.0 112 20 137/88 (104) 100 09/19/19 08:00 Nasal Cannula 2.0 09/19/19 05:23 105 137/97 09/19/19 04:00 105 09/19/19 04:00 99.1 103 20 137/97 (110) 100 96 09/19/19 04:00 Nasal Cannula 2.0 09/19/19 00:00 94 09/19/19 00:00 99.1 96 16 143/93 (110) 100 96 09/19/19 00:00 Nasal Cannula 2.0 09/18/19 23:54 102 143/93 09/18/19 20:00 99 09/18/19 20:00 99.0 96 22 140/88 (105) 99 106 09/18/19 20:00 Nasal Cannula 2.0 09/18/19 18:05 103 129/89 09/18/19 16:32 103 09/18/19 16:00 Nasal Cannula 2.0 09/18/19 16:00 99.6 106 22 129/89 (102) 96 106 09/18/19 12:49 101 128/92 09/18/19 12:00 98.1 101 22 128/92 (104) 99 101 09/18/19 12:00 105 09/18/19 12:00 Nasal Cannula 2.0 Intake and Output 09/18/19 09/19/19 19:00 07:00 Intake Total 1720 ml 2050 ml Output Total 1150 ml 1000 ml Balance 570 ml 1050 ml Intake Free Water 200 ml 50 ml IV Total 1050 ml 1840 ml Tube Feeding 470 ml 160 ml Output Urine Total 450 ml 350 ml Drainage Total 650 ml Other 700 ml # Voids 1 4 Laboratory Tests 09/19/19 04:20: White Blood Count 26.6*H, Red Blood Count 3.02L, Hemoglobin 9.0L, Hematocrit 26.9L, Mean Corpuscular Volume 89, Mean Corpuscular Hemoglobin 29.7, Mean Corpuscular Hemoglobin Concent 33.4, Red Cell Distribution Width 18.1H, Platelet Count 43L, Mean Platelet Volume 10.2H, Neutrophils (%) (Auto) , Lymphocytes (%) (Auto) , Monocytes (%) (Auto) , Eosinophils (%) (Auto) , Basophils (%) (Auto) , Differential Total Cells Counted 100, Neutrophils % ( Manual) 88H, Lymphocytes % (Manual) 7L, Monocytes % (Manual) 5, Eosinophils % ( Manual) 0, Basophils % (Manual) 0, Band Neutrophils 0, Platelet Estimate DecreasedL, Platelet Morphology Normal, Anisocytosis 1+, Sodium Level 135L, Potassium Level 3.8, Chloride Level 101, Carbon Dioxide Level 23, Anion Gap 11, Blood Urea Nitrogen 21H, Creatinine 0.9, Estimat Glomerular Filtration Rate > 60 , Glucose Level 141H, Calcium Level 9.7, Phosphorus Level 1.5L, Magnesium Level 2.0, Total Bilirubin 0.5, Aspartate Amino Transf (AST/SGOT) 41H, Alanine Aminotransferase (ALT/SGPT) 33, Alkaline Phosphatase 145H, C-Reactive Protein, Quantitative 11.3H, Pro-B-Type Natriuretic Peptide 659H, Total Protein 5.1L, Albumin 1.7L, Globulin 3.4, Albumin/Globulin Ratio 0.5L Height (Feet): 5 Height (Inches): 3.00 Weight (Pounds): 206 General Appearance: no apparent distress, lethargic, other - arousable Cardiovascular: tachycardia Respiratory/Chest: decreased breath sounds Abdomen: distended Bright Ibarra MD Sep 19, 2019 10:47
--- NOTE | 2019-09-19 11:23 | Anethesia Preoperative Eval ---
Anesthesia Pre-op PMH/ROS General Date of Evaluation: Sep 19, 2019 Anesthesiologist: Joe ASA Score: ASA 3 Mallampati Score Class I : Soft palate, uvula, fauces, pillars visible Class II: Soft palate, uvula, fauces visible Class III: Soft palate, base of uvula visible Class IV: Only hard plate visible Mallampati Classification: Class III Surgeon: Devin Diagnosis: Failure to thrive Surgical Procedure: EGD, PEG Anesthesia History: none Social History: smoking Family History: no anesthesia problems Allergies: Coded Allergies: ASPIRIN (Unverified Allergy, Unknown, 10/31/14) IBUPROFEN (Unverified Allergy, Unknown, 04/10/14) Medications: see eMAR Patient NPO?: Yes NPO Date: Sep 13, 2019 NPO Time: 1500 Past Medical History Cardiovascular: Reports: HTN; Denies: CAD, [place], valve dz, arrhythmia, other Pulmonary: Denies: asthma, COPD, YANE, other Gastrointestinal/Genitourinary: Reports: GERD, CRI, other - bladder cancer, s/ p nephrostomy tube; Denies: ESRD Neurologic/Psychiatric: Denies: dementia, CVA, depression/anxiety, TIA, other Endocrine: Reports: DM; Denies: hypothyroidism, steroids, other HEENT: Reports: glaucoma, other - legally blinds; Denies: cataract (L), cataract (R), [place] (L), [place] (R) Hematology/Immune: Reports: anemia, DVT - left lower extremity, s/p IVC filter ; Denies: bleeding disorder, other PSxH Narrative: nephrostomy tube, ivc filter Anesthesia Pre-op Phys. Exam Physician Exam Last Vital Signs Date Time Temp Pulse Resp B/P (MAP) Pulse Ox O2 Delivery O2 Flow Rate FiO2 09/19/19 08:00 103 09/19/19 08:00 98.0 20 137/88 (104) 100 09/19/19 08:00 Nasal Cannula 2.0 Constitutional: NAD Cardiovascular: RRR Respiratory: CTA Airway Exam Mallampati Score: Class III MO: limited Neck: stiff ROM: limited Teeth: missing, broken Anesthesia Pre-op A/P Labs Hematology Test 09/19/19 04:20 White Blood Count 26.6 K/UL (4.8-10.8) *H Red Blood Count 3.02 M/UL (4.70-6.10) L Hemoglobin 9.0 G/DL (14.2-18.0) L Hematocrit 26.9 % (42.0-52.0) L Mean Corpuscular Volume 89 FL (80-99) Mean Corpuscular Hemoglobin 29.7 PG (27.0-31.0) Mean Corpuscular Hemoglobin Concent 33.4 G/DL (32.0-36.0) Red Cell Distribution Width 18.1 % (11.6-14.8) H Platelet Count 43 K/UL (150-450) L Mean Platelet Volume 10.2 FL (6.5-10.1) H Neutrophils (%) (Auto) % (45.0-75.0) Lymphocytes (%) (Auto) % (20.0-45.0) Monocytes (%) (Auto) % (1.0-10.0) Eosinophils (%) (Auto) % (0.0-3.0) Basophils (%) (Auto) % (0.0-2.0) Differential Total Cells Counted 100 Neutrophils % (Manual) 88 % (45-75) H Lymphocytes % (Manual) 7 % (20-45) L Monocytes % (Manual) 5 % (1-10) Eosinophils % (Manual) 0 % (0-3) Basophils % (Manual) 0 % (0-2) Band Neutrophils 0 % (0-8) Platelet Estimate Decreased L Platelet Morphology Normal Anisocytosis 1+ Chemistry Test 09/19/19 04:20 Sodium Level 135 MMOL/L (136-145) L Potassium Level 3.8 MMOL/L (3.5-5.1) Chloride Level 101 MMOL/L (98-107) Carbon Dioxide Level 23 MMOL/L (21-32) Anion Gap 11 mmol/L (5-15) Blood Urea Nitrogen 21 mg/dL (7-18) H Creatinine 0.9 MG/DL (0.55-1.30) Estimat Glomerular Filtration Rate > 60 mL/min (>60) Glucose Level 141 MG/DL (74-106) H Calcium Level 9.7 MG/DL (8.5-10.1) Phosphorus Level 1.5 MG/DL (2.5-4.9) L Magnesium Level 2.0 MG/DL (1.8-2.4) Total Bilirubin 0.5 MG/DL (0.2-1.0) Aspartate Amino Transf (AST/SGOT) 41 U/L (15-37) H Alanine Aminotransferase (ALT/SGPT) 33 U/L (12-78) Alkaline Phosphatase 145 U/L (46-116) H C-Reactive Protein, Quantitative 11.3 mg/dL (0.00-0.90) H Pro-B-Type Natriuretic Peptide 659 pg/mL (0-125) H Total Protein 5.1 G/DL (6.4-8.2) L Albumin 1.7 G/DL (3.4-5.0) L Globulin 3.4 g/dL Albumin/Globulin Ratio 0.5 (1.0-2.7) L Studies Pre-op Studies: EKG - sr Risk Assessment & Plan Assessment: ASA III Plan: MAC Status Change Before Surgery: No Pre-Antibiotics Drug: N/A Oralia Romero MD Sep 19, 2019 11:23
[2019-09-19] MEDS ORDERED: LR 1000ml 1,000 ML IVLG SCH (11:24)
[2019-09-19] MEDS ORDERED: DiphenhydrAMINE 50mg/ml Inj IVP PRN (11:30)
--- NOTE | 2019-09-19 12:32 | NUR ---
RD ASSESSMENT & RECOMMENDATIONS SEE CARE ACTIVITY FOR COMPLETE ASSESSMENT DAILY ESTIMATED NEEDS: Needs based on CA, wound/ 68.6kg abw 25-30 kcals/kg 8750-7595 total kcals 1.25-1.5 g protein/kg 85-103 g total protein 25-30 mL/kg 4703-8225 total fluid mLs NUTRITION DIAGNOSIS: * Swallowing difficulty R/T dysphagia, lethargy as evidenced by previously on NGT feeding, now pending PEG placement, NPO. * Increased kcal/prot needs R/T wound healing and catabolic dx as evidenced by pt admitted w/ open DTI rt buttock wound, dx of metastatic bladder CA. CURRENT TF:NPO FOR PEG PLACEMENT PO DIET RECOMMENDATIONS: IF ORAL GRAT INDICATED -> liberalized regular/ texture per [employer] ENTERAL NUTRITION RECOMMENDATIONS: Glucerna 1.2 @ 65ml/hr x 22 hrs to provide 1430ml, 1716kcal, 86g prot, 1151ml free water * Post PEG placement, initiate Glucerna 1.2 @ 25ml/hr x 6 hrs * Advance 10ml q 4-6 hrs as tolerated to goal rate * Hold TF 1 hr before and after Synthroid med * HOB over 30 degrees/ water flush per MD ADDITIONAL RECOMMENDATIONS: * Calibrated bedscale wt for accurate CBW- w/ added P200 mattress + pump * Monitor lytes, replete as needed (low phos) * Wound healing: Continue vit C+ add Bill 1pkt BID * Monitor Ca level, need for TF adjustment: Ca now normalized . .
--- NOTE | 2019-09-19 13:52 | Pulmonology Progress Note ---
Assessment/Plan Assessment/Plan IMPRESSION: 1. Hypercalcemia. 2. Renal insufficiency, mild. 3. Bladder carcinoma. 4. Right hydronephrosis. 5. Altered mental status. 6. DVT; s/p IVC filter DISCUSSION: status post R nephrostomy replacement Continue IV hydration and steroids for hypercalcemia S/p pamidronate continue NG for nutrition and meds For PEG today discussed with nephrology and GI Hospice eval noted discussed with hospice nurse. Family in agreement with hospice Antelmo Ko M.D. Subjective Interval Events: Plans noted for PEG todsay Constitutional: Reports: no symptoms HEENT: Repors: no symptoms Respiratory: Reports: no symptoms Cardiovascular: Reports: no symptoms Gastrointestinal/Abdominal: Reports: no symptoms Genitourinary: Reports: no symptoms Allergies: Coded Allergies: ASPIRIN (Unverified Allergy, Unknown, 10/31/14) IBUPROFEN (Unverified Allergy, Unknown, 04/10/14) Objective Last 24 Hour Vital Signs Date Time Temp Pulse Resp B/P (MAP) Pulse Ox O2 Delivery O2 Flow Rate FiO2 09/19/19 12:33 112 136/101 09/19/19 12:00 104 09/19/19 12:00 Nasal Cannula 2.0 09/19/19 12:00 99.9 112 20 136/101 (113) 100 09/19/19 08:00 103 09/19/19 08:00 98.0 112 20 137/88 (104) 100 09/19/19 08:00 Nasal Cannula 2.0 09/19/19 05:23 105 137/97 09/19/19 04:00 105 09/19/19 04:00 99.1 103 20 137/97 (110) 100 96 09/19/19 04:00 Nasal Cannula 2.0 09/19/19 00:00 94 09/19/19 00:00 99.1 96 16 143/93 (110) 100 96 09/19/19 00:00 Nasal Cannula 2.0 09/18/19 23:54 102 143/93 09/18/19 20:00 99 09/18/19 20:00 99.0 96 22 140/88 (105) 99 106 2/27/20 20:00 Nasal Cannula 2.0 09/18/19 18:05 103 129/89 09/18/19 16:32 103 09/18/19 16:00 Nasal Cannula 2.0 09/18/19 16:00 99.6 106 22 129/89 (102) 96 106 Intake and Output 09/18/19 09/19/19 19:00 07:00 Intake Total 1720 ml 2050 ml Output Total 1150 ml 1000 ml Balance 570 ml 1050 ml Intake Free Water 200 ml 50 ml IV Total 1050 ml 1840 ml Tube Feeding 470 ml 160 ml Output Urine Total 450 ml 350 ml Drainage Total 650 ml Other 700 ml # Voids 1 4 General Appearance: no acute distress HEENT: normocephalic Respiratory/Chest: chest wall non-tender, lungs clear Cardiovascular: normal peripheral pulses, normal rate Abdomen: normal bowel sounds Microbiology Date/Time Source Procedure Growth Status 09/16/19 20:30 Sputum Induced Gram Stain - Final Complete 09/16/19 20:30 Sputum Induced Sputum Culture - Final NORMAL UPPER RESPIRATORY ALFREDO PRESENT Complete Laboratory Tests 09/19/19 04:20: White Blood Count 26.6*H, Red Blood Count 3.02L, Hemoglobin 9.0L, Hematocrit 26.9L, Mean Corpuscular Volume 89, Mean Corpuscular Hemoglobin 29.7, Mean Corpuscular Hemoglobin Concent 33.4, Red Cell Distribution Width 18.1H, Platelet Count 43L, Mean Platelet Volume 10.2H, Neutrophils (%) (Auto) , Lymphocytes (%) (Auto) , Monocytes (%) (Auto) , Eosinophils (%) (Auto) , Basophils (%) (Auto) , Differential Total Cells Counted 100, Neutrophils % ( Manual) 88H, Lymphocytes % (Manual) 7L, Monocytes % (Manual) 5, Eosinophils % ( Manual) 0, Basophils % (Manual) 0, Band Neutrophils 0, Platelet Estimate DecreasedL, Platelet Morphology Normal, Anisocytosis 1+, Sodium Level 135L, Potassium Level 3.8, Chloride Level 101, Carbon Dioxide Level 23, Anion Gap 11, Blood Urea Nitrogen 21H, Creatinine 0.9, Estimat Glomerular Filtration Rate > 60 , Glucose Level 141H, Calcium Level 9.7, Phosphorus Level 1.5L, Magnesium Level 2.0, Total Bilirubin 0.5, Aspartate Amino Transf (AST/SGOT) 41H, Alanine Aminotransferase (ALT/SGPT) 33, Alkaline Phosphatase 145H, C-Reactive Protein, Quantitative 11.3H, Pro-B-Type Natriuretic Peptide 659H, Total Protein 5.1L, Albumin 1.7L, Globulin 3.4, Albumin/Globulin Ratio 0.5L Current Medications Medications (Trade) Dose Ordered Sig/Andrea Route PRN Reason Start Time Stop Time Status Last Admin Dose Admin Acetaminophen (Tylenol) 650 mg Q4H PRN ORAL Mild Pain (Pain Scale 1-3) 09/19/19 11:30 09/19/19 21:00 Acetaminophen/ Codeine Phosphate (Tylenol #3) 1 tab Q6H PRN ORAL Mild Pain (Pain Scale 1-3) 09/13/19 12:00 09/20/19 11:59 Ascorbic Acid (Vitamin C) 250 mg DAILY ORAL 09/18/19 09:00 10/18/19 08:59 09/19/19 09:01 Brimonidine Tartrate (Alphagan) 1 drop BID BOTH EYES 09/13/19 18:00 10/13/19 17:59 09/19/19 09:01 Calcitonin Comins (Miacalcin) 1 sprays Q24H NASAL 09/13/19 18:00 10/13/19 17:59 09/18/19 17:53 Chlorhexidine Gluconate (Gina-Hex 2%) 1 applic DAILY@2000 TOPIC 09/14/19 20:00 10/14/19 19:59 09/18/19 20:18 Clonidine HCl (Catapres TTS-3) 1 patch QWEEK TDERMAL 09/17/19 14:00 10/17/19 13:59 09/17/19 17:06 Dextrose (Dextrose 50%) 25 ml Q30M PRN IV Hypoglycemia 09/13/19 11:30 10/13/19 11:29 Dextrose (Dextrose 50%) 50 ml Q30M PRN IV Hypoglycemia 09/13/19 11:30 10/13/19 11:29 Dextrose/ Electrolytes 1,000 ml @ 75 mls/hr [id number] IV 09/19/19 11:30 10/19/19 11:29 09/19/19 12:17 Diltiazem HCl (Cardizem) 30 mg EVERY 6 HOURS NG 09/17/19 12:00 10/17/19 11:59 09/19/19 12:33 Diphenhydramine HCl (Benadryl) 25 mg Q15M PRN IVP Itching 09/19/19 11:30 09/19/19 21:00 Gabapentin (Neurontin) 100 mg THREE TIMES A DAY ORAL 09/13/19 13:00 10/13/19 12:59 09/19/19 12:33 Hydralazine HCl (Apresoline) 5 mg Q30M PRN IV SBP>160 OR___/DBP>90 OR___ 09/19/19 11:30 09/19/19 21:00 Hydralazine HCl (Apresoline) 10 mg Q4H PRN IV bp over 165 syst 09/17/19 12:15 10/17/19 12:14 Hydromorphone HCl (Dilaudid) 0.5 mg Q4H PRN IVP pain 4-10 09/16/19 10:45 09/23/19 10:44 09/16/19 11:19 Insulin Aspart (NovoLOG) BEFORE MEALS AND HS SUBQ 09/13/19 11:30 10/13/19 11:29 09/18/19 17:42 Latanoprost (Xalatan) 1 drop BEDTIME BOTH EYES 09/13/19 21:00 10/13/19 20:59 09/18/19 20:18 Levetiracetam 100 ml @ 440.098 mls/hr Q12HR IVPB 09/16/19 21:00 10/16/19 20:59 09/19/19 09:01 Levothyroxine Sodium (Synthroid) 50 mcg DAILY@0630 ORAL 09/14/19 06:30 10/14/19 06:29 09/18/19 06:09 Meropenem 1 gm/ Sodium Chloride 100 ml @ 200 mls/hr Q12H IVPB 09/13/19 16:00 09/20/19 15:59 09/19/19 04:33 Pantoprazole (Protonix) 40 mg EVERY 12 HOURS IVP 09/16/19 21:00 10/16/19 20:59 09/19/19 09:00 Potassium Phosphate 250 ml @ 62.5 mls/hr Q4H IVPB 09/19/19 10:00 09/19/19 17:59 09/19/19 09:55 Vancomycin HCl (Vanco rx to dose) 1 ea DAILY PRN MISC Per rx protocol 09/13/19 15:00 10/13/19 14:59 Vancomycin HCl 1 gm/Sodium Chloride 275 ml @ 183.708 mls/hr Q24H IVPB 09/16/19 17:00 09/21/19 16:59 09/18/19 17:52 Antelmo Ko MD Sep 19, 2019 13:52
[2019-09-19] MEDS ORDERED: Propofol 200mg/20ml IV ONE (14:00)
[2019-09-19] MEDS ORDERED: LR 1000ml ONE (14:00)
[2019-09-19] MEDS ORDERED: Lidocaine 1% MPF 10mg/ml 5ml ONE (14:00)
--- NOTE | 2019-09-19 14:08 | NUR ---
*-* INSURANCE *-* ALL CLINICALS AND REVIEWS HAVE BEEN FAXED TO: [facility] EVAN:BARTOLOME P: [phone] F: [phone]
--- NOTE | 2019-09-19 14:09 | Pre-Procedure Note/Attestation ---
Pre-Procedure Note/Attestation Complete Prior to Procedure Planned Procedure: not applicable Procedure Narrative: egd/peg Indications for Procedure Pre-Operative Diagnosis: dysphagia Attestation I attest that I discussed the nature of the procedure; its benefits; risks and complications; and alternatives (and the risks and benefits of such alternatives ), prior to the procedure, with the patient (or the patient's legal litigation claim representative). I attest that, if there was a reasonable possibility of needing a blood transfusion, the patient (or the patient's legal litigation claim representative) was given the [facility] standardized written summary, pursuant to the Toi Agnes Blood Safety Act ([place] Health and Safety Code # 1645, as amended). I attest that I re-evaluated the patient just prior to the surgery and that there has been no change in the patient's H&P, except as documented below: Edmundo Beltran MD Sep 19, 2019 14:09
--- NOTE | 2019-09-19 14:20 | NUR ---
NURSE NOTES: Transport patient to GI lab for EGD/PEG placement,on hospital monitor-sinus [id number],patient lethargic but arousable,with NGT tube,Right neprostomy-light pink drainage,on oxygen,breathing easy [id number] report given to ARIANE España
[2019-09-19] MEDS ORDERED: NS 500ML IVPB ONE (14:25)
--- NOTE | 2019-09-19 14:35 | Surgery Progress Note ---
Surgery Progress Note Subjective Additional Comments ill appearing alge noted exam unchanged family at bedside Objective Last 24 Hour Vital Signs Date Time Temp Pulse Resp B/P (MAP) Pulse Ox O2 Delivery O2 Flow Rate FiO2 09/19/19 12:33 112 136/101 09/19/19 12:00 104 09/19/19 12:00 Nasal Cannula 2.0 09/19/19 12:00 99.9 112 20 136/101 (113) 100 09/19/19 08:00 103 09/19/19 08:00 98.0 112 20 137/88 (104) 100 09/19/19 08:00 Nasal Cannula 2.0 09/19/19 05:23 105 137/97 09/19/19 04:00 105 09/19/19 04:00 99.1 103 20 137/97 (110) 100 96 09/19/19 04:00 Nasal Cannula 2.0 09/19/19 00:00 94 09/19/19 00:00 99.1 96 16 143/93 (110) 100 96 09/19/19 00:00 Nasal Cannula 2.0 09/18/19 23:54 102 143/93 09/18/19 20:00 99 09/18/19 20:00 99.0 96 22 140/88 (105) 99 106 09/18/19 20:00 Nasal Cannula 2.0 09/18/19 18:05 103 129/89 09/18/19 16:32 103 09/18/19 16:00 Nasal Cannula 2.0 09/18/19 16:00 99.6 106 22 129/89 (102) 96 106 I&O Intake and Output 09/18/19 09/19/19 19:00 07:00 Intake Total 1720 ml 2050 ml Output Total 1150 ml 1000 ml Balance 570 ml 1050 ml Intake Free Water 200 ml 50 ml IV Total 1050 ml 1840 ml Tube Feeding 470 ml 160 ml Output Urine Total 450 ml 350 ml Drainage Total 650 ml Other 700 ml # Voids 1 4 Dressing: other Wound: other Drains: other Cardiovascular: RSR Respiratory: decreased breath sounds Abdomen: soft, present bowel sounds Extremities: no cyanosis Laboratory Tests Test 09/19/19 04:20 White Blood Count 26.6 K/UL (4.8-10.8) *H Red Blood Count 3.02 M/UL (4.70-6.10) L Hemoglobin 9.0 G/DL (14.2-18.0) L Hematocrit 26.9 % (42.0-52.0) L Mean Corpuscular Volume 89 FL (80-99) Mean Corpuscular Hemoglobin 29.7 PG (27.0-31.0) Mean Corpuscular Hemoglobin Concent 33.4 G/DL (32.0-36.0) Red Cell Distribution Width 18.1 % (11.6-14.8) H Platelet Count 43 K/UL (150-450) L Mean Platelet Volume 10.2 FL (6.5-10.1) H Neutrophils (%) (Auto) % (45.0-75.0) Lymphocytes (%) (Auto) % (20.0-45.0) Monocytes (%) (Auto) % (1.0-10.0) Eosinophils (%) (Auto) % (0.0-3.0) Basophils (%) (Auto) % (0.0-2.0) Differential Total Cells Counted 100 Neutrophils % (Manual) 88 % (45-75) H Lymphocytes % (Manual) 7 % (20-45) L Monocytes % (Manual) 5 % (1-10) Eosinophils % (Manual) 0 % (0-3) Basophils % (Manual) 0 % (0-2) Band Neutrophils 0 % (0-8) Platelet Estimate Decreased L Platelet Morphology Normal Anisocytosis 1+ Sodium Level 135 MMOL/L (136-145) L Potassium Level 3.8 MMOL/L (3.5-5.1) Chloride Level 101 MMOL/L (98-107) Carbon Dioxide Level 23 MMOL/L (21-32) Anion Gap 11 mmol/L (5-15) Blood Urea Nitrogen 21 mg/dL (7-18) H Creatinine 0.9 MG/DL (0.55-1.30) Estimat Glomerular Filtration Rate > 60 mL/min (>60) Glucose Level 141 MG/DL (74-106) H Calcium Level 9.7 MG/DL (8.5-10.1) Phosphorus Level 1.5 MG/DL (2.5-4.9) L Magnesium Level 2.0 MG/DL (1.8-2.4) Total Bilirubin 0.5 MG/DL (0.2-1.0) Aspartate Amino Transf (AST/SGOT) 41 U/L (15-37) H Alanine Aminotransferase (ALT/SGPT) 33 U/L (12-78) Alkaline Phosphatase 145 U/L (46-116) H C-Reactive Protein, Quantitative 11.3 mg/dL (0.00-0.90) H Pro-B-Type Natriuretic Peptide 659 pg/mL (0-125) H Total Protein 5.1 G/DL (6.4-8.2) L Albumin 1.7 G/DL (3.4-5.0) L Globulin 3.4 g/dL Albumin/Globulin Ratio 0.5 (1.0-2.7) L Plan Problems: (1) Elevated WBC count Assessment & Plan: Patient was significant leukocytosis poss related infectious process versus cancer. Hematology input appreciated. Antibiotics per infectious disease. No acute surgical intervention indicated recommended. Follow the recommendations (2) Bladder mass (3) GI (gastrointestinal bleed) Assessment & Plan: Findings: Interim placement of a nasogastric tube, tip of which projects at the level gastric fundus, proximal sidehole at or just beyond the gastroesophageal junction. Interim placement of an inferior vena cava filter. Bowel gas pattern is unremarkable. There is a drainage catheter in the right upper quadrant again demonstrated Impression: Borderline position of nasogastric tube, proximal sidehole at or just beyond the expected level gastric esophageal junction. Slight advancement may be prudent. This was discussed by phone with patient's nurse Daria at the time of interpretation Interim inferior vena cava filter placement cont with tube feeds will need PEG discussed with family (4) Hypercalcemia (5) Encephalopathy (6) LAVONNE (acute kidney injury) (7) Multiple lesions of metastatic malignancy Assessment & Plan: 1. Extensive left leg deep venous thrombosis involving the common femoral vein. 2. History of GI bleeding, metastatic tumor, bladder cancer, nephrostomy tube, encephalopathy, and renal insufficiency. PLAN AND RECOMMENDATION: The patient will benefit from inferior vena caval filter. Leg elevation. Decubitus precautions. Medical, Infectious Disease, and Oncology optimization in progress. Intraoperative images demonstrate inferior venacavogram and placement of an inferior vena cava filter (8) Bladder pain (9) Sinusitis (10) Tobacco abuse (11) Chest pain (12) Chest pain (13) High calcium levels (14) Cervical radiculopathy (15) Glaucoma (increased eye pressure) (16) Abdominal infection (17) Tobacco abuse counseling (18) Deep tissue injury Assessment & Plan: Patient presented with open deep tissue injury on sacral region. states that she identified it at home but was unsure that it was open. It was noted to be open during hospitalization total area of deep tissue injury approximately 9 cm x 6 mm with an open area in the midportion. Will need to continue with aggressive local treatment wound care and decubitus precautions as patient is high risk for declining condition. Patient is currently bedbound and unable to move on his own and participate in examination and turning. Thera honey placed followed by foam dressing. Turn patient every 2 hours. Nutritional optimization. Air mattress ordered. Discussed care plan with in detail at the bedside. We will continue to follow with recommendations. Pt presented on admission with open DTPI R buttocks. Base of wound maroon and fluctuant (L)11cm x (W)9.5cm. Within base of injury is an open wound which has 75% slough. NO odor noted. Small amt serous exudate noted. No evidence of skin breakdown to Sacrum. Both heels are firm and blanchable. Tx.Plan: Cleanse R buttocks wound with Saline. Apply Therahoney. Apply Moisture Barrier Paste to surrounding indurated areas. Cover with Optifoam drsg Daily and prn. Apply Moisture Barrier Paste to Sacrum. Cover with Optifoam drsg. Change every 3 days and prn. Apply Cavilon Skin Barrier to both heels. Cover each heel with Optifoam drsg. Change every 7 days and prn. Reposition at least every 2hours or as tolerated. Off-load heels with Pillow. APM/LORNE Mattress overlay. Urbano Harrell Sep 19, 2019 14:35
--- NOTE | 2019-09-19 14:37 | Endoscopy Procedure Note ---
Endoscopy Procedure Note General Indication for Procedure: dysphagia Procedures Performed: EGD, PEG Operative Findings/Diagnosis: same Specimen: none Pt Tolerated Procedure Well: Yes Estimated Blood Loss: none Anesthesia Anesthesiologist: yvonne Anesthesia: MAC Inserted Devices Implant(s) used?: No GI Core Measures 50 yrs or older w/o bx or poly: Not Applicable 10yrs. F/U recommended: Not Applicable Edmundo Beltran MD Sep 19, 2019 14:37
--- NOTE | 2019-09-19 14:46 | Immediate Post-Op Evaluation ---
Immediate Post-Op Evalulation Immediate Post-Op Evalulation Procedure: IVC filter placement Date of Evaluation: Sep 19, 2019 Time of Evaluation: 14:47 IV Fluids: 200 Blood Products: 0 Estimated Blood Loss: 0 Urinary Output: 0 Blood Pressure Systolic: 118 Blood Pressure Diastolic: 74 Pulse Rate: 111 Respiratory Rate: 17 O2 Sat by Pulse Oximetry: 97 Temperature (Fahrenheit): 98.6 Pain Score (1-10): 0 Nausea: No Vomiting: No Complications 0 Patient Status: awake, reacts, patent, none Hydration Status: adequate Drug: on abx on floor Given Within 1 Hr of Incision: Yes Oralia Romero MD Sep 19, 2019 14:46
--- NOTE | 2019-09-19 14:47 | Immediate Post-Op Evaluation ---
Immediate Post-Op Evalulation Immediate Post-Op Evalulation Procedure: IVC filter placement Date of Evaluation: Sep 19, 2019 Nausea: No Vomiting: No Complications 0 Patient Status: no response - baseline, patent, none Hydration Status: adequate Drug: On abx on floor Given Within 1 Hr of Incision: Yes Oralia Romero MD Sep 19, 2019 14:47
--- NOTE | 2019-09-19 14:49 | 48 Hour Post Anesthesia Eval ---
Post Anesthesia Evaluation Procedure: IVC filter placement Date of Evaluation: Sep 19, 2019 Airway: patent Nausea: No Vomiting: No Pain Intensity: 0 Hydration Status: adequate Cardiopulmonary Status: at baseline Mental Status/LOC: patient returned to baseline Post-Anesthesia Complications: 0 Follow-up care needed: N/A - further care as per primary team Oralia Romero MD Sep 19, 2019 14:48
--- NOTE | 2019-09-19 15:20 | NUR ---
NURSE NOTES: received patient from GI lab. VSS. Will continue to monitor.
--- NOTE | 2019-09-19 16:34 | NUR ---
CASE MANAGEMENT: REVIEW 09/19/2019 SI:SEPSIS. PNA. T 97.5 HR 108 RR 20 B/P 124/81 SATS 97% ON 3L/NC LABS: WBC 26.6 NA 135 BUN 21 GLU 141 PHOS 1.5 AST 41 ALP 145 CRP 11.3 BNP 659 IS:IVF @ 75 mL/HR CARDIZEM NG Q6H INSULIN ASPART SUBQ AC/HS MEROPENEM IV Q12H KEPPRA IV Q12H MIACALCIN NASAL Q24H VANCO IV Q24H K PHOS IV Q4H GABAPENTIN PO TID SDU PLAN OF CARE: Indication for Procedure: dysphagia Procedures Performed: EGD, PEG Operative Findings/Diagnosis: same
--- NOTE | 2019-09-19 16:44 | Infectious Diseases Prog Note ---
Assessment/Plan Assessment/Plan ASSESSMENT AND PLAN: 1. 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 Hypercalcemia. 3. IV fluids. 4. Hyperuricemia. 5. Hypothyroidism. 6. Hypertension. 7. Blood pressure per primary team for hypertension. 8. History of bladder cancer. 9. Hydroureteronephrosis. 10. Malfunction right-sided nephrostomy tube level neurology follow-up. 11. Nausea, vomiting and rule out gastrointestinal bleed. 12. Glaucoma. 13. Anemia. 14. hx esbl uti 15. Allergies to aspirin and ibuprofen. 16. Social history is negative. 17. Family history is noncontributory. 18. MAR is noted. 19. Case was discussed with RN. Subjective Constitutional: Reports: fatigue; Denies: fever HEENT: Reports: congestion - mild Respiratory: Reports: shortness of breath - mild Gastrointestinal/Abdominal: Denies: nausea, diarrhea Genitourinary: Reports: other - + salgado Neurologic: Reports: weakness, other - opens eyes Psychiatric: Reports: other - NA Skin: Denies: rash Hematologic: Denies: bleeding Musculoskeletal: Reports: other - NA Allergies: Coded Allergies: ASPIRIN (Unverified Allergy, Unknown, 10/31/14) IBUPROFEN (Unverified Allergy, Unknown, 04/10/14) Objective Vital Signs Last 24 Hour Vital Signs Date Time Temp Pulse Resp B/P (MAP) Pulse Ox O2 Delivery O2 Flow Rate FiO2 09/19/19 15:30 97.5 108 20 124/81 97 Nasal Cannula 3 09/19/19 15:20 110 19 119/83 96 Nasal Cannula 3 09/19/19 15:10 112 16 121/81 98 Nasal Cannula 3 09/19/19 15:00 113 18 120/79 95 Nasal Cannula 3 09/19/19 14:50 107 20 125/82 96 Nasal Cannula 3 09/19/19 14:46 111 17 97 09/19/19 14:45 98.6 111 17 118/74 97 Nasal Cannula 3 09/19/19 12:33 112 136/101 09/19/19 12:00 104 09/19/19 12:00 Nasal Cannula 2.0 09/19/19 12:00 99.9 112 20 136/101 (113) 100 09/19/19 08:00 103 09/19/19 08:00 98.0 112 20 137/88 (104) 100 09/19/19 08:00 Nasal Cannula 2.0 09/19/19 05:23 105 137/97 09/19/19 04:00 105 09/19/19 04:00 99.1 103 20 137/97 (110) 100 96 09/19/19 04:00 Nasal Cannula 2.0 09/19/19 00:00 94 09/19/19 00:00 99.1 96 16 143/93 (110) 100 96 09/19/19 00:00 Nasal Cannula 2.0 09/18/19 23:54 102 143/93 09/18/19 20:00 99 09/18/19 20:00 99.0 96 22 140/88 (105) 99 106 09/18/19 20:00 Nasal Cannula 2.0 09/18/19 18:05 103 129/89 Height (Feet): 5 Height (Inches): 3.00 Weight (Pounds): 206 General Appearance: no acute distress HEENT: normocephalic, atraumatic, anicteric, supple Respiratory/Chest: crackles/rales, rhonchi - bilaterally Cardiovascular: normal rate, regular rhythm, no gallop/murmur, no JVD Abdomen: normal bowel sounds, soft, non tender, no organomegaly, non distended Genitourinary: other - + salgado - urine slt cloudy Extremities: no cyanosis Skin: no rash 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 Lobular soft tissue nodular thickening of the posterior bladder is likely neoplastic. 2. Multiple posterior urinary bladder calculi are new since the previous exam. 3. Interval increase in size of bilateral adrenal lesions likely representing metastases. 4. Nonspecific 1.5 cm low-density lesion at the dome of the liver. A metastatic lesion is not excluded. 5. Interval placement of right-sided nephrostomy catheter. Chest x-ray - 09/15/19 - FINDINGS: Lungs: Left upper lobe consolidation. Remainder the lungs appear clear. Pleural space: Unremarkable. The costophrenic angles are sharp. No visible pneumothorax. Heart: Unremarkable. No cardiomegaly. Mediastinum: Unremarkable. Bones/joints: Unremarkable. Soft tissues: Surgical clips overlying the left paracentral neck soft tissues. Tubes, lines and devices: Telemetry leads overlie the thorax. IMPRESSION: Left upper lobe consolidation, concerning for pneumonia. Recommend follow-up to resolution to exclude underlying mass. Consider follow-up evaluation with chest CT. Chest x-ray - 09/16/28 - Procedure: XRAY Chest 1v Indication: Dyspnea Comparison: 09/14/2019 A single view chest radiograph was obtained. Findings: Vague confluent density in the left upper lung field again noted. Surgical clips the left lung apex again noted. Heart size is stable. Minimal left basal atelectasis noted. IMPRESSION: No significant change from the prior exam. Left upper lobe density could be consolidation, mass and/or postsurgical changes. Microbiology Date/Time Source Procedure Growth Status 09/16/19 04:50 Blood Blood Culture - Preliminary NO GROWTH AFTER 48 HOURS Resulted 09/16/19 20:30 Sputum Induced Gram Stain - Final Complete 09/16/19 20:30 Sputum Induced Sputum Culture - Final NORMAL UPPER RESPIRATORY ALFREDO PRESENT Complete Microbiology Date/Time Source Procedure Growth Status 09/16/19 20:30 Sputum Induced Gram Stain - Final Complete 09/16/19 20:30 Sputum Induced Sputum Culture - Final NORMAL UPPER RESPIRATORY ALFREDO PRESENT Complete Laboratory Tests Test 09/19/19 04:20 09/19/19 16:00 White Blood Count 26.6 K/UL (4.8-10.8) *H Red Blood Count 3.02 M/UL (4.70-6.10) L Hemoglobin 9.0 G/DL (14.2-18.0) L Hematocrit 26.9 % (42.0-52.0) L Mean Corpuscular Volume 89 FL (80-99) Mean Corpuscular Hemoglobin 29.7 PG (27.0-31.0) Mean Corpuscular Hemoglobin Concent 33.4 G/DL (32.0-36.0) Red Cell Distribution Width 18.1 % (11.6-14.8) H Platelet Count 43 K/UL (150-450) L Mean Platelet Volume 10.2 FL (6.5-10.1) H Neutrophils (%) (Auto) % (45.0-75.0) Lymphocytes (%) (Auto) % (20.0-45.0) Monocytes (%) (Auto) % (1.0-10.0) Eosinophils (%) (Auto) % (0.0-3.0) Basophils (%) (Auto) % (0.0-2.0) Differential Total Cells Counted 100 Neutrophils % (Manual) 88 % (45-75) H Lymphocytes % (Manual) 7 % (20-45) L Monocytes % (Manual) 5 % (1-10) Eosinophils % (Manual) 0 % (0-3) Basophils % (Manual) 0 % (0-2) Band Neutrophils 0 % (0-8) Platelet Estimate Decreased L Platelet Morphology Normal Anisocytosis 1+ Sodium Level 135 MMOL/L (136-145) L Potassium Level 3.8 MMOL/L (3.5-5.1) Chloride Level 101 MMOL/L (98-107) Carbon Dioxide Level 23 MMOL/L (21-32) Anion Gap 11 mmol/L (5-15) Blood Urea Nitrogen 21 mg/dL (7-18) H Creatinine 0.9 MG/DL (0.55-1.30) Estimat Glomerular Filtration Rate > 60 mL/min (>60) Glucose Level 141 MG/DL (74-106) H Calcium Level 9.7 MG/DL (8.5-10.1) Phosphorus Level 1.5 MG/DL (2.5-4.9) L Magnesium Level 2.0 MG/DL (1.8-2.4) Total Bilirubin 0.5 MG/DL (0.2-1.0) Aspartate Amino Transf (AST/SGOT) 41 U/L (15-37) H Alanine Aminotransferase (ALT/SGPT) 33 U/L (12-78) Alkaline Phosphatase 145 U/L (46-116) H C-Reactive Protein, Quantitative 11.3 mg/dL (0.00-0.90) H Pro-B-Type Natriuretic Peptide 659 pg/mL (0-125) H Total Protein 5.1 G/DL (6.4-8.2) L Albumin 1.7 G/DL (3.4-5.0) L Globulin 3.4 g/dL Albumin/Globulin Ratio 0.5 (1.0-2.7) L Vancomycin Level Trough Pending Current Medications Medications (Trade) Dose Ordered Sig/Andrea Route PRN Reason Start Time Stop Time Status Last Admin Dose Admin Acetaminophen (Tylenol) 650 mg Q4H PRN ORAL Mild Pain (Pain Scale 1-3) 09/19/19 11:30 09/19/19 21:00 Acetaminophen/ Codeine Phosphate (Tylenol #3) 1 tab Q6H PRN ORAL Mild Pain (Pain Scale 1-3) 09/13/19 12:00 09/20/19 11:59 Ascorbic Acid (Vitamin C) 250 mg DAILY ORAL 09/18/19 09:00 10/18/19 08:59 09/19/19 09:01 Brimonidine Tartrate (Alphagan) 1 drop BID BOTH EYES 09/13/19 18:00 10/13/19 17:59 09/19/19 09:01 Calcitonin [place] (Miacalcin) 1 sprays Q24H NASAL 09/13/19 18:00 10/13/19 17:59 09/18/19 17:53 Chlorhexidine Gluconate (Gina-Hex 2%) 1 applic DAILY@2000 TOPIC 09/14/19 20:00 10/14/19 19:59 09/18/19 20:18 Clonidine HCl (Catapres TTS-3) 1 patch QWEEK TDERMAL 09/17/19 14:00 10/17/19 13:59 09/17/19 17:06 Dextrose (Dextrose 50%) 25 ml Q30M PRN IV Hypoglycemia 09/13/19 11:30 10/13/19 11:29 Dextrose (Dextrose 50%) 50 ml Q30M PRN IV Hypoglycemia 09/13/19 11:30 10/13/19 11:29 Dextrose/ Electrolytes 1,000 ml @ 75 mls/hr [id number] IV 09/19/19 11:30 10/19/19 11:29 09/19/19 12:17 Diltiazem HCl (Cardizem) 30 mg EVERY 6 HOURS NG 09/17/19 12:00 10/17/19 11:59 09/19/19 12:33 Diphenhydramine HCl (Benadryl) 25 mg Q15M PRN IVP Itching 09/19/19 11:30 09/19/19 21:00 Gabapentin (Neurontin) 100 mg THREE TIMES A DAY ORAL 09/13/19 13:00 10/13/19 12:59 09/19/19 12:33 Hydralazine HCl (Apresoline) 5 mg Q30M PRN IV SBP>160 OR___/DBP>90 OR___ 09/19/19 11:30 09/19/19 21:00 Hydralazine HCl (Apresoline) 10 mg Q4H PRN IV bp over 165 syst 09/17/19 12:15 10/17/19 12:14 Hydromorphone HCl (Dilaudid) 0.5 mg Q4H PRN IVP pain 4-10 09/16/19 10:45 09/23/19 10:44 09/16/19 11:19 Insulin Aspart (NovoLOG) BEFORE MEALS AND HS SUBQ 09/13/19 11:30 10/13/19 11:29 09/18/19 17:42 Latanoprost (Xalatan) 1 drop BEDTIME BOTH EYES 09/13/19 21:00 10/13/19 20:59 09/18/19 20:18 Levetiracetam 100 ml @ 440.098 mls/hr Q12HR IVPB 09/16/19 21:00 10/16/19 20:59 09/19/19 09:01 Levothyroxine Sodium (Synthroid) 50 mcg DAILY@0630 ORAL 09/14/19 06:30 10/14/19 06:29 09/18/19 06:09 Meropenem 1 gm/ Sodium Chloride 100 ml @ 200 mls/hr Q12H IVPB 09/13/19 16:00 09/20/19 15:59 09/19/19 04:33 Pantoprazole (Protonix) 40 mg EVERY 12 HOURS IVP 09/16/19 21:00 10/16/19 20:59 09/19/19 09:00 Potassium Phosphate 250 ml @ 62.5 mls/hr Q4H IVPB 09/19/19 10:00 09/19/19 17:59 09/19/19 15:31 Vancomycin HCl (Vanco rx to dose) 1 ea DAILY PRN MISC Per rx protocol 09/13/19 15:00 10/13/19 14:59 Vancomycin HCl 1 gm/Sodium Chloride 275 ml @ 183.708 mls/hr Q24H IVPB 09/16/19 17:00 09/21/19 16:59 09/18/19 17:52 Malathi Vance MD Sep 19, 2019 16:44
[2019-09-19] MEDS: Vancomycin 1 GM in NS 275 ML IVPB SCH (17:30)
--- NOTE | 2019-09-19 19:20 | NUR ---
HAND-OFF: Report given to ARIANE Joseph. Patient in stable condition.
--- NOTE | 2019-09-19 19:21 | NUR ---
NURSE NOTES: received pt from Anabella RN., pt is resting on the bed and AO x1. no report from previous nurse regarding pt's dysrhythmia. Pt's Gtube is intact, clean, and patent and Glucerna 1.2 at 10cc/hr. right upper arm midline is intact, clean, and patent. side rails are padded. no SOB noted from pt with 2L of NC. O2sat is at 98%. call light within reach. bed at the lowest position, alarmed, and locked. will continue to monitor pt with plan of care.
--- NOTE | 2019-09-19 19:30 | Procedure Note ---
DATE OF PROCEDURE: 09/19/2019 SURGEON: Edmundo Beltran M.D. PROCEDURE: Upper endoscopy with PEG placement. ANESTHESIA: Per Dr. Guerrero. INSTRUMENT: Olympus adult flexible upper endoscope. INDICATION: Dysphagia. REASON FOR PROCEDURE: The procedure, risks, benefits, and possible consequences, including hemorrhage, aspiration, perforation and infection, and alternative treatments, were explained to the patient/legal guardian by Dr. Edmundo Beltran and the patient/legal guardian understood and accepted these risks. DESCRIPTION OF PROCEDURE: After informed consent was obtained and the patient was adequately sedated, Olympus upper endoscope was advanced from mouth into the second portion of the duodenum and retroflexion was performed in the stomach. Then under endoscopic guidance under sterile condition, a 20-[place]zech pull type of G-tube was successfully placed in the epigastric area. The distance from the tip of the tube to skin was about 2.5 cm in size. The patient tolerated procedure very well without any complication. SUMMARY OF FINDINGS: Status post successful PEG placement. RECOMMENDATIONS: 1. Abdominal binder. 2. Elevate the head of the bed at all times. 3. G-tube flush. 4. G-tube care. 5. Start tube feeding later today . I want to thank, Dr. Ko, for this kind referral. Edmundo Beltran M.D. DR: Jarod JOB#: [id number] CC: Antelmo Ko M.D.; Fax#: [phone]
[2019-09-19] MEDS: Dyna-Hex 2% Top Sol 2oz TOPIC SCH (20:19)
[2019-09-19] MEDS: Latanoprost 0.005% Opth 2.5ml Soln BOTH EYES SCH (20:21)
[2019-09-20] VITALS: BP 107/82
--- NOTE | 2019-09-20 01:50 | NUR ---
NURSE NOTES: provided new gown, new pillow cases, and oral care. repositioned pt Q2hrs. changed Gtube dressing and no infection or leaking noted. no SOB noted at this moment. call light within reach.
[2019-09-20 04:00] VITALS: BP 118/83
[2019-09-20 05:48] LABS: HEMATOCRIT 27.7 % (42.0-52.0); HEMOGLOBIN 9.1 G/DL (14.2-18.0); MEAN CORPUSCULAR VOLUME 90 FL (80-99); PLATELET COUNT 41 K/UL (150-450); RED BLOOD COUNT 3.08 M/UL (4.70-6.10); RED CELL DISTRIBUTION WIDTH 17.7 % (11.6-14.8)
[2019-09-20 05:53] LABS: WHITE BLOOD COUNT 25.4 K/UL (4.8-10.8)
[2019-09-20] MEDS: dilTIAZem HCl 30mg tab NG SCH ×4 (05:58→21:17)
[2019-09-20] MEDS: NovoLOG Insulin Flexpen SUBQ SCH ×4 (05:58→20:25)
[2019-09-20 06:33] LABS: ALANINE AMINOTRANSFERASE 24 U/L (12-78); ALBUMIN 1.7 G/DL (3.4-5.0); ALBUMIN/GLOBULIN RATIO 0.5 (1.0-2.7); ALKALINE PHOSPHATASE 132 U/L (46-116); ANION GAP 5 mmol/L (5-15); ASPARTATE AMINO TRANSFERASE 37 U/L (15-37); BILIRUBIN,TOTAL 0.7 MG/DL (0.2-1.0); BLOOD UREA NITROGEN 12 mg/dL (7-18); CALCIUM 8.7 MG/DL (8.5-10.1); CARBON DIOXIDE 28 MMOL/L (21-32); CHLORIDE 103 MMOL/L (98-107); CREATININE 0.9 MG/DL (0.55-1.30); PHOSPHORUS 2.6 MG/DL (2.5-4.9); POTASSIUM 4.5 MMOL/L (3.5-5.1); SODIUM 136 MMOL/L (136-145)
--- NOTE | 2019-09-20 07:20 | NUR ---
HAND-OFF: Report given to Anabella THAKKAR. pt remains stable condition, no SOB noted.
--- NOTE | 2019-09-20 07:25 | NUR ---
NURSE NOTES: Received patient from ARIANE Do. Patient is aox1, and confused. 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 Patient is on NC 2L as ordered and tolerating well. Patient has GTube running Glucerna 1.2 at 20ml/ hr goal is 60ml/hr. Patient has a NAVEEN Midline running D5NS with 20mEq of KCL at 75ml/hr patent and flushing properly. NAVEEN midline dressing clean and intact. Patient has right side nephrostomy tube and draining properly. Patient has a condom cath and draining dark red urine.. Bed is in lowest position, alarmed and locked. Optimal HOB placement and Side Rails x3. Call light is within reach. Will continue to monitor.
[2019-09-20 08:00] VITALS: BP 123/84
--- NOTE | 2019-09-20 08:12 | Hematology/Onc Progress Note ---
Assessment/Plan Assessment/Plan Assessment and Recs # Occlusive thrombus in the left common femoral vein, proximal left superficial femoral vein, and distal left superficial femoral vein. No deep venous thrombosis identified in the right lower extremity. --> given bleed, drop in platelets, have ordered ivcf placement --> s/p ivcf placement 09/[address] Gopi Bernal --> will likely still require anticoag if labs improved # Bladder cancer with metastatic disease --> has adrenal and liver mets --> will need outpatient f/u --> will codey Rn today again to obtain further hx # Thrombocytopenia - potential causes multifactorial, but in this case likely due to consumption from infection, also DIC --> Hep panel and HIV both negative --> US abd to evaluate for cirrhosis and hsm - ct reviewed, negative for both --> Peripheral smear ordered to evaluate for blasts /schistocytes --> abx and other meds have been reviewed --> ok for ppx if plt >50k w/ either heparin or lovenox --> Transfuse if Plt < 20k and fever, or if Plt < 10k without fever --> plt trend 104-->62k-->38k # Hypercalcemia due to malignancy --> calcitonin and aredia HAVE been given --> ivf hydration --> Ca++ 13-->12-->13 # Leukocytosis with underlying infection --> trend smear --> wbc trend 30-->24-->26-->29-->28.5-->25.4 --> as per id recs --> abx: vanc/farnaz # LAVONNE as per renal --> s/p nephrosotmy tube placement --> cr 1.5-->1.7->1.2 # Encephalopathy --> per neuro Appreciate consultation and codey Rn Subjective Allergies: Coded Allergies: ASPIRIN (Unverified Allergy, Unknown, 10/31/14) IBUPROFEN (Unverified Allergy, Unknown, 04/10/14) Subjective 09/15: Ca++ remains high today 13.2, have ordered for pamidronate, no bleeding, cbc/bmp pending 09/16: wbc 24.3, on vanc/farnaz, hospice eval and right nephro tube replacement for today 09/17: no bleeding, labs reviewed, Ca remains elevated, will [facility] pharmacy for other potential interventions 09/18: sdu, no overnight events, peg recommended by speech therapy, nc 09/19: no acute events, awake, peg and egd planned for today, no sob Objective Objective Current Medications Medications (Trade) Dose Ordered Sig/Andrea Route PRN Reason Start Time Stop Time Status Last Admin Dose Admin Acetaminophen/ Codeine Phosphate (Tylenol #3) 1 tab Q6H PRN ORAL Mild Pain (Pain Scale 1-3) 09/13/19 12:00 09/20/19 11:59 Ascorbic Acid (Vitamin C) 250 mg DAILY ORAL 09/18/19 09:00 10/18/19 08:59 09/19/19 09:01 Brimonidine Tartrate (Alphagan) 1 drop BID BOTH EYES 09/13/19 18:00 10/13/19 17:59 09/19/19 17:31 Calcitonin [place] (Miacalcin) 1 sprays Q24H NASAL 09/13/19 18:00 10/13/19 17:59 09/19/19 17:31 Chlorhexidine Gluconate (Gina-Hex 2%) 1 applic DAILY@2000 TOPIC 09/14/19 20:00 10/14/19 19:59 09/19/19 20:19 Dextrose (Dextrose 50%) 25 ml Q30M PRN IV Hypoglycemia 09/13/19 11:30 10/13/19 11:29 Dextrose (Dextrose 50%) 50 ml Q30M PRN IV Hypoglycemia 09/13/19 11:30 10/13/19 11:29 Dextrose/ Electrolytes 1,000 ml @ 75 mls/hr [id number] IV 09/19/19 11:30 10/19/19 11:29 09/20/19 01:41 Diltiazem HCl (Cardizem) 30 mg EVERY 6 HOURS NG 09/17/19 12:00 10/17/19 11:59 09/19/19 17:27 Gabapentin (Neurontin) 100 mg THREE TIMES A DAY ORAL 09/13/19 13:00 10/13/19 12:59 09/19/19 17:27 Hydralazine HCl (Apresoline) 10 mg Q4H PRN IV bp over 165 syst 09/17/19 12:15 10/17/19 12:14 Hydromorphone HCl (Dilaudid) 0.5 mg Q4H PRN IVP pain 4-10 09/16/19 10:45 09/23/19 10:44 09/16/19 11:19 Insulin Aspart (NovoLOG) BEFORE MEALS AND HS SUBQ 09/13/19 11:30 10/13/19 11:29 09/18/19 17:42 Latanoprost (Xalatan) 1 drop BEDTIME BOTH EYES 09/13/19 21:00 10/13/19 20:59 09/19/19 20:21 Levetiracetam 100 ml @ 440.098 mls/hr Q12HR IVPB 09/16/19 21:00 10/16/19 20:59 09/19/19 20:18 Levothyroxine Sodium (Synthroid) 50 mcg DAILY@0630 ORAL 09/14/19 06:30 10/14/19 06:29 09/20/19 05:58 Meropenem 1 gm/ Sodium Chloride 100 ml @ 200 mls/hr Q12H IVPB 09/20/19 04:00 09/27/19 03:59 09/20/19 04:22 Pantoprazole (Protonix) 40 mg EVERY 12 HOURS IVP 09/16/19 21:00 10/16/19 20:59 09/19/19 20:19 Vancomycin HCl (Vanco rx to dose) 1 ea DAILY PRN MISC Per rx protocol 09/19/19 17:00 10/19/19 16:59 Vancomycin HCl 1 gm/Sodium Chloride 275 ml @ 183.708 mls/hr Q24H IVPB 09/19/19 17:00 09/24/19 16:59 09/19/19 17:30 Last 24 Hour Vital Signs Date Time Temp Pulse Resp B/P (MAP) Pulse Ox O2 Delivery O2 Flow Rate FiO2 09/20/19 05:58 101 118/83 09/20/19 04:46 101 09/20/19 04:00 Nasal Cannula 2.0 09/20/19 04:00 97.3 104 20 118/83 (95) 99 09/20/19 00:00 99.0 108 20 107/82 (90) 99 09/20/19 00:00 Nasal Cannula 2.0 09/20/19 00:00 80 100/61 09/19/19 23:36 107 09/19/19 20:00 Nasal Cannula 2.0 09/19/19 19:59 97.0 109 20 122/73 (89) 100 09/19/19 19:57 108 09/19/19 17:27 108 124/81 09/19/19 16:00 Nasal Cannula 2.0 09/19/19 16:00 110 09/19/19 15:30 97.5 108 20 124/81 97 Nasal Cannula 3 09/19/19 15:20 110 19 119/83 96 Nasal Cannula 3 09/19/19 15:10 112 16 121/81 98 Nasal Cannula 3 09/19/19 15:00 113 18 120/79 95 Nasal Cannula 3 09/19/19 14:50 107 20 125/82 96 Nasal Cannula 3 09/19/19 14:46 111 17 97 09/19/19 14:45 98.6 111 17 118/74 97 Nasal Cannula 3 09/19/19 12:33 112 136/101 09/19/19 12:00 104 09/19/19 12:00 Nasal Cannula 2.0 09/19/19 12:00 99.9 112 20 136/101 (113) 100 09/19/19 08:00 103 09/19/19 08:00 98.0 112 20 137/88 (104) 100 09/19/19 08:00 Nasal Cannula 2.0 09/19/19 05:23 105 137/97 09/19/19 04:00 105 09/19/19 04:00 99.1 103 20 137/97 (110) 100 96 09/19/19 04:00 Nasal Cannula 2.0 09/19/19 00:00 94 09/19/19 00:00 99.1 96 16 143/93 (110) 100 96 09/19/19 00:00 Nasal Cannula 2.0 09/18/19 23:54 102 143/93 09/18/19 20:00 99 09/18/19 20:00 99.0 96 22 140/88 (105) 99 106 09/18/19 20:00 Nasal Cannula 2.0 09/18/19 18:05 103 129/89 09/18/19 16:32 103 09/18/19 16:00 Nasal Cannula 2.0 09/18/19 16:00 99.6 106 22 129/89 (102) 96 106 09/18/19 12:49 101 128/92 09/18/19 12:00 98.1 101 22 128/92 (104) 99 101 09/18/19 12:00 105 09/18/19 12:00 Nasal Cannula 2.0 09/18/19 08:46 97.7 106 22 126/84 (98) 100 106 Intake and Output 09/19/19 09/20/19 19:00 07:00 Intake Total 515 ml 1133.75 ml Output Total 700 ml 950 ml Balance -185 ml 183.75 ml Intake Free Water 20 ml IV Total 475 ml 973.75 ml Tube Feeding 20 ml 160 ml Output Urine Total 150 ml Drainage Total 700 ml 800 ml # Voids 1 Labs Test 09/18/19 03:35 09/19/19 04:20 09/19/19 16:00 09/20/19 05:27 White Blood Count 28.5 K/UL (4.8-10.8) 26.6 K/UL (4.8-10.8) 25.4 K/UL (4.8-10.8) Red Blood Count 3.37 M/UL (4.70-6.10) 3.02 M/UL (4.70-6.10) 3.08 M/UL (4.70-6.10) Hemoglobin 10.1 G/DL (14.2-18.0) 9.0 G/DL (14.2-18.0) 9.1 G/DL (14.2-18.0) Hematocrit 30.2 % (42.0-52.0) 26.9 % (42.0-52.0) 27.7 % (42.0-52.0) Mean Corpuscular Volume 90 FL (80-99) 89 FL (80-99) 90 FL (80-99) Mean Corpuscular Hemoglobin 30.0 PG (27.0-31.0) 29.7 PG (27.0-31.0) 29.6 PG (27.0-31.0) Mean Corpuscular Hemoglobin Concent 33.5 G/DL (32.0-36.0) 33.4 G/DL (32.0-36.0) 32.9 G/DL (32.0-36.0) Red Cell Distribution Width 18.3 % (11.6-14.8) 18.1 % (11.6-14.8) 17.7 % (11.6-14.8) Platelet Count 40 K/UL (150-450) 43 K/UL (150-450) 41 K/UL (150-450) Mean Platelet Volume 12.2 FL (6.5-10.1) 10.2 FL (6.5-10.1) 7.9 FL (6.5-10.1) Neutrophils (%) (Auto) % (45.0-75.0) % (45.0-75.0) % (45.0-75.0) Lymphocytes (%) (Auto) % (20.0-45.0) % (20.0-45.0) % (20.0-45.0) Monocytes (%) (Auto) % (1.0-10.0) % (1.0-10.0) % (1.0-10.0) Eosinophils (%) (Auto) % (0.0-3.0) % (0.0-3.0) % (0.0-3.0) Basophils (%) (Auto) % (0.0-2.0) % (0.0-2.0) % (0.0-2.0) Differential Total Cells Counted 100 100 Neutrophils % (Manual) 91 % (45-75) 88 % (45-75) Lymphocytes % (Manual) 4 % (20-45) 7 % (20-45) Monocytes % (Manual) 5 % (1-10) 5 % (1-10) Eosinophils % (Manual) 0 % (0-3) 0 % (0-3) Basophils % (Manual) 0 % (0-2) 0 % (0-2) Band Neutrophils 0 % (0-8) 0 % (0-8) Platelet Estimate Decreased Decreased Platelet Morphology Normal Normal Hypochromasia 1+ Anisocytosis 1+ 1+ Sodium Level 142 MMOL/L (136-145) 135 MMOL/L (136-145) 136 MMOL/L (136-145) Potassium Level 3.1 MMOL/L (3.5-5.1) 3.8 MMOL/L (3.5-5.1) 4.5 MMOL/L (3.5-5.1) Chloride Level 106 MMOL/L (98-107) 101 MMOL/L (98-107) 103 MMOL/L (98-107) Carbon Dioxide Level 28 MMOL/L (21-32) 23 MMOL/L (21-32) 28 MMOL/L (21-32) Anion Gap 8 mmol/L (5-15) 11 mmol/L (5-15) 5 mmol/L (5-15) Blood Urea Nitrogen 27 mg/dL (7-18) 21 mg/dL (7-18) 12 mg/dL (7-18) Creatinine 1.1 MG/DL (0.55-1.30) 0.9 MG/DL (0.55-1.30) 0.9 MG/DL (0.55-1.30) Estimat Glomerular Filtration Rate > 60 mL/min (>60) > 60 mL/min (>60) > 60 mL/min (>60) Glucose Level 166 MG/DL (74-106) 141 MG/DL (74-106) 132 MG/DL (74-106) Calcium Level 10.9 MG/DL (8.5-10.1) 9.7 MG/DL (8.5-10.1) 8.7 MG/DL (8.5-10.1) Phosphorus Level 3.1 MG/DL (2.5-4.9) 1.5 MG/DL (2.5-4.9) 2.6 MG/DL (2.5-4.9) Magnesium Level 1.7 MG/DL (1.8-2.4) 2.0 MG/DL (1.8-2.4) 1.8 MG/DL (1.8-2.4) Total Bilirubin 0.6 MG/DL (0.2-1.0) 0.5 MG/DL (0.2-1.0) 0.7 MG/DL (0.2-1.0) Aspartate Amino Transf (AST/SGOT) 35 U/L (15-37) 41 U/L (15-37) 37 U/L (15-37) Alanine Aminotransferase (ALT/SGPT) 26 U/L (12-78) 33 U/L (12-78) 24 U/L (12-78) Alkaline Phosphatase 137 U/L (46-116) 145 U/L (46-116) 132 U/L (46-116) C-Reactive Protein, Quantitative 10.8 mg/dL (0.00-0.90) 11.3 mg/dL (0.00-0.90) 22.4 mg/dL (0.00-0.90) Pro-B-Type Natriuretic Peptide 839 pg/mL (0-125) 659 pg/mL (0-125) 885 pg/mL (0-125) Total Protein 5.6 G/DL (6.4-8.2) 5.1 G/DL (6.4-8.2) 5.1 G/DL (6.4-8.2) Albumin 2.1 G/DL (3.4-5.0) 1.7 G/DL (3.4-5.0) 1.7 G/DL (3.4-5.0) Globulin 3.5 g/dL 3.4 g/dL 3.4 g/dL Albumin/Globulin Ratio 0.6 (1.0-2.7) 0.5 (1.0-2.7) 0.5 (1.0-2.7) Valproic Acid (Depakene) Level < 3 MCG/ML (50-100) Vancomycin Level Trough 9.8 ug/mL (5.0-12.0) Uric Acid 5.4 MG/DL (2.6-7.2) Ionized Calcium (Measured) 1.15 mmol/L (1.10-1.35) Height (Feet): 5 Height (Inches): 3.00 Weight (Pounds): 206 Objective Physical Exam: Vitals: reviewed General: NAD HEENT: nc, at Neck: supple Chest: clear breath sounds bilaterally Cardiovascular: RRR, no s3, s4 Abdomen: soft, nontender, nd Extremities: no cce, normal range of motion Neuro: confused Prosper Spaulding MD Sep 20, 2019 08:12
[2019-09-20] MEDS: levETIRAcetam 500mg/NS100ml 100 ML IVPB SCH ×2 (09:09→20:25)
[2019-09-20] MEDS: Ascorbic Acid 500mg tab ORAL SCH (09:09)
[2019-09-20] MEDS: Pantoprazole Inj IVP SCH ×2 (09:09→20:25)
--- NOTE | 2019-09-20 09:49 | Nephrology Progress Note ---
Assessment/Plan Problem List: (1) Hypercalcemia Assessment: resolving (2) Bladder mass (3) LAVONNE (acute kidney injury) (4) Encephalopathy Assessment: metabolic Assessment 1. Hypercalcemia. 2. Renal insufficiency 3. Bladder carcinoma. 4. Right hydronephrosis. 5. Altered mental status. 6. Had IVC filter Plan has NGT- DC IV DC mind altering meds Meds to IV as possible has NGT add coreg one dose Solumedrol 09/15 Aredia- up to total 90mg 09/15 Calcitonin Nasal Monitor renal parameters and Ca Kidney MITCH uro eval Subjective ROS Limited/Unobtainable: No Constitutional: Reports: other - more responsive Objective Objective Last 24 Hour Vital Signs Date Time Temp Pulse Resp B/P (MAP) Pulse Ox O2 Delivery O2 Flow Rate FiO2 09/20/19 08:00 100.0 105 24 123/84 (97) 98 09/20/19 05:58 101 118/83 09/20/19 04:46 101 09/20/19 04:00 Nasal Cannula 2.0 09/20/19 04:00 97.3 104 20 118/83 (95) 99 09/20/19 00:00 99.0 108 20 107/82 (90) 99 09/20/19 00:00 Nasal Cannula 2.0 09/20/19 00:00 80 100/61 09/19/19 23:36 107 09/19/19 20:00 Nasal Cannula 2.0 09/19/19 19:59 97.0 109 20 122/73 (89) 100 09/19/19 19:57 108 09/19/19 17:27 108 124/81 09/19/19 16:00 Nasal Cannula 2.0 09/19/19 16:00 110 09/19/19 15:30 97.5 108 20 124/81 97 Nasal Cannula 3 09/19/19 15:20 110 19 119/83 96 Nasal Cannula 3 09/19/19 15:10 112 16 121/81 98 Nasal Cannula 3 09/19/19 15:00 113 18 120/79 95 Nasal Cannula 3 09/19/19 14:50 107 20 125/82 96 Nasal Cannula 3 09/19/19 14:46 111 17 97 09/19/19 14:45 98.6 111 17 118/74 97 Nasal Cannula 3 09/19/19 12:33 112 136/101 09/19/19 12:00 104 09/19/19 12:00 Nasal Cannula 2.0 09/19/19 12:00 99.9 112 20 136/101 (113) 100 Intake and Output 09/19/19 09/20/19 19:00 07:00 Intake Total 515 ml 1133.75 ml Output Total 700 ml 950 ml Balance -185 ml 183.75 ml Intake Free Water 20 ml IV Total 475 ml 973.75 ml Tube Feeding 20 ml 160 ml Output Urine Total 150 ml Drainage Total 700 ml 800 ml # Voids 1 Laboratory Tests 09/19/19 16:00: Vancomycin Level Trough 9.8 09/20/19 05:27: White Blood Count 25.4*H, Red Blood Count 3.08L, Hemoglobin 9.1L, Hematocrit 27.7L, Mean Corpuscular Volume 90, Mean Corpuscular Hemoglobin 29.6, Mean Corpuscular Hemoglobin Concent 32.9, Red Cell Distribution Width 17.7H, Platelet Count 41L, Mean Platelet Volume 7.9, Neutrophils (%) (Auto) , Lymphocytes (%) (Auto) , Monocytes (%) (Auto) , Eosinophils (%) (Auto) , Basophils (%) (Auto) , Neutrophils % (Manual) [Pending], Lymphocytes % (Manual) [Pending], Platelet Estimate [Pending], Platelet Morphology [Pending], Sodium Level 136, Potassium Level 4.5, Chloride Level 103, Carbon Dioxide Level 28, Anion Gap 5, Blood Urea Nitrogen 12, Creatinine 0.9, Estimat Glomerular Filtration Rate > 60, Glucose Level 132H, Uric Acid 5.4, Calcium Level 8.7, Ionized Calcium (Measured) 1.15, Phosphorus Level 2.6, Magnesium Level 1.8, Total Bilirubin 0.7, Aspartate Amino Transf (AST/SGOT) 37, Alanine Aminotransferase (ALT/SGPT) 24, Alkaline Phosphatase 132H, C-Reactive Protein, Quantitative 22.4H, Pro-B-Type Natriuretic Peptide 885H, Total Protein 5.1L, Albumin 1.7L, Globulin 3.4, Albumin/Globulin Ratio 0.5L Height (Feet): 5 Height (Inches): 3.00 Weight (Pounds): 206 General Appearance: no apparent distress Cardiovascular: tachycardia Respiratory/Chest: decreased breath sounds Abdomen: distended Fouladian,Bright MD Sep 20, 2019 09:49
[2019-09-20] MEDS: Brimonidine 0.2% Opth Sol BOTH EYES SCH ×2 (09:59→17:17)
--- NOTE | 2019-09-20 10:21 | Diagnostic Imaging Report ---
EXAM: XR Chest, 1 View CLINICAL HISTORY: INFECT TECHNIQUE: Frontal view of the chest. COMPARISON: Chest radiograph on 09/16/2019 FINDINGS: Hardware: None. Lungs/pleura: Persistent consolidation in the left upper lobe. Increased retrocardiac consolidation. Small left pleural effusion. Heart/mediastinum: Surgical clips along the medial left upper mediastinum. Mild enlargement of the cardiac silhouette. Soft tissues: Unremarkable. Bones: No acute fracture. Upper abdomen: Normal. IMPRESSION: Persistent consolidation in the left upper lobe. Increased retrocardiac consolidation. Small left pleural effusion.
--- NOTE | 2019-09-20 11:33 | Pulmonology Progress Note ---
Assessment/Plan Assessment/Plan IMPRESSION: 1. Hypercalcemia. 2. Renal insufficiency, mild. 3. Bladder carcinoma. 4. Right hydronephrosis. 5. Altered mental status. 6. DVT; s/p IVC filter DISCUSSION: status post R nephrostomy replacement S/p pamidronate S/p PEG today discussed with nephrology and GI Hospice eval noted discussed with hospice nurse. Family in agreement with hospice DC to SNF with hospice Antelmo Ko M.D. Subjective Interval Events: PEG placed; none new; calcium now normal Constitutional: Reports: no symptoms HEENT: Repors: no symptoms Respiratory: Reports: no symptoms Cardiovascular: Reports: no symptoms Allergies: Coded Allergies: ASPIRIN (Unverified Allergy, Unknown, 10/31/14) IBUPROFEN (Unverified Allergy, Unknown, 04/10/14) Objective Last 24 Hour Vital Signs Date Time Temp Pulse Resp B/P (MAP) Pulse Ox O2 Delivery O2 Flow Rate FiO2 09/20/19 10:04 105 123/84 09/20/19 08:00 Nasal Cannula 2.0 09/20/19 08:00 105 09/20/19 08:00 100.0 105 24 123/84 (97) 98 09/20/19 05:58 101 118/83 09/20/19 04:46 101 09/20/19 04:00 Nasal Cannula 2.0 09/20/19 04:00 97.3 104 20 118/83 (95) 99 09/20/19 00:00 99.0 108 20 107/82 (90) 99 09/20/19 00:00 Nasal Cannula 2.0 09/20/19 00:00 80 100/61 09/19/19 23:36 107 09/19/19 20:00 Nasal Cannula 2.0 09/19/19 19:59 97.0 109 20 122/73 (89) 100 09/19/19 19:57 108 09/19/19 17:27 108 124/81 09/19/19 16:00 Nasal Cannula 2.0 09/19/19 16:00 110 09/19/19 15:30 97.5 108 20 124/81 97 Nasal Cannula 3 09/19/19 15:20 110 19 119/83 96 Nasal Cannula 3 09/19/19 15:10 112 16 121/81 98 Nasal Cannula 3 09/19/19 15:00 113 18 120/79 95 Nasal Cannula 3 09/19/19 14:50 107 20 125/82 96 Nasal Cannula 3 09/19/19 14:46 111 17 97 09/19/19 14:45 98.6 111 17 118/74 97 Nasal Cannula 3 09/19/19 12:33 112 136/101 09/19/19 12:00 104 09/19/19 12:00 Nasal Cannula 2.0 09/19/19 12:00 99.9 112 20 136/101 (113) 100 Intake and Output 09/19/19 09/20/19 19:00 07:00 Intake Total 515 ml 1133.75 ml Output Total 700 ml 950 ml Balance -185 ml 183.75 ml Intake Free Water 20 ml IV Total 475 ml 973.75 ml Tube Feeding 20 ml 160 ml Output Urine Total 150 ml Drainage Total 700 ml 800 ml # Voids 1 General Appearance: no acute distress HEENT: normocephalic Respiratory/Chest: chest wall non-tender, lungs clear Cardiovascular: normal peripheral pulses Abdomen: normal bowel sounds Laboratory Tests 09/19/19 16:00: Vancomycin Level Trough 9.8 09/20/19 05:27: White Blood Count 25.4*H, Red Blood Count 3.08L, Hemoglobin 9.1L, Hematocrit 27.7L, Mean Corpuscular Volume 90, Mean Corpuscular Hemoglobin 29.6, Mean Corpuscular Hemoglobin Concent 32.9, Red Cell Distribution Width 17.7H, Platelet Count 41L, Mean Platelet Volume 7.9, Neutrophils (%) (Auto) , Lymphocytes (%) (Auto) , Monocytes (%) (Auto) , Eosinophils (%) (Auto) , Basophils (%) (Auto) , Differential Total Cells Counted 100, Neutrophils % ( Manual) 95H, Lymphocytes % (Manual) 3L, Monocytes % (Manual) 2, Eosinophils % ( Manual) 0, Basophils % (Manual) 0, Band Neutrophils 0, Platelet Estimate DecreasedL, Platelet Morphology Normal, Hypochromasia 2+, Anisocytosis 1+, Sodium Level 136, Potassium Level 4.5, Chloride Level 103, Carbon Dioxide Level 28, Anion Gap 5, Blood Urea Nitrogen 12, Creatinine 0.9, Estimat Glomerular Filtration Rate > 60, Glucose Level 132H, Uric Acid 5.4, Calcium Level 8.7, Ionized Calcium (Measured) 1.15, Phosphorus Level 2.6, Magnesium Level 1.8, Total Bilirubin 0.7, Aspartate Amino Transf (AST/SGOT) 37, Alanine Aminotransferase (ALT/SGPT) 24, Alkaline Phosphatase 132H, C-Reactive Protein, Quantitative 22.4H, Pro-B-Type Natriuretic Peptide 885H, Total Protein 5.1L, Albumin 1.7L, Globulin 3.4, Albumin/Globulin Ratio 0.5L Current Medications Medications (Trade) Dose Ordered Sig/Anrdea Route PRN Reason Start Time Stop Time Status Last Admin Dose Admin Acetaminophen/ Codeine Phosphate (Tylenol #3) 1 tab Q6H PRN ORAL Mild Pain (Pain Scale 1-3) 09/13/19 12:00 09/20/19 11:59 Ascorbic Acid (Vitamin C) 250 mg DAILY ORAL 09/18/19 09:00 10/18/19 08:59 09/20/19 09:09 Brimonidine Tartrate (Alphagan) 1 drop BID BOTH EYES 09/13/19 18:00 10/13/19 17:59 09/20/19 09:59 Calcitonin Mead (Miacalcin) 1 sprays Q24H NASAL 09/13/19 18:00 10/13/19 17:59 09/19/19 17:31 Carvedilol (Coreg) 3.125 mg EVERY 12 HOURS NG 09/20/19 10:00 10/20/19 09:59 09/20/19 10:04 Chlorhexidine Gluconate (Gina-Hex 2%) 1 applic DAILY@1999 TOPIC 09/14/19 20:00 10/14/19 19:59 09/19/19 20:19 Dextrose (Dextrose 50%) 25 ml Q30M PRN IV Hypoglycemia 09/13/19 11:30 10/13/19 11:29 Dextrose (Dextrose 50%) 50 ml Q30M PRN IV Hypoglycemia 09/13/19 11:30 10/13/19 11:29 Diltiazem HCl (Cardizem) 30 mg EVERY 8 HOURS NG 09/20/19 14:00 10/17/19 13:59 Gabapentin (Neurontin) 100 mg THREE TIMES A DAY ORAL 09/13/19 13:00 10/13/19 12:59 09/20/19 09:09 Hydralazine HCl (Apresoline) 10 mg Q4H PRN IV bp over 165 syst 09/17/19 12:15 10/17/19 12:14 Hydromorphone HCl (Dilaudid) 0.5 mg Q4H PRN IVP pain 4-10 09/16/19 10:45 09/23/19 10:44 09/16/19 11:19 Insulin Aspart (NovoLOG) BEFORE MEALS AND HS SUBQ 09/13/19 11:30 10/13/19 11:29 09/18/19 17:42 Latanoprost (Xalatan) 1 drop BEDTIME BOTH EYES 09/13/19 21:00 10/13/19 20:59 09/19/19 20:21 Levetiracetam 100 ml @ 440.098 mls/hr Q12HR IVPB 09/16/19 21:00 10/16/19 20:59 09/20/19 09:09 Levothyroxine Sodium (Synthroid) 50 mcg DAILY@0630 ORAL 09/14/19 06:30 10/14/19 06:29 09/20/19 05:58 Meropenem 1 gm/ Sodium Chloride 100 ml @ 200 mls/hr Q12H IVPB 09/20/19 04:00 09/27/19 03:59 09/20/19 04:22 Pantoprazole (Protonix) 40 mg EVERY 12 HOURS IVP 09/16/19 21:00 10/16/19 20:59 09/20/19 09:09 Vancomycin HCl (Vanco rx to dose) 1 ea DAILY PRN MISC Per rx protocol 09/19/19 17:00 10/19/19 16:59 Vancomycin HCl 1 gm/Sodium Chloride 275 ml @ 183.708 mls/hr Q24H IVPB 09/19/19 17:00 09/24/19 16:59 09/19/19 17:30 Antelmo Ko MD Sep 20, 2019 11:33
[2019-09-20 12:00] VITALS: BP 123/75
[2019-09-20] MEDS ORDERED: NS 275ml ONE ×2 (12:24→12:26)
[2019-09-20] MEDS ORDERED: Tubing IV Secondary IV ONE (12:26)
--- NOTE | 2019-09-20 14:09 | Surgery Progress Note ---
Surgery Progress Note Subjective Symptoms: improved, passing flatus Objective Last 24 Hour Vital Signs Date Time Temp Pulse Resp B/P (MAP) Pulse Ox O2 Delivery O2 Flow Rate FiO2 09/20/19 13:19 98 123/75 09/20/19 12:00 Nasal Cannula 2.0 09/20/19 12:00 99.5 98 20 123/75 (91) 99 09/20/19 10:04 105 123/84 09/20/19 08:00 Nasal Cannula 2.0 09/20/19 08:00 105 09/20/19 08:00 100.0 105 24 123/84 (97) 98 09/20/19 05:58 101 118/83 09/20/19 04:46 101 09/20/19 04:00 Nasal Cannula 2.0 09/20/19 04:00 97.3 104 20 118/83 (95) 99 09/20/19 00:00 99.0 108 20 107/82 (90) 99 09/20/19 00:00 Nasal Cannula 2.0 09/20/19 00:00 80 100/61 09/19/19 23:36 107 09/19/19 20:00 Nasal Cannula 2.0 09/19/19 19:59 97.0 109 20 122/73 (89) 100 09/19/19 19:57 108 09/19/19 17:27 108 124/81 09/19/19 16:00 Nasal Cannula 2.0 09/19/19 16:00 110 09/19/19 15:30 97.5 108 20 124/81 97 Nasal Cannula 3 09/19/19 15:20 110 19 119/83 96 Nasal Cannula 3 09/19/19 15:10 112 16 121/81 98 Nasal Cannula 3 09/19/19 15:00 113 18 120/79 95 Nasal Cannula 3 09/19/19 14:50 107 20 125/82 96 Nasal Cannula 3 09/19/19 14:46 111 17 97 09/19/19 14:45 98.6 111 17 118/74 97 Nasal Cannula 3 I&O Intake and Output 09/19/19 09/20/19 19:00 07:00 Intake Total 515 ml 1133.75 ml Output Total 700 ml 950 ml Balance -185 ml 183.75 ml Intake Free Water 20 ml IV Total 475 ml 973.75 ml Tube Feeding 20 ml 160 ml Output Urine Total 150 ml Drainage Total 700 ml 800 ml # Voids 1 Dressing: dry Wound: clean Cardiovascular: RSR Respiratory: clear, decreased breath sounds Abdomen: soft, non-tender, present bowel sounds Extremities: no edema Laboratory Tests Test 09/19/19 16:00 09/20/19 05:27 Vancomycin Level Trough 9.8 ug/mL (5.0-12.0) White Blood Count 25.4 K/UL (4.8-10.8) *H Red Blood Count 3.08 M/UL (4.70-6.10) L Hemoglobin 9.1 G/DL (14.2-18.0) L Hematocrit 27.7 % (42.0-52.0) L Mean Corpuscular Volume 90 FL (80-99) Mean Corpuscular Hemoglobin 29.6 PG (27.0-31.0) Mean Corpuscular Hemoglobin Concent 32.9 G/DL (32.0-36.0) Red Cell Distribution Width 17.7 % (11.6-14.8) H Platelet Count 41 K/UL (150-450) L Mean Platelet Volume 7.9 FL (6.5-10.1) Neutrophils (%) (Auto) % (45.0-75.0) Lymphocytes (%) (Auto) % (20.0-45.0) Monocytes (%) (Auto) % (1.0-10.0) Eosinophils (%) (Auto) % (0.0-3.0) Basophils (%) (Auto) % (0.0-2.0) Differential Total Cells Counted 100 Neutrophils % (Manual) 95 % (45-75) H Lymphocytes % (Manual) 3 % (20-45) L Monocytes % (Manual) 2 % (1-10) Eosinophils % (Manual) 0 % (0-3) Basophils % (Manual) 0 % (0-2) Band Neutrophils 0 % (0-8) Platelet Estimate Decreased L Platelet Morphology Normal Hypochromasia 2+ Anisocytosis 1+ Sodium Level 136 MMOL/L (136-145) Potassium Level 4.5 MMOL/L (3.5-5.1) Chloride Level 103 MMOL/L (98-107) Carbon Dioxide Level 28 MMOL/L (21-32) Anion Gap 5 mmol/L (5-15) Blood Urea Nitrogen 12 mg/dL (7-18) Creatinine 0.9 MG/DL (0.55-1.30) Estimat Glomerular Filtration Rate > 60 mL/min (>60) Glucose Level 132 MG/DL (74-106) H Uric Acid 5.4 MG/DL (2.6-7.2) Calcium Level 8.7 MG/DL (8.5-10.1) Ionized Calcium (Measured) 1.15 mmol/L (1.10-1.35) Phosphorus Level 2.6 MG/DL (2.5-4.9) Magnesium Level 1.8 MG/DL (1.8-2.4) Total Bilirubin 0.7 MG/DL (0.2-1.0) Aspartate Amino Transf (AST/SGOT) 37 U/L (15-37) Alanine Aminotransferase (ALT/SGPT) 24 U/L (12-78) Alkaline Phosphatase 132 U/L (46-116) H C-Reactive Protein, Quantitative 22.4 mg/dL (0.00-0.90) H Pro-B-Type Natriuretic Peptide 885 pg/mL (0-125) H Total Protein 5.1 G/DL (6.4-8.2) L Albumin 1.7 G/DL (3.4-5.0) L Globulin 3.4 g/dL Albumin/Globulin Ratio 0.5 (1.0-2.7) L Plan Problems: (1) Elevated WBC count Assessment & Plan: Patient was significant leukocytosis poss related infectious process versus cancer. Hematology input appreciated. Antibiotics per infectious disease. No acute surgical intervention indicated recommended. Follow the recommendations (2) Bladder mass (3) GI (gastrointestinal bleed) Assessment & Plan: Findings: Interim placement of a nasogastric tube, tip of which projects at the level gastric fundus, proximal sidehole at or just beyond the gastroesophageal junction. Interim placement of an inferior vena cava filter. Bowel gas pattern is unremarkable. There is a drainage catheter in the right upper quadrant again demonstrated Impression: Borderline position of nasogastric tube, proximal sidehole at or just beyond the expected level gastric esophageal junction. Slight advancement may be prudent. This was discussed by phone with patient's nurse Daria at the time of interpretation Interim inferior vena cava filter placement cont with tube feeds will need PEG discussed with family (4) Hypercalcemia (5) Encephalopathy (6) LAVONNE (acute kidney injury) (7) Multiple lesions of metastatic malignancy Assessment & Plan: 1. Extensive left leg deep venous thrombosis involving the common femoral vein. 2. History of GI bleeding, metastatic tumor, bladder cancer, nephrostomy tube, encephalopathy, and renal insufficiency. PLAN AND RECOMMENDATION: The patient will benefit from inferior vena caval filter. Leg elevation. Decubitus precautions. Medical, Infectious Disease, and Oncology optimization in progress. Intraoperative images demonstrate inferior venacavogram and placement of an inferior vena cava filter (8) Bladder pain (9) Sinusitis (10) Tobacco abuse (11) Chest pain (12) Chest pain (13) High calcium levels (14) Cervical radiculopathy (15) Glaucoma (increased eye pressure) (16) Abdominal infection (17) Tobacco abuse counseling (18) Deep tissue injury Assessment & Plan: Patient presented with open deep tissue injury on sacral region. states that she identified it at home but was unsure that it was open. It was noted to be open during hospitalization total area of deep tissue injury approximately 9 cm x 6 mm with an open area in the midportion. Will need to continue with aggressive local treatment wound care and decubitus precautions as patient is high risk for declining condition. Patient is currently bedbound and unable to move on his own and participate in examination and turning. Thera honey placed followed by foam dressing. Turn patient every 2 hours. Nutritional optimization. Air mattress ordered. Discussed care plan with in detail at the bedside. We will continue to follow with recommendations. Pt presented on admission with open DTPI R buttocks. Base of wound maroon and fluctuant (L)11cm x (W)9.5cm. Within base of injury is an open wound which has 75% slough. NO odor noted. Small amt serous exudate noted. No evidence of skin breakdown to Sacrum. Both heels are firm and blanchable. Tx.Plan: Cleanse R buttocks wound with Saline. Apply Therahoney. Apply Moisture Barrier Paste to surrounding indurated areas. Cover with Optifoam drsg Daily and prn. Apply Moisture Barrier Paste to Sacrum. Cover with Optifoam drsg. Change every 3 days and prn. Apply Cavilon Skin Barrier to both heels. Cover each heel with Optifoam drsg. Change every 7 days and prn. Reposition at least every 2hours or as tolerated. Off-load heels with Pillow. APM/LORNE Mattress overlay. Urbano Harrell Sep 20, 2019 14:09
[2019-09-20 16:00] VITALS: BP 124/81
[2019-09-20] MEDS: Vancomycin 1 GM in NS 275 ML IVPB SCH (17:10)
--- NOTE | 2019-09-20 19:30 | NUR ---
HAND-OFF: Report given to ARIANE Ames. Patient in stable condition.
[2019-09-20 20:00] VITALS: BP 117/75
[2019-09-20] MEDS: Dyna-Hex 2% Top Sol 2oz TOPIC SCH (20:24)
[2019-09-20] MEDS: Latanoprost 0.005% Opth 2.5ml Soln BOTH EYES SCH (21:17)
[2019-09-21] VITALS: BP 104/76
--- NOTE | 2019-09-21 | NUR ---
NURSE NOTES: Patient c/o pain at his G-tube site. Pain meds. given.
[2019-09-21] MEDS: Hydromorphone 0.5mg/0.5ml inj IVP PRN (02:33)
[2019-09-21 04:00] VITALS: BP 126/80
--- NOTE | 2019-09-21 05:30 | NUR ---
NURSE NOTES: Wound care pictures loaded for date 09/21/2019 0524 belong to a different patient. Will upload correct pictures.
[2019-09-21] MEDS: NovoLOG Insulin Flexpen SUBQ SCH (06:24)
[2019-09-21] MEDS: dilTIAZem HCl 30mg tab NG SCH (06:36)
--- NOTE | 2019-09-21 07:30 | NUR ---
HAND-OFF: Report given to ARIANE Khan.
--- NOTE | 2019-09-21 07:30 | NUR ---
NURSE NOTES: Received report from Kwaku THAKKAR. Pt in bed awake and oriented x1 himself and forgetful. PICC site in right upper arm with 1 lumen able to flush line and bio patch saturating with blood and the dressing will be changed. On condom cath patent and intact and noted yellow colored urine in drainage bag. Noted right side back nephrostomy draining yellow colored urine and dressing intact and patent. Bed in lowest position and locked. Call light within easy reach. On O2 2LPM via v/c saturating with 95-96% in 2LPM. On G/T feeding with glucerna 1.2 running @50cc/hr and dressing patent and intact. Will continue to plan of care.
--- NOTE | 2019-09-21 07:53 | Pulmonology Progress Note ---
Assessment/Plan Assessment/Plan IMPRESSION: 1. Hypercalcemia. 2. Renal insufficiency, mild. 3. Bladder carcinoma. 4. Right hydronephrosis. 5. Altered mental status. 6. DVT; s/p IVC filter DISCUSSION: status post R nephrostomy replacement S/p pamidronate S/p PEG discussed with nephrology and GI Hospice eval noted discussed with hospice nurse. Family in agreement with hospice DC to SNF with hospice Antelmo Ko M.D. Subjective Interval Events: None new Constitutional: Reports: no symptoms HEENT: Repors: no symptoms Cardiovascular: Reports: no symptoms Gastrointestinal/Abdominal: Reports: no symptoms Allergies: Coded Allergies: ASPIRIN (Unverified Allergy, Unknown, 10/31/14) IBUPROFEN (Unverified Allergy, Unknown, 04/10/14) Objective Last 24 Hour Vital Signs Date Time Temp Pulse Resp B/P (MAP) Pulse Ox O2 Delivery O2 Flow Rate FiO2 09/21/19 06:36 100 126/80 09/21/19 04:00 Nasal Cannula 2.0 09/21/19 04:00 98.7 101 20 126/80 (95) 99 09/21/19 04:00 100 09/21/19 03:03 98.0 09/21/19 00:00 100 09/21/19 00:00 Nasal Cannula 2.0 09/21/19 00:00 98.0 100 20 104/76 (85) 99 09/20/19 21:17 102 117/75 09/20/19 20:25 102 117/75 09/20/19 20:00 99.8 102 22 117/75 (89) 99 09/20/19 20:00 Nasal Cannula 2.0 09/20/19 19:38 101 09/20/19 16:00 99.5 99 18 124/81 (95) 98 09/20/19 16:00 95 09/20/19 16:00 Nasal Cannula 2.0 09/20/19 13:19 98 123/75 09/20/19 12:00 Nasal Cannula 2.0 09/20/19 12:00 97 09/20/19 12:00 99.5 98 20 123/75 (91) 99 09/20/19 10:04 105 123/84 09/20/19 08:00 Nasal Cannula 2.0 09/20/19 08:00 105 09/20/19 08:00 100.0 105 24 123/84 (97) 98 Intake and Output 09/20/19 09/21/19 19:00 07:00 Intake Total 1177.43 ml 540 ml Output Total 500 ml 300 ml Balance 677.43 ml 240 ml IV Total 667.43 ml 200 ml Tube Feeding 410 ml 340 ml Other 100 ml Output Urine Total 200 ml 300 ml Other 300 ml # Voids 1 # Bowel Movements 1 General Appearance: no acute distress HEENT: normocephalic Respiratory/Chest: chest wall non-tender Cardiovascular: normal peripheral pulses Current Medications Medications (Trade) Dose Ordered Sig/Andrea Route PRN Reason Start Time Stop Time Status Last Admin Dose Admin Ascorbic Acid (Vitamin C) 250 mg DAILY ORAL 09/18/19 09:00 10/18/19 08:59 09/20/19 09:09 Brimonidine Tartrate (Alphagan) 1 drop BID BOTH EYES 09/13/19 18:00 10/13/19 17:59 09/20/19 17:17 Calcitonin Galliano (Miacalcin) 1 sprays Q24H NASAL 09/13/19 18:00 10/13/19 17:59 09/20/19 17:16 Carvedilol (Coreg) 3.125 mg EVERY 12 HOURS NG 09/20/19 10:00 10/20/19 09:59 09/20/19 20:25 Chlorhexidine Gluconate (Gina-Hex 2%) 1 applic DAILY@1999 TOPIC 09/14/19 20:00 10/14/19 19:59 09/20/19 20:24 Dextrose (Dextrose 50%) 25 ml Q30M PRN IV Hypoglycemia 09/13/19 11:30 10/13/19 11:29 Dextrose (Dextrose 50%) 50 ml Q30M PRN IV Hypoglycemia 09/13/19 11:30 10/13/19 11:29 Diltiazem HCl (Cardizem) 30 mg EVERY 8 HOURS NG 09/20/19 14:00 10/17/19 13:59 09/21/19 06:36 Gabapentin (Neurontin) 100 mg THREE TIMES A DAY ORAL 09/13/19 13:00 10/13/19 12:59 09/20/19 17:17 Hydralazine HCl (Apresoline) 10 mg Q4H PRN IV bp over 165 syst 09/17/19 12:15 10/17/19 12:14 Hydromorphone HCl (Dilaudid) 0.5 mg Q4H PRN IVP pain 4-10 09/16/19 10:45 09/23/19 10:44 09/21/19 02:33 Insulin Aspart (NovoLOG) BEFORE MEALS AND HS SUBQ 09/13/19 11:30 10/13/19 11:29 09/18/19 17:42 Latanoprost (Xalatan) 1 drop BEDTIME BOTH EYES 09/13/19 21:00 10/13/19 20:59 09/20/19 21:17 Levetiracetam 100 ml @ 440.098 mls/hr Q12HR IVPB 09/16/19 21:00 10/16/19 20:59 09/20/19 20:25 Levothyroxine Sodium (Synthroid) 50 mcg DAILY@0630 ORAL 09/14/19 06:30 10/14/19 06:29 09/21/19 06:36 Meropenem 1 gm/ Sodium Chloride 100 ml @ 200 mls/hr Q12H IVPB 09/20/19 04:00 09/27/19 03:59 09/21/19 04:03 Pantoprazole (Protonix) 40 mg EVERY 12 HOURS IVP 09/16/19 21:00 10/16/19 20:59 09/20/19 20:25 Vancomycin HCl (Vanco rx to dose) 1 ea DAILY PRN MISC Per rx protocol 09/19/19 17:00 10/19/19 16:59 Vancomycin HCl 1 gm/Sodium Chloride 275 ml @ 183.708 mls/hr Q24H IVPB 09/19/19 17:00 09/24/19 16:59 09/20/19 17:10 Antelmo Ko MD Sep 21, 2019 07:53
[2019-09-21 08:00] VITALS: BP 117/68
--- NOTE | 2019-09-21 09:00 | NUR ---
NURSE NOTES: Pt tolerated well with tube feeding with rate of 50ml/hr. 10cc of residual noted. G-tube feeding increased to 60ml/hr
[2019-09-21] MEDS ORDERED: NS 275ml ONE (09:19)
[2019-09-21] MEDS ORDERED: NS 500ML ONE (09:19)
[2019-09-21] MEDS: levETIRAcetam 500mg/NS100ml 100 ML IVPB SCH (09:33)
[2019-09-21] MEDS: Brimonidine 0.2% Opth Sol BOTH EYES SCH (09:34)
[2019-09-21] MEDS: Pantoprazole Inj IVP SCH (09:34)
[2019-09-21] MEDS: Ascorbic Acid 500mg tab ORAL SCH (09:35)
--- NOTE | 2019-09-21 11:23 | NUR ---
NURSE NOTES: Report given to Georgiana [email or web address] via phone call.
--- NOTE | 2019-09-21 11:40 | Nephrology Progress Note ---
Assessment/Plan Problem List: (1) Hypercalcemia Assessment: resolving (2) Bladder mass (3) LAVONNE (acute kidney injury) (4) Encephalopathy Assessment: metabolic Assessment 1. Hypercalcemia. 2. Renal insufficiency 3. Bladder carcinoma. 4. Right hydronephrosis. 5. Altered mental status. 6. Had IVC filter Plan DC IV DC mind altering meds Meds to IV as possible has NGT add coreg one dose Solumedrol 09/15 Aredia- up to total 90mg 09/15 Calcitonin Nasal Monitor renal parameters and Ca Kidney MITCH uro eval Subjective ROS Limited/Unobtainable: No Constitutional: Reports: malaise Objective Objective Last 24 Hour Vital Signs Date Time Temp Pulse Resp B/P (MAP) Pulse Ox O2 Delivery O2 Flow Rate FiO2 09/21/19 09:34 105 117/68 09/21/19 08:00 Nasal Cannula 2.0 09/21/19 08:00 97.4 105 22 117/68 (84) 98 09/21/19 07:58 125 09/21/19 07:40 101 09/21/19 06:36 100 126/80 09/21/19 04:00 Nasal Cannula 2.0 09/21/19 04:00 98.7 101 20 126/80 (95) 99 09/21/19 04:00 100 09/21/19 03:03 98.0 09/21/19 00:00 100 09/21/19 00:00 Nasal Cannula 2.0 09/21/19 00:00 98.0 100 20 104/76 (85) 99 09/20/19 21:17 102 117/75 09/20/19 20:25 102 117/75 09/20/19 20:00 99.8 102 22 117/75 (89) 99 09/20/19 20:00 Nasal Cannula 2.0 09/20/19 19:38 101 09/20/19 16:00 99.5 99 18 124/81 (95) 98 09/20/19 16:00 95 09/20/19 16:00 Nasal Cannula 2.0 09/20/19 13:19 98 123/75 09/20/19 12:00 Nasal Cannula 2.0 09/20/19 12:00 97 09/20/19 12:00 99.5 98 20 123/75 (91) 99 Intake and Output 09/20/19 09/21/19 19:00 07:00 Intake Total 1177.43 ml 540 ml Output Total 500 ml 300 ml Balance 677.43 ml 240 ml IV Total 667.43 ml 200 ml Tube Feeding 410 ml 340 ml Other 100 ml Output Urine Total 200 ml 300 ml Other 300 ml # Voids 1 # Bowel Movements 1 Current Medications Medications (Trade) Dose Ordered Sig/Andrea Route PRN Reason Start Time Stop Time Status Last Admin Dose Admin Ascorbic Acid (Vitamin C) 250 mg DAILY ORAL 09/18/19 09:00 10/18/19 08:59 09/21/19 09:35 Brimonidine Tartrate (Alphagan) 1 drop BID BOTH EYES 09/13/19 18:00 10/13/19 17:59 09/21/19 09:34 Calcitonin [place] (Miacalcin) 1 sprays Q24H NASAL 09/13/19 18:00 10/13/19 17:59 09/20/19 17:16 Carvedilol (Coreg) 3.125 mg EVERY 12 HOURS NG 09/20/19 10:00 10/20/19 09:59 09/21/19 09:34 Chlorhexidine Gluconate (Gina-Hex 2%) 1 applic DAILY@1999 TOPIC 09/14/19 20:00 10/14/19 19:59 09/20/19 20:24 Dextrose (Dextrose 50%) 25 ml Q30M PRN IV Hypoglycemia 09/13/19 11:30 10/13/19 11:29 Dextrose (Dextrose 50%) 50 ml Q30M PRN IV Hypoglycemia 09/13/19 11:30 10/13/19 11:29 Diltiazem HCl (Cardizem) 30 mg EVERY 8 HOURS NG 09/20/19 14:00 10/17/19 13:59 09/21/19 06:36 Gabapentin (Neurontin) 100 mg THREE TIMES A DAY ORAL 09/13/19 13:00 10/13/19 12:59 09/21/19 09:34 Hydralazine HCl (Apresoline) 10 mg Q4H PRN IV bp over 165 syst 09/17/19 12:15 10/17/19 12:14 Hydromorphone HCl (Dilaudid) 0.5 mg Q4H PRN IVP pain 4-10 09/16/19 10:45 09/23/19 10:44 09/21/19 02:33 Insulin Aspart (NovoLOG) EVERY 6 HOURS SUBQ 09/21/19 12:00 10/13/19 11:29 Latanoprost (Xalatan) 1 drop BEDTIME BOTH EYES 09/13/19 21:00 10/13/19 20:59 09/20/19 21:17 Levetiracetam 100 ml @ 440.098 mls/hr Q12HR IVPB 09/16/19 21:00 10/16/19 20:59 09/21/19 09:33 Levothyroxine Sodium (Synthroid) 50 mcg DAILY@0630 ORAL 09/14/19 06:30 10/14/19 06:29 09/21/19 06:36 Meropenem 1 gm/ Sodium Chloride 100 ml @ 200 mls/hr Q12H IVPB 09/20/19 04:00 09/27/19 03:59 09/21/19 04:03 Pantoprazole (Protonix) 40 mg EVERY 12 HOURS IVP 09/16/19 21:00 10/16/19 20:59 09/21/19 09:34 Vancomycin HCl (Vanco rx to dose) 1 ea DAILY PRN MISC Per rx protocol 09/19/19 17:00 10/19/19 16:59 Vancomycin HCl 1 gm/Sodium Chloride 275 ml @ 183.708 mls/hr Q24H IVPB 09/19/19 17:00 09/24/19 16:59 09/20/19 17:10 Height (Feet): 5 Height (Inches): 3.00 Weight (Pounds): 206 General Appearance: no apparent distress, lethargic EENT: other - NGT out Cardiovascular: tachycardia Respiratory/Chest: decreased breath sounds Abdomen: soft Bright Ibarra MD Sep 21, 2019 11:40
[2019-09-21 12:00] VITALS: BP 111/67
[2019-09-21] MEDS ORDERED: NovoLOG Insulin Flexpen SUBQ SCH (12:00)
[2019-09-21] MEDS ORDERED: Acetaminophen 650mg/20.3ml GT PRN (12:30)
[2019-09-21 14:00] VITALS: BP 108/71
--- NOTE | 2019-09-21 14:07 | NUR ---
Discharge: Patient is being discharged from medical care. Awake, alert and oriented x1. Discharge destination explained to at the bedside. After care instructions, including referral to community resources were given. The patient may discharge to [facility]. All reports given to the ambulance personnels. Pt picked up by ambulance personnels via gurney. Patient's verbalized understanding of After care instructions; at this time patient does not request medications, equipment. Patient's signed patient consent in the medical record for patient destination upon discharge. All medical devices such as security monitor and ID band were removed and G-tube and PICC with 1 lumen on right upper arm remained. PICC dressing changed before discharge and no s/s of bleeding or infiltration noted.
[2019-09-21] MEDS ORDERED: Carvedilol 6.25mg Tab NG SCH (21:00)
--- NOTE | 2019-09-23 15:49 | Discharge Summary ---
Discharge Summary Discharge Summary _ DATE OF ADMISSION: 09/13/2019 DATE OF DISCHARGE: 2019 DISCHARGED BY: Dr. Ko REASON FOR ADMISSION: 64 years old male with past medical history of bladder carcinoma, right hydronephrosis, status post nephrostomy tube, hypertension, diabetes mellitus, legally blind, chronic steroid use, recent chemotherapy, was brought by family due to altered mental status. Patient became much less responsive and was brought to the hospital for evaluation Patient was unable to provide any history. Patient was treated for E. coli UTI with ertapenem at home. Patient recently received chemotherapy for advanced bladder cancer. Laboratory work-up revealed significant leukocytosis WBC 30.4, stable hemoglobin , hematocrit ; platelet count 104. BUN 43, creatinine 1.4. Glucose 154. Lactic acid 2.8. Calcium 14.2. Troponin negative . Ammonia 19 . Albumin 2.5. Urinalysis revealed no pyuria , few bacteria, but many sediment and crystals. CT of the head revealed no acute brain hemorrhage. Increase attenuation to the right globe was concerning for vitreous hemorrhage. CT of the abdomen and pelvis revealed a lobular soft tissue nodular thickening of the posterior bladder , likely neoplastic. Multiply posterior urinary bladder calculi, new since the previous exam. Interval increase in the size of bilateral adrenal lesions, likely representing metastasis. Nonspecific 1.5 cm low-density lesion at the dome of liver , metastatic lesion was not excluded. Evidence of right-sided nephrostomy Patient subsequently admitted for hypercalcemia , right hydronephrosis, altered mental status ,mild renal insufficiency and bladder carcinoma. CONSULTANTS: ID specialist Dr. Vance GI specialist Dr. Beltran executive sous chef Dr. Ibarra surg physician asst/oncologist Dr. Spaulding surgery Dr. Harrell vascular surgeon Dr. Ramos urologist Dr. Bullard [facility] COURSE: Patient admitted to direct observational unit and started on aggressive hydration and empiric antibiotics. Blood culture revealed Staph coagulase negative. Repeated blood culture on was negative. Sputum culture was negative. Initial coagulase negative blood cultures were likely contaminant as per ID specialist. Patient was treated for hospital acquired pneumonia versus aspiration pneumonia with meropenem and vancomycin. Leukocytosis slightly trended down , still significant . At least partially probably reactive due to widespread malignancy. Venous duplex bilateral lower extremity revealed evidence of occlusive thrombus in the left common femoral vein, proximal left superficial femoral vein and distal left superficial femoral vein. Given drop in platelets , IVC filter placement was placed . Injection Molding Process Technician recommended start anticoagulation, if labs improved. Hypercalcemia was treated with Aredia and calcitonin. Patient was on IV hydration. Electrolytes corrected as needed , and nephrotoxic's were avoided . Hypercalcemia resolved and prior to discharge calcium 8.7. Prior to discharge creatinine 0.9 ,BUN 12. All electrolytes corrected. Counts were closely monitored. Prior to discharge platelet count 41, hemoglobin 9.1 , hematocrit 27.7. Hepatitis panel was negative. HIV test was nonreactive. Thrombocytopenia in this case was likely due to consumption from infection as per surg physician asst. Patient noted nonfunctional nephrostomy tube . Urologist consulted, and patient subsequently undergone successful exchange of a new right 8.5 Armenian percutaneous nephrostomy catheter by interventional radiology Patient was unable to participate in bedside swallow evaluation, being too lethargic. Patient subsequently undergone upper endoscopy with PEG placement 09/19. Aspiration and reflux precaution maintained. G-tube site care provided. Tube feeding with the formula and goal rate provided as per registered nurse cardiac recommendation. Patient had bladder cancer, likely obstructing the right ureter from draining. 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 Nephrostomy tube was not draining referral urologist recommended check exchange of nephrostomy tube by interventional radiology. Patient was a poor candidate for surgical intervention for bladder cancer and evidence of metastasis as per urology. Pain management was addressed as needed. Supportive care provided. Further goals of care and poor prognosis were discussed with the family, who agreed to agree to hospice services. Patient subsequently was discharged to residential facility with hospice services. FINAL DIAGNOSES: Sepsis Pneumonia Hypercalcemia due to malignancy Acute kidney injury Altered mental status Encephalopathy Acute DVT left lower extremity Status post IVC filter placement Bladder cancer with metastatic disease Thrombocytopenia Malfunctioning of the right-sided nephrostomy tube Status post right-sided nephrostomy tube exchange Hydroureteronephrosis Hypertension Anemia DISCHARGE MEDICATIONS: See Medication Reconciliation list. DISCHARGE INSTRUCTIONS: Patient was discharged to the residential facility with hospcie services Follow up with medical doctor at the facility. I have been assigned to dictate discharge summary for this account. I was not involved in the patient's management. Fani Allan NP Sep 23, 2019 15:49
== END 2019-09-21 14:07 | disposition hospice, inpatient (51) | DRG 853 ==
LOC: EDBD 03:01 → EMR 04:01 → EDBEDREQ 06:49 → EDBEDREQSVC 06:49 → EDBEDREQ 06:55 → 2W 07:00
PROC: 06H03DZ Insertion of Intraluminal Device into Inferior Vena Cava, Percutaneous Approach (ICD-10-PCS; principal; 2019-09-13 18:00)
PROC: 0T25X0Z Change Drainage Device in Kidney, External Approach (ICD-10-PCS; 2019-09-16)
PROC: 0DH63UZ Insertion of Feeding Device into Stomach, Percutaneous Approach (ICD-10-PCS; 2019-09-19)
DX: A41.9 Sepsis, unspecified organism (principal); J69.0 Pneumonitis due to inhalation of food and vomit; G92 Toxic encephalopathy; E43 Unspecified severe protein-calorie malnutrition; N17.9 Acute kidney failure, unspecified; N39.0 Urinary tract infection, site not specified; C79.70 Secondary malignant neoplasm of unspecified adrenal gland; C79.00 Secondary malignant neoplasm of unspecified kidney and renal pelvis; N13.30 Unspecified hydronephrosis; K92.0 Hematemesis; I82.412 Acute embolism and thrombosis of left femoral vein; B96.20 Unspecified Escherichia coli [E. coli] as the cause of diseases classified elsewhere; E83.52 Hypercalcemia; I12.9 Hypertensive chronic kidney disease with stage 1 through stage 4 chronic kidney disease, or unspecified chronic kidney disease; E11.22 Type 2 diabetes mellitus with diabetic chronic kidney disease; N18.9 Chronic kidney disease, unspecified; H54.8 Legal blindness, as defined in USA; R31.9 Hematuria, unspecified; C67.9 Malignant neoplasm of bladder, unspecified; E86.0 Dehydration; E03.9 Hypothyroidism, unspecified; N99.522 Malfunction of incontinent external stoma of urinary tract; D69.6 Thrombocytopenia, unspecified; Z72.0 Tobacco use; J32.9 Chronic sinusitis, unspecified; M54.12 Radiculopathy, cervical region; L89.156 Pressure-induced deep tissue damage of sacral region; L89.316 Pressure-induced deep tissue damage of right buttock; Z68.36 Body mass index [BMI] 36.0-36.9, adult; R13.10 Dysphagia, unspecified
CPT/HCPCS: 36415; 70450; 71045; 74018; 74176; 76937; 80053; 80164; 80202; 80299; 81003; 82140; 82330; 82378; 82607; 82728; 82746; 82962; 83036; 83540; 83550; 83605; 83690; 83735; 83880; 84100; 84153; 84439; 84443; 84481; 84484; 84550; 85007; 85025; 85610; 85730; 86140; 86300; 86703; 86705; 86709; 86803; 86850; 86900; 86901; 87040; 87070; 87181; 87205; 87340; 93005; 93970; 94003; 94150; 96361; 96365; 96375; 99291; J1815; J2405; J2430; J7030